=== PATIENT | male | born 1990 | race Caucasian/White ===

== ENCOUNTER → 2016-08-31 | Outpatient (CLI) | payer MEDICAID, OTHER | LOC: M OUTALCOH 08:20 | PROVIDERS: ATTEND Psychiatry & Neurology Psychiatry | DX: Z03.89 Encounter for observation for other suspected diseases and conditions ruled out (principal) ==

== ENCOUNTER 2018-09-17 08:45 | Outpatient (RCR) | payer OTHER | END 2018-10-06 | LOC: M OUTALCOH 08:45 | PROVIDERS: ATTEND Psychiatry & Neurology Psychiatry | DX: F11.20 Opioid dependence, uncomplicated (principal); F10.10 Alcohol abuse, uncomplicated; F12.20 Cannabis dependence, uncomplicated ==

== ENCOUNTER 2019-02-13 08:33 | Emergency (ER) | payer OTHER ==
[~2019-02-13] VITALS: Ht 170.2 cm; Wt 67.0 kg
[2019-02-13] MEDS ORDERED: NALOXONE INJ 2 MG/2 ML SYRINGE (J2310) IV STA (08:36)
[2019-02-13] MEDS ORDERED: ONDANSETRON 4MG/2ML VIAL (J2405) As Ordered ONE (09:05)
[2019-02-13 09:06] LABS: BASO % 0.5 % (0.0-1.0); EOS % 4.2 % (0.0-3.0); HEMATOCRIT 40.4 % (42.0-52.0); HEMOGLOBIN 13.7 g/dl (13.5-17.5); LYMPH % 23.2 % (24.0-44.0); MEAN CORPUSCULAR HEMOGLOBIN 29.6 pg (27.0-33.0); MEAN CORPUSCULAR HGB CONC 33.9 g/dl (32.0-36.5); MEAN CORPUSCULAR VOLUME 87.3 fl (80.0-96.0); MONO % 7.4 % (0.0-5.0); NEUTROPHILS # 3.8 10^3/uL (1.5-8.5); NEUTROPHILS % 64.5 % (36.0-66.0); PLATELET COUNT, AUTOMATED 238 10^3/uL (150-450); RED BLOOD COUNT 4.63 10^6/uL (4.30-6.10); WHITE BLOOD COUNT 5.9 10^3/uL (4.0-10.0)
[2019-02-13 09:07] LABS: EOS # 0.3 10^3/uL (0.0-0.5); LYMPH # 1.4 10^3/uL (1.5-5.0); MONO # 0.4 10^3/uL (0.0-0.8)
[2019-02-13] MEDS ORDERED: ONDANSETRON 4MG/2ML VIAL (J2405) IV ONE (09:15)
[2019-02-13] MEDS ORDERED: NS 1,000 ML IV ONE (09:15)
[2019-02-13 09:28] LABS: ACETAMINOPHEN LEVEL < 2.0 UG/ML (10.0-30.0); ALT/SGPT 16 U/L (12-78); BILIRUBIN,DIRECT 0.1 MG/DL (0.0-0.2); BILIRUBIN,TOTAL 0.5 MG/DL (0.2-1.0); BLOOD UREA NITROGEN 15 MG/DL (7-18); CALCIUM LEVEL 8.6 MG/DL (8.5-10.1); CARBON DIOXIDE LEVEL 28 MEQ/L (21-32); CHLORIDE LEVEL 106 MEQ/L (98-107); CPK CREATINE PHOSPHOKINASE 98 U/L (39-308); CREATININE FOR GFR 1.02 MG/DL (0.70-1.30); ETHYL ALCOHOL (ETHANOL) < 0.003 % (0.000-0.010); GLOMERULAR FILTRATION RATE > 60.0 (>60); GLUCOSE, FASTING 89 MG/DL (70-100); POTASSIUM SERUM 3.9 MEQ/L (3.5-5.1); SALICYLATE LEVEL < 1.7 MG/DL (5.0-30.0); SODIUM LEVEL 143 MEQ/L (136-145); TOTAL PROTEIN 6.6 GM/DL (6.4-8.2)
[2019-02-13] MEDS ORDERED: LIDOCAINE 2% 5ML JELLY UROJET TOP ONE (09:45)
[2019-02-13 10:28] LABS: AMPHETAMINES LEVEL URINE NEGATIVE (NEGATIVE); BARBITURATES URINE NEGATIVE (NEGATIVE); BENZODIAZEPINES URINE POSITIVE (NEGATIVE); CANNABINOIDS URINE POSITIVE (NEGATIVE); COCAINE METABOLITE URINE NEGATIVE (NEGATIVE); METHADONE URINE NEGATIVE (NEGATIVE); OPIATES URINE POSITIVE (NEGATIVE); PHENCYCLIDINE URINE NEGATIVE (NEGATIVE)
[2019-02-13 12:15] VITALS: BP 107/57
--- NOTE | 2019-02-13 18:13 | ECGEPIP ---
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
== END 2019-02-13 14:50 | disposition home or self-care (01) ==
LOC: M ED 08:33
DX: F11.10 Opioid abuse, uncomplicated (principal); F13.10 Sedative, hypnotic or anxiolytic abuse, uncomplicated; I45.19 Other right bundle-branch block; F17.210 Nicotine dependence, cigarettes, uncomplicated
CPT/HCPCS: 36415; 51701; 80048; 80076; 80307; 82550; 84443; 85025; 93005; 93041; 94760; 96361; 96374; 96375; 99291; G0480; J2310; J2405

== ENCOUNTER 2019-10-18 10:00 | Emergency (ER) | payer OTHER ==
[2019-10-18 11:03] LABS: HEMATOCRIT 44.4 % (42.0-52.0); HEMOGLOBIN 14.9 g/dl (13.5-17.5); MEAN CORPUSCULAR HEMOGLOBIN 28.9 pg (27.0-33.0); MEAN CORPUSCULAR HGB CONC 33.6 g/dl (32.0-36.5); PLATELET COUNT, AUTOMATED 266 10^3/uL (150-450); RED BLOOD COUNT 5.16 10^6/uL (4.30-6.10); WHITE BLOOD COUNT 4.6 10^3/uL (4.0-10.0)
[2019-10-18 11:29] LABS: AMPHETAMINES LEVEL URINE NEGATIVE (NEGATIVE); BARBITURATES URINE NEGATIVE (NEGATIVE); BENZODIAZEPINES URINE POSITIVE (NEGATIVE); CANNABINOIDS URINE POSITIVE (NEGATIVE); COCAINE METABOLITE URINE NEGATIVE (NEGATIVE); METHADONE URINE NEGATIVE (NEGATIVE); OPIATES URINE POSITIVE (NEGATIVE); PHENCYCLIDINE URINE NEGATIVE (NEGATIVE)
[2019-10-18 11:51] LABS: ACETAMINOPHEN LEVEL < 2.0 UG/ML (10.0-30.0); ALBUMIN 4.4 GM/DL (3.2-5.2); ALT/SGPT 19 U/L (12-78); BILIRUBIN,DIRECT 0.3 MG/DL (0.0-0.2); BILIRUBIN,TOTAL 0.8 MG/DL (0.2-1.0); BLOOD UREA NITROGEN 14 MG/DL (7-18); CALCIUM LEVEL 9.8 MG/DL (8.5-10.1); CARBON DIOXIDE LEVEL 30 MEQ/L (21-32); CHLORIDE LEVEL 105 MEQ/L (98-107); CREATININE FOR GFR 0.95 MG/DL (0.70-1.30); ETHYL ALCOHOL (ETHANOL) < 0.003 % (0.000-0.010); GLOMERULAR FILTRATION RATE > 60.0 (>60); GLUCOSE, FASTING 77 MG/DL (70-100); POTASSIUM SERUM 4.9 MEQ/L (3.5-5.1); SALICYLATE LEVEL < 1.7 MG/DL (5.0-30.0); SODIUM LEVEL 140 MEQ/L (136-145); TOTAL PROTEIN 7.6 GM/DL (6.4-8.2)
[2019-10-18 14:31] VITALS: BP 123/74
== END 2019-10-18 14:43 | disposition home or self-care (01) ==
LOC: M ED 10:00
DX: F43.0 Acute stress reaction (principal)
CPT/HCPCS: 36415; 80048; 80076; 80307; 84443; 85027; 99284; G0480

== ENCOUNTER 2020-02-06 09:12 | Emergency (ER) | payer OTHER ==
[2020-02-06 09:15] VITALS: BP 161/96
== END 2020-02-06 10:16 | disposition home or self-care (01) ==
LOC: M ED 09:12
DX: F15.10 Other stimulant abuse, uncomplicated (principal)
CPT/HCPCS: 99284; U0003

== ENCOUNTER 2020-02-07 08:20 | Emergency (ER) | payer OTHER ==
[~2020-02-07] VITALS: Ht 172.7 cm; Wt 68.1 kg
[2020-02-07] MEDS ORDERED: hydrOXYzine 50 MG TAB PO STA (14:49)
[2020-02-07 15:02] VITALS: BP 121/69
== END 2020-02-07 15:18 | disposition home or self-care (01) ==
LOC: M ED 08:20
DX: F15.10 Other stimulant abuse, uncomplicated (principal)

== ENCOUNTER 2020-12-30 15:44 | Inpatient (IN) | payer OTHER ==
[~2020-12-30] VITALS: Ht 170.2 cm; Wt 71.1 kg
[2020-12-30] MEDS ORDERED: SUBO8MIS SL (15:53)
--- OUTSIDE RECORDS SUMMARY | 2020-12-30 15:53 | CCD ---
Author Author [facility] Organization [facility] Address Unknown Phone Unavailable Care Team Providers Care Direct Sales Professional Name Role Phone SYSTEM IN, NOT IN PROVIDER Unavailable Unavailable CANDE, N REBECCA MD Unavailable Unavailable CANDE, N REBECCA MD Unavailable Unavailable CANDE, N REBECCA MD Unavailable Unavailable CANDE, N REBECCA MD Unavailable Unavailable CANDE, N REBECCA MD Unavailable Unavailable CANDE, N REBECCA MD Unavailable Unavailable CANDE, N REBECCA MD Unavailable Unavailable CANDE, N REBECCA MD Unavailable Unavailable CANDE, N REBECCA MD Unavailable Unavailable ACNDE, N REBECCA MD Unavailable Unavailable CANDE, N REBECCA MD Unavailable Unavailable CANDE, N REBECCA MD Unavailable Unavailable CANDE, N REBECCA MD Unavailable Unavailable CANDE, N REBECCA MD Unavailable Unavailable CANDE, N REBECCA MD Unavailable Unavailable CANDE, N REBECCA MD Unavailable Unavailable CANDE, N REBECCA MD Unavailable Unavailable CANDE, N REBECCA MD Unavailable Unavailable CANDE, N REBECCA MD Unavailable Unavailable CANDE, N REBECCA MD Unavailable Unavailable CANDE, N REBECCA MD Unavailable Unavailable CANDE, N REBECCA MD Unavailable Unavailable CANDE, N REBECAC MD Unavailable Unavailable CANDE, N REBECCA MD Unavailable Unavailable CANDE, N REBECCA MD Unavailable [facility] Unavailable Adilene SHAH MD Unavailable Unavailable Adilene SHAH MD Unavailable Unavailable Adilene SHAH MD Unavailable Unavailable Adilene SHAH MD Unavailable Unavailable Adilene SHAH MD Unavailable Unavailable Adilene SHAH MD Unavailable Unavailable Adilene SHAH MD Unavailable Unavailable Adilene SHAH MD Unavailable Unavailable Rodolfo FAM MD Unavailable Unavailable Rodolfo FAM MD Unavailable Unavailable Rodolfo FAM MD Unavailable Unavailable Rodolfo FAM MD Unavailable Unavailable Rodolfo FAM MD Unavailable Unavailable Rodolfo FAM MD Unavailable Unavailable Rodolfo FAM MD Unavailable Unavailable Rodolfo FAM MD Unavailable Unavailable Rodolfo FAM MD Unavailable Unavailable Dom, D Brenda Unavailable Unavailable Dom, D Brenda Unavailable Unavailable Dom, D Brenda Unavailable Unavailable Dom, D Brenda Unavailable Unavailable Dom, D Brenda Unavailable Unavailable Dom, D Brenda Unavailable Unavailable Dom, D Brenda Unavailable Unavailable SYMENOW, G CHRISTOPHER PA Unavailable Unavailable SYMENOW, G CHRISTOPHER PA Unavailable Unavailable SYMENOW, G CHRISTOPHER PA Unavailable Unavailable SYMENOW, G CHRISTOPHER PA Unavailable Unavailable SYMENOW, G CHRISTOPHER PA Unavailable Unavailable SYMENOW, G CHRISTOPHER PA Unavailable Unavailable SYMENOW, G CHRISTOPHER PA Unavailable Unavailable SYMENOW, G CHRISTOPHER PA Unavailable Unavailable SYMENOW, G CHRISTOPHER PA Unavailable Unavailable SYMENOW, G CHRISTOPHER PA Unavailable Unavailable SYMENOW, G CHRISTOPHER PA Unavailable Unavailable SYMENOW, G CHRISTOPHER PA Unavailable Unavailable SYMENOW, G CHRISTOPHER PA Unavailable Unavailable SYMENOW, G CHRISTOPHER PA Unavailable Unavailable SYMENOW, G CHRISTOPHER PA Unavailable Unavailable SYMENOW, G CHRISTOPHER PA Unavailable Unavailable Michelle Palma MD Unavailable Unavailable Michelle Palma MD Unavailable Unavailable Michelle Palma MD Unavailable Unavailable Michelle Palma MD Unavailable Unavailable Michelle Palma MD Unavailable Unavailable Michelle Palma MD Unavailable Unavailable Michelle Palma MD Unavailable Unavailable Michelle Palma MD Unavailable Unavailable Michelle Palma MD Unavailable Unavailable Michelle Palma MD Unavailable Unavailable Michelle Palma MD Unavailable Unavailable Michelle Palma MD Unavailable Unavailable Michelle Palma MD Unavailable Unavailable Kim Sommer MD Unavailable Unavailable Kim Sommer MD Unavailable Unavailable Kim Sommer MD Unavailable Unavailable Kim Sommer MD Unavailable Unavailable Kim Sommer MD Unavailable Unavailable Kim Sommer MD Unavailable Unavailable Kim Sommer MD Unavailable Unavailable Kim Sommer MD Unavailable Unavailable Kim Sommer MD Unavailable Unavailable Wiener, V Nile RICH Unavailable Unavailable Wiener, V Nile RICH Unavailable Unavailable Wiener, V Nile RICH Unavailable Unavailable Wiener, V Nile RICH Unavailable Unavailable Wiener, V Nile RICH Unavailable Unavailable Wiener, V Nile RICH Unavailable Unavailable Wiener, V Nile RICH Unavailable Unavailable Wiener, V Nile RICH Unavailable Unavailable Wiener, V Nile RICH Unavailable Unavailable Wiener, V Nile RICH Unavailable Unavailable Wiener, V Nile RICH Unavailable Unavailable Wiener, V Nile RICH Unavailable Unavailable Wiener, V Nile RICH Unavailable Unavailable Wiener, V Nile RICH Unavailable Unavailable Wiener, V Nile RICH Unavailable Unavailable Wiener, V Nile RICH Unavailable Unavailable Wiener, V Nile RICH Unavailable Unavailable Wiener, V Nile RICH Unavailable Unavailable Wiener, V Nile RICH Unavailable Unavailable Wiener, V Nile RICH Unavailable Unavailable Wiener, V Nile RICH Unavailable Unavailable Wiener, V Nile RCIH Unavailable Unavailable Wiener, V Nile RICH Unavailable Unavailable Wiener, V Nile RICH Unavailable Unavailable Wiener, V Nile RICH Unavailable Unavailable Wiener, V Nile RICH Unavailable Unavailable Wiener, V Nile RICH Unavailable Unavailable Wiener, V Nile RICH Unavailable Unavailable Wiener, V Nile RICH Unavailable Unavailable Wiener, V Nile RICH Unavailable Unavailable Wiener, V Nile RICH Unavailable Unavailable Wiener, V Nile RICH Unavailable Unavailable Wiener, V Nile RICH Unavailable Unavailable Wiener, V Nile RICH Unavailable Unavailable Cheryl Kelley MD Unavailable Unavailable Cheryl Kelley MD Unavailable Unavailable Cheryl Kelley MD Unavailable Unavailable Cheryl Kelley MD Unavailable Unavailable Cheryl Kelley MD Unavailable Unavailable Cheryl Kelley MD Unavailable Unavailable Cheryl Kelley MD Unavailable Unavailable Cheryl Kelley MD Unavailable Unavailable Cheryl Kelley MD Unavailable Unavailable Cheryl Kelley MD Unavailable Unavailable Cheryl Kelley MD Unavailable Unavailable Cheryl Kelley MD Unavailable Unavailable Cheryl Kelley MD Unavailable Unavailable Cheryl Kelley MD Unavailable Unavailable Cheryl Kelley MD Unavailable Unavailable Cheryl Kelley MD Unavailable Unavailable Cheryl Kelley MD Unavailable Unavailable Cheryl Kelley MD Unavailable Unavailable Cheryl Kelley MD Unavailable Unavailable Cheryl Kelley MD Unavailable Unavailable Green, I Maria Esther Unavailable + Green, I Maria Esther Unavailable + Green, I Maria Esther Unavailable + Adlakha, Jasjit Unavailable Unavailable Adlakha, Jasjit Unavailable Unavailable Adlakha, Jasjit Unavailable Unavailable Adlakha, Jasjit Unavailable Unavailable Adlakha, Jasjit Unavailable Unavailable Adlakha, Jasjit Unavailable Unavailable STACK, M DAVIDA DO Unavailable Unavailable STACK, M DAVIDA DO Unavailable Unavailable STACK, M DAVIDA DO Unavailable Unavailable STACK, M DAVIDA DO Unavailable Unavailable STACK, M DAVIDA DO Unavailable Unavailable STACK, M DAVIDA DO Unavailable Unavailable STACK, M DAVIDA DO Unavailable Unavailable STACK, M DAVIDA DO Unavailable Unavailable STACK, M DAVIDA DO Unavailable Unavailable VALERIE, M YESY Unavailable Unavailable Shanell WAGONER MD Unavailable Unavailable Shanell WAGONER MD Unavailable Unavailable CIARAN, Shanell JURADO MD Unavailable Unavailable Shanell WAGONER MD Unavailable Unavailable CIARAN, Shanell JURADO MD Unavailable Unavailable Shanell WAGONER MD Unavailable Unavailable Tamar Coombs DO Unavailable [email or web address] Tamar Coombs DO Unavailable [email or web address] Re-disclosure Warning The records that you are about to access may contain information from federally-assisted alcohol or drug abuse programs. If such information is present, then the following federally mandated warning applies: This information has been disclosed to you from records protected by federal confidentiality rules (42 CFR part 2). The federal rules prohibit you from making any further disclosure of this information unless further disclosure is expressly permitted by the written consent of the person to whom it pertains or as otherwise permitted by 42 CFR part 2. A general authorization for the release of medical or other information is NOT sufficient for this purpose. The Federal rules restrict any use of the information to criminally investigate or prosecute any alcohol or drug abuse patient.The records that you are about to access may contain highly sensitive health information, the redisclosure of which is protected by Article 27-F of the [facility] Public Health law. If you continue you may have access to information: Regarding HIV / AIDS; Provided by facilities licensed or operated by the [facility] Office of Mental Health; or Provided by the [facility] Office for People With Developmental Disabilities. If such information is present, then the following [facility] mandated warning applies: This information has been disclosed to you from confidential records which are protected by state law. State law prohibits you from making any further disclosure of this information without the specific written consent of the person to whom it pertains, or as otherwise permitted by law. Any unauthorized further disclosure in violation of state law may result in a fine or assisted sentence or both. A general authorization for the release of medical or other information is NOT sufficient authorization for further disc losure. Allergies and Adverse Reactions Type Description Substance Reaction Status Data Source(s ) Propensity to adverse reactions NO KNOWN ALLERGIES NO KNOWN ALLERGIES [facility] Encounters Encounter Providers Location Date Indications Data Source(s ) Outpatient Attender: Nile Sommer MD 05/28/2020 12:00:00 A M [facility] Outpatient Attender: Nile Sommer MDReferrer: YESY PADILLA 05/25/2020 12:00:00 AM [facility] Outpatient Attender: Nile Sommer MD 04/30/2020 12:00:00 A M [facility] Outpatient Attender: Nile Sommer MDReferrer: YESY PADILLA 04/27/2020 12:00:00 AM [facility] Unlisted evaluation and management service 08/2020 07:06:00 PM [facility]) Outpatient Attender: REBECCA CASTELLON MD [id number] 02/13/2020 12:00:0 0 AM [facility] Unlisted evaluation and management service 02/2020 09:44:00 PM [facility]) Outpatient Attender: MICAH SAPP PAConsultant: [id number] 02/07/2020 02:11:00 AM [facility] Emergency Attender: Ranjit Matos nder: ADRIEN WAGONER MDReferrer: PROVIDER SYSTEM IN A-ERMADULT 02/07/2020 12:00:00 AM EST - 02/08/2020 09:26:00 AM EST Opioid dependence with withdrawal [facility] Opioid dependence with withdrawal Patient discharged. Emergency Attender: MICAH REESE EMERGENCY ROOM- ER 02/06/2020 11:51:00 PM EST - 02/07/2020 07:30:00 AM EST [facility] Patient discharged. Inpatient Attender: Maria Esther Gibson itter: Maria Esther Norriser: Cheryl Kelley MD 01/24/2020 12:00:00 AM EST Other ascites [facility] Other ascites Inpatient Attender: Maria Esther Tejeda holden: ADRIÁN SHAH MDAttender: DAVIDA MUELLER DOAdmitter: Maria Esther Devineerrer: Stephanie Jones [id number] 01/23/2020 12:00:00 AM EST - 01/25/2020 04:33:00 PM EST Other ascites [facility] Other ascites Patient discharged. Inpatient Attender: ELIA FAM MDA ttender: Brenda Meradmitter: Brenda Leongr: Tamar Coombs DO [id number] 01/04/2020 12:00:[address] - 01/10/2020 06:36:00 PM EST Illness, unspecified [facility] Illness, unspecified Patient discharged. Immunizations Vaccine Date Status Description Data Source(s) Tdap 01/04/2020 12:00:00 AM EST completed <td ID="[id number]">Tdap</td><td>01/04/2020</td><td></td> [facility] Medications Medication Brand Name Start Date Product Form Dose Route Admi nistrative Instructions Pharmacy Instructions Status Indications Reaction Description Data Source(s) Clonidine Hydrochloride 0.1 MG Oral Tablet cloNIDine ( CATAPRES) tablet 0.2 mg cloNIDine (CATAPRES) tablet 0.2 mg 02/08/2020 02:45:00 AM EST 0.2 mg Oral completed 0.2 mg, Oral, Once, 02/08/20 at 0245, For 1 dose
Check vital signs before administering
[facility] Medication administered onsite Buprenorphine 4 MG / Naloxone 1 MG Oral Strip buprenorphine-naloxone (SUBOXONE) 4-1 MG per sublingual film 1 Film buprenorphine-naloxone (SUBOXONE) 4-1 MG per sublingual film 1 Film 02/08/2020 01:45:00 AM EST Sublingual completed 1 Film (4 mg of buprenorphin e), Sublingual, Once, 02/08/20 at 0145, For 1 dose [facility] Medication administered onsite Buprenorphine 2 MG / Naloxone 0.5 MG Ora l Strip buprenorphine-naloxone (SUBOXONE) 2-0.5 MG per sublingual film 1 Film buprenorphine-naloxone (SUBOXONE) 2-0.5 MG per sublingual film 1 Film 02/08/2020 01:45:00 AM EST Sublingual completed 1 Film (2 mg of buprenorphine), Sublingual, Once, 02/08/20 at 0145, For 1 dose [facility] Medication administered onsite Buprenorphine 8 MG / Naloxone 2 MG Oral Strip Buprenorphine HCl-Naloxone HCl 8-2 MG Sublingual Film (SUBOXONE) Buprenorphine HCl-Naloxone HCl 8-2 MG Alvarez blingual Film (SUBOXONE) 02/08/2020 12:00:00 AM EST 1 {film} Sublingual active Opioid Dependence [facility] 1 Film under the tongu e daily for 3 days, Max Daily Dose: 1 Film Indications: Opioid Dependence [facility] Opioid Dependence Buprenorphine 2 MG / Naloxone 0.5 MG Ora l Strip buprenorphine-naloxone (SUBOXONE) 2-0.5 MG per sublingual film 1 Film buprenorphine-naloxone (SUBOXONE) 2-0.5 MG per sublingual film 1 Film 02/08/2020 12:00:00 AM EST Sublingual completed 1 Film (2 mg of buprenorphine), Sublingual, Once, 02/08/20 at 0000, For 1 dose [facility] Medication administered onsite Amoxicillin 875 MG / Clavulanate 125 MG Oral Tablet amoxicillin-clavulanate (AUGMENTIN) 875-125 MG per tablet 1 tablet amoxicillin-clavulanate (AUGMENTIN) 875-125 MG per tablet 1 tablet 01/25/2020 09:30:00 AM EST 1 {tbl} Or al active 1 tablet, Oral, Ever y 12 hours Standard (2 times per day), First dose on 01/25/20 at 0930, For 10 days [facility] Medication administered onsite Methadone Hydrochloride 10 MG Oral Tablet methadone (D OLOPHINE) tablet 30 mg methadone (DOLOPHINE) tablet 30 mg 01/25/2020 07:30:00 AM EST 30 mg Oral completed 30 mg, Oral, Before Breakfast, First dose (after last reorder) on 01/25/20 at 0730, For 1 dose [facility] Medication administered onsite Amoxicillin 875 MG / Clavulanate 125 MG Oral Tablet Amoxicillin-Pot Clavulanate 875-125 MG Oral Tablet (AUGMENTIN) Amoxicillin-Pot Clavulanate 875-125 MG O ral Tablet (AUGMENTIN) 01/25/2020 12:00:00 AM EST 1 {tbl} Oral active Take 1 tablet by mouth every 12 (twelve) hours for 10 days [facility] Acetaminophen 325 MG Oral Tablet Acetaminophen 325 MG Oral T ablet 01/25/2020 12:00:00 AM EST 650 mg Oral active Take 2 tablets by mouth every 6 (six) hours as needed for up to 10 days [facility] lidocaine (PF) (XYLOCAINE) 2 % injection [id number] 01/24/2020 05:06: 50 PM EST completed Code/Trauma Medicati on, Starting Mon01/24/20 at 1706 [facility] Medication administered onsite 2 ML Midazolam 1 MG/ML Injection midazolam (PF) (VERSE D) injection midazolam (PF) (VERSED) injection 01/24/2020 04:58:52 PM EST completed Code/Trauma Medication, Starting Mon01/24/[address] [place] [address] Medication administered onsite fentaNYL (SUBLIMAZE) (PF) injection [id number] 01/24/2020 04:58:44 PM EST completed Code/Trauma Medicati on, Starting Mon01/24/[address] [place] [address] Medication administered onsite Ketorolac Tromethamine 10 MG Oral Tablet ketorolac (TO RADOL) tablet 10 mg ketorolac (TORADOL) tablet 10 mg 01/24/2020 11:32:05 AM EST 10 mg Oral active 10 mg, Oral, Every 6 hours PRN, Pain, Moderate Pain (Pain Scale Score 4-6), Severe Pain (Pain Scale Score 7-10), Starting Mon01/24/20 at 1132, For 5 days
Limited to five days of therapy only.
[facility] Medication administered onsite Lidocaine 0.04 MG/MG Topical Gel Lidocaine (XYLOCAINE) 4 % gel Lidocaine (XYLOCAINE) 4 % gel 01/24/2020 09:30:00 AM EST Topical completed Topical, Once, Mon01/24/20 at 0930, For 1 dose
Apply to midline incision and call trauma after applying
[facility] Medication administered onsite Metoprolol Tartrate 25 MG Oral Tablet me toprolol tartrate (LOPRESSOR) tablet 25 mg metoprolol tartrate (LOPRESSOR) tablet 25 mg 01/24/2020 09:00:00 AM EST 25 mg Oral active 25 mg, Ora l, 2 Times Daily, First dose on Mon01/24/20 at 0900, For 30 days [facility] Medication administered onsite Methadone Hydrochloride 10 MG Oral Tablet methadone (D OLOPHINE) tablet 30 mg methadone (DOLOPHINE) tablet 30 mg 01/24/2020 07:30:00 AM EST 30 mg Oral active 30 mg, Oral, Before Breakfast, First dose on Mon01/24/20 at 0730, For 7 days [facility] Medication administered onsite Methadone Hydrochloride 10 MG Oral Tablet methadone (D OLOPHINE) tablet 30 mg methadone (DOLOPHINE) tablet 30 mg 01/24/2020 06:30:00 AM EST 30 mg Oral completed 30 mg, Oral, Once, Mon01/24/20 at 0630, For 1 dose [facility] Medication administered onsite NaCl infusion 0.9 % [id number] 01/24/2020 12:45:00 AM EST Intravenous aborted at 125 mL/hr, Intrav enous, Continuous, Starting Mon01/24/20 at 0045, For 30 days [facility] Medication administered onsite Piperacillin 3000 MG / tazobactam 375 MG Injection piperacillin-tazobactam (ZOSYN) IVPB 3.375 g (premix) piperacillin-tazobactam (ZOSYN) IVPB 3.3 75 g (premix) 01/24/2020 12:45:00 AM EST 3.375 g Intravenous abo rted 3.375 g, Intravenous, Administer over 4 Hours, Every 8 hours, First dose on Mon01/24/20 at 0045, For 5 days
This specific formulation of piperacillin- tazobactam is compatible with Lactated Ringers.
[facility] Medication administered onsite Acetaminophen 325 MG Oral Tablet acetaminophen (TYLENO L) tablet 650 mg acetaminophen (TYLENOL) tablet 650 mg 01/24/2020 12:42:35 AM EST 65 0 mg Oral active 650 mg, Oral, E very 6 hours PRN, Mild Pain (Pain Scale Score 1- 3), Starting Mon01/24/20 at 0042, For 30 days
Maximum daily dose of acetaminophen is 3,000 mg from all sources in 24 hours.
[facility] Medication administered onsite iohexol (OMNIPAQUE) 300 MG/ML contrast injection 100 mL [id number] 01/23/2020 09:15:00 PM EST 100 mL Given by IV completed 100 mL, Given by IV, 1 TIME IMAGING, Gayathri 01/23/20 at 2115, For 1 dose [facility] Medication administered onsite Acetaminophen 325 MG Oral Tablet acetaminophen (TYLENO L) tablet 975 mg acetaminophen (TYLENOL) tablet 975 mg 01/23/2020 08:30:00 PM EST 97 5 mg Oral completed 975 mg, Oral, O nce, Gayathri 01/23/20 at 2030, For 1 dose
Maximum daily dose of acetaminophen is 3,000 mg from all sources in 24 hours.
[facility] Medication administered onsite vancomycin (VANCOCIN) in D5W infusion 1,000 mg/200 mL (premi x) [id number] 01/23/2020 07:45:00 PM EST 1 g Intravenous completed 1 g, Intravenous, at 200 mL/hr, Once, Gayathri 01/23/20 at 1945, For 1 dose
Discouraged Uses: - Treatment of C. difficile infection -Routine treatment of neutropenic fever -Non-purulent cellulitis -Community-acquired intra-abdominal infection
[facility] Medication administered onsite Piperacillin 3000 MG / tazobactam 375 MG Injection piperacillin-tazobactam (ZOSYN) IVPB 3.375 g (premix) piperacillin-tazobactam (ZOSYN) IVPB 3.3 75 g (premix) 01/23/2020 07:45:00 PM EST 3.375 g Intravenous com pleted 3.375 g, Intravenous, Administer over 0.5 Hours, Once, Gayathri 01/23/20 at 1945, For 1 dose
This specific formulation of piperacillin-tazobactam is compatible with Lactated Ringers.
[facility] Medication administered onsite lactated ringers bolus 2,000 mL [id number] 01/23/2020 07:45:00 PM EST 2000 mL Intravenous completed 2,000 mL , Intravenous, Once, Gayathri 01/23/20 at 1945, For 1 dose [facility] Medication administered onsite POLYETHYLENE GLYCOL 3350 142 MG/ML Oral Solution Polyethylene Glycol 3350 17 GM Oral Packet (MIRALAX) Polyethylene Glycol 3350 17 GM Oral Packet (MIRALAX) 01/11/2020 12:00:00 AM EST 17 g Oral active Take 1 packet by mouth daily Please substitute bottle for packets, if packets are unavailable. [facility] Methadone Hydrochloride 10 MG Oral Tablet methadone (D OLOPHINE) tablet 10 mg methadone (DOLOPHINE) tablet 10 mg 01/10/2020 09:00:00 PM EST 10 mg Oral active 10 mg, Oral, 2 Times Daily, First dose on Mon01/10/20 at 2100, For 7 days [facility] Medication administered onsite Clonidine Hydrochloride 0.1 MG Oral Tablet cloNIDine ( CATAPRES) tablet 0.1 mg cloNIDine (CATAPRES) tablet 0.1 mg 01/10/2020 10:35:32 AM EST 0.1 mg Oral active 0.1 mg, Oral, Three Times Daily-PRN, anxiety, withdrawal symptoms, Starting Mon01/10/20 at 1035, For 7 days [facility] Medication administered onsite pantoprazole 40 MG Delayed Release Oral Tablet pantoprazole (PROTONIX) EC tablet 40 mg pantoprazole (PROTONIX) EC tablet 40 mg 01/10/2020 09:00:[address] 40 mg Oral active 40 mg, Ora l, Daily Standard, First dose on Mon01/10/20 at 0900, For 30 days
Do not crush or chew
[facility] Medication administered onsite Methadone Hydrochloride 10 MG Oral Table t Methadone HCl 10 MG Oral Tablet (Dolophine) Methadone HCl 10 MG Oral Tablet (Dolophine) 01/10/2020 12:00:00 AM EST 10 mg Oral active Take 1 t ablet by mouth Two Times Daily for 4 days, Max Daily Dose: 20 mg [facility] Docusate Sodium 100 MG Oral Capsule Docu sate Sodium 100 MG Oral Capsule (COLACE) Docusate Sodium 100 MG Oral Capsule (COLACE) 01/10/2020 12:00:00 AM EST 100 mg Oral active Take 1 capsule by mouth Two Times Daily for 10 days [facility] Clonidine Hydrochloride 0.1 MG Oral Tabl et cloNIDine HCl 0.1 MG Oral Tablet (CATAPRES) cloNIDine HCl 0.1 MG Oral Tablet (CATAPRES) 01/10/2020 12:00:00 AM EST 0.1 mg Oral active Take 1 t ablet by mouth Three times daily as needed (anxiety, withdrawal symptoms) for up to 10 days [facility] Acetaminophen 325 MG Oral Tablet Acetaminophen 325 MG Oral T ablet 01/10/2020 12:00:00 AM EST 975 mg Oral active Take 3 tablets by mouth every 8 (eight) hours for 10 days [facility] Metoprolol Tartrate 25 MG Oral Tablet Me toprolol Tartrate 25 MG Oral Tablet (LOPRESSOR) Metoprolol Tartrate 25 MG Oral Tablet (LOPRESSOR) 05/2019 12:00:00 AM EST 25 mg Oral active Take 1 tablet by mouth Two Times Daily [facility] Methadone Hydrochloride 1 MG/ML Oral Sil ution methadone (DOLOPHINE) 5 MG/5ML oral solution 10 mg methadone (DOLOPHINE) 5 MG/5ML oral solution 10 mg 01/09/2020 07:00:00 PM EST 10 mg Oral aborted 10 mg, Oral, Every 12 hours Standard (2 times per day), First dose (after last modification) on Gayathri 01/09/20 at 1900, For 7 days [facility] Medication administered onsite ondansetron (ZOFRAN) injection 4 mg [id number] 01/09/2020 12:11:3 8 PM EST 4 mg Intravenous active 4 mg, In travenous, Every 8 hours PRN, Nausea, Vomiting, Starting Gayathri 01/09/20 at 1211, For 5 days [facility] Medication administered onsite HYDROmorphone (DILAUDID) injection 0.5 mg [id number] 01/09/2020 10:26:59 AM EST 0.5 mg Intravenous active 0.5 mg, Intravenous, Every 6 hours PRN, For breakthrough pain when PO morphine does not work., Starting Gayathri 01/09/20 at 1026, For 3 days [facility] Medication administered onsite Morphine Sulfate 15 MG Oral Tablet morphine (MSIR) tab let 15 mg morphine (MSIR) tablet 15 mg 01/09/2020 10:26:04 AM EST 15 mg Oral activ e 15 mg, Oral, Every 4 hours PRN, Moderate Pain (Pain Scale Score 4-6), Starting Gayathri 01/09/20 at 1026, For 3 days [facility] Medication administered onsite Morphine Sulfate 15 MG Oral Tablet morphine (MSIR) tab let 30 mg morphine (MSIR) tablet 30 mg 01/09/2020 10:25:40 AM EST 30 mg Oral activ e 30 mg, Oral, Every 6 hours PRN, Severe Pain (Pain Scale Score 7-10), Starting Gayathri 01/09/20 at 1025, For 3 days [facility] Medication administered onsite furosemide (LASIX) injection 20 mg [id number] 01/09/2020 08:45:00 AM EST 20 mg Intravenous completed 20 mg, I ntravenous, Once, [facility] 01/09/20 at 0845, For 1 dose
Notify provider if systolic blood pressure less than: 100 [facility] Medication administered onsite potassium chloride (K-DUR) dissolvable tablet 40 mEq [id number] 01/09/2020 06:15:00 AM EST 40 meq Oral completed 40 mEq, Oral, Once, [facility] 01/09/20 at 0615, For 1 dose
May be dissolved in water for patients with a G-Tube or unable to swallow. If concern for clogging G-Tube, may contact Pharmacy to switch formulation to a powder packet.
[facility] Medication administered onsite potassium chloride (K-DUR) dissolvable tablet 20 mEq 28192-9 38-90 01/08/2020 04:00:00 PM EST 20 meq Oral aborted 20 mEq, Oral, 2 Times Daily, First dose (after last modification) on Mon01/08/20 at 1600, For 3 days
Take with food. May be dissolved in water for patients with a G-Tube or unable to swallow. If concern for clogging G-Tube, may contact Pharmacy to switch formulation to a powder packet.
[facility] Medication administered onsite Potassium Chloride 0.1 MEQ/ML Injectable Solution potassium chloride 10 mEq in 100 mL IVPB (premix) potassium chloride 10 mEq in 100 mL IVPB (premix) 01/08/2020 12:00:00 PM EST 10 meq Intravenous aborted 10 mEq, Intravenous, Administer over 60 Minutes, Every 1 hour, First dose on Mon01/08/20 at 1200, For 2 doses [facility] Medication administered onsite potassium phosphate 155 MG / Sodium Phos phate, Dibasic 852 MG / Sodium Phosphate, Monobasic 130 MG Oral Tablet phosphorus (K PHOS NEUTRAL) tablet 250 mg phosphorus (K PHOS NEUTRAL) tablet 250 mg 01/08/2020 09:00:00 AM EST 250 mg Oral active 250 mg, Or al, 2 Times Daily, First dose on Mon01/08/20 at 0900, For 3 days
Each 250 mg tablet contains: elemental phosphorous 250 mg (8 mmol), sodium 298 mg (12.9 mEq), and potassium 45 mg (1.1 mEq)
[facility] Medication administered onsite potassium chloride (K-DUR) dissolvable tablet 40 mEq [id number] 38-90 01/08/2020 09:00:00 AM EST 40 meq Oral aborted 40 mEq, Oral, 2 Times Daily, First dose on Mon01/08/20 at 0900, For 1 day
May be dissolved in water for patients with a G-Tube or unable to swallow. If concern for clogging G-Tube, may contact Pharmacy to switch formulation to a powder packet.
[facility] Medication administered onsite magnesium sulfate in dextrose 5 % infusion (premix) 1 g [id number] -[id number] 01/08/2020 08:00:00 AM EST 1 g Intravenous completed 1 g, Intravenous, Administer over 60 Minutes, Every 1 hour, First dose on Mon01/08/20 at 0800, For 2 doses [facility] Medication administered onsite sennosides, INTERMEDIATE 8.6 MG Oral Tablet senna tablet 2 tablet sen na tablet 2 tablet 01/07/2020 10:00:00 PM EST 2 {tbl} Oral active 2 tablet, Oral, Nightly, First dose on Mon01/07/20 at 2200, For 30 days [facility] Medication administered onsite Melatonin 3 MG Oral Tablet melatonin tablet 3 mg melatonin t ablet 3 mg 01/07/2020 10:00:00 PM EST 3 mg Oral active 3 mg, Oral, Nightly, First dose on Mon01/07/20 at 2200, For 30 days [facility] Medication administered onsite Docusate Sodium 100 MG Oral Capsule docusate sodium (C OLACE) capsule 100 mg docusate sodium (COLACE) capsule 100 mg 01/07/2020 09:00:00 PM EST 100 mg Oral active 100 mg, Oral, 2 Times Daily, First dose on Mon01/07/20 at 2100, For 30 days [facility] Medication administered onsite Metoprolol Tartrate 25 MG Oral Tablet me toprolol tartrate (LOPRESSOR) tablet 25 mg metoprolol tartrate (LOPRESSOR) tablet 25 mg 01/07/2020 09:00:00 PM EST 25 mg Oral active 25 mg, Ora l, 2 Times Daily, First dose on Mon01/07/20 at 2100, For 30 days [facility] Medication administered onsite Acetaminophen 325 MG Oral Tablet acetaminophen (TYLENO L) tablet 975 mg acetaminophen (TYLENOL) tablet 975 mg 01/07/2020 05:00:00 PM EST 97 5 mg Oral active 975 mg, Oral, E very 8 hours, First dose on Mon01/07/20 at 1700, For 30 days
Maximum daily dose of acetaminophen is 3,000 mg from all sources in 24 hours.
[facility] Medication administered onsite gabapentin 300 MG Oral Capsule gabapentin (NEURONTIN) capsule 300 mg gabapentin (NEURONTIN) capsule 300 mg 01/07/2020 05:00:00 PM EST 300 mg Oral active 300 mg, Oral, Three Times D aily Standard, First dose on Mon01/07/20 at 1700, For 14 days [facility] Medication administered onsite Calcium Chloride 0.0014 MEQ/ML / Potassi um Chloride 0.004 MEQ/ML / Sodium Chloride 0.103 MEQ/ML / Sodium Lactate 0.028 MEQ/ML Injectable Solution lactated ringers infusion lactated ringers infusion 01/07/2020 03:30:00 PM EST 75 mL/h Intravenous aborted at 75 mL/hr, Intravenous, Continuous, Starting Mon01/07/20 at 1530, For 643 hours [facility] Medication administered onsite POLYETHYLENE GLYCOL 3350 142 MG/ML Oral Solution polyethylene glycol (MIRALAX) packet 17 g polyethylene glycol (MIRALAX) packet 17 g 01/07/2020 0 3:30:00 PM EST 17 g Oral active 17 g, Or al, Daily Standard, First dose on Mon01/07/20 at 1530, For 30 days
Mix in 8 ounces of water, juice or milk. Avoid use in patients who require thickened liquids due to potential increased risk for aspiration.
[facility] Medication administered onsite HYDROmorphone bolus from bag 0.8 mg 01/07/2020 12:34:41 PM EST 0.8 mg Intravenous aborted 0.8 mg, Intra venous, Every 2 hours PRN, breakthrough, Starting Mon01/07/20 at 1234, For 1 day [facility] Medication administered onsite potassium chloride (K-DUR) dissolvable tablet 40 mEq [id number] 38-90 01/07/2020 11:30:00 AM EST 40 meq Oral completed 40 mEq, Oral, Once, Mon01/07/20 at 1130, For 1 dose
May be dissolved in water for patients with a G-Tube or unable to swallow. If concern for clogging G-Tube, may contact Pharmacy to switch formulation to a powder packet.
[facility] Medication administered onsite Acetaminophen 10 MG/ML Injectable Soluti on acetaminophen (OFIRMEV) infusion 1,000 mg acetaminophen (OFIRMEV) infusion 1,000 mg 01/07/2020 10:00:00 AM EST 1000 mg Intravenous aborted 1,000 mg , Intravenous, Administer over 15 Minutes, Every 8 hours, First dose on Mon01/07/20 at 1000, For 3 doses
Maximum daily dose of acetaminophen from all sources 3,000 mg daily.
[facility] Medication administered onsite Metoprolol Tartrate 1 MG/ML Injectable S olution metoprolol (LOPRESSOR) injection 5 mg metoprolol (LOPRESSOR) injection 5 mg 01/06/2020 09:00:00 PM EST 5 mg Intravenous aborted 5 mg, Intrave nous, Every 6 hours, First dose on Mon01/06/20 at 2100, For 30 days
Dilute in 25 or 50 mL NS and administer over 30 minutes. If giving IVP, must be administered under the direct supervision of a medical provider and patient on a personnel monitor.
[facility] Medication administered onsite Melatonin 5 MG Oral Tablet melatonin tablet 5 mg melatonin t ablet 5 mg 01/06/2020 12:15:46 AM EST 5 mg Oral active 5 mg, Oral, Nightly PRN, Sleep, Starting Mon01/06/20 at 0015, For 30 days [facility] Medication administered onsite 0.3 ML Enoxaparin sodium 100 MG/ML Prefi lled Syringe enoxaparin sodium (LOVENOX) injection 30 mg enoxaparin sodium (LOVENOX) injection 30 mg 01/05/2020 09:00:00 PM EST 30 mg Subcutaneous active 30 mg, Subcutaneous, Every 12 hours Standard (2 times per day), First dose on 01/05/20 at 2100, For 30 days [facility] Medication administered onsite 2 ML Adenosine 3 MG/ML Injection adenosine (ADENOCARD) injection 6 mg adenosine (ADENOCARD) injection 6 mg 01/05/2020 07:30:00 PM EST 6 mg Intrav enous completed 6 mg, Intravenous, Once, Sun at 1930, For 1 dose [facility] Medication administered onsite HYDROmorphone (DILAUDID) injection 1 mg [id number] 01/05/20 05:00:00 PM EST 1 mg Intravenous completed 1 mg, Intr avenous, Once, 01/05/20 at 1700, For 1 dose [facility] Medication administered onsite 30 ML Adenosine 3 MG/ML Injection adenosine (ADENOSCAN ) injection 6 mg adenosine (ADENOSCAN) injection 6 mg 01/05/2020 12:30:00 PM EST 6 mg Intrav enous completed 6 mg, Intravenous, Once, Sun at 1230, For 1 dose [facility] Medication administered onsite 2 ML Adenosine 3 MG/ML Injection adenosine (ADENOCARD) 6 MG/2ML injection adenosine (ADENOCARD) 6 MG/2ML injection 01/05/2020 12:25:16 PM EST completed Starting Sun 0 at 1225, For 1 dose
Jasmyne Cook: cabinet override
[facility] Medication administered onsite Acetaminophen 10 MG/ML Injectable Soluti on acetaminophen (OFIRMEV) infusion 1,000 mg acetaminophen (OFIRMEV) infusion 1,000 mg 01/04/2020 05:00:00 PM EST 1000 mg Intravenous completed 1,000 mg , Intravenous, Administer over 15 Minutes, Every 8 hours Standard (3 times per day), First dose on 01/04/20 at 1700, For 8 doses
Maximum daily dose of acetaminophen from all sources 3,000 mg daily.
[facility] Medication administered onsite 0.5 ML Bordetella pertussis filamentous hemagglutinin vaccine, inactivated 0.016 MG/ML / Bordetella pertussis pertactin vaccine, inactivated 0.005 UNT/ML / Bordetella pertussis toxoid vaccine, inactivated 0.016 MG/ML / diphtheria toxoid vaccine, inactivat Tdap (BOOSTRIX) injection 0.5 mL Tdap (BOOSTRIX) injection 0.5 mL 01/04/2020 03:45:00 PM EST 0.5 mL Intramuscular comp leted 0.5 mL, Intramuscular, Once, 01/04/20 at 1545, For 1 dose [facility] Medication administered onsite 50 ML Magnesium Sulfate 40 MG/ML Injecti on magnesium sulfate infusion 2 g/50 mL (premix) magnesium sulfate infusion 2 g/50 mL (premix) 01/04/20 02:47:30 PM EST 16 meq Intravenous aborted 16 m Eq, Intravenous, Every 1 hour PRN, for serum magnesium < 2 mEq/L, Starting 01/04/20 at 1447, For 7 days
Serum Magnesium 1.6 - 1.9: give 16 mEq (2 g) q1h x 2 Serum Magnesium 1.5 and less: give 16 mEq (2 g) q1h x 3 *For ICU Stay only, discontinue on transfer*
[facility] Medication administered onsite Piperacillin 3000 MG / tazobactam 375 MG Injection piperacillin-tazobactam (ZOSYN) IVPB 3.375 g (premix) piperacillin-tazobactam (ZOSYN) IVPB 3.3 75 g (premix) 01/04/2020 11:15:00 AM EST 3.375 g Intravenous com pleted 3.375 g, Intravenous, Administer over 4 Hours, Every 8 hours, First dose on 01/04/20 at 1115, For 3 days
This specific formulation of piperacillin- tazobactam is compatible with Lactated Ringers.
[facility] Medication administered onsite Calcium Chloride 0.0014 MEQ/ML / Potassi um Chloride 0.004 MEQ/ML / Sodium Chloride 0.103 MEQ/ML / Sodium Lactate 0.028 MEQ/ML Injectable Solution lactated ringers infusion lactated ringers infusion 01/04/2020 11:15:00 AM EST Intravenous aborted at 125 mL/hr, Intravenous, Continuous, Starting 01/04/20 at 1115, For 30 days [facility] Medication administered onsite fluconazole (DIFLUCAN) 400 mg in sodium chloride 0.9 % 200 mL (2 mg/mL) infusion (premix) [id number] 01/04/2020 11:15:00 AM EST 400 mg Intravenous completed 400 mg, Intravenous, at 100 mL/hr, Once, 01/04/20 at 1115, For 1 dose
Discouraged Uses: Treatment of Sravani growth from the urine
[facility] Medication administered onsite ondansetron (ZOFRAN) injection 4 mg [id number] 01/04/2020 11:01:3 6 AM EST 4 mg Intravenous completed 4 mg, In travenous, Every 8 hours PRN, Nausea, Vomiting, Starting 01/04/20 at 1101, For 5 days [facility] Medication administered onsite fentaNYL (SUBLIMAZE) (PF) injection 25 mcg [id number] 01/04/2020 09:32:13 AM EST 25 ug Intravenous aborted 25 m cg, Intravenous, Every 5 min PRN, Severe Pain (Pain Scale Score 7-10), Starting 01/04/20 at 0932, For 10 doses, [facility] Medication administered onsite morphine sulfate (PF) injection 2 mg [id number] 01/04/2020 09:32: 12 AM EST 2 mg Intravenous aborted 2 mg, In travenous, Every 5 min PRN, Severe Pain (Pain Scale Score 7-10), Starting 01/04/20 at 0932, For 5 doses, [facility] Medication administered onsite ondansetron (ZOFRAN) injection [id number] 01/04/2020 05:30:05 AM EST completed Code/Trauma Medication, Star ting 01/04/20 at 0530 [facility] Medication administered onsite Insurance Providers Payer name Policy type / Coverage type Policy ID Covered libertarian ID Covered libertarian's relationship to odom Policy Odom Plan Information [facility] I [id number] Self [id number] [facility] [id number] S [id number] SELF PAY UNAVAILABLE S UNA[place]ILA BLE SELF PAY UNAVAILABLE UNAVAILA BLE FORMERLY [facility] [id number] YUE [id number] MEDICAID [id number] SP [id number] SELF PAY ONLY [id number] [facility] [id number] SP [id number] FORMERLY [facility] [id number] [facility] [id number] FA2 [id number] Problems, Conditions, and Diagnoses Code Display Name Description Problem Type Effective Dates Data Source(s) F11.23 Opioid dependence with withdrawal Opioid depende nce with withdrawal Diagnosis 02/07/2020 07:20:00 PM [facility] Heroin use, needs detox, has other medic al issues, needs eval Heroin use, needs detox, has other medical issues, needs eval Diagnosis 02/2020 07:20:00 PM [facility] 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 Diagnosis 02/06/2020 11:51:00 PM [facility] l Z20.828 Contact with and (suspected) exposure to other viral communicable diseases CONTACT W AND EXPOSURE TO OTH VIRAL COMMUNICABLE D Diagnosis 02/06/2020 11:51:00 PM [facility] N39.0 Urinary tract infection, site not specif ied URINARY TRACT INFECTION, SITE NOT SPECIFIED Diagnosis 02/06/2020 11:51:00 PM [facility] F11.10 Opioid abuse, uncomplicated OPIOID ABUSE, UNCOMPLICATE D Diagnosis 02/06/2020 11:51:00 PM [facility] F12.10 Cannabis abuse, uncomplicated CANNABIS ABUSE, UNCOMPLI CATED Diagnosis 02/06/2020 11:51:00 PM [facility] R45.851 Suicidal ideations SUICIDAL IDEATIONS Diagnosis 11:51:00 PM [facility] R18.8 Other ascites Other ascites Diagnosis 01/24/2020 12:44:00 AM [facility] Post Op concerns with otf Post Op concerns with st aples Diagnosis 01/23/2020 07:09:00 PM [facility] R69 Illness, unspecified Illness, unspecified Diagnosis 01/04/2020 05:17:00 AM [facility] Surgeries/Procedures Procedure Description Date Indications Data Source(s) BUPRENORPHINE URINE <td>BUPRENORPHINE URINE</td> <td>Routine</td><td>02/08/2020 2:50 AM EST</td><td></td><td> </td> 02/08/2020 02:50:00 AM [facility] DRUGS OF ABUSE, URINE <td>DRUGS OF ABUSE, URINE</t d><td>STAT</td><td>02/08/2020 2:50 AM EST</td><td></td><td> </td> 02/08/2020 02:50:00 AM [facility] URNLS DIP STICK/TABLET REAGENT AUTO MICROSCOPY <td>URI NALYSIS WITH MICROSCOPIC</td><td>STAT</td><td>02/08/2020 2:50 AM EST</td><td></td><td> </td> 02/08/2020 02:50:00 AM [facility] BLOOD COUNT COMPLETE AUTO&AUTO DIFRNTL WBC COUNT <td>C BC AND DIFFERENTIAL</td><td>Routine</td><td>01/25/2020 4:14 AM EST</td><td></td><td> </td> 01/25/2020 04:14:00 AM [facility] BASIC METABOLIC PANEL CALCIUM TOTAL <td>BASIC METABOLI C PANEL</td><td>Routine</td><td>01/25/2020 4:14 AM EST</td><td></td><td> </td> 01/25/2020 04:14:00 AM [facility] CUL BACT XCPT URINE BLOOD/STOOL AEROBIC ISOL <td>WOUND CULTURE</td><td>Routine</td><td>01/24/2020 6:40 PM EST</td><td></td><td></td> 01/24/2020 06:40:00 PM [facility] IAAD EIA HIV-1 AG W/HIV-1&HIV-2 ANTBDY SINGLE <td>HIV AG AB COMBO SCREEN</td><td>Routine</td><td>01/24/2020 4:18 AM EST</td><td></td><td> </td> 01/24/2020 04:18:00 AM [facility] BLOOD COUNT COMPLETE AUTO&AUTO DIFRNTL WBC COUNT <td>C BC AND DIFFERENTIAL</td><td>Routine</td><td>01/24/2020 4:18 AM EST</td><td></td><td> </td> 01/24/2020 04:18:00 AM [facility] PHOSPHORUS INORGANIC <td>PHOSPHORUS LEVEL</td><td >Routine</td><td>01/24/2020 4:18 AM EST</td><td></td><td> </td> 01/24/2020 04:18:00 AM [facility] MAGNESIUM <td>MAGNESIUM LEVEL</td><td> Routine</td><td>01/24/2020 4:18 AM EST</td><td></td><td> </td> 01/24/2020 04:18:00 AM [facility] BASIC METABOLIC PANEL CALCIUM TOTAL <td>BASIC METABOLI C PANEL</td><td>Routine</td><td>01/24/2020 4:18 AM EST</td><td></td><td> </td> 01/24/2020 04:18:[address] [facility] [address] ABDOEN & PELVIS W/CONTRAST MATERIAL <td>CT ABDOMEN PELVIS WITH CONTRAST 62509</td><td>STAT</td><td>01/23/2020 9:23 PM EST</td><td></td><td> </td> 01/23/2020 09:23:09 PM [facility] EKG 12-LEAD - CMAXX REPORT <td>EKG 12-LEAD - CMAXX REPORT</td><td></td><td>01/23/2020 8:48 PM EST</td><td></td><td></td> 01/23/2020 08:48:15 PM [facility] EKG 12-LEAD - CMAXX REPORT <td>EKG 12-LEAD - CMAXX REPORT</td><td></td><td>01/23/2020 8:48 PM EST</td><td></td><td></td> 01/23/2020 08:48:15 PM [facility] EKG 12-LEAD <td>EKG 12-LEAD</td><td>STAT </td><td>01/23/2020 8:48 PM EST</td><td></td><td> </td> 01/23/2020 08:48:15 PM [facility] EKG 12-LEAD - CMAXX REPORT <td>EKG 12-LEAD - CMAXX REPORT</td><td></td><td>01/23/2020 8:48 PM EST</td><td></td><td></td> 01/23/2020 08:48:00 PM [facility] BLOOD GASES ANY COMBINATION PH PCO2 PO2 CO2 HCO3 <td>P OCT ISTAT VBG/LAC</td><td>Routine</td><td>01/23/2020 8:44 PM EST</td><td></td><td> </td> 01/23/2020 08:44:00 PM [facility] RESPIRATORY PATHOGEN PANEL <td>RESPIRATORY PATHOGEN PANEL</td><td>Routine</td><td>01/23/2020 8:28 PM EST</td><td></td><td> </td> 01/23/2020 08:28:00 PM [facility] COVID-19 PCR <td>COVID-19 PCR</td><td>Rou sridevi</td><td>01/23/2020 8:28 PM EST</td><td></td><td> </td> 01/23/2020 08:28:00 PM [facility] CULTURE BACTERIAL BLOOD AEROBIC W/ID ISOLATES <td>BLOO D CULTURE</td><td>Routine</td><td>01/23/2020 8:28 PM EST</td><td></td><td></td> 01/23/2020 08:28:00 PM [facility] CULTURE BACTERIAL BLOOD AEROBIC W/ID ISOLATES <td>BLOO D CULTURE</td><td>Routine</td><td>01/23/2020 8:28 PM EST</td><td></td><td></td> 01/23/2020 08:28:00 PM [facility] URNLS DIP STICK/TABLET REAGENT AUTO MICROSCOPY <td>URI NALYSIS WITH MICROSCOPIC</td><td>STAT</td><td>01/23/2020 8:28 PM EST</td><td></td><td> </td> 01/23/2020 08:28:00 PM [facility] PROTHROMBIN TIME <td>PROTIME INR</td><td>STAT </td><td>01/23/2020 8:28 PM EST</td><td></td><td> </td> 01/23/2020 08:28:00 PM [facility] BLOOD COUNT COMPLETE AUTO&AUTO DIFRNTL WBC COUNT <td>C BC AND DIFFERENTIAL</td><td>Routine</td><td>01/23/2020 8:28 PM EST</td><td></td><td> </td> 01/23/2020 08:28:00 PM [facility] TROPONIN QUANTITATIVE <td>TROPONIN T</td><td>STAT< /td><td>01/23/2020 8:28 PM EST</td><td></td><td> </td> 01/23/2020 08:28:00 PM [facility] THYROID STIMULATING HORMONE TSH <td>TSH</td><td>Routin e</td><td>01/23/2020 8:28 PM EST</td><td></td><td> </td> 01/23/2020 08:28:00 PM [facility] LIPASE <td>LIPASE LEVEL</td><td>STA T</td><td>01/23/2020 8:28 PM EST</td><td></td><td> </td> 01/23/2020 08:28:00 PM [facility] HEPATIC FUNCTION PANEL <td>HEPATIC FUNCTION PANEL A</td><td>STAT</td><td>01/23/2020 8:28 PM EST</td><td></td><td> </td> 01/23/2020 08:28:00 PM [facility] BASIC METABOLIC PANEL CALCIUM TOTAL <td>BASIC METABOLI C PANEL</td><td>STAT</td><td>01/23/2020 8:28 PM EST</td><td></td><td> </td> 01/23/2020 08:28:00 PM [facility] XR CHEST FRONTAL ONLY [id number] <td>XR CHEST FRONTAL ONLY [id number]</td><td>STAT</td><td>01/23/2020 7:48 PM EST</td><td></td><td> </td> 01/23/2020 07:48:00 PM [facility] BLOOD COUNT COMPLETE AUTO&AUTO DIFRNTL WBC COUNT <td>C BC AND DIFFERENTIAL</td><td>Routine</td><td>01/10/2020 1:29 AM EST</td><td></td><td> </td> 01/10/2020 01:29:00 AM [facility] PHOSPHORUS INORGANIC <td>PHOSPHORUS LEVEL</td><td >Routine</td><td>01/10/2020 1:29 AM EST</td><td></td><td> </td> 01/10/2020 01:29:00 AM [facility] MAGNESIUM <td>MAGNESIUM LEVEL</td><td> Routine</td><td>01/10/2020 1:29 AM EST</td><td></td><td> </td> 01/10/2020 01:29:00 AM [facility] CREATININE BLOOD <td>CREATININE, BODY FLUID</ td><td>Routine</td><td>01/10/2020 1:29 AM EST</td><td></td><td> </td> 01/10/2020 01:29:00 AM [facility] BASIC METABOLIC PANEL CALCIUM TOTAL <td>BASIC METABOLI C PANEL</td><td>Routine</td><td>01/10/2020 1:29 AM EST</td><td></td><td> </td> 01/10/2020 01:29:00 AM [facility] BLOOD COUNT COMPLETE AUTO&AUTO DIFRNTL WBC COUNT <td>C BC AND DIFFERENTIAL</td><td>Routine</td><td>01/09/2020 1:05 AM EST</td><td></td><td> </td> 01/09/2020 01:05:00 AM [facility] PHOSPHORUS INORGANIC <td>PHOSPHORUS LEVEL</td><td >Routine</td><td>01/09/2020 1:05 AM EST</td><td></td><td> </td> 01/09/2020 01:05:00 AM [facility] MAGNESIUM <td>MAGNESIUM LEVEL</td><td> Routine</td><td>01/09/2020 1:05 AM EST</td><td></td><td> </td> 01/09/2020 01:05:00 AM [facility] BASIC METABOLIC PANEL CALCIUM TOTAL <td>BASIC METABOLI C PANEL</td><td>Routine</td><td>01/09/2020 1:05 AM EST</td><td></td><td> </td> 01/09/2020 01:05:00 AM [facility] HEPARIN ASSAY <td>ANTI-XA LOW MOLECULAR WE IGHT HEPARIN LEVEL(ENOXAPARIN)</td><td>Routine</td><td>01/08/2020 8:41 PM EST</td><td></td><td> </td> 01/08/2020 08:41:00 PM [facility] XR ABDOMEN AP ABD SUPINE ONLY [id number] <td>XR ABDOMEN AP ABD SUPINE ONLY 70039</td><td>Routine</td><td>01/08/2020 8:06 AM EST</td><td></td><td> </td> 01/08/2020 08:06:00 AM [facility] BLOOD COUNT COMPLETE AUTO&AUTO DIFRNTL WBC COUNT <td>C BC AND DIFFERENTIAL</td><td>Routine</td><td>01/08/2020 3:23 AM EST</td><td></td><td> </td> 01/08/2020 03:23:00 AM [facility] PHOSPHORUS INORGANIC <td>PHOSPHORUS LEVEL</td><td >Routine</td><td>01/08/2020 3:23 AM EST</td><td></td><td> </td> 01/08/2020 03:23:00 AM [facility] MAGNESIUM <td>MAGNESIUM LEVEL</td><td> Routine</td><td>01/08/2020 3:23 AM EST</td><td></td><td> </td> 01/08/2020 03:23:00 AM [facility] BASIC METABOLIC PANEL CALCIUM TOTAL <td>BASIC METABOLI C PANEL</td><td>Routine</td><td>01/08/2020 3:23 AM EST</td><td></td><td> </td> 01/08/2020 03:23:00 AM [facility] XR ABDOMEN AP ABD SUPINE ONLY [id number] <td>XR ABDOMEN AP ABD SUPINE ONLY [id number]</td><td>Routine</td><td>01/07/2020 9:30 AM EST</td><td></td><td> </td> 01/07/2020 09:30:00 AM [facility] BLOOD COUNT COMPLETE AUTO&AUTO DIFRNTL WBC COUNT <td>C BC AND DIFFERENTIAL</td><td>Routine</td><td>01/07/2020 1:59 AM EST</td><td></td><td> </td> 01/07/2020 01:59:00 AM [facility] THYROID STIMULATING HORMONE TSH <td>TSH</td><td>Routin e</td><td>01/07/2020 1:59 AM EST</td><td></td><td> </td> 01/07/2020 01:59:00 AM [facility] THYROXINE FREE <td>T4, FREE</td><td>Routine </td><td>01/07/2020 1:59 AM EST</td><td></td><td> </td> 01/07/2020 01:59:00 AM [facility] PHOSPHORUS INORGANIC <td>PHOSPHORUS LEVEL</td><td >Routine</td><td>01/07/2020 1:59 AM EST</td><td></td><td> </td> 01/07/2020 01:59:00 AM [facility] MAGNESIUM <td>MAGNESIUM LEVEL</td><td> Routine</td><td>01/07/2020 1:59 AM EST</td><td></td><td> </td> 01/07/2020 01:59:00 AM [facility] BASIC METABOLIC PANEL CALCIUM TOTAL <td>BASIC METABOLI C PANEL</td><td>Routine</td><td>01/07/2020 1:59 AM EST</td><td></td><td> </td> 01/07/2020 01:59:00 AM [facility] CREATININE OTHER SOURCE <td>CREATININE, BODY FLUID</td><td>Routine</td><td>01/06/2020 4:34 PM EST</td><td></td><td> </td> 01/06/2020 04:34:00 PM [facility] EKG 12-LEAD - CMAXX REPORT <td>EKG 12-LEAD - CMAXX REPORT</td><td></td><td>01/06/2020 12:59 PM EST</td><td></td><td></td> 01/06/2020 12:59:24 PM [facility] EKG 12-LEAD - CMAXX REPORT <td>EKG 12-LEAD - CMAXX REPORT</td><td></td><td>01/06/2020 12:59 PM EST</td><td></td><td></td> 01/06/2020 12:59:24 PM [facility] EKG 12-LEAD <td>EKG 12-LEAD</td><td>STAT </td><td>01/06/2020 12:59 PM EST</td><td></td><td> </td> 01/06/2020 12:59:24 PM [facility] ECHO TRANSTHORC R-T 2D W/WO M-MODE REC F-UP/LMTD <td>E CHOCARDIOGRAM 2D LIMITED</td><td>Routine</td><td>01/06/2020 11:40 AM EST</td><td></td><td> </td> 01/06/2020 11:40:58 AM [facility] BLOOD COUNT COMPLETE AUTO&AUTO DIFRNTL WBC COUNT <td>C BC AND DIFFERENTIAL</td><td>Timed</td><td>01/06/2020 8:59 AM EST</td><td></td><td> </td> 01/06/2020 08:59:00 AM [facility] BLOOD COUNT COMPLETE AUTO&AUTO DIFRNTL WBC COUNT <td>C BC AND DIFFERENTIAL</td><td>Timed</td><td>01/06/2020 3:49 AM EST</td><td></td><td> </td> 01/06/2020 03:49:00 AM [facility] PHOSPHORUS INORGANIC <td>PHOSPHORUS LEVEL</td><td >Routine</td><td>01/06/2020 3:49 AM EST</td><td></td><td> </td> 01/06/2020 03:49:00 AM [facility] MAGNESIUM <td>MAGNESIUM LEVEL</td><td> Routine</td><td>01/06/2020 3:49 AM EST</td><td></td><td> </td> 01/06/2020 03:49:00 AM [facility] BASIC METABOLIC PANEL CALCIUM TOTAL <td>BASIC METABOLI C PANEL</td><td>Timed</td><td>01/06/2020 3:49 AM EST</td><td></td><td> </td> 01/06/2020 03:49:00 AM [facility] BLOOD COUNT COMPLETE AUTO&AUTO DIFRNTL WBC COUNT <td>C BC AND DIFFERENTIAL</td><td>Timed</td><td>01/05/2020 8:07 PM EST</td><td></td><td> </td> 01/05/2020 08:07:00 PM [facility] BASIC METABOLIC PANEL CALCIUM TOTAL <td>BASIC METABOLI C PANEL</td><td>Timed</td><td>01/05/2020 8:07 PM EST</td><td></td><td> </td> 01/05/2020 08:07:00 PM [facility] EKG 12-LEAD - CMAXX REPORT <td>EKG 12-LEAD - CMAXX REPORT</td><td></td><td>01/05/2020 7:24 PM EST</td><td></td><td></td> 01/05/2020 07:24:12 PM [facility] EKG 12-LEAD - CMAXX REPORT <td>EKG 12-LEAD - CMAXX REPORT</td><td></td><td>01/05/2020 7:24 PM EST</td><td></td><td></td> 01/05/2020 07:24:12 PM [facility] EKG 12-LEAD <td>EKG 12-LEAD</td><td>Rout ine</td><td>01/05/2020 7:24 PM EST</td><td></td><td> </td> 01/05/2020 07:24:12 PM [facility] BLOOD COUNT COMPLETE AUTOMATED <td>CBC</td><td>STAT</t d><td>01/05/2020 12:51 PM EST</td><td></td><td> </td> 01/05/2020 12:51:00 PM [facility] BASIC METABOLIC PANEL CALCIUM TOTAL <td>BASIC METABOLI C PANEL</td><td>STAT</td><td>01/05/2020 12:51 PM EST</td><td></td><td> </td> 01/05/2020 12:51:00 PM [facility] EKG 12-LEAD - CMAXX REPORT <td>EKG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 mv29e//VmNC9/6at3p7rGL8/j28OVjvD9Bt6sI1Ox/OF07R0zSg4kjjvF7Oif/WMdbdl/5QN+ke1oxxI l42nowl26ASiiL/8yPl0h2tv+ADzp5dqhr9J/Mt1QatMXv/5uCu6N2mko3Viz4+v+kUg52GjKq4+nqjJ O20etDepYBZfs1jDSQ7sQAh0+/T3LdL7+6r1Vn0g2I Xbgq+X+tE8KYdWX7f91guj2rKkwcv2aKo0yJxlsAEPzvt9fJ0Uk7Fz5Uo3jW25Z+4M6da3hGbALzbU/i pLf7+ydn43zwejO/QDhSGm22d5Hcp6vrI9AkzB3/p6mrISGTnE636871Ct0lwD+lz+vqfcnzrf/r76Ft vfV+Wp8i83ENq/7/lod1KY8I/435Ph5mZf4B1M5ivM zra3gpJb7BsM5TmHnE46Zz/YM/vLXtmPtrdnzV/l94S24o3PmeDOViIUp/4CKOegZyKA20hRwl5sdwYZ i0Z21Wn1ChpC/YB+Qj+oX0Sm4Ce3gL+1a59h1GqkgFPQA1z2Ecyk44gIX8WeooUakM2l4gYWyo/3rE+3 e87c1OL0Gx6LuxP/od/3rTlhrng3vI/D+xre1/C+Vq Jw4HU1Fbnll7v+RDv0yJ+qMCTs1N/oJ/QL+vW6cn9tdms3HxA1xvkPk/tE3/Juan Jose+hfHuwT/f6jtqVzzw eFjUCh5LQ74u2tLIp4szgPYj/zqYeyrj/icUh1yGabcl+iPKGf+N2GwAgfdx+MC796Sgdj5vrqBd/Kaila /w4zB5Lokbdyyrob23B9stzbmbMQo6nQkJO4J6ghs/ uSa3xAjOZg6Tn198pvr9tJKU7xNu2252ezg4eJkXM2RwUH7nj085vwZb2RaozO5pvj+o8FKo3VeiP/QD +qLOy7sZGtYMR4V04L463lSr08vHe749Z9B+cR1l3Uas+yqWB92+VmW0qk6cpmEKy5BV+D4erxN+iofr qDxEatYe9bwU3gZX6NjpwHC0RTI86nwUmGb0942qfL 764bc5T9kA1/ZT1Adv+2ycTmszP8dGoPwwsc32qt/sPP/iM7VO9pe+uuESwx6jp/Tm486o0Y+97SuLSH bZV/G/peBp88sswbAB/hOT2en3xKloUnW4dUAsq52+ngAItj6JpiW3j9sOzz7+irSpbl+da7p/pD7i9t Z1282p1oKY8RBmS5ID5SSRMWux4x39KB38ID5KB41S [file] 77r3/xzBj8ls4880u2u601uA2Ys7+/+fzjLz/86sO3 n/6Dea1wlk166lxx/ewoM55M+vj1L7/32IrD38m49jpPu/j4+tzxzLZ1g6++++K/v/3680+hCgi63zvH 4Eer70U+3f0UXx11/OZ+6w9f/PK/+OFtGtw//TnmSvf2at/n480vbgo1327/fXX/w9t3//gaLH/27Xe/ 5dzq8qcgg/1gTRJjFZemmv0d8vavm/nt1//4+gjffn y1WOcyw/nh7Z8///4jH275fiAN/9PzzN7/+cWf//Tvv//LH3/8t7f/8b/ffvv7P/zhh7/85ccf/vD3b1 /+8Kff//iHt3/927L+9e/e/suy54F0qDqj+/Osz3r/0UWlqb1i//RsLjBakkz1U/7x53/lffcqCZfrBf /ve9XhnP4zfii80a4P9B3sJ2v/tF2OJQxiLYog+/4b 3cffF3NdgaX4MfuvXT6OS8+i1ud4tRaxCvz+wccf//3AKbUodvCH95p/+/z7//b1q4V9+c3n//2rdy3S njOxl9Rn/+L+f1ydmY6+q0e+Z8P/in1IyH0JD3RNPIqgyc+6zG9//NN//RWaP707gd/fXf41+74pF8/9 oz/+3eiGR1qm5zvQE+MeZ889/k//8eNf/t//9PS6/K nQ95e/Rj2Ydv013rc3e6/fv/3b/3w9++///ZgrFi2a9s5z1hmXa/3Tp5//93jw1HCgo4O/akTow9wbYs 6q8WLUqxWxB8k9S1d3T6+CcxsvF94bo/36Zx9/9unth//141//n2v6wha44/l+LP9f//Z11//9l3/9u5 /8+nyHX/0us4qef98Sz/jhf/7uh7/+/oc//eT/T02P 8klpiD6ifnezw//4Wfv4E/y8zTd//k9pZAC3Up2pWT6/04+/+7//0Ojgmx2/5xfnAjm7N91apEM49J// 49Wk/v8n3x396fDzm1Cdj8/ou1/dY/q2w1C4fyeL//PDualW8xyDh2/+4f/68a28/fnf39h/bvqvkYPB 96cK44MP8icGLj+1JbX06Fg3wy3VTrg/7zvuVN4PJG f5F1+8RtvXb+0UkiAuROrw6O1IuwX0vXddinUhlJOwYO0TMW1yk8WoUpT9KRUzk8RsHOneWNg4dKDxPI vcyhWpa4VqidsrC1Vhk5RsLmZyAYAkNiWlGbg1UPNyVzD3hSUpJwSbUCCjG1LxVOVeCxQ6SkLtUCMLBP 9QYXJlbnQgMiAwIFI+VoCiAM7qshaqJXVpu1QrKMaw TQgnJCPzV2H3uNjpWIUlH1WziX75LMXsU9KaidJ0IQW2FSAoUlLhHKFvbDEbGNGnCHM+KoXhLM3utcus CNLxr4ZzAHczOSG5wV8uHDqTWYERQNaDHYroQqV4u52tqrJJIFPwAQVpJQ7YchLhsIovhaPrrJXrRDR6 OyAnSTGjTBxgWOQ7RNWBKZZpCUNlOMPbXGKeY9LwkL txIUfAVLFYQHcDJSrsLqHop9T3BKHvktBAZQoJQMCGNMZNSOLTZIOACXD1TLV0WSVnBA1VmCZoPDL3QG sSRFZKYWqUDSmkEiKdu0V6SMSdK9XmONMlzuNzMXMTGFniNaguOM0deGqfkwroX8EyiPXuHDVUIZZkKT HoBJWdBNZsI3Cxa3V5U3SaZDzBIMNBFDqBVMwpXpN1 e10qwvETVPZfPCMrMC0+YK4lk3KeTm3FWCLbGK9nmit1OH5PpHIoXI0MQOtkzjAzD5mmpsWgWjTsMUFC YT5wM3BsvQ78MAL+AmXjLW2glql7ckUsEiOpFPEsJHXwQQInOZlvZHVdOOSoVUKdXEH9OLL5NABhDyDf IKKfXsP4GzQaFQTlXAGpgdCDADXcSKC0VHK5BoZtPS BrCKRcFCjgZNGbYJaxEeJ3JKEySDWfDX9zQfIjCBFrWVUhWWNxEzR0FfImUuXKIMKyRRTaGHXdMgCtRE HwMMIgPYdqLNBeQWTlWZf0CCBjBQWaWS0yAyDkPOAiDGYfZPVqOVSbPMKcweTJKOSzUYDaQJZ5YNNiCQ XpYEMfQEkbGBTbRFAcNGC2QZLmFCMuCC5oFtAkOCCt PXS0XtXhDLZqYBLzadQZMATgMBKbKHF4YZOtHLVlEZDvLPjjXIYcMWFjDtE1UYUdDMQkDI3mAyHoOJHp WBP8WTYoGBSxKIRrqnIQYCPvSOLpKWw2AjQdGEBjOFFwXVoeHJKaGLPjTTkhRIUnOWHzJF0iQyNkDPGu YKIjDUBnVYBvBFCozfMLOFTwRCGeGAK8RsGaEDZrRS TvWMecPMPuAADhMPB4ZNGvSNZaLN4gHlTkSWBtLfYeBZGrOAYwZDAmoxUZWYNsXFQeTRWrHODpCPFqXZ DuUTcgRHEhPFHiLzM5LTNcUNXkXV6dRpTaRPLpQHE0FLAlWLTpPWYlhaDACNFeLOUgVUReQYH3WQBhBC YgQYn2nbZjyVLaDgy2Up7CcFfzQAD8Qg3HliTyHDGi LMHRYs3Dd772HQYiAEMKFyh+TbvckATpcAvgXHFNXxG4BfoXFBQEL0M= ID Date Data Source [id number] 01/24/2020 05:33:46 AM [facility] Name Value Range Interpretation Code Description Data Sumaya rce(s) Supporting Document(s) HIV 1+2 Ab+HIV1 p24 Ag [Presence] in Serum or Plasma by Immu noassay Non Reactive [facility] Negative for HIV-1 p24 antigenand HIV-1/ HIV-2 antibodies. Nolaboratory evidence of HIVinfection. ID Date Data Source [id number] 01/24/2020 05:14:55 AM [facility] Name Value Range Interpretation Code Description Data Sumaya rce(s) Supporting Document(s) Leukocytes [#/volume] in Blood by Automated count 8.8 10*3/uL 4-10 [facility] Erythrocytes [#/volume] in Blood by Automated count 3.08 10*6/uL 4.6- 6.1 L [facility] Hemoglobin [Mass/volume] in Blood 8.6 g/dL 13.5-18 L [facility] Hematocrit [Volume Fraction] of Blood by Automated count 25.3 % 4 1-53 L [facility] Erythrocyte mean corpuscular volume [Entitic volume] by Auto mated count 82.0 fL 80-96 [facility] Erythrocyte mean corpuscular hemoglobin [Entitic mass] by Automated count 27.9 pg 27-33 [facility] Erythrocyte mean corpuscular hemoglobin concentration [Mass/volume] by Automated count 34.1 g/dL 32.0-[facility].0 [facility] width [Ratio] by Automated count 15.4 % 11.5-14.5 H [facility] Platelets [#/volume] in Blood by Automated count 320 10*3/uL 150-400 [facility] Differential cell count method - Blood [facility] Neutrophils/100 leukocytes in Blood by Automated count 77 % [facility] Lymphocytes/100 leukocytes in Blood by Automated count 12 % [facility] Monocytes/100 leukocytes in Blood by Automated count 9 % [facility] Eosinophils/100 leukocytes in Blood by Automated count 2 % [facility] Basophils/100 leukocytes in Blood by Automated count 0 % [facility] Neutrophils [#/volume] in Blood by Automated count 6.77 10*3/uL 1.8-7 .0 [facility] Lymphocytes [#/volume] in Blood by Automated count 1.04 10*3/uL 1.2-4 .0 L [facility] Monocytes [#/volume] in Blood by Automated count 0.80 10*3/uL 0-0.8 [facility] Eosinophils [#/volume] in Blood by Automated count 0.17 10*3/uL 0-0.5 [facility] Basophils [#/volume] in Blood by Automated count 0.03 10*3/uL 0-0.2 [facility] Nucleated erythrocytes/100 leukocytes [Ratio] in Blood by Automated count 0 /100{WBCs} 0-0 [facility] ID Date Data Source [id number] 01/24/2020 05:21:18 AM [facility] Name Value Range Interpretation Code Description Data Sumaya e(s) Supporting Document(s) Bicarbonate [Moles/volume] in Serum 28 mmol/L 22-29 [facility] Chloride [Moles/volume] in Serum or Plasma 99 mmol/L 98-107 [facility] Creatinine [Mass/volume] in Serum or Plasma 0.69 mg/dL 0.70-1.20 L [facility] Glucose [Mass/volume] in Serum or Plasma 93 mg/dL 70-140 [facility] Potassium [Moles/volume] in Serum or Plasma 3.8 mmol/L 3.4-5.1 [facility] Sodium [Moles/volume] in Serum or Plasma 137 mmol/L 136-145 [facility] Urea nitrogen [Mass/volume] in Serum or Plasma 4 mg/dL 6-20 L [facility] Anion gap 3 in Serum or Plasma 10 mmol/L 8-15 [facility] Osmolality of Serum or Plasma by calculation 280 mosm/kg 275-300 [facility] Creatinine/Urea nitrogen [Mass Ratio] in Serum or Plasma 5 [facility] Calcium [Mass/volume] in Serum or Plasma 8.4 mg/dL 8.6-10.0 L [facility] Glomerular filtration rate/1.73 sq M pre dicted among non-blacks [Volume Rate/Area] in Serum or Plasma by Creatinine-based formula (MDRD) >6 0 [facility] Glomerular filtration rate/1.73 sq M pre dicted among blacks [Volume Rate/Area] in Serum or Plasma by Creatinine-based formula (MDRD) >60 [facility] ID Date Data Source [id number] 01/24/2020 05:21:18 AM [facility] Name Value Range Interpretation Code Description Data Sumaya rce(s) Supporting Document(s) Magnesium [Mass/volume] in Serum or Plasma 2.0 mg/dL 1.6-2.6 [facility] ID Date Data Source [id number] 01/24/2020 05:21:18 AM [facility] Name Value Range Interpretation Code Description Data Sumaya rce(s) Supporting Document(s) Phosphate [Mass/volume] in Serum or Plasma 3.7 mg/dL 2.5-4.5 [facility] ID Date Data Source [id number] 01/23/2020 11:10:32 PM [facility] XR CHEST FRONTAL ONLY [id number] RESULTI nterpreted by:Silvia Ramirez, MDPROCEDURE INFORMATION: Exam: XR Chest, 1 View Exam date and time: 01/23/2020 7:40 PM Age: 29 years old Clinical indication: Other: Sepsis TECHNIQUE: Imaging protocol: XR of the chest Views: 1 view. COMPARISON: CR XR CHEST FRONTAL ONLY [id number] PORTABLE 01/04/2020 4:58 AM FINDINGS: Lungs: Unremarkable. No consolidation. Pleural space: Unremarkable. No pleural effusion. No pneumothorax. Heart/Mediastinum: Unremarkable. No cardiomegaly. Diaphragm: There is mild nonspecific elevation of the right hemidiaphragm. Bones/joints: Unremar kable. IMPRESSION: 1. There is no focal air space disease. 2. No acute cardiopulmonary disease. THIS DOCUMENT HAS BEEN ELECTRONICALLY SIGNED BY SILVIA RAMIREZ MDThis document has been electronically signed by Silvia Ramirez MD on 01/23/2020 11:10 PM Name Value Range Interpretation Code Description Data Sumaya rce(s) Supporting Document(s) ID Date Data Source [id number] 01/23/2020 09:55:08 PM EST [facility] CT ABDOMEN PELVIS WITH CONTRAST [id number] KIMBERLY RESULT - FINALInterpreted by:Antonio Olivo BeginsSigned on MonJan 23, 2020 9:55 PM by Silvia Ramirez [facility]ritical Result: This report contains findings that may be critical to patient care. The findings were verbally communicated via telephone conference with Dr. Lin at 9:54 PM EST on 01/23/2020. The findings were acknowledged and understood.THIS DOCUMENT HAS BEEN ELECTRONICALLY SIGNED BY SILVIA Alvarez EndsPROCEDURE INFORMATION: Exam: CT Abdomen And Pelvis With Contrast Exam date and time: 01/23/2020 9:14 PM Age: 29 years old Clinical indication: Abdominal tenderness; Additional info: Sepsis, history of recent intra-abdominal surgeries, evaluate for intra-abdominal infection TECHNIQUE: Imaging protocol: Computed tomography of the abdomen and pelvis with intravenous contrast. Radiation optimization: All CT scans at this facility use at least one of these dose optimization techniques: automated exposure control; mA and/or kV adjustment per patient size (includes targeted exams where dose is matched to clinical indication); or iterative reconstruction. Contrast material: OMNI 300; Contrast volume: 100 ml; Contrast route: INTRAVENOUS (IV); COMPARISON: DX XR ABDOMEN AP ABD SUPINE ONLY [id number] PORTABLE 01/08/2020 8:06 AM FINDINGS: Lungs: There is on 1st image partially imaged 4 mm right lower lobe nodule, no follow- up advised given the young age of this patient or if there is history of malignancy recommend chest CT correlation if not already obtained. Pleural space: There is right pleural effusion.There is minimal bibasilar atelectasis. Liver: Normal. No mass. Gallbladder and bile ducts: There is nonspecific gallbladder wall thickening. Pancreas: Normal. No ductal dilation. Spleen: Normal. No splenomegaly. Adrenal glands: Normal. No mass. Kidneys and ureters: There is loculated collection fluid and gas within right upper quadrant arising from contact the anterior portion of the right kidney and measures approximately 5.9 x 5 by 4.4 cm. Stomach and bowel: There is evidence of a right hemicolectomy.No dilation.There is no evidence of intestinal obstruction. Appendix: There has been an appendectomy. Intraperitoneal space: This is probably connected with smaller loculated fluid collections extending towards the right lateral aspect of the abdomen towards the right pericolic gutter measuring approximately 4.1 x 2.3 cm. Vasculature: Unremarkable. No abdominal aortic aneurysm. Lymph nodes: Numerous enlarged lymph nodes are noted within central mesentery largest measures 16 mm. Urinary bladder: Unremarkable as visualized. Reproductive: Unremarkable as visualized. Bones/joints: Unremarkable. No acute fracture. Soft tissues: There are midline skin otf from recent laparotomy. IMPRESSION: 1. Loculated collection of fluid and gas arising from the anterior portion of the right kidney with some fluid also extending towards the right pericolic gutter, likely interconnected with the larger perinephric collection. This may represent infected collection, old hematoma or other postoperative fluid. Question recent partial right kidney resection. 2. Very small right pleural effusion. 3. Mesenteric adenopathy. 4. Right lower lobe lung nodule, no follow-up advised given the young age of this patient however if there is a history of malignancy recommend follow-up chest CT.THIS DOCUMENT HAS BEEN ELECTRONICALLY SIGNED BY SILVIA RAMIREZ MDThis document has been electronically signed by Silvia Ramirez MD on 01/23/2020 9:45 PM Name Value Range Interpretation Code Description Data Sumaya rce(s) Supporting Document(s) ID Date Data Source [id number] 01/23/2020 08:51:54 PM [facility] Name Value Range Interpretation Code Description Data Sumaya rce(s) Supporting Document(s) pH of Venous blood 7.42 7.36-7.41 [facility] Carbon dioxide [Partial pressure] in Venous blood 44 mmHg 40-45 [facility] Oxygen [Partial pressure] in Venous blood 21 mmHg [facility] Base excess standard in Venous blood by calculation 3 mmol/L [facility] Oxygen saturation Calculated from oxygen partial pressure in Venous blood 34 % 60-85 L [facility] Lactate [Moles/volume] in Venous blood 0.6 mmol/L 0.5-2.2 [facility] Bicarbonate [Moles/volume] in Venous blood 30 mmol/L [facility] ID Date Data Source [id number] 01/28/2020 09:53:18 AM [facility] Service Cmnt XXX-Imp : Specimen source n ot given.Microorganism XXX Cult : No growth 5 days Name Value Range Interpretation Code Description Data Sumaya rce(s) Supporting Document(s) ID Date Data Source [id number] 01/28/2020 09:53:18 AM [facility] Service Cmnt XXX-Imp : Specimen source n ot given.Microorganism XXX Cult : No growth 5 days Name Value Range Interpretation Code Description Data Sumaya rce(s) Supporting Document(s) ID Date Data Source [id number] 01/23/2020 08:28:00 PM EST [facility] Name Value Range Interpretation Code Description Data Sumaya rce(s) Supporting Document(s) SARS-CoV-2 RNA [facility] This lab was ordered by [facility] and reported by [facility]. ID Date Data Source [id number] 01/23/2020 09:04:54 PM [facility] Name Value Range Interpretation Code Description Data Sumaya rce(s) Supporting Document(s) Leukocytes [#/volume] in Blood by Automated count 10.7 10*3/uL 4-10 H [facility] Erythrocytes [#/volume] in Blood by Automated count 3.22 10*6/uL 4.6- 6.1 [facility] Hemoglobin [Mass/volume] in Blood 9.0 g/dL 13.5-18 L [facility] Hematocrit [Volume Fraction] of Blood by Automated count 26.8 % 4 1-53 [facility] Erythrocyte mean corpuscular volume [Entitic volume] by Auto mated count 83.0 fL 80-96 [facility] Erythrocyte mean corpuscular hemoglobin [Entitic mass] by Automated count 27.8 pg 27-33 [facility] Erythrocyte mean corpuscular hemoglobin concentration [Mass/volume] by Automated count 33.5 g/dL 32.0-[facility].0 [facility] width [Ratio] by Automated count 15.4 % 11.5-14.5 [facility] Platelets [#/volume] in Blood by Automated count 391 10*3/uL 150-400 [facility] Differential cell count method - Blood [facility] Neutrophils/100 leukocytes in Blood by Automated count 73 % [facility] Lymphocytes/100 leukocytes in Blood by Automated count 14 % [facility] Monocytes/100 leukocytes in Blood by Automated count 11 % [facility] Eosinophils/100 leukocytes in Blood by Automated count 1 % [facility] Basophils/100 leukocytes in Blood by Automated count 1 % [facility] Neutrophils [#/volume] in Blood by Automated count 7.92 10*3/uL 1.8-7 .0 H [facility] Lymphocytes [#/volume] in Blood by Automated count 1.47 10*3/uL 1.2-4 .0 [facility] Monocytes [#/volume] in Blood by Automated count 1.17 10*3/uL 0-0.8 H [facility] Eosinophils [#/volume] in Blood by Automated count 0.12 10*3/uL 0-0.5 [facility] Basophils [#/volume] in Blood by Automated count 0.07 10*3/uL 0-0.2 [facility] Nucleated erythrocytes/100 leukocytes [Ratio] in Blood by Automated count 0 /100{WBCs} 0-0 [facility] ID Date Data Source [id number] 01/23/2020 09:18:21 PM [facility] Name Value Range Interpretation Code Description Data Sumaya rce(s) Supporting Document(s) Prothrombin time (PT) 17.7 s 12.5-14.9 H [facility] INR in Platelet poor plasma by Coagulation assay 1.43 [facility] Routine intensity oral anticoagulation I NR is typically 2.0-3.0. Target INR must be clinically individualized. ID Date Data Source [id number] 01/23/2020 09:34:36 PM [facility] Value Range Interpretation Code Description Data Sumaya rce(s) Supporting Document(s) Lipase [Enzymatic activity/volume] in Serum or Plasma 45 U/L 13-6 0 [facility] ID Date Data Source [id number] 01/23/2020 09:34:36 PM [facility] [facility] Interpretation Code Description Data Sumaya rce(s) Supporting Document(s) Bicarbonate [Moles/volume] in Serum 27 mmol/L 22-29 [facility] Chloride [Moles/volume] in Serum or Plasma 95 mmol/L 98-107 L [facility] Creatinine [Mass/volume] in Serum or Plasma 0.83 mg/dL 0.70-1.20 [facility] Glucose [Mass/volume] in Serum or Plasma 83 mg/dL 70-140 [facility] Potassium [Moles/volume] in Serum or Plasma 3.7 mmol/L 3.4-5.1 [facility] Sodium [Moles/volume] in Serum or Plasma 134 mmol/L 136-145 L [facility] Urea nitrogen [Mass/volume] in Serum or Plasma 5 mg/dL 6-20 L [facility] Anion gap 3 in Serum or Plasma 12 mmol/L 8-15 [facility] Osmolality of Serum or Plasma by calculation 274 mosm/kg 275-300 L [facility] Creatinine/Urea nitrogen [Mass Ratio] in Serum or Plasma 6 [facility] Calcium [Mass/volume] in Serum or Plasma 8.3 mg/dL 8.6-10.0 L [facility] Glomerular filtration rate/1.73 sq M pre dicted among non-blacks [Volume Rate/Area] in Serum or Plasma by Creatinine-based formula (MDRD) >6 0 [facility] Glomerular filtration rate/1.73 sq M pre dicted among blacks [Volume Rate/Area] in Serum or Plasma by Creatinine-based formula (MDRD) >60 [facility] ID Date Data Source [id number] 01/23/2020 09:34:36 PM [facility] Name Value Range Interpretation Code Description Data Sumaya rce(s) Supporting Document(s) Troponin T.cardiac [Mass/volume] in Serum or Plasma <0.01 [facility] ID Date Data Source [id number] 01/23/2020 09:34:36 PM [facility] Name Value Range Interpretation Code Description Data Sumaya rce(s) Supporting Document(s) Thyrotropin [Units/volume] in Serum or Plasma 1.300 u[IU]/mL 0.270-4. 200 [facility] ID Date Data Source [id number] 01/23/2020 11:24:16 PM [facility] Value Range Interpretation Code Description Data Sumaya rce(s) Supporting Document(s) Albumin [Mass/volume] in Serum or Plasma by Bromocresol green (BCG) dye binding method 3.6 g/dL 3.5-5.2 [facility] Bilirubin.total [Mass/volume] in Serum or Plasma 0.3 mg/dL <1.2 [facility] Bilirubin.direct [Mass/volume] in Serum or Plasma <0.3 [facility] Alkaline phosphatase [Enzymatic activity/volume] in Serum or Plasma 104 U/L 40-129 [facility] Aspartate aminotransferase [Enzymatic activity/volume] in Serum or Plasma 17 U/L <40 [facility] Alanine aminotransferase [Enzymatic activity/volume] in Seru m or Plasma 19 U/L <41 [facility] Protein [Mass/volume] in Serum or Plasma 7.5 g/dL 6.4-8.3 [facility] ID Date Data Source [id number] 01/23/2020 10:28:24 PM [facility] Service Cmnt XXX-Imp : NoneRespiratory P CR Panel : PCR ResultsMicroorganism XXX Cult : See Labs Tab for 2019 nCoV RT-PCR resultsHAdV DNA QI GOLDY+non-probe : Not DetectedHCoV 229ERNA Nph QI GOLDY+non-probe : Not DetectedHCoV [id number] Nph QI GOLDY+non-probe : Not HpoffleaEGnNIN17 RNA Nph QI GOLDY+non-probe : Not UkrmundaTVzNJV80 RNA Upper resp QI GOLDY+probe : Not DetectedhMPV RNA Nph QINAA+non-probe : Not DetectedRV+EV RNA Nph QI GOLDY+non-probe : Not DetectedFLUAV RNA Nph QI GOLDY+ non-probe : Not DetectedFLUBV RNA Nph QI GOLDY+non-probe : Not DetectedHPIV1 RNA NphQINAA+non-probe : Not DetectedHPIV2 RNA Nph QINAA+non-probe : Not DetectedHPVI3 RNA Nph GOLDY+non-probe : Not DetectedHPIV4 RNA Nph Q GOLDY+non-probe : Not DetectedRSV RNA Nph Q GOLDY+non-probe : Not DetectedB pert.PT PrmtNph Q GOLDY+non-probe : Not DetectedC pneum DNA Nph Q GOLDY+non-probe : Not DetectedM pneum DNA Nph Q GOLDY+non-probe : Not DetectedB [id number] DNA Nph GOLDY+non-probe : Not Detected Name Value Range Interpretation Code Description Data Sumaya rce(s) Supporting Document(s) ID Date Data Source [id number] 01/23/2020 10:26:10 PM [facility] Name Value Range Interpretation Code Description Data Sumaya rce(s) Supporting Document(s) Specimen source [Identifier] of Unspecified specimen [facility] SARS-CoV-2 RNA 2019 nCoV Real-Time RT-PCR: NOT DETECTED [facility] Assay Performed [facility] Patients first test for condition [facility] Patient employed in healthcare setting [facility] Patient has symptoms related to condition [facility] When did you start to experience these symptoms [Date and time] [PhenX] [id number] [facility] Patient was hospitalized because of this condition [facility] patient was admitted to ICU for condition [facility] Patient resides in a congregate care setting [facility] status [facility] ID Date Data Source [id number] 01/23/2020 09:32:06 PM EST [facility] Name Value Range Interpretation Code Description Data Sumaya rce(s) Supporting Document(s) Color of Urine [facility] Clarity of Urine [facility] Specific gravity of Urine by Refractometry automated 1.024 1.003 -1.030 [facility] pH of Urine by Automated test strip 5.0 5.0-8.0 [facility] Protein [Mass/volume] in Urine by Automated test strip 30 mg/dL Neg [facility] Glucose [Mass/volume] in Urine by Automated test strip Neg [facility] Ketones [Mass/volume] in Urine by Automated test strip 5 mg/dL Neg [facility] Bilirubin.total [Presence] in Urine by Automated test strip Negative [facility] Hemoglobin [Presence] in Urine by Automated test strip Neg [facility] Leukocyte esterase [Presence] in Urine by Automated test strip Negative [facility] Nitrite [Presence] in Urine by Automated test strip [facility] Leukocytes [#/area] in Urine sediment by Automated count 2 /HPF 0 -5 [facility] Erythrocytes [#/area] in Urine sediment by Automated count 0-3 [facility] Epithelial cells.squamous [#/area] in Urine sediment by Auto mated count 1 /HPF None [facility] Mucus [#/area] in Urine sediment by Microscopy low power field None [facility] ID Date Data Source [id number] 01/19/2020 01:44:21 AM EST [facility] Name Value Range Interpretation Code Description Data Sumaya rce(s) Supporting Document(s) ED Provider Note [facility] PYYIFd5wFcOBIeQz81/NWJhbZZKbx4BzRAfeRFy1IIgxKLWiS0KsCNB2fP0oWVX9PZyCQfEkZnMaAiZf lbm [file] 6VFoX7DIU8aHVjSl7SDHB9VXOLYxRlKH1IGHr= ID Date Data Source [id number] 01/11/2020 11:52:22 AM EST [facility] Name Value Range Interpretation Code Description Data Sumaya rce(s) Supporting Document(s) Discharge Summary [facility] VJHLKd3gNpHCCiHs41/ZFQohRQHon7JsHTnoTAb3GMyqWCUeL7RgYGT2bT3fLZO5CMvQEvYqWvWfYuC2 lbm [file] AgICAgICAgICAgICAgICAgICAgICAgICAgICAgICAgICAgICAgICAgICAgICAgICAgICAgICAgICAgIC ANCiAgICAgICAgICAgICAgICAgICAgICAgICAgICAg ICAgICAgICAgICAgICAgICAgICAgICAgICAgICAgICAgICAgICAgICAgICAgICAgICAgICAgICAgICAg ICAgICAgICAgICANCiAgICAgICAgICAgICAgICAgICAgICAgICAgICAgICAgICAgICAgICAgICAgICAg ICAgICAgICAgICAgICAgICAgICAgICAgICAgICAgIC AgICAgICAgICAgICAgICAgICAgICANCiAgICAgICAgICAgICAgICAgICAgICAgICAgICAgICAgICAgIC AgICAgICAgICAgICAgICAgICAgICAgICAgICAgICAgICAgICAgICAgICAgICAgICAgICAgICAgICAgIC AgICANCiAgICAgICAgICAgICAgICAgICAgICAgICAg ICAgICAgICAgICAgICAgICAgICAgICAgICAgICAgICAgICAgICAgICAgICAgICAgICAgICAgICAgICAg ICAgICAgICAgICAgICANCiAgICAgICAgICAgICAgICAgICAgICAgICAgICAgICAgICAgICAgICAgICAg ICAgICAgICAgICAgICAgICAgICAgICAgICAgICAgIC AgICAgICAgICAgICAgICAgICAgICAgICANCiAgICAgICAgICAgICAgICAgICAgICAgICAgICAgICAgIC AgICAgICAgICAgICAgICAgICAgICAgICAgICAgICAgICAgICAgICAgICAgICAgICAgICAgICAgICAgIC AgICAgICANCiAgICAgICAgICAgICAgICAgICAgICAg ICAgICAgICAgICAgICAgICAgICAgICAgICAgICAgICAgICAgICAgICAgICAgICAgICAgICAgICAgICAg ICAgICAgICAgICAgICAgICANCiAgICAgICAgICAgICAgICAgICAgICAgICAgICAgICAgICAgICAgICAg ICAgICAgICAgICAgICAgICAgICAgICAgICAgICAgIC AgICAgICAgICAgICAgICAgICAgICAgICAgICANCiAgICAgICAgICAgICAgICAgICAgICAgICAgICAgIC AgICAgICAgICAgICAgICAgICAgICAgICAgICAgICAgICAgICAgICAgICAgICAgICAgICAgICAgICAgIC AgICAgICAgICANCjw/eLDiG2eumSRqsmX1F7yqEm2B Wl0JKV3vi5YnYTGuSTcqzfWxYojVHrRqOIIfNruETxp3LPpsIX8YnNQdI0NeZ2XfNXlsZW1TAYVjVTAp bIPuTRKlUQFsBlR1YKCjJGvwPX4SmQWuCXtmAGZpKEHuVuSuUERvNNRqLXJzTCHwJDBLTMHzWHFfLoVr OJMwSGSkGE7QAPMdE684jjEbXx3ZQc8QQnVgSG2ery 1YZjZsFKMiKhfHQye0WYwoXP2SiBXciVNoRjPdXIMGIvGqD1gwg1QaBvYpEFLYCQbgVP3In8LphWFkBW o+Hg5ZJF8hc7IdHHauLuIwUW9jxq5VYCnGXgAvD5AsdAypJZUls5OlGRIuJMMLmP1pHAN4NUZ7EDVijL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 AM [facility] Name Value Range Interpretation Code Description Data Sumaya rce(s) Supporting Document(s) Thyrotropin [Units/volume] in Serum or Plasma 0.954 u[IU]/mL 0.270-4. 200 [facility] ID Date Data Source [id number] 01/06/2020 04:52:01 PM [facility] Name Value Range Interpretation Code Description Data Sumaya rce(s) Supporting Document(s) [facility] OZODTt6nZoYQVuJj88/LTHanRXMpb9TxDGkjAVl8VAecBJRxD1AuBCO6qN1sQDV5ELsNWtVeTuWfDYAx lbm MeTluNAfQsHVWbEttMRiJkXModYwcmiEXoQO9XqKN0ISBnL48zMVJaCAMyB6XrDYH9IjE+Ai5VFRGenE UlYI8RYiyJ4O4sn6lPWk5+lF3SQK91V3UZ0bLzOxWKGOAu8edVSui1w4UiYUyv7hcNe8uDfy/+SC4pcs jGs0taB704hcXmw+IkaU02Lpx2RqUS//mI0HFL1ogx +Ga9UGcdGgvGv/7TtD9w8UNrnFe6LRrhTsLGyU53U1/s1xAvFVu85Br7UTQ9rLmAWQs61wCylGC02ARb h+A0ZlA5I9/AyUMZCqgoSvA662ExSYYLtMasHU8vfejiWU4dmJYBzSDLwdwJN3jQGgnFJ8uiAHzwTyTC Ka1RbRpmdpwCpTTs13rXQxPjDXijYOcR+LBPSZeSHx 6W9OGp+KJd1SEY0Hx9TYn9Ho+UolFsRQ873VYblU2ICIojwEcOMlyllj6+A+0bKrGS0D4Cl8Lo4PeQh8 nHg4dZZuC6W61+cafyfDDsR7rBJEO2iF4kMSPW/hk8JL8j1j2iyx1M4lY6IS8v46mG7nJaiCvwQWfzCf ZcvlcYLmB/qwOejANajVsfuTWQ25wY2NBchrlnFjh3 uw4Xo5pzqNs7QGyiCtYwuGvdxl03OJf/ZiyVDBNf6LJ6etqsl6BojvdrZAo2+4zzHcRNaOtBAhN6IcoP tCpmH0cyx6xvn9avyKnl+heMKIPbU1qFxllBQOUmA/PjdMeFO5kjXMjY+DJKYn8q/Hx68XZ2/reQXhgl fk6R0PcEQlzB4dYxHjZEIhb7PYW5qguU/pjz8lEs2O O9bL5kZu5h7Q3LtW+xkBLv0fqyob3xv8PSjfQCJKM8A6zWyEGlqzRPLZQdc5FE2DaUnGuX6TtDIO+Benedict [file] [id number]= ID Date Data Source [id number] 01/06/2020 05:55:30 PM [facility] Name Value Range Interpretation Code Description Data Sumaya rce(s) Supporting Document(s) Creatinine [Mass/volume] in Body fluid 0.7 mg/dl [facility] (NOTE)The performance characteristics of this test for this specimen type were determined by the Department of Pathology at [facility] and approved by the [facility] Department of Health. It has not been cleared by the FDA. ID Date Data Source [id number] 01/06/2020 01:09:56 PM [facility] Value Range Interpretation Code Description Data Sumaya rce(s) Supporting Document(s) EKG [facility] VIYNYw2mZpKAHqDmj0SpEnJrIPHtXO7vjyv6N2R1lMIeY5ThkLZyg0vuX4KkH4ViCIKaPNOXOM2GaYPl jb2 [file] F9az6bsfAp8jf9FeqA7vn0wyGIEnn+HbowdY4jt/RvuS2ouCpuOYq6IydMKpvpN+hzbbha93l2Jdt/COLON THERAPIST [file] 8+manager [employer] services/HzpfglxS/C71T1hc+nJ+x0MvI1EO7M57996o7H5859EIdamSdwYTSpx4BfspipqR5d0dZ9jy5F [file] 14e3v7+L9Zm6577tBwwd+bHl300gonfqxIaM0q4v6pk21spjaQ72Yk6SK2O6y/6rYW91168hn6n/7y0x ciaFi4HWMovelsF38+/PT23ce/bhw1psjv+Ob9t19/ 54ME2se//PK/oNHv0Tn/fPP5Vx/axeVy1Kgfz2x9kBcuao+vb9+9+/Tpw8dv/sZtJMv+zbfffP/dh/df /duy1097tqfog2/38JciO042+/Hrd1+7dn9HF2fqn/kF28hoL32/l7/mn6qsfW/2z198+ZejseV9Is74 HoV7/eHt2//3tky8giA+Qv/oK94jy1Y/wSuo7h8hJ9 v88kl4i2x+/3R6V86m/c3rq7z/6cb6N64+vXv/xe/ev/v4+OptwqhLc2kyrtK1x848+3h/9oc5g938// HDu+9f9/mA189Xub/95ruv/8a/b2vn/2/lv335/ds33/7z62t++C260D7p95dvkf/6/i9//rc//PVPP/ 3r2//1P99++4c//vHHv/71px//+A9vn//45z/89Me3 f/jUxx0q52/+8ufXP3/lem0N2K867k0yceLp87y1RIs4PghRc17460otCnIuWJ/9U05N5b3q1UX93oN/ Auirxgfc/8w95oJgcKC5u/3+K/k6wTdCj6G6++JhcM6fJm/1/nGK314yUzlY/9w/+PjTv/08skV4yh91 9c/XZ//w1dt//fDu41c/K2v72Z+qjn9z/ytrtiqbf/ WT+9M6n17pTDaEsfJRF/2dtu87L/35P/7x7a8//faDZ2z4n6l8n1NT38/+xC/w0oUeA1fz856M7p9+/e HP//CHANELL//7//HycftTm3/r9tUC/sbtD/hPH79/+9f/9nr5P/zlz7+8v2fi+1H97kUD8q+elt9Bp91SK0 0vBd7m+oULp49gkoU31kBJT/xFzRfWiHnrLOyXX+XB jqzGy920fnfuy/z07/9nx3k+nHYfovxYwb+8ppW3//nXf/n7X/x6bFwqt/zjzz7w/hn6/sf/9vsf//0P P/75F/8/CZ6OQ66YTuS67G5/+fGj16eg/gmwmTT32WgoyfHYo6HZTHVrnk6SUv/9/v/58x9+/3qHz96+ +cuCe4LMy/jdv//Jo54404lmsugdcB/3s5HUH+oWkx fr26+/fo1q33/LZwh8SR9/f3Kv+/Ys8nlt7O//956o9xsRv2nGl61P4pJmlK41yN3DS0zej+bvVeqV1l j55luRz/zz3x6sT9KmsFmdK3j2d/f+/bc/cCY52S99ko878rMj/a5CeULdzNnylgRdeKZgHJ5URA5ui6 OlExZ0LFZpg4ZkNWoiQJi3zVZmMWzqjhLlz9Pwgiqr G5Sxr2WgGlDhWJSuYeQoKhb6AJIbNaA1nSEjPkBrBNNfU3IaEUUdHjK0PvSmYUFNAA4AXHCpkhBqGoTw IFI+SfTjBW6spbkvRXAbz7VzDVhwPUlrABLrF7O6lOjnYLNvA6HuvD46MZHiF8DricS0WTC4MVLnYoXd TGFzdCAxOSAwIFI+LjImYQ4ternvKZEfi3ZuTMwlNX A0rB0aXMvWVKCROBzFTEwbFuE9u80smmLFMYKtFABsWL5HizUtiCugmeZoiURuREL6WuDzFRDrAiSgZc SeSBMYMSUdKFOpRKWtESEeD5KbiMamTJfOBKOXIKxHCHrvCwSur0A6IGStppHKXSdTVMTORHRBLFTKIV PWYOZ4BZH5URNfCL0RiPTeBUD7INyWKAKHIBbSKDnn AsNgv2O8VGDeS3HlRIRajfLoMGBLFZcqObvqBL1ixFfausmyW7WcrIZqCJIIXJTwFAXhJCJyMMXhQ2Ks i5O1X0UnQHkIMKDSWNwSNGftSvH0s14tamUZJQSjJXSvPE5+AL9gv8NbCu3BADRcJB5vlmt8XM0EdYFd XG8EZHmwfvKsC9zdsqQhKuZqSHBLTU8iD3NxtC29AY E+ZvTpGR9lyjg8sbItYiXpDAIqYRJjPOWkUZpcRWSqFGVkMUPcNLF8GDD6WFRsDcYtAIEnBzW8MJLnSU AhYKWuxmVDNMWuOFC0SJWrObMoWSEuUGOaJQzqXGQiILI3Owo0WSYkUDOnXD8uHhCdKISwFVYiANCpRh W9VmEwXjBRSGHlLXRwOAUfFfRkDBDrJFMfSRvyEKCp FAYfXBr4JVGpQIFzLN4nClNkVAHwGULsNADfXTZdDKYkecNHPCIcBEOzYZL3UYAqDLBvIPYbEEerHNEk CXQdAKU5SUVlCBMsBO6zViRnLADdRUL3RnIvSAGcFBZwheGPXZGsYUTkLHU8BCCuMNDsFWJpYMxaWTHk YZPfRbH0KGDyVWYuDC8dGnIoANKyNGE7VVTyCAKgVI NqilBCDXLhDVHuAJh9JfOpQDUeCJFuFAjoIDMmTPHfBUqqSGOeABLuAL4jEzIyHFGzUCOrEBRzMMFdRA UfynVVTEYrMYGhNYN7BtOtUNTwBNMdRAyhXYCcSODbLAV7JGAkVADqAS5rEmDvHJLjWpIuBXHxBVHfSJ AgbiAKMDAwMDAwMTYwOSAwMDAwMCBuIAowMDAwMDAx WuC8QYUdZXBdBF3tTkMySFSjGDV7ZRQmJJNoOTBzfvHVFAWlWBAaDIXrRBT2XMYtVFUwDAk0rnPuaVUt Ccb1Fp4OlPwkXOK4Ar9ArrTqGAWxBLKQDp0Rp950BENaKLCYUtq+AbeyqVIlhZheMKLQYsU7OQuIIZMQ T0Y= ID Date Data Source [id number] 01/06/2020 10:13:32 AM EST [facility] Name Value Range Interpretation Code Description Data Sumaya rce(s) Supporting Document(s) Operative Note [facility] CFTUKt2qPnEZRjWx69/SSWabPDGya2QfXGokKWf2UCoxEFQtW4KkIVJ1eE8qDCQ7HSzHLbPzBhBxYTCw lbm [file] AgICAgICAgICAgICAgICAgICAgICAgICAgICAgICAgICAgICAgICAgICAgICAgICAgICAgICAgICAgIC AgICAgICAgICAgICAgICAgICAgICAgICAgICAgDQog ICAgICAgICAgICAgICAgICAgICAgICAgICAgICAgICAgICAgICAgICAgICAgICAgICAgICAgICAgICAg ICAgICAgICAgICAgICAgICAgICAgICAgICAgICAgICAgICAgICAgDQogICAgICAgICAgICAgICAgICAg ICAgICAgICAgICAgICAgICAgICAgICAgICAgICAgIC AgICAgICAgICAgICAgICAgICAgICAgICAgICAgICAgICAgICAgICAgICAgICAgICAgDQogICAgICAgIC AgICAgICAgICAgICAgICAgICAgICAgICAgICAgICAgICAgICAgICAgICAgICAgICAgICAgICAgICAgIC AgICAgICAgICAgICAgICAgICAgICAgICAgICAgICAg DQogICAgICAgICAgICAgICAgICAgICAgICAgICAgICAgICAgICAgICAgICAgICAgICAgICAgICAgICAg ICAgICAgICAgICAgICAgICAgICAgICAgICAgICAgICAgICAgICAgICAgDQogICAgICAgICAgICAgICAg ICAgICAgICAgICAgICAgICAgICAgICAgICAgICAgIC AgICAgICAgICAgICAgICAgICAgICAgICAgICAgICAgICAgICAgICAgICAgICAgICAgICAgDQogICAgIC AgICAgICAgICAgICAgICAgICAgICAgICAgICAgICAgICAgICAgICAgICAgICAgICAgICAgICAgICAgIC AgICAgICAgICAgICAgICAgICAgICAgICAgICAgICAg ICAgDQogICAgICAgICAgICAgICAgICAgICAgICAgICAgICAgICAgICAgICAgICAgICAgICAgICAgICAg ICAgICAgICAgICAgICAgICAgICAgICAgICAgICAgICAgICAgICAgICAgICAgDQogICAgICAgICAgICAg ICAgICAgICAgICAgICAgICAgICAgICAgICAgICAgIC AgICAgICAgICAgICAgICAgICAgICAgICAgICAgICAgICAgICAgICAgICAgICAgICAgICAgICAgDQogIC AgICAgICAgICAgICAgICAgICAgICAgICAgICAgICAgICAgICAgICAgICAgICAgICAgICAgICAgICAgIC AgICAgICAgICAgICAgICAgICAgICAgICAgICAgICAg FXKmUQLuBLi3G2zgXSErONSvHO8gYLt3Ds0+FXzVEpZjWCD6crHnbQ5RHO0gi8ZhTRuyPYBer6AbPMm2 EK0VHIItPTvrMX0WNNqpda6WATNaTIAzgTRNm7iwXzLyNDP6LOKuQlmwIV3KRAEpU9dompJrHACvAXFX LQueETWFXJioAMNGTG8WKmOoN9KnzV49OXEHHz1+DQ ankoQyKhhCVcThSLOeg0WxKAd3SS6IFLRdDribq6KgMvQsLNCLMUtzER4GQDW5IBXqLIXaBs9OSHXgO8 50syDbAL6JFz6QIiReFM1bym2GReVeSVGuLvtVNyf9BHplSI8YxNJbDTfOvRSvOYKgklMtBz88ROAbwU YFcMFbdMPeDPlrYOXSBHCwqFTrZR5iVD3rMWEySAM8 LaYiTUOGFL7QWWVmSNMbzXQcQXTtUBQGAD0XREdzGEU2GEIswiGujXTzUFwuQT6SLAJmjmEgUiZqSOAD DQo+Lb1UUF6ec6PuKCinUiGtWA7gdk9VESlOPkGgF6D6uSDcR8F0MVkoZt2NUSIyBFAbPPhgBHLSFEuw RR8TGP0tdsF0NN6CnCJoZAOcLUQhcDUcFKm9A81ltR RqGDfrDN4RXZI+Ernie+Bk6WWYWaQBUeNZVzFgGwUXATFwPjP7YkN1JCj0MjK9NePL40cHjjbrJfTMxbGN 0ENE4hXQSrMDBWTI4OfCZdyN9tmrTdTAVuCAXSWxRoM32wbUYgXMJzJFOqKRXmVk4RVIDyG0VyyyDonP oksrVbMZJoEYEKDB1KFMvhecLwjGOyaQepMY29sDio UO2YSm1XVtGaMG3ylu4PrYMkJd2BFASaMS3CXVPkKOHeQUKjAWS4MQEvJvGoAWugEQZgJMDvAAT7JYOl OFWsNS6TGiKtVGTqADW2DZSdXHJvJKIwhe6DWTCqEWRyIrZ7HFUrAKGdATKzYPggGBUpMZCgXIT0EYXp UBQlAM0AFrGnYXTeKOOoYKYjUWCmWMSqco8HVVBeTK WrLsI1HYKjIJMoFABeEFhbOKFiDDM5PGU3FHPrXGFgWC0OYzEuOYWaTVQlVnSvOQFoMJRihx5XFJVaHQ AuCnX4RFXaFCCdFBOrFXezLJErRYR5EEmuRTUwCQUsKI8RQfHwXESyRUj8MZJpMYJkOQQabp5PPUYoUO HeGBB0TFOdJWJoPTXtYRarYJRtTAJ3OrSsXVKxJQZo KE6LUcOgBAXkMPVaBNCrFIQaXPOfax8HHGKlGEDpVHA0CDNrFRLkVTZaRXccMNVdEIScFPwkTECtTASi RF7VUvZiSBPrROS1CLLvZSNwUULhru0KKPEyWUUcNYapCNRyJUXqMSCiDSmhDFKlSKSaLPUhSGBrFMAv EW6IPrOmFYZwDWGvOITkHFNrYSAvea9IRGQtOJMfWh s3FJTxVLQkRTCfCMcoRXAaWUDgVLX1OSBwEGTqQC2YDzDdJLNwMUOwNYHfQJFzDRHfkp3RtMSahIjazz 7GZRdMQs9FvLojBYD9KPvnNn4vuGFsXiAmTTLIUu8ZdtIhNCKbYLOSQFheNKAdVBJ9JKB3SFSaZnKzTJ Y6NuV7GvDuMqF6WRE1EQIpHDG1KoN5LRkkNBp1CKRx ABB9OOA5DRptIRAgIHPkKmF3FKC6AwD+GL3nPQh+Iv7Yp2PmoyB9izMjLVhnXYO3Lp7QMCZSH1IVUr== ID Date Data Source [id number] 01/06/2020 10:10:01 [facility] Name Value Range Interpretation Code Description Data [employer] rce(s) Supporting Document(s) Consultation [facility] XCTZGq3cEsCQGtXu58/TQSroJSJfl2SkNDzrKSg8TVxxTLYnV9NeOZM8uC4hMTA6VGfVWaFsHdClEFJa lbm [file] AgICAgICAgICAgICAgICAgICAgICAgICAgICAgICAg ICAgICAgICAgICAgICAgICAgICAgICAgICAgICAgICAgICAgICAgICAgICAgICAgICAgICAgICAgICAg ICAgICAgDQogICAgICAgICAgICAgICAgICAgICAgICAgICAgICAgICAgICAgICAgICAgICAgICAgICAg ICAgICAgICAgICAgICAgICAgICAgICAgICAgICAgIC AgICAgICAgICAgICAgICAgDQogICAgICAgICAgICAgICAgICAgICAgICAgICAgICAgICAgICAgICAgIC AgICAgICAgICAgICAgICAgICAgICAgICAgICAgICAgICAgICAgICAgICAgICAgICAgICAgICAgICAgDQ ogICAgICAgICAgICAgICAgICAgICAgICAgICAgICAg ICAgICAgICAgICAgICAgICAgICAgICAgICAgICAgICAgICAgICAgICAgICAgICAgICAgICAgICAgICAg ICAgICAgICAgDQogICAgICAgICAgICAgICAgICAgICAgICAgICAgICAgICAgICAgICAgICAgICAgICAg ICAgICAgICAgICAgICAgICAgICAgICAgICAgICAgIC AgICAgICAgICAgICAgICAgICAgDQogICAgICAgICAgICAgICAgICAgICAgICAgICAgICAgICAgICAgIC AgICAgICAgICAgICAgICAgICAgICAgICAgICAgICAgICAgICAgICAgICAgICAgICAgICAgICAgICAgIC AgDQogICAgICAgICAgICAgICAgICAgICAgICAgICAg ICAgICAgICAgICAgICAgICAgICAgICAgICAgICAgICAgICAgICAgICAgICAgICAgICAgICAgICAgICAg ICAgICAgICAgICAgDQogICAgICAgICAgICAgICAgICAgICAgICAgICAgICAgICAgICAgICAgICAgICAg ICAgICAgICAgICAgICAgICAgICAgICAgICAgICAgIC AgICAgICAgICAgICAgICAgICAgICAgDQogICAgICAgICAgICAgICAgICAgICAgICAgICAgICAgICAgIC AgICAgICAgICAgICAgICAgICAgICAgICAgICAgICAgICAgICAgICAgICAgICAgICAgICAgICAgICAgIC AgICAgDQogICAgICAgICAgICAgICAgICAgICAgICAg ICAgICAgICAgICAgICAgICAgICAgICAgICAgICAgICAgICAgICAgICAgICAgICAgICAgICAgICAgICAg BOQmEQFqRUFjODViDYEaERr3G0rtYYKhCLYbXW0dLIn6Zv3+VOiMZsMnYEH3odMxbG7ZMJ9tw6LwARda FAOih6YkHYh6YK3MDMArAUteNQ0UUWqwgq6XWOEnMJ RvcZWDk3zgRaFmTFO4QZBpOjtnQS1GGBCyT0zxbaElAAJeEBFRWVfzCZIGEYsaMWYNNJ8ZZoSwH0HyiC 64AZJNDc8+GDqnpnKyJuaOZbV6WWSjd8DlJGj2TJ4UEVXiSgeue5OeSdjsLXCRRDknIV8YWAW2GGM9NA BhWa7RDHMyK693hsTrZF5YEh9OIfOfJB8aor7ZPqya WJStDsfBDbe8FKhvJH6MqBMzEDgZy27bcUw2neMeoGGBtHZunGRxJEjgVWCKCECakFMjCX1oUG6vVEHl UFDdLvFsRXHPTF3KCCWrTENwnOPaCBWhBDLGDT1FOFjcBXS5LMLqkqMwjUWkJRonYC2MWVQaabPrYbPt MCBSDQo+Ee3OMW0be5RhJJvnNIQyBR5ywq9JSZfMEc WsD8N3fVKyY9Q6DNtxIu3ILOIgJQCpYbKkPLNWPMxvFF6POC5resC5TF2XvAKlWYHwCTLwxDHsQRw5X9 3rdSUvNJnyJE0BHWJ+Ernie+Ma5SLQZdEFFsQDOiWqVmZRRKSpXiO3RtN9GQw7NjZ3IfCD16bOifwbTwEY wiJK6VDH3cDBJaUOUMHF4TjJUnxE7ploXiQjKcYZWM GqJyV57ovXOtEPDxORR9RSTyBr6SRLFuY1MmdcOdqUdayyLxPRFfYISJRC8ZJMrfmlHobMNcjAnlPV53 lFddWY0UUr4CBbOhXX4wxj5OaINiUo1EJBSqWI6BVKZiAHOgPYVqYXG1SIAkObLyEVlhWPLcCTIoWDP1 XKFePTPfMA0BYdKaFJScLySlPBsoINCdIABljj2TQG XuKPQvWbr9AnYnYLBbOLPbDLtrSOUlABHjDDP9HIKtEMXtPO3DDbAcXPRyXIUyEBIqLTGlTSGayz2NFJ JqTENmOgW5WSCgNWGuGPGlWOzqAKGuCBI1CGK5XKHdOINdYU8WXeJnTJOaXFZnUbizGOEvXQMsyi3UEP GaCMVeGIS2ZzZgFABzGBQyMZtwFJMuGHB3RwTiHDRc QNNdMJ8LPiEvJFAzUGn5AmIvTTThBAPngw6SBPHaJCFxVRs6PsZbXOTlJWUuTEjtBQBwUTFjYCKgWCWr PRByLP6JYmLzBTMbEYX6IDadVGHtAZSxyy6LMRWpSVYaHUOkQLLoBQGnKZNmUKsiRURhLEUaUjr9KOQa HLAnZB6QTiPxZXYySQQfUOsxWIDkPJYadm0CXSYtBW CdDtG5BaSkOWIvIBYiIKhcOUFqPZEiYeI9TDKvOGScXM0RKnVnNFMqEdLhFLZgRGNoJMZdes6OVVNbCG AmEEPrAaAtSBQqIHAxABrhXMEfVRA8EqUjZBQuTPGmJX5IOxDdJZQsPbA4NXOpRLGeZTNlnv1DUKYxJR TlBWXeKcBzOWSaAOLaJBmrNDRsUPZ3NVEoBOBzYBGe VO1XZySwYXUpXnC8YRYvBPJdOMNakw3CCZOcRGEwMww3NBDwXJHySMOdPHkuPAVmQTR9HVE8NHPgRNKc BA3IVaQnZSfiQSNICoo1HWtwO3e1SZEmAP6XR9Wzn5OqXqkmBGVLZMysLB2uulEtREDmDu2BT1lKBnzu SLK7DHSzHJPgZbVwDHK5DJP9BkiiRtfxYGOpSPP3PU 7mUHUsGBb9XJIdVOWqXII2UEB2JJUkEANgQINzGiY3HhzwNePtOU2OYl4AZgM1AZI5pNCrZt2NQrdjIX vROhFqGM4NBPf= ID Date Data Source [id number] 01/06/2020 09:29:04 AM EST [facility] Name Value Range Interpretation Code Description Data [employer] rce(s) Supporting Document(s) Leukocytes [#/volume] in Blood by Automated count 15.6 10*3/uL 4-10 [facility] Erythrocytes [#/volume] in Blood by Automated count 3.36 10*6/uL 4.6- 6.1 L [facility] Hemoglobin [Mass/volume] in Blood 9.7 g/dL 13.5-18 L [facility] Hematocrit [Volume Fraction] of Blood by Automated count 27.9 % 4 1-53 L [facility] Erythrocyte mean corpuscular volume [Entitic volume] by Auto mated count 83.2 fL 80-96 [facility] Erythrocyte mean corpuscular hemoglobin [Entitic mass] by Automated count 28.9 pg 27-33 [facility] Erythrocyte mean corpuscular hemoglobin concentration [Mass/volume] by Automated count 34.8 g/dL [facility]0-[facility] distribution width [Ratio] by Automated count 14.1 % 11.5-14.5 [facility] Platelets [#/volume] in Blood by Automated count 196 10*3/uL 150-400 [facility] Differential cell count method - Blood [facility] Neutrophils/100 leukocytes in Blood by Automated count 93 % [facility] Lymphocytes/100 leukocytes in Blood by Automated count 4 % [facility] Monocytes/100 leukocytes in Blood by Automated count 3 % [facility] Eosinophils/100 leukocytes in Blood by Automated count 0 % [facility] Basophils/100 leukocytes in Blood by Automated count 0 % [facility] Neutrophils [#/volume] in Blood by Automated count 14.53 10*3/uL 1.8- 7.0 H [facility] Lymphocytes [#/volume] in Blood by Automated count 0.60 10*3/uL 1.2-4 .0 L [facility] Monocytes [#/volume] in Blood by Automated count 0.50 10*3/uL 0-0.8 [facility] Eosinophils [#/volume] in Blood by Automated count 0.00 10*3/uL 0-0.5 [facility] Basophils [#/volume] in Blood by Automated count 0.00 10*3/uL 0-0.2 [facility] Nucleated erythrocytes/100 leukocytes [Ratio] in Blood by Automated count 0 /100{WBCs} 0-0 [facility] ID Date Data Source [id number] 01/06/2020 08:55:40 AM EST [facility] Hospital Name Value Range Interpretation Code Description Data Sumaya rce(s) Supporting Document(s) [facility] TIQLFd7sCuUSNpQiw2ZpKsVwWFKnXN6otnc0Z7K2lLVoY7BtyBJxt9ahY7VoM0DjKSOtUMDCLY0EuNTw jb2 [file] N2o1A3Gm6pK7h/fEjKU8vyZ0dz05MI2ZhjmaL1iBSw+yYVeU0aeE2kJ9eNYbMD+oOt+traffic survey technician+traffic survey technician+traffic survey technician+c St+traffic survey technician+LNOE3nbjDQAAIkB8Uth8VH4w7PT7XLEBtLj [file] CESWINNf2N/sMBJp+Mtf0cxUYUH/qPAIRDaRDcTjxBKICBEhokSUSCPSiHQinYgRMSKDyCAyidAGHiem K4js/Dkci/K3ETTcBWFWYnTFfOaZc3VtrIwGRNGoPNuvGLzDNHBTTEBTkIKfaCjh3WuOM8YAMSFXBKJi Vok2oVjHRxOa12fta5xf/J7BdpoUSDdw0qwYO0z+fs pD2BWllpqoHlhpvTZawTKE8d4Q/+qUsQnbZ5vOGEIVSQYFTPRDmmdc0iShYbgsv/ersTQofZmZjM4Eur cTz+d/fLDGgnF+5E0yvLMwE+l/HLLn9M+cueJJ/ERXEaPkn02H81NaouG4lpl8IWpiBmAgAz0UDonEap 8csURy/vtvWNS9dRG0jET+/3TIyjgxMvyfTnXWFgGJ HP+sn3goLnrKIlNZNrz//Kw3yXhotmfQqMqdZIHZHKAIfXVI+pGZxTBOwXGbhUrUN4cVMSRDWHMGYrEf efjspaemrIgvIdhXLz2L7C6KKF8/WPLnmLJYBxtOL6HP4DHDiLNcFLBZhyZb/TQ605CK+GAzPtiMDzbj o85NlFKTrBxXWkBT9XVXUnsZrGMrLp6FFwN001fZbH R/E4SgzlUMyQCkQiJu07vLP+yV9D0WRZA7/9w6kLWEEZEsoAZIXKDUIVNTQROCyUcwbKvhGKXLQOAAdV mRhDAhuN1rEqPgfVJHOjIfS1BtlwYFUDDrfkaRrO3G/lG8VJskIFrAJBLqRXLX08C7Ln2LN3IZZ4TDLQ 7JBH8icVHzQCLGWN1z7dCuBrCV9bNGY3Qu/ahEAi4F sGdQHLQCfR/DOcblmKI3VissLff0mBQRorvuAn03CF0XdHQ3PssTzkIPvj6oAp8qhz9fJyC4pH7Ps8LH nAWnkcaad3mzdFQdhMK0ubsLRiJrcmLmqLmncOkBZRxlKsK4kYLH4pe7xfxrvDrmCkL9VWt4IEpT3p9T 10N46cL3jrHpZTmodT2qS7BEBUgJGE4TfUK2Lrh0Ud xzNd0LuXMeU+LbELwfTQHjxtYxbgzygRIqCmgG+ttm2H/QOJ/CQE1CLEDcOJuFYupHgXeAkBdXjNCZSi MVZLMaQYsXxywlNiKTm00V+u7yPGyQAWWAwKcOAEJRQNUTdOKgFfKQZQFEFQySpMipTBDCIEfMSZhA5e XYCzYIAug3KiHQMRAGPkrLO1qJzKmpvkFuH9fMQ475 gmywE/FBEhYkaW/AN4PeiYgblFAFxzXNcBGCyznkhOH8gEAfDCMjtJT4aSBYMOcI4HuAQr+Q2B24FqtQ iRj6+IgTj0C/oVbNXv2Bqd5Xw9kkcdoyUk7wh9gwsxfcL1mqeGV1DluCItWAmDPjKABcrJtELyA8NkYv u0XT6KkvRpoIZdI0SDtWTgBhy9T6wGYnYaBOWPSJ37 NR0VYoKaEyKX26QN2dlx3dm8ZETYoZf9aQmtKhRz72ripfW5mpnSeH5bVNEbzuqX70Th08ywj3pKazMk MekRPZ5tIk0IggYUFoZVsb+HZqPls4dZKw2x3ulmZuG2al21mDnpn04l+h0DYGno2iZH2sunQJc+tBgX JaW6j2cdYoBGdEX2JfLBSmAV6pwWUcuzWEd7YMPK/c EPKd3YYQvcwwAMmVdten5HIoyo2+sXoA2zRJB8fUyLrLMfAJDYjQtBHPzs/RQs1mhAyLDoNELYZR8XG8 qLH2pB8mk6Ao6fL8WfYEKPl3Hm5WX4XQWAJlXeuRLqEGSMKAUOLgPPWMK+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+cTgzXh [file] S06Nq/SglYRG31DRZvSmpOv5mxhyi+Wptla+NA0+luis antonio [file] wN66OK3thzbuXdzva0KDeAK0iPDsUechuDzI5gqixd 5x3jn/J5sRGcH+izP89oZ9i5qd9QteXGLFm/BPqpxTe4xAwLUVBi9aDTccWr+hgccGX4nAk1ESdPUBlo HrNcAPVnwwix9o/Q0uxHl0Gxj+hkChZ8ZmrquVReRB9+PuSZ1eFj4S9rzTvSnQ2n8M8KvQ/rFiP7f2E3 t+BdYpfX4AjUr2jcVM64l7+W65t29KB/idtYPfWfum TvAqyL2QQOHmBZXBN6IDhSXXI8HaG8zNc8W27YenJ2+zJh/YShJYVKlACNYkQJkUQpDSFZVfOxW8BoU0 FXUeuuqeyW0W59MCk5WXecgVn/UDBEXG69QbJ6lSKK+jJh/LETaRXb4++VgeoUYsxnMsycdyBCWC+CD5 LR6ZBFdNwCzAKpRBQM3TmD+xCo9tYgK6p/KxnAtsXm 6CNB3rFbSJJrYVapMKBbqV08oF/W8y6DfR3JB9FCWCxJArlHzzz2vyxuwmYF11SHTcE6hoKbLnWbogdy UJxHvP8fSV7RhxIHcoqWiswMiEGXLWQha4XadZipiCh2+n15hsjRP/I8ECq0A78qQF1II1qvcCrJ/BDj WXBh/DhZVTohh2giiFWva0qjuHhmO+J/oTev3KTfym QS6J7asj06Mpk+r6NNyQ5GoBizA2xPtc9ioU/aUOc9lhi7D7uUXrgfoYwkRZz5U+5wFngohj4WAVuElP g0Oq86SBsuMb0SJ1mJv1fBaQTA7Gty5vPL8AYhqBGvIHBxlggdNwiD8Za22wxBEflgWN6ceAjoOe8TB8 l968D+YTjfOJwcfyCEKkOGk0+VigxqK2MV2BhNWknS hlToOHfNDkdPhwc1eftcepPxxGkIm+NhRsBzKnb2qbBMou1wpCQpf4zkWYOg4kzC4rqreBPtBA3HXtCI NN8oJPbpziCUVtUoWuZpzIckCQCc7xQnK6v4BeTE67ykoOBu88ioa3OFmmtCkzE07Kn3GpK9A+Mb/GRd +51WkU8dBDZ5bOn1GGDAlBvduRJzS9XRNrrHI3NLPI VENQmUNyLZhKVpFSOBJFDCZDMIzAUVBJ5TO8PdBTmdTa3AE6VZFhCHDQHqrYEhQWoIMnVdEaNYmGWtNg N373V3///YefZfFtQd//+8df/1Y+/ubj+//749P3N+ESwE1p3zelJ7257Xrjzu0im219+cUvP//0FX7o KU7rl1/+2kVDz25udkD72kvE96n7v/b1N7/9me/f/J M7razV6U35010LPi//7jdf/6fRm8163rvkx//x43hnqmXsH30/9fGbr7/87advv/vy+3/53lw85rMi6Z e/+b0Zmf63lVei+2+//PTbz7/0KF5hIPj+1DwF8A2y5w0FzN292lq//sS61rCs/Oarz7/9+T8gD831Z1 98/e9ahvv9Q/sk8FYcc/v6m6+/+/JbH027qa+/+Pju +4/Pv/7Fx/cf//z12Bdxu//1N9/+6vOvXo/5F/5fsoLnVx+fvvjHn/2Ng0QuY/kbG152+rVYn28767+/ /fSLj3/+8vtf3v/w8c0/sVHhtc8q01//exGePUBm0sY7X//x6/tpP//6+4/XG/36Hz+5Mcx9r1/45jdf /+Iv/Oft1+///OJPf/yP3/35Dz/++8f/+F8fv/3d73 //w5///OMPv//bj1/88Mff/fj7j3/9a1n/+jcff/rj6z9/3q6f+/Osz8w+e3XUn//fq27IE8Cf8vG+8I ef/ooor1aSRFgD/xXzobu3p+qD9+uX/h0GXjR42M782+3vTGjWqScin4+f0B74S27qd8nldV1coF8eWk 394/aqcOb30k3Cjk/+z40mX80X+uzj4+svv/jmq08f 333+1a8+nd3H4qx4O0Nmd9//BD9y0jd/+tn1ar5//4in2YUxEAt340x3npI/9sc//synwzu5p//68e3y L//2Sih91a/9ge/I/7Ww/+Vc7s1Xh7/9+N0f/+vHP/8//+3Z4+YWri3CijUxfpo+9OoH+6dvv/v49//5 evLf/bfIC169E0O4ewDyYf/2T9///J++/ze+530pcN X+056T02ma/5c1ngqqqcdtK2//gJ3/5PeeGxri4P0i2f/79mfff/zw//74n//7l3klkvf/7H1b/b/+9e um/+odd job laborer//o3P/n1eQ+/+oZ4h298c5Kl/PA//+2H//zdD3/1ng6wX6/xu5+Aj42+/dOf/vDZfeq3/+Qnp0 Jf/vfwTnB4V/oemmAbuH/w/Y//9n/98Xf/9ymAj62q Ul99/+U7vdvPl/3P/3o1q3//7C/09S2rOys7ke/86vXNff/aT2Stimz62//rIcoek4zp05q//J8/fsjH n/2fU9202VK9XA0rl251fegr6uuO2179u9zcr40zedR+8xlhhEj20UT/f59/6xKz50291r142Asx8oa9 +k1O8RP6tEjahuSdbVItEN4FEO5dd8GtLbG8TPSqn4 UrOBstMQu8nDKgKXqnejHtt5JuyvilW6Tsz7ElNfBzLWChZtUrPls1VLZkCoZ1bUFlIwKfCZQtF9EzFP SgMbU3HtExXKSUJP4AHXKyebHiQrXpBYK+SuVvYW7yfmypJEEkl6YgQShrOUooZORcA5S1cKwxNVYhN7 BmtQ79CGDcX4JlfwJ2JHQ8SIXcRoLlPDXpbDJhLOGl IFI+ViNvKA3lufyvFGMbu6LpHFqiKCE8kW0oAYbJIFDWWYxEYUvuAeA6e06xcdJOZECdOTUqRA1XtyIo xYtbgdBwvJFvZYS8TtFmMQEpEbFpJZP5OQFEXGQuTKRtTAFqTKNqD9OwbTwvLXwNYIFIJTpAQDxeFrGx j0Y6VWWundCFBAdIGQLFYHNCMMDIFUPHYBE3IPR0OQ XaNM5GmWVaMTM3RJeFTZHRCJpYTGltHiAsi8S2PEXyE6YdQSVtctMtXNJXYOazKetrTX1jpPlrepqkP8 FzhBVrHOAUAKClKOXsEXJcSTFwM3Fgx4U3V8VsANwJIIUUFScWVGhiCcJ4k49tdnKRGWNyIWEuIN7+ZW 6fu0UuOx7MZPJjAA0yrxf5BR6SzWDdAQ3BPIjjehZi N4zitmUhWaWwRSHAZB0mE9XuaR02KMC+HpWqJB1sudj5ixZeTiEiMXRnGRFpGPRkABioCQTqBDQnOSCg CKH7ROO0UWNzWpPqTDXcZyZsZTJbKMKeYIOhxhNFGMOrMWX1XeN4TqOgGDLeCTEaTSviRXLdBSjpZWB7 SYZzRRJkEA7eWoEdMOJgFGJkCJObXjU9ZbKiGdEBVO UeCZMjYKXwEzOdUSBfNHPpISeeISIoBJXzSDy1PDLbOOWzQQ9lWlBuRGPvIRWwNOOoCGVrDEQizhDBSE YqNGJrIIG8DXGfKPJrSAHyRMrkYGEuGXXnYZB9XNRlCMWiAC9iFtXnGLAxSMW2FhVjQRIkOYMbyuOMDR ErEWTtBPG2HSTxFTZoQRFtJMabJSLuNYSrWzZ1FMVs HGBcRI2kUhBtHBPaUJU9OBCbANHsOQRonkWKYJHkAREzKMt2TwLpFFJrETSsHJfpBEOvHMMqDRoeUSSt NPHfXI5rGePfMWMgFWDpVRVzSBNgDOEyccSGJSTcKUSrCBQ3KmLbWODkLVAwQFeaWQGuLNLvXOO9YPUv PJYaZV6uZlAdUKExDuP9ROFvPKDjWGXdbdNZDECeIP JtHLNzBDJdMBIeVOHmOBozNFHuMJHwKlT3NWUhABYdIP4zQmApPMTfENF9CEXjSFQuCWTllsKCOGTcLW SwHHFiTXZ2VCWjOTDjEQy0veRbsBKjQyp1Cg8FuTmhRNG3Du8XuiMsGEBtNADYDo6Ru340JSGeLRRDCc o+AtzxtGIllUghOGGHIdG3SUlKGKHIG0A= ID Date Data Source [id number] 01/06/2020 08:55:26 AM [facility] Hospital Name Value Range Interpretation Code Description Data Sumaya rce(s) Supporting Document(s) [facility] HHJEWj9fQsKNYqAoq2UnDyTaLXZeGG1svvk0A3S7fVOmQ9AniHDea6qpJ2UdC6OlXQWmPWIZMM5RvDKc jb2 [file] G2VQXmlfl9Px/Luis Antonio/+HTqZ2ga9/[id number]/7Dtx//r2/f//lw2eGrTTlY+8vvf/6bX3z/w3/69lc/ /+kuskm7B/BDUZzeX/78Zz/7Lndd0o/8Jvm8+flRXn/2y1/49f31yhCpdd531s/y4O/753nn82/z17/8 r9/++te/+fG7H7//9lff/+znP/3uF9/++pc//+33P/ zm5z/+1z+b33/79u2HX/31jz//5ffffvj+xx9+/v1vv/lRi3sC79z+l/l6wdgvrb/ghf7jf/uW8818R1 /4lz/87e/+/tuPv//nf/n2w+//+X/+/b/85Ntf/uG//49vf/nDv/Kot8T1N/76h+9++/0vv27/07/+xX c/fPvxu5/+5X/96Xc//Ozn3/9qq5bcpm/81S9/8+vv f/rz/+3nP/32mx+/cofXr9843fq/8XWhb9/9xS9/6aOfthkBx1o89/+LsOv9//7Vt+9/+r//Gn11NVLc 5tuvf/j+tz//1V//0w1yl27790ximl7L9/7iF9//Z174XpH0Gp/9xz/+tz/80z/8/u++/Z//69tv//D3 f/+7f/qn3//u7//Tt5/97o9/+P3ff/ubf5/m3/yHb/ /4x69//nl5/phckT0wzA46UHRb/dW/+mDXXwE9f//wD3/+z4ibfzaZ2eiG/+F1jChsQONm+vzl/wtQ06 QDrv/8/Nx8JYOUxKpDs/wZa6ldh+G7rtd3zb5GYFRj44ikicjd66xYzZm54f1++P1/+/3RPy144EHz01 7585/+6hfff/vNd7/4q+9/+yHd9wAud4C/2b4iLQ1d ya2Gida5ec5Hx1lYZb940QkQAF0Ja7m+29//8V/+87d/+t2//P7j8l/g2Gbz52o/+gd+I/31Yv/xT6+9 oV//8O0Pf/yX3//T//5tnw9B46O6hcZDHuwUtT363bh1Jc/85tvf/c+vJ//DP/2tKd6k8gb/ubwvcbD/ 8uOf/5cf/7ashP0FsJ60m0zrn9nA9Td1Rb4j/FmZf/ L7Y6iB6TjBeEauLbfRfe0oC/zZj99+9//8/p//db+0e3XVwWrK/d/8+6+b/q9/+pv/8Ce/3t/cq5590h 1mo70jC/3d//zb3/2bA478xt/5/67p3v/wJ+Cpox/+8R//4SdvlG/9k5/sF/rFP/7hK3DUkynrF62w8D 7gx9//7f/44x/+9usZfvLVl+qs609+q0we/m8TQn4L H//uJz/+A9OJW5yRzIg51H98kvzsk/TVypZg9Gh//5N3rpO/jbCrv/7df//9t/TtH//bt/QxNKUCi/Ht 2/dfRuHLO/z+Zz9+2QnB5B36hRd2+9UPP/v+h6+Mi3z1DrT84jg//dVf//Lrt+/54a+nHrXvq/9/dFo/ gzuhavKnvWNdMF2KXT7ct5SbKeW3HHAmh6ViWTqrBG f4yGTwQBogaxEwi0VubaovZ1Rxu5LdYzKwZXKjMvCgSre3YLHxKeZ9sHMaVfPrXLYsU7GjSOTiJlX0Wn FoUGGEAL4LJARlhfTbUnDwVTO+CrOyLR1ljtorBKZzw8PpBPsnEUycIFKbB2B2uMqzLKGoO7XdaY22XK TtB3IuqrV2YHM1FKDwBbAmXZKhqWUxGUUpLNS+PmVu XH1yoorgXFMwz6NfZWshCSO6pT0rYMiOXUXNIMcSIEyuAxY2v29zpaCZZENiUMAcZZ6RxaPumSwsfdVs bTCeSRP0TsDzBEJxCdKzBMI4JOGXMYOhKZDePQKjDAWcA5BgyKfrZTfLOGQMPQvBVUynJeZyg4P0DBLt wyZVDMgJCGSGMQXAZUFLDVZSDMV4WGO2AAWcUT0ZrJ UjORE0UJxUVQRJDFrGARaoVlVvv0S8RXQyJ4TkLNTypiAjNILNEYdgTyozUQ2woWisixahL0FmzEKeWV WHALIzSTUhJPOmLBLqZ1Jpw2W0X4DyZXeYZPPMCMhBPVonEmR3i19vlhWKENQtMUBoOF7+EM9qw4WkMm 7XDBAgVM7zxao4KF5VaNQbNF2OCZcajbBrH9rrbxDr OsLqZCVIBM6cR3XtvH09LVH+PnHyKA7xdjr1teOqWqOjHKHfYZFnZPTyQYqzQQHwCCIbETKuIVW0ZDV0 MVUoWuCkCAExHpRyKXIkQIZbDXUfksMZRZJdPMF5TFq0AvDaMVDrSFOnRXgkIZBvCSi0XNJ4ZYXuRSVa BA8nThIpIFZuDLJqPDXnHuM5InIpUxNFSHDzAHTsTY CrGcCaPIJeWVZvAZfhVHOcMDGuMGq1YLShOCPcHO1xZiGbSJVpBCMdRCYfQBTfRDMkncLSRWWvNMZiZP P6EUGcDDYlMCAeVOnrCDZsBKEpPVS7ECEaNPSnCE0zFoPbAXKyLJY2SvRdTUQaIYAdztLYYIPnOCTlKQ D9VMRjPKFgBEDoMOevKYQwAGOiHvI3CQEvCLKkGD5u JlCqMOPaRLB6LYBtXMDtQYXlnyNNCHDdLGZsTBj0HgVkAIQsUNSjBMutGMEoIFMwEOlnHIFwTAJeOA8f BlUvFHKhXLKsLRGlZWXpLIKrbnCOUPYjGDGfHAM5KmDtKMLnJEInFBunKIGaSVQtBMK5BZJhMKGlIG6s LiAdWEQmJtD9WzawWPGoQRXbmqWVNAQrTQBxQKSaMI VfGBAfOTSePKydRSDqEUSrWwR5UMFiLMOxJW8nGrXyQXFdIAO1DZFbEHQbLFZrkmAMKAVuEYJoUDIsNC B9WBCcQICnHAx4hxTisKDyArg0Fo2CsOodRUN9Lw5RklJwVLHtSRJPXk0Vd017MBQmTGMMEgo+PgpzdG LqvWypIWZTBnZjLmHXGFITA2K= ID Date Data Source [id number] 01/06/2020 04:14:01 AM [facility] Name Value Range Interpretation Code Description Data Sumaya rce(s) Supporting Document(s) Leukocytes [#/volume] in Blood by Automated count 17.2 10*3/uL 4-10 H [facility] Erythrocytes [#/volume] in Blood by Automated count 3.60 10*6/uL 4.6- 6.1 L [facility] Hemoglobin [Mass/volume] in Blood 10.3 g/dL 13.5-18 L [facility] Hematocrit [Volume Fraction] of Blood by Automated count 30.1 % 4 1-53 L [facility] Erythrocyte mean corpuscular volume [Entitic volume] by Auto mated count 83.5 fL 80-96 [facility] Erythrocyte mean corpuscular hemoglobin [Entitic mass] by Automated count 28.6 pg 27-33 [facility] Erythrocyte mean corpuscular hemoglobin concentration [Mass/volume] by Autom[facility] count 34.2 g/dL 32.0-[facility] width [Ratio] by Automated count 14.1 % 11.5-14.5 [facility] Platelets [#/volume] in Blood by Automated count 215 10*3/uL 150-400 [facility] Differential cell count method - Blood [facility] Neutrophils/100 leukocytes in Blood by Automated count 93 % [facility] Lymphocytes/100 leukocytes in Blood by Automated count 4 % [facility] Monocytes/100 leukocytes in Blood by Automated count 3 % [facility] Eosinophils/100 leukocytes in Blood by Automated count 0 % [facility] Basophils/100 leukocytes in Blood by Automated count 0 % [facility] Neutrophils [#/volume] in Blood by Automated count 16.00 10*3/uL 1.8- 7.0 H [facility] Lymphocytes [#/volume] in Blood by Automated count 0.74 10*3/uL 1.2-4 .0 L [facility] Monocytes [#/volume] in Blood by Automated count 0.50 10*3/uL 0-0.8 [facility] Eosinophils [#/volume] in Blood by Automated count 0.00 10*3/uL 0-0.5 [facility] Basophils [#/volume] in Blood by Automated count 0.01 10*3/uL 0-0.2 [facility] Nucleated erythrocytes/100 leukocytes [Ratio] in Blood by Automated count 0 /100{WBCs} 0-0 [facility] ID Date Data Source [id number] 01/06/2020 04:30:22 AM [facility] Name Value Range Interpretation Code Description Data Sumaya rce(s) Supporting Document(s) Phosphate [Mass/volume] in Serum or Plasma 2.1 mg/dL 2.5-4.5 [facility] ID Date Data Source [id number] 01/06/2020 04:30:22 AM [facility] Name Value Range Interpretation Code Description Data Sumaya rce(s) Supporting Document(s) Magnesium [Mass/volume] in Serum or Plasma 1.8 mg/dL 1.6-2.6 [facility] ID Date Data Source [id number] 01/06/2020 04:30:22 AM [facility] Name Value Range Interpretation Code Description Data [facility]aya rce(s) Supporting Document(s) Bicarbonate [Moles/volume] in Serum 25 mmol/L 22-29 [facility] Chloride [Moles/volume] in Serum or Plasma 101 mmol/L 98-107 [facility] Creatinine [Mass/volume] in Serum or Plasma 0.72 mg/dL 0.70-1.20 [facility] Glucose [Mass/volume] in Serum or Plasma 102 mg/dL 70-140 [facility] Potassium [Moles/volume] in Serum or Plasma 3.7 mmol/L 3.4-5.1 [facility] Sodium [Moles/volume] in Serum or Plasma 135 mmol/L 136-145 L [facility] Urea nitrogen [Mass/volume] in Serum or Plasma 11 mg/dL 6-20 [facility] Anion gap 3 in Serum or Plasma 9 mmol/L 8-15 [facility] Osmolality of Serum or Plasma by calculation 280 mosm/kg 275-300 [facility] Creatinine/Urea nitrogen [Mass Ratio] in Serum or Plasma 15 [facility] Calcium [Mass/volume] in Serum or Plasma 8.1 mg/dL 8.6-10.0 L [facility] Glomerular filtration rate/1.73 sq M pre dicted among non-blacks [Volume Rate/Area] in Serum or Plasma by Creatinine-based formula (MDRD) >6 0 [facility] Glomerular filtration rate/1.73 sq M pre dicted among blacks [Volume Rate/Area] in Serum or Plasma by Creatinine-based formula (MDRD) >60 [facility] ID Date Data Source [id number] 01/05/2020 08:25:16 PM [facility] Name Value Range Interpretation Code Description Data Sumaya rce(s) Supporting Document(s) Leukocytes [#/volume] in Blood by Automated count 17.5 10*3/uL 4-10 H [facility] Erythrocytes [#/volume] in Blood by Automated count 3.85 10*6/uL 4.6- 6.1 L [facility] Hemoglobin [Mass/volume] in Blood 10.9 g/dL 13.5-18 L [facility] Hematocrit [Volume Fraction] of Blood by Automated count 32.5 % 4 1-53 L [facility] Erythrocyte mean corpuscular volume [Entitic volume] by Auto mated count 84.6 fL 80-96 [facility] Erythrocyte mean corpuscular hemoglobin [Entitic mass] by Automated count 28.5 pg 27-33 [facility] Erythrocyte mean corpuscular hemoglobin concentration [Mass/volume] by Autom[facility] count 33.6 g/dL [facility].0-[facility] width [Ratio] by Automated count 14.4 % 11.5-14.5 [facility] Platelets [#/volume] in Blood by Automated count 209 10*3/uL 150-400 [facility] Differential cell count method - Blood [facility] Neutrophils/100 leukocytes in Blood by Automated count 93 % [facility] Lymphocytes/100 leukocytes in Blood by Automated count 3 % [facility] Monocytes/100 leukocytes in Blood by Automated count 4 % [facility] Eosinophils/100 leukocytes in Blood by Automated count 0 % [facility] Basophils/100 leukocytes in Blood by Automated count 0 % [facility] Neutrophils [#/volume] in Blood by Automated count 16.26 10*3/uL 1.8- 7.0 H [facility] Lymphocytes [#/volume] in Blood by Automated count 0.60 10*3/uL 1.2-4 .0 L [facility] Monocytes [#/volume] in Blood by Automated count 0.64 10*3/uL 0-0.8 [facility] Eosinophils [#/volume] in Blood by Automated count 0.00 10*3/uL 0-0.5 [facility] Basophils [#/volume] in Blood by Automated count 0.04 10*3/uL 0-0.2 [facility] Nucleated erythrocytes/100 leukocytes [Ratio] in Blood by Automated count 0 /100{WBCs} 0-0 [facility] ID Date Data Source [id number] 01/05/2020 08:43:21 PM [facility] Name Value Range Interpretation Code Description Data Sumaya rce(s) Supporting Document(s) Bicarbonate [Moles/volume] in Serum 23 mmol/L [facility] Chloride [Moles/volume] in Serum or Plasma 101 mmol/L 98-107 [facility] Creatinine [Mass/volume] in Serum or Plasma 0.75 mg/dL 0.70-1.20 [facility] Glucose [Mass/volume] in Serum or Plasma 116 mg/dL 70-140 [facility] Potassium [Moles/volume] in Serum or Plasma 4.0 mmol/L 3.4-5.1 [facility] Sodium [Moles/volume] in Serum or Plasma 132 mmol/L 136-145 L [facility] Urea nitrogen [Mass/volume] in Serum or Plasma 11 mg/dL 6-20 [facility] Anion gap 3 in Serum or Plasma 8 mmol/L 8-15 [facility] Osmolality of Serum or Plasma by calculation 275 mosm/kg 275-300 [facility] Creatinine/Urea nitrogen [Mass Ratio] in Serum or Plasma 15 [facility] Calcium [Mass/volume] in Serum or Plasma 8.3 mg/dL 8.6-10.0 L [facility] Glomerular filtration rate/1.73 sq M pre dicted among non-blacks [Volume Rate/Area] in Serum or Plasma by Creatinine-based formula (MDRD) >6 0 [facility] Glomerular filtration rate/1.73 sq M pre dicted among blacks [Volume Rate/Area] in Serum or Plasma by Creatinine-based formula (MDRD) >60 [facility] ID Date Data Source [id number] 01/05/2020 01:22:19 PM [facility] Name Value Range Interpretation Code Description Data Sumaya rce(s) Supporting Document(s) Leukocytes [#/volume] in Blood by Automated count 17.1 10*3/uL 4-10 H [facility] Erythrocytes [#/volume] in Blood by Automated count 4.12 10*6/uL 4.6- 6.1 L [facility] Hemoglobin [Mass/volume] in Blood 12.0 g/dL 13.5-18 [facility] Hematocrit [Volume Fraction] of Blood by Automated count 35.1 % 4 1-53 [facility] Erythrocyte mean corpuscular volume [Entitic volume] by Auto mated count 85.1 fL 80-96 [facility] Erythrocyte mean corpuscular hemoglobin [Entitic mass] by Automated count 29.0 pg 27-33 [facility] Erythrocyte mean corpuscular hemoglobin concentration [Mass/volume] by Automated count 34.1 g/dL 32.0-36.0 [facility] width [Ratio] by Automated count 14.1 % 11.5-14.5 [facility] Platelets [#/volume] in Blood by Automated count 211 10*3/uL 150-400 [facility] ID Date Data Source [id number] 01/05/2020 01:39:09 PM [facility] Name Value Range Interpretation Code Description Data Sumaya rce(s) Supporting Document(s) Bicarbonate [Moles/volume] in Serum 25 mmol/L 29 [facility] Chloride [Moles/volume] in Serum or Plasma 100 mmol/L 98-107 [facility] Creatinine [Mass/volume] in Serum or Plasma 1.08 mg/dL 0.70-1.20 [facility] Glucose [Mass/volume] in Serum or Plasma 129 mg/dL 70-140 [facility] Potassium [Moles/volume] in Serum or Plasma 4.3 mmol/L 3.4-5.1 [facility] Sodium [Moles/volume] in Serum or Plasma 133 mmol/L 136-145 L [facility] Urea nitrogen [Mass/volume] in Serum or Plasma 15 mg/dL 6-20 [facility] Anion gap 3 in Serum or Plasma 8 mmol/L 8-15 [facility] Osmolality of Serum or Plasma by calculation 278 mosm/kg 275-300 [facility] Creatinine/Urea nitrogen [Mass Ratio] in Serum or Plasma 14 [facility] Calcium [Mass/volume] in Serum or Plasma 8.3 mg/dL 8.6-10.0 L [facility] Glomerular filtration rate/1.73 sq M pre dicted among non-blacks [Volume Rate/Area] in Serum or Plasma by Creatinine-based formula (MDRD) >6 0 [facility] Glomerular filtration rate/1.73 sq M pre dicted among blacks [Volume Rate/Area] in Serum or Plasma by Creatinine-based formula (MDRD) >60 [facility] ID Date Data Source [id number] 01/05/2020 08:53:36 AM [facility] Name Value Range Interpretation Code Description Data Sumaya rce(s) Supporting Document(s) Magnesium [Mass/volume] in Serum or Plasma 2.2 mg/dL 1.6-2.6 [facility] ID Date Data Source [id number] 01/05/2020 08:53:36 AM [facility] Name Value Range Interpretation Code Description Data Sumaya rce(s) Supporting Document(s) Bicarbonate [Moles/volume] in Serum 26 mmol/L 22-29 [facility] Chloride [Moles/volume] in Serum or Plasma 102 mmol/L 98-107 [facility] Creatinine [Mass/volume] in Serum or Plasma 1.34 mg/dL 0.70-1.20 H [facility] Glucose [Mass/volume] in Serum or Plasma 132 mg/dL 70-140 [facility] Potassium [Moles/volume] in Serum or Plasma 4.5 mmol/L 3.4-5.1 [facility] Sodium [Moles/volume] in Serum or Plasma 134 mmol/L 136-145 L [facility] Urea nitrogen [Mass/volume] in Serum or Plasma 16 mg/dL 6-20 [facility] Anion gap 3 in Serum or Plasma 6 mmol/L 8-15 L [facility] Osmolality of Serum or Plasma by calculation 281 mosm/kg 275-300 [facility] Creatinine/Urea nitrogen [Mass Ratio] in Serum or Plasma 12 [facility] Calcium [Mass/volume] in Serum or Plasma 7.8 mg/dL 8.6-10.0 L [facility] Glomerular filtration rate/1.73 sq M pre dicted among non-blacks [Volume Rate/Area] in Serum or Plasma by Creatinine-based formula (MDRD) 70 mL/min/1.73m2 >60 [facility] Glomerular filtration rate/1.73 sq M pre dicted among blacks [Volume Rate/Area] in Serum or Plasma by Creatinine-based formula (MDRD) 81 mL/min/1.73m2 >60 [facility] ID Date Data Source [id number] 01/05/2020 08:53:36 AM [facility] Name Value Range Interpretation Code Description Data Sumaya rce(s) Supporting Document(s) Phosphate [Mass/volume] in Serum or Plasma 2.7 mg/dL 2.5-4.5 [facility] ID Date Data Source [id number] 01/05/2020 09:20:48 AM [facility] Name Value Range Interpretation Code Description Data Sumaya rce(s) Supporting Document(s) Leukocytes [#/volume] in Blood by Automated count 18.4 10*3/uL 4-10 H [facility] Erythrocytes [#/volume] in Blood by Automated count 3.86 10*6/uL 4.6- 6.1 L [facility] Hemoglobin [Mass/volume] in Blood 11.5 g/dL 13.5-18 L [facility] Hematocrit [Volume Fraction] of Blood by Automated count 32.6 % 4 1-53 L [facility] Erythrocyte mean corpuscular volume [Entitic volume] by Auto mated count 84.5 fL 80-96 [facility] Erythrocyte mean corpuscular hemoglobin [Entitic mass] by Automated count 29.7 pg 27-33 [facility] Erythrocyte mean corpuscular hemoglobin concentration [Mass/volume] by Automated count 35.1 g/dL 32.0-36.0 [facility] width [Ratio] by Automated count 14.0 % 11.5-14.5 [facility] Platelets [#/volume] in Blood by Automated count 228 10*3/uL 150-400 [facility] [facility] Differential cell count method - Blood [facility] Neutrophils/100 leukocytes in Blood by Automated count 91 % [facility] Lymphocytes/100 leukocytes in Blood by Automated count 4 % [facility] Monocytes/100 leukocytes in Blood by Automated count 5 % [facility] Eosinophils/100 leukocytes in Blood by Automated count 0 % [facility] Basophils/100 leukocytes in Blood by Automated count 0 % [facility] Neutrophils [#/volume] in Blood by Automated count 16.73 10*3/uL 1.8- 7.0 H [facility] Lymphocytes [#/volume] in Blood by Automated count 0.69 10*3/uL 1.2-4 .0 L [facility] Monocytes [#/volume] in Blood by Automated count 0.97 10*3/uL 0-0.8 H [facility] Eosinophils [#/volume] in Blood by Automated count 0.00 10*3/uL 0-0.5 [facility] Basophils [#/volume] in Blood by Automated count 0.00 10*3/uL 0-0.2 [facility] Nucleated erythrocytes/100 leukocytes [Ratio] in Blood by Automated count 0 /100{WBCs} 0-0 [facility] ID Date Data Source [id number] 01/05/2020 08:03:04 AM [facility] Name Value Range Interpretation Code Description Data Sumaya rce(s) Supporting Document(s) [facility] UFBFPu7pHsAQXfBb74/XTYgrAXFhb5ZkBVhtMNj1ICydJPTmB7YrYKU6sA3dGLY5XCyOTzKqGeSgQZB4 [facility] [file] ICAgICAgICAgICAgICAgICAgICAgICAgICAgICAgIC AgICAgICAgICAgICAgICAgICAgICAgICAgICAgICAgICAgICAgICAgICAgICAgICAgICAgICANCiAgIC AgICAgICAgICAgICAgICAgICAgICAgICAgICAgICAgICAgICAgICAgICAgICAgICAgICAgICAgICAgIC AgICAgICAgICAgICAgICAgICAgICAgICAgICAgICAg ICAgICANCiAgICAgICAgICAgICAgICAgICAgICAgICAgICAgICAgICAgICAgICAgICAgICAgICAgICAg ICAgICAgICAgICAgICAgICAgICAgICAgICAgICAgICAgICAgICAgICAgICAgICANCiAgICAgICAgICAg ICAgICAgICAgICAgICAgICAgICAgICAgICAgICAgIC AgICAgICAgICAgICAgICAgICAgICAgICAgICAgICAgICAgICAgICAgICAgICAgICAgICAgICAgICANCi AgICAgICAgICAgICAgICAgICAgICAgICAgICAgICAgICAgICAgICAgICAgICAgICAgICAgICAgICAgIC AgICAgICAgICAgICAgICAgICAgICAgICAgICAgICAg ICAgICAgICANCiAgICAgICAgICAgICAgICAgICAgICAgICAgICAgICAgICAgICAgICAgICAgICAgICAg ICAgICAgICAgICAgICAgICAgICAgICAgICAgICAgICAgICAgICAgICAgICAgICAgICANCiAgICAgICAg ICAgICAgICAgICAgICAgICAgICAgICAgICAgICAgIC AgICAgICAgICAgICAgICAgICAgICAgICAgICAgICAgICAgICAgICAgICAgICAgICAgICAgICAgICAgIC ANCiAgICAgICAgICAgICAgICAgICAgICAgICAgICAgICAgICAgICAgICAgICAgICAgICAgICAgICAgIC AgICAgICAgICAgICAgICAgICAgICAgICAgICAgICAg ICAgICAgICAgICANCiAgICAgICAgICAgICAgICAgICAgICAgICAgICAgICAgICAgICAgICAgICAgICAg ICAgICAgICAgICAgICAgICAgICAgICAgICAgICAgICAgICAgICAgICAgICAgICAgICAgICANCiAgICAg ICAgICAgICAgICAgICAgICAgICAgICAgICAgICAgIC AgICAgICAgICAgICAgICAgICAgICAgICAgICAgICAgICAgICAgICAgICAgICAgICAgICAgICAgICAgIC AgICANCjw/yJAfZ9sxhOSuqeS0X1hzSj9HAv0FWU5zb0OkOCPsAZafudWfObaTKdFcKGKxFcrTScv7PT gvRU9IpNSoJ7SoA8DhQNzhEU6ZELAtCDZplJKwFCQl IWIuFoJ5ITNaSFocTK8KjPGoKFbwBMYbJFEhMjXyQHNqCKCbTBTpDRJlTPIFURHuVVFdLcAjTHkeZA1Q q2CzlWG5EBg+Cn1BPB1bh1AwUMvvYTVbKQ2qen7TGOlNOuZoT4YyseE1LZFpMNRpQx8PQTHgFNPjxUWn TFCmDEFBHoWzC5XxpW94LZRRBp0+DQplbmRvYmoNCj LyZIBrl9AoCFo2JL5PFYPgVFl9lLKxO01ka6OazCRzHwdoSBQltYMnBUMxQ0vltHJrTQOKDpQjxBYxXW 8kHL7wVVVvBGDnYxA5BRBOVI4JVBVnNMVgbTBiTNAkFGTQKE7QADnjOOK7EDXpwyEfiLUgQJfpGO2NVH JlbnQgMzAgMCBSDQo+Je8NFH1kz6AiACuaViCgDE5e ht8OGWuIKcRnQ6W3pCXiS3N1CIznRq8OWKPqPNEfUuyuPJOFAPdzFS6XZI3pvpA2HM3XnDNpINStTEGt oMXkPBd3V06qnMGkRDjcVX7PEGX+Erine+Hi6KJZHwMNCzQVWiLeUhJRKXHeDeD5BmP4ZLp1AlA3RdRE81 wKquovMlNLwxUN7STC3oREEvRUHEVT9SmOWfvF8myo SrZTAzNYVOQsShV83gyAYlFUScYVF3QFKmIa0CVHNkV0FdwqEvdOhoesPhLNXsXZRBDL7IWPdegnFieX FwwHpoWE47vStjML4RLp8RZgGrUW6bta8CoQPrLr2JNNZnQq8GUAJhXYXdDCQnNFO0TMQaYxEoCRkkWO NsBYNiIBC5TZGhPBNtTI8LUvLsLFIzWkUuLslyGHDu CQJhze8BJOJrNXKrIfU1MWZtSGLlRJUqVCnbEKUlBJPkZZM5MWJyMSTmNE3RRaGhSITdYHA0HLWoREJw XOEocf0UDZSzSGSlUmlpHTLcECFgJDWhGTdvJQLnRWN2Pec8PVMlCBKyYH8XDlPsCRMrAGp5QRYoENJw OBLqoy3BTFZpETTqLCa2HJRjAWAiCDCcOIqnCGUdLS D7MQPrEOHdPZIrRZ7BEfRpMOOaJOSmAOLeJFWxNNBkoc5ZFDEwCFFoLzCyRpRsYSXxGPGhXYyyGRCiDS KdFwk3NUKvZKUjHK5PSbWcNETxMAY5NAEfDMMjBLBnym2FSHXdUQBuIYu9GUJxMSMeJCKbUZrjILZpQQ O8JCU6VYIeFDQlUH5CSdZyDENaQXTcXwFtGYPtBMQn er2PLWHsFLZoKvZ1EQIyFDLjVDMaAEwkSDEhIMU7GFcbIRQrCEOsUN8JZkYyWBJiXKX0NHMgNABqBFRl jd3FEIMjRIJpPdR4UTTaPDBxJXDeXCeiXCVeDIM8HPA4XCJjLIRtJZ2CYmGpGQDvUTxgXlKjJKBsXBUf se0FYJOuRUAoIMNpUFGeHJWyGJGhPUxqJBLyWTV5Vd JeEOYjHEDxBN9AOqZbDTYbUbi3SoOmITGiGOGnzx3RIWYuRYEkUCP6SSDvTADqHUJiVCggUATxRZXmJs T4OJIrDREmQI4GJeVuBYPrRdZ1NjVkQQDdHGJykx1BJQUjHLInGmK1CUHsAUXdOIUpBFzlZDYwQALcYh R5MYSpYLQrHN8NYuYhYUOqRvA2PUZsVNIaZHNpyl9Z sPZgjGgngl4KVLgMAu1GlLioPHMfTGgmAj7okMBaPpBsDZTHGg4RorDbOYSvKWPXTZmkWATrOYHoSMXb WiQpNVGeOGS6LTegXXU0QLS8ReI0MXG0ZZXmFiP9RYKqBALmUSI5KzMmXuzjOLZ6QsujJPoqPedwWQd9 ZWU+TH6zJDj+Ox3Mv0NrwdC9ybOnZQysVoE6RF5XILCCL3BTLr== ID Date Data Source [id number] 01/05/2020 02:36:25 AM [facility] Name Value Range Interpretation Code Description Data Sumaya e(s) Supporting Document(s) Leukocytes [#/volume] in Blood by Automated count 19.5 10*3/uL 4-10 H [facility] Erythrocytes [#/volume] in Blood by Automated count 4.18 10*6/uL 4.6- 6.1 L [facility] Hemoglobin [Mass/volume] in Blood 12.2 g/dL 13.5-18 L [facility] Hematocrit [Volume Fraction] of Blood by Automated count 35.2 % 4 1-53 L [facility] Erythrocyte mean corpuscular volume [Entitic volume] by Auto mated count 84.3 fL 80-96 [facility] Erythrocyte mean corpuscular hemoglobin [Entitic mass] by Automated count 29.3 pg 27-33 [facility] Erythrocyte mean corpuscular hemoglobin concentration [Mass/volume] by Automated count 34.8 g/dL 32.0-36.0 [facility] width [Ratio] by Automated count 14.0 % 11.5-14.5 [facility] Platelets [#/volume] in Blood by Automated count 246 10*3/uL 150-400 [facility] Differential cell count method - Blood [facility] Neutrophils/100 leukocytes in Blood by Automated count 91 % [facility] Lymphocytes/100 leukocytes in Blood by Automated count 3 % [facility] Monocytes/100 leukocytes in Blood by Automated count 6 % [facility] Eosinophils/100 leukocytes in Blood by Automated count 0 % [facility] Basophils/100 leukocytes in Blood by Automated count 0 % [facility] Neutrophils [#/volume] in Blood by Automated count 17.68 10*3/uL 1.8- 7.0 H [facility] Lymphocytes [#/volume] in Blood by Automated count 0.66 10*3/uL 1.2-4 .0 L [facility] Monocytes [#/volume] in Blood by Automated count 1.21 10*3/uL 0-0.8 H [facility] Eosinophils [#/volume] in Blood by Automated count 0.00 10*3/uL 0-0.5 [facility] Basophils [#/volume] in Blood by Automated count 0.00 10*3/uL 0-0.2 [facility] Nucleated erythrocytes/100 leukocytes [Ratio] in Blood by Automated count 0 /100{WBCs} 0-0 [facility] ID Date Data Source [id number] 01/05/2020 06:39:47 AM [facility] Name Value Range Interpretation Code Description Data Sumaya rce(s) Supporting Document(s) Bicarbonate [Moles/volume] in Serum 22-29 [facility] SEE [id number] FOR RESULTS Chloride [Moles/volume] in Serum or Plasma 98-107 [facility] Creatinine [Mass/volume] in Serum or Plasma 0.70-1.20 [facility] Glucose [Mass/volume] in Serum or Plasma 70-140 [facility] Potassium [Moles/volume] in Serum or Plasma 3.3-5.1 [facility] Hospital Sodium [Moles/volume] in Serum or Plasma 133-145 [facility] Hospital Urea nitrogen [Mass/volume] in Serum or Plasma 6-20 [facility] Anion gap 3 in Serum or Plasma 8-15 [facility] Hospital Osmolality of Serum or Plasma by calculation 275-300 [facility] Creatinine/Urea nitrogen [Mass Ratio] in Serum or Plasma [facility] Calcium [Mass/volume] in Serum or Plasma 8.6-10.0 [facility] Glomerular filtration rate/1.73 sq M pre dicted among non-blacks [Volume Rate/Area] in Serum or Plasma by Creatinine-based formula (MDRD) >6 0 [facility] Glomerular filtration rate/1.73 sq M pre dicted among blacks [Volume Rate/Area] in Serum or Plasma by Creatinine-based formula (MDRD) >60 [facility] ID Date Data Source [id number] 01/05/2020 02:59:56 AM [facility] Name Value Range Interpretation Code Description Data Sumaya rce(s) Supporting Document(s) Bicarbonate [Moles/volume] in Serum 27 mmol/L 22-29 [facility] Chloride [Moles/volume] in Serum or Plasma 101 mmol/L 98-107 [facility] Creatinine [Mass/volume] in Serum or Plasma 1.23 mg/dL 0.70-1.20 H [facility] Glucose [Mass/volume] in Serum or Plasma 154 mg/dL 70-140 H [facility] Potassium [Moles/volume] in Serum or Plasma 4.9 mmol/L 3.4-5.1 [facility] Sodium [Moles/volume] in Serum or Plasma 133 mmol/L 136-145 L [facility] Urea nitrogen [Mass/volume] in Serum or Plasma 16 mg/dL 6-20 [facility] Anion gap 3 in Serum or Plasma 5 mmol/L 8-15 L [facility] Osmolality of Serum or Plasma by calculation 280 mosm/kg 275-300 [facility] Creatinine/Urea nitrogen [Mass Ratio] in Serum or Plasma 13 [facility] Calcium [Mass/volume] in Serum or Plasma 7.6 mg/dL 8.6-10.0 L [facility] Glomerular filtration rate/1.73 sq M pre dicted among non-blacks [Volume Rate/Area] in Serum or Plasma by Creatinine-based formula (MDRD) 78 mL/min/1.73m2 >60 [facility] Glomerular filtration rate/1.73 sq M pre dicted among blacks [Volume Rate/Area] in Serum or Plasma by Creatinine-based formula (MDRD) 90 mL/min/1.73m2 >60 [facility] ID Date Data Source [id number] 01/04/2020 08:43:31 PM [facility] Hospital Name Value Range Interpretation Code Description Data Sumaya rce(s) Supporting Document(s) Leukocytes [#/volume] in Blood by Automated count 19.1 10*3/uL 4-10 H [facility] Erythrocytes [#/volume] in Blood by Automated count 4.32 10*6/uL 4.6- 6.1 L [facility] Hemoglobin [Mass/volume] in Blood 12.9 g/dL 13.5-18 L [facility] Hematocrit [Volume Fraction] of Blood by Automated count 37.3 % 4 1-53 L [facility] Erythrocyte mean corpuscular volume [Entitic volume] by Auto mated count 86.2 fL 80-96 [facility] Erythrocyte mean corpuscular hemoglobin [Entitic mass] by Automated count 29.9 pg 27-33 [facility] Erythrocyte mean corpuscular hemoglobin concentration [Mass/volume] by Automated count 34.6 g/dL 32.0-36.0 [facility]th[facility] distribution width [Ratio] by Automated count 14.2 % 11.5-14.5 [facility] Platelets [#/volume] in Blood by Automated count 249 10*3/uL 150-400 [facility] Differential cell count method - Blood [facility] Neutrophils/100 leukocytes in Blood by Automated count 91 % [facility] Lymphocytes/100 leukocytes in Blood by Automated count 4 % [facility] Monocytes/100 leukocytes in Blood by Automated count 5 % [facility] Eosinophils/100 leukocytes in Blood by Automated count 0 % [facility] Basophils/100 leukocytes in Blood by Automated count 0 % [facility] Neutrophils [#/volume] in Blood by Automated count 17.38 10*3/uL 1.8- 7.0 H [facility] Lymphocytes [#/volume] in Blood by Automated count 0.67 10*3/uL 1.2-4 .0 L [facility] Monocytes [#/volume] in Blood by Automated count 1.04 10*3/uL 0-0.8 H [facility] Eosinophils [#/volume] in Blood by Automated count 0.00 10*3/uL 0-0.5 [facility] Basophils [#/volume] in Blood by Automated count 0.01 10*3/uL 0-0.2 [facility] Nucleated erythrocytes/100 leukocytes [Ratio] in Blood by Automated count 0 /100{WBCs} 0-0 [facility] ID Date Data Source [id number] 01/04/2020 09:00:43 PM [facility] Name Value Range Interpretation Code Description Data Sumaya rce(s) Supporting Document(s) Bicarbonate [Moles/volume] in Serum 23 mmol/L 22-29 [facility] Chloride [Moles/volume] in Serum or Plasma 102 mmol/L 98-107 [facility] Creatinine [Mass/volume] in Serum or Plasma 1.31 mg/dL 0.70-1.20 H [facility] Glucose [Mass/volume] in Serum or Plasma 181 mg/dL 70-140 [facility] Potassium [Moles/volume] in Serum or Plasma 4.8 mmol/L 3.4-5.1 [facility] Sodium [Moles/volume] in Serum or Plasma 135 mmol/L 136-145 [facility] Urea nitrogen [Mass/volume] in Serum or Plasma 16 mg/dL 6-20 [facility] Anion gap 3 in Serum or Plasma 10 mmol/L 8-15 [facility] Osmolality of Serum or Plasma by calculation 286 mosm/kg 275-300 [facility] Creatinine/Urea nitrogen [Mass Ratio] in Serum or Plasma 12 [facility] Calcium [Mass/volume] in Serum or Plasma 7.7 mg/dL 8.6-10.0 L [facility] Glomerular filtration rate/1.73 sq M pre dicted among non-blacks [Volume Rate/Area] in Serum or Plasma by Creatinine-based formula (MDRD) 72 mL/min/1.73m2 >60 [facility] Glomerular filtration rate/1.73 sq M pre dicted among blacks [Volume Rate/Area] in Serum or Plasma by Creatinine-based formula (MDRD) 83 mL/min/1.73m2 >60 [facility] ID Date Data Source [id number] 01/04/2020 02:35:12 PM [facility] Value Range Interpretation Code Description Data Sumaya rce(s) Supporting Document(s) Magnesium [Mass/volume] in Serum or Plasma 1.4 mg/dL 1.6-2.6 [facility] QA FLAGS AND/OR RANGES MODIFIED BY [employer]ique[employer]It UPDATE ON 01/03 ID Date Data Source [id number] 01/04/2020 03:04:23 PM [facility] Value Range Interpretation Code Description Data Sumaya rce(s) Supporting Document(s) Bicarbonate [Moles/volume] in Serum 21 mmol/L 22-29 L [facility] Chloride [Moles/volume] in Serum or Plasma 103 mmol/L 98-107 [facility] Creatinine [Mass/volume] in Serum or Plasma 1.19 mg/dL 0.70-1.20 [facility] Glucose [Mass/volume] in Serum or Plasma 206 mg/dL 70-140 H [facility] Potassium [Moles/volume] in Serum or Plasma 4.4 mmol/L 3.4-5.1 [facility] Sodium [Moles/volume] in Serum or Plasma 135 mmol/L 136-145 L [facility] Urea nitrogen [Mass/volume] in Serum or Plasma 14 mg/dL 6-20 [facility] QA FLAGS AND/OR RANGES MODIFIED BY [employer]It UPDATE ON 01/03 Anion gap 3 in Serum or Plasma 11 mmol/L 8-15 [facility] Osmolality of Serum or Plasma by calculation 286 mosm/kg 275-300 [facility] Creatinine/Urea nitrogen [Mass Ratio] in Serum or Plasma 12 [facility] Calcium [Mass/volume] in Serum or Plasma 7.6 mg/dL 8.6-10.0 L [facility] QA FLAGS AND/OR RANGES MODIFIED BY [employer] UPDATE ON 01/03 Glomerular filtration rate/1.73 sq M pre dicted among non-blacks [Volume Rate/Area]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
[2020-12-30] MEDS ORDERED: NS 1,000 ML IV ONE ×2 (16:10→18:00)
[2020-12-30 16:46] LABS: BASO % 0.1 % (0.0-1.0); HEMATOCRIT 41.7 % (42.0-52.0); HEMOGLOBIN 14.6 g/dl (13.5-17.5); LYMPH # 0.6 10^3/uL (1.5-5.0); LYMPH % 4.1 % (24.0-44.0); MEAN CORPUSCULAR HEMOGLOBIN 29.7 pg (27.0-33.0); MEAN CORPUSCULAR VOLUME 84.8 fl (80.0-96.0); MONO # 0.5 10^3/uL (0.0-0.8); MONO % 3.8 % (2.0-8.0); NEUTROPHILS # 12.2 10^3/uL (1.5-8.5); NEUTROPHILS % 91.8 % (36.0-66.0); PLATELET COUNT, AUTOMATED 237 10^3/uL (150-450); RED BLOOD COUNT 4.92 10^6/uL (4.30-6.10); WHITE BLOOD COUNT 13.3 10^3/uL (4.0-10.0)
--- NOTE | 2020-12-30 17:10 | ECGEPIP ---
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
[2020-12-30 17:20] LABS: OSMOLALITY SERUM 291 MOSM/KG (275-295)
[2020-12-30 17:42] LABS: ACETAMINOPHEN LEVEL < 2.0 UG/ML (10.0-30.0); ALBUMIN 4.1 GM/DL (3.2-5.2); ALT/SGPT 46 U/L (12-78); BILIRUBIN,DIRECT 0.2 MG/DL (0.0-0.2); BILIRUBIN,TOTAL 0.6 MG/DL (0.2-1.0); BLOOD UREA NITROGEN 15 MG/DL (7-18); CALCIUM LEVEL 8.6 MG/DL (8.5-10.1); CARBON DIOXIDE LEVEL 27 MEQ/L (21-32); CHLORIDE LEVEL 106 MEQ/L (98-107); ETHYL ALCOHOL (ETHANOL) < 0.003 % (0.000-0.010); GLOMERULAR FILTRATION RATE > 60.0 (>60); GLUCOSE, FASTING 103 MG/DL (70-100); POTASSIUM SERUM 3.9 MEQ/L (3.5-5.1); SALICYLATE LEVEL < 1.7 MG/DL (5.0-30.0); SODIUM LEVEL 141 MEQ/L (136-145); THYROID STIMULATING HORMONE 0.182 uIU/ML (0.358-3.740); TOTAL PROTEIN 7.4 GM/DL (6.4-8.2)
[2020-12-30 19:16] LABS: RSV AMPLIFICATION NEGATIVE (NEGATIVE)
[2020-12-30] MEDS ORDERED: HOME MED LIST COMPLETE! XX SCH (19:25)
--- OUTSIDE RECORDS SUMMARY | 2020-12-30 20:01 | CCD ---
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 Tamar Coombs DO Unavailable [email or web address] Re-disclosure Warning The records that you are [...] is protected by Article 27-F of the [facility] Public Health law. If you continue you may have access to information: Regarding HIV / AIDS; Provided by facilities licensed or operated by the [facility] Office of Mental Health; or Provided by the [facility] Office for People With Developmental Disabilities. If such information is present, then the following [facility] mandated warning applies: This information has [...] law may result in a fine or correction sentence or both. A general authorization for the release of medical or other information is NOT sufficient authorization for further disc losure. Allergies and Adverse Reactions Type Description Substance Reaction Status Data Source(s ) Propensity to adverse reactions NO KNOWN ALLERGIES NO KNOWN ALLERGIES [facility] Encounters Encounter Providers Location Date Indications Data Source(s ) Outpatient Attender: Nile Sommer MD 05/28/2020 12:00:00 A M [facility] Outpatient Attender: Nile Sommer MDReferrer: YESY PADILLA 05/25/2020 12:00:00 AM [facility] Outpatient Attender: Nile Sommer MD 04/30/2020 12:00:00 A M [facility] Outpatient Attender: Nile Sommer MDReferrer: YESY PADILLA 04/27/2020 12:00:00 AM [facility] Unlisted evaluation and management service 08/2020 07:06:00 PM [facility]) Outpatient Attender: REBECCA CASTELLON MD [id number] 02/13/2020 12:00:0 0 AM [facility] Unlisted evaluation and management service 02/2020 09:44:00 PM [facility]) Outpatient Attender: MICAH SAPP PAConsultant: [facility] [id number] 02/07/2020 02:11:00 AM [facility] Emergency Attender: Ranjit Matos nder: ADRIEN WAGONER MDReferrer: PROVIDER SYSTEM IN A-ERMADULT 02/07/2020 12:00:00 AM EST - 02/08/2020 09:26:00 AM EST Opioid dependence with withdrawal [facility] Opioid dependence with withdrawal Patient discharged. Emergency Attender: MICAH REESE EMERGENCY ROOM- ER 02/06/2020 11:51:00 PM EST - 02/07/2020 07:30:00 AM EST [facility] Patient discharged. Inpatient Attender: Maria Esther Gibson itter: Maria Esther Norriser: Cheryl Kelley MD 01/24/2020 12:00:00 AM EST Other ascites [facility] Other ascites Inpatient Attender: Maria Esther Tejeda holden: ADRIÁN SHAH MDAttender: DAVIDA MUELLER DOAdmitter: Maria Esther Devineerrer: Stephanie Jones [id number] 01/23/2020 12:00:00 AM EST - 01/25/2020 04:33:00 PM EST Other ascites [facility] Other ascites Patient discharged. Inpatient Attender: ELIA FAM MDA ttender: Brenda Meradmitter: Brenda Leongr: Tamar Coombs DO [id number] 01/04/2020 12:00:[address] - 01/10/2020 06:36:00 PM EST Illness, unspecified [facility] Illness, unspecified Patient discharged. Immunizations Vaccine Date Status Description Data Source(s) Tdap 01/04/2020 12:00:00 AM EST completed <td ID="[id number]">Tdap</td><td>01/04/2020</td><td></td> [facility] Medications Medication Brand Name Start Date Product Form Dose Route Admi nistrative Instructions Pharmacy Instructions Status Indications Reaction Description Data Source(s) Clonidine Hydrochloride 0.1 MG Oral Tablet cloNIDine ( CATAPRES) tablet 0.2 mg cloNIDine (CATAPRES) tablet 0.2 mg 02/08/2020 02:45:00 AM EST 0.2 mg Oral completed 0.2 mg, Oral, Once, 02/08/20 at 0245, For 1 dose
Check vital signs before administering
[facility] Medication administered onsite Buprenorphine 4 MG / Naloxone 1 MG Oral Strip buprenorphine-naloxone (SUBOXONE) 4-1 MG per sublingual film 1 Film buprenorphine-naloxone (SUBOXONE) 4-1 MG per sublingual film 1 Film 02/08/2020 01:45:00 AM EST Sublingual completed 1 Film (4 mg of buprenorphin e), Sublingual, Once, 02/08/20 at 0145, For 1 dose [facility] Medication administered onsite Buprenorphine 2 MG / Naloxone 0.5 MG Ora l Strip buprenorphine-naloxone (SUBOXONE) 2-0.5 MG per sublingual film 1 Film buprenorphine-naloxone (SUBOXONE) 2-0.5 MG per sublingual film 1 Film 02/08/2020 01:45:00 AM EST Sublingual completed 1 Film (2 mg of buprenorphine), Sublingual, Once, 02/08/20 at 0145, For 1 dose [facility] Medication administered onsite Buprenorphine 8 MG / Naloxone 2 MG Oral Strip Buprenorphine HCl-Naloxone HCl 8-2 MG Sublingual Film (SUBOXONE) Buprenorphine HCl-Naloxone HCl 8-2 MG Alvarez blingual Film (SUBOXONE) 02/08/2020 12:00:00 AM EST 1 {film} Sublingual active Opioid Dependence Place 1 Film under the tongu e daily for 3 days, Max Daily Dose: 1 Film Indications: Opioid Dependence [facility] Opioid Dependence Buprenorphine 2 MG / Naloxone 0.5 MG Ora l Strip buprenorphine-naloxone (SUBOXONE) 2-0.5 MG per sublingual film 1 Film buprenorphine-naloxone (SUBOXONE) 2-0.5 MG per sublingual film 1 Film 02/08/2020 12:00:00 AM EST Sublingual completed 1 Film (2 mg of buprenorphine), Sublingual, Once, 02/08/20 at 0000, For 1 dose [facility] Medication administered onsite Amoxicillin 875 MG / Clavulanate 125 MG Oral Tablet amoxicillin-clavulanate (AUGMENTIN) 875-125 MG per tablet 1 tablet amoxicillin-clavulanate (AUGMENTIN) 875-125 MG per tablet 1 tablet 01/25/2020 09:30:00 AM EST 1 {tbl} Or al active 1 tablet, Oral, Ever y 12 hours Standard (2 times per day), First dose on 01/25/20 at 0930, For 10 days [facility] Medication administered onsite Methadone Hydrochloride 10 MG Oral Tablet methadone (D OLOPHINE) tablet 30 mg methadone (DOLOPHINE) tablet 30 mg 01/25/2020 07:30:00 AM EST 30 mg Oral completed 30 mg, Oral, Before Breakfast, First dose (after last reorder) on 01/25/20 at 0730, For 1 dose [facility] Medication administered onsite Amoxicillin 875 MG / Clavulanate 125 MG Oral Tablet Amoxicillin-Pot Clavulanate 875-125 MG Oral Tablet (AUGMENTIN) Amoxicillin-Pot Clavulanate 875-125 MG O ral Tablet (AUGMENTIN) 01/25/2020 12:00:00 AM EST 1 {tbl} Oral active Take 1 tablet by mouth every 12 (twelve) hours for 10 days [facility] Acetaminophen 325 MG Oral Tablet Acetaminophen 325 MG Oral T ablet 01/25/2020 12:00:00 AM EST 650 mg Oral active Take 2 tablets by mouth every 6 (six) hours as needed for up to 10 days [facility] lidocaine (PF) (XYLOCAINE) 2 % injection [id number] 01/24/2020 05:06: 50 PM EST completed Code/Trauma Medicati on, Starting Mon01/24/20 at 1706 [facility] Medication administered onsite 2 ML Midazolam 1 MG/ML Injection midazolam (PF) (VERSE D) injection midazolam (PF) (VERSED) injection 01/24/2020 04:58:52 PM EST completed Code/Trauma Medication, Starting Mon01/24/[address] [place] [address] Medication administered onsite fentaNYL (SUBLIMAZE) (PF) injection [id number] 01/24/2020 04:58:44 PM EST completed Code/Trauma Medicati on, Starting Mon01/24/[address] [place] [address] Medication administered onsite Ketorolac Tromethamine 10 MG Oral Tablet ketorolac (TO RADOL) tablet 10 mg ketorolac (TORADOL) tablet 10 mg 01/24/2020 11:32:05 AM EST 10 mg Oral active 10 mg, Oral, Every 6 hours PRN, Pain, Moderate Pain (Pain Scale Score 4-6), Severe Pain (Pain Scale Score 7-10), Starting Mon01/24/20 at 1132, For 5 days
Limited to five days of therapy only.
[facility] Medication administered onsite Lidocaine 0.04 MG/MG Topical Gel Lidocaine (XYLOCAINE) 4 % gel Lidocaine (XYLOCAINE) 4 % gel 01/24/2020 09:30:00 AM EST Topical completed Topical, Once, Mon01/24/20 at 0930, For 1 dose
Apply to midline incision and call trauma after applying
[facility] Medication administered onsite Metoprolol Tartrate 25 MG Oral Tablet me toprolol tartrate (LOPRESSOR) tablet 25 mg metoprolol tartrate (LOPRESSOR) tablet 25 mg 01/24/2020 09:00:00 AM EST 25 mg Oral active 25 mg, Ora l, 2 Times Daily, First dose on Mon01/24/20 at 0900, For 30 days [facility] Medication administered onsite Methadone Hydrochloride 10 MG Oral Tablet methadone (D OLOPHINE) tablet 30 mg methadone (DOLOPHINE) tablet 30 mg 01/24/2020 07:30:00 AM EST 30 mg Oral active 30 mg, Oral, Before Breakfast, First dose on Mon01/24/20 at 0730, For 7 days [facility] Medication administered onsite Methadone Hydrochloride 10 MG Oral Tablet methadone (D OLOPHINE) tablet 30 mg methadone (DOLOPHINE) tablet 30 mg 01/24/2020 06:30:00 AM EST 30 mg Oral completed 30 mg, Oral, Once, Mon01/24/20 at 0630, For 1 dose [facility] Medication administered onsite NaCl infusion 0.9 % [id number] 01/24/2020 12:45:00 AM EST Intravenous aborted at 125 mL/hr, Intrav enous, Continuous, Starting Mon01/24/20 at 0045, For 30 days [facility] Medication administered onsite Piperacillin 3000 MG / tazobactam 375 MG Injection piperacillin-tazobactam (ZOSYN) IVPB 3.375 g (premix) piperacillin-tazobactam (ZOSYN) IVPB 3.3 75 g (premix) 01/24/2020 12:45:00 AM EST 3.375 g Intravenous abo rted 3.375 g, Intravenous, Administer over 4 Hours, Every 8 hours, First dose on Mon01/24/20 at 0045, For 5 days
This specific formulation of piperacillin- tazobactam is compatible with Lactated Ringers.
[facility] Medication administered onsite Acetaminophen 325 MG Oral [...] mg from all sources in 24 hours.
[facility] Medication administered onsite iohexol (OMNIPAQUE) 300 MG/ML contrast injection 100 mL [id number] 01/23/2020 09:15:00 PM EST 100 mL Given by IV completed 100 mL, Given by IV, 1 TIME IMAGING, Gayathri 01/23/20 at 2115, For 1 dose [facility] Medication administered onsite Acetaminophen 325 MG Oral Tablet acetaminophen (TYLENO L) tablet 975 mg acetaminophen (TYLENOL) tablet 975 mg 01/23/2020 08:30:00 PM EST 97 5 mg Oral completed 975 mg, Oral, O nce, Gayathri 01/23/20 at 2030, For 1 dose
Maximum daily dose of acetaminophen is 3,000 mg from all sources in 24 hours.
[facility] Medication administered onsite vancomycin (VANCOCIN) in D5W infusion 1,000 mg/200 mL (premi x) [id number] 01/23/2020 07:45:00 PM EST 1 g Intravenous completed 1 g, Intravenous, at 200 mL/hr, Once, Gayathri 01/23/20 at 1945, For 1 dose
Discouraged Uses: - Treatment of C. difficile infection -Routine treatment of neutropenic fever -Non-purulent cellulitis -Community-acquired intra-abdominal infection
[facility] Medication administered onsite Piperacillin 3000 MG / tazobactam 375 MG Injection piperacillin-tazobactam (ZOSYN) IVPB 3.375 g (premix) piperacillin-tazobactam (ZOSYN) IVPB 3.3 75 g (premix) 01/23/2020 07:45:00 PM EST 3.375 g Intravenous com pleted 3.375 g, Intravenous, Administer over 0.5 Hours, Once, Gayathri 01/23/20 at 1945, For 1 dose
This specific formulation of piperacillin-tazobactam is compatible with Lactated Ringers.
[facility] Medication administered onsite lactated ringers bolus 2,000 mL [id number] 01/23/2020 07:45:00 PM EST 2000 mL Intravenous completed 2,000 mL , Intravenous, Once, Gayathri 01/23/20 at 1945, For 1 dose [facility] Medication administered onsite POLYETHYLENE GLYCOL 3350 142 MG/ML Oral Solution Polyethylene Glycol 3350 17 GM Oral Packet (MIRALAX) Polyethylene Glycol 3350 17 GM Oral Packet (MIRALAX) 01/11/2020 12:00:00 AM EST 17 g Oral active Take 1 packet by mouth daily Please substitute bottle for packets, if packets are unavailable. [facility] Methadone Hydrochloride 10 MG Oral Tablet methadone (D OLOPHINE) tablet 10 mg methadone (DOLOPHINE) tablet 10 mg 01/10/2020 09:00:00 PM EST 10 mg Oral active 10 mg, Oral, 2 Times Daily, First dose on Mon01/10/20 at 2100, For 7 days [facility] Medication administered onsite Clonidine Hydrochloride 0.1 MG Oral Tablet cloNIDine ( CATAPRES) tablet 0.1 mg cloNIDine (CATAPRES) tablet 0.1 mg 01/10/2020 10:35:32 AM EST 0.1 mg Oral active 0.1 mg, Oral, Three Times Daily-PRN, anxiety, withdrawal symptoms, Starting Mon01/10/20 at 1035, For 7 days [facility] Medication administered onsite pantoprazole 40 MG Delayed Release Oral Tablet pantoprazole (PROTONIX) EC tablet 40 mg pantoprazole (PROTONIX) EC tablet 40 mg 01/10/2020 09:00:[address] 40 mg Oral active 40 mg, Ora l, Daily Standard, First dose on Mon01/10/20 at 0900, For 30 days
Do not crush or chew
[facility] Medication administered onsite Methadone Hydrochloride 10 MG Oral Table t Methadone HCl 10 MG Oral Tablet (Dolophine) Methadone HCl 10 MG Oral Tablet (Dolophine) 01/10/2020 12:00:00 AM EST 10 mg Oral active Take 1 t ablet by mouth Two Times Daily for 4 days, Max Daily Dose: 20 mg [facility] Docusate Sodium 100 MG Oral Capsule Docu sate Sodium 100 MG Oral Capsule (COLACE) Docusate Sodium 100 MG Oral Capsule (COLACE) 01/10/2020 12:00:00 AM EST 100 mg Oral active Take 1 capsule by mouth Two Times Daily for 10 days [facility] Clonidine Hydrochloride 0.1 MG Oral Tabl et cloNIDine HCl 0.1 MG Oral Tablet (CATAPRES) cloNIDine HCl 0.1 MG Oral Tablet (CATAPRES) 01/10/2020 12:00:00 AM EST 0.1 mg Oral active Take 1 t ablet by mouth Three times daily as needed (anxiety, withdrawal symptoms) for up to 10 days [facility] Acetaminophen 325 MG Oral Tablet Acetaminophen 325 MG Oral T ablet 01/10/2020 12:00:00 AM EST 975 mg Oral active Take 3 tablets by mouth every 8 (eight) hours for 10 days [facility] Metoprolol Tartrate 25 MG Oral Tablet Me toprolol Tartrate 25 MG Oral Tablet (LOPRESSOR) Metoprolol Tartrate 25 MG Oral Tablet (LOPRESSOR) 05/2019 12:00:00 AM EST 25 mg Oral active Take 1 tablet by mouth Two Times Daily [facility] Methadone Hydrochloride 1 MG/ML Oral Sil ution methadone (DOLOPHINE) 5 MG/5ML oral solution 10 mg methadone (DOLOPHINE) 5 MG/5ML oral solution 10 mg 01/09/2020 07:00:00 PM EST 10 mg Oral aborted 10 mg, Oral, Every 12 hours Standard (2 times per day), First dose (after last modification) on Gayathri 01/09/20 at 1900, For 7 days [facility] Medication administered onsite ondansetron (ZOFRAN) injection 4 mg [id number] 01/09/2020 12:11:3 8 PM EST 4 mg Intravenous active 4 mg, In travenous, Every 8 hours PRN, Nausea, Vomiting, Starting Gayathri 01/09/20 at 1211, For 5 days [facility] Medication administered onsite HYDROmorphone (DILAUDID) injection 0.5 mg [id number] 01/09/2020 10:26:59 AM EST 0.5 mg Intravenous active 0.5 mg, Intravenous, Every 6 hours PRN, For breakthrough pain when PO morphine does not work., Starting Gayathri 01/09/20 at 1026, For 3 days [facility] Medication administered onsite Morphine Sulfate 15 MG Oral Tablet morphine (MSIR) tab let 15 mg morphine (MSIR) tablet 15 mg 01/09/2020 10:26:04 AM EST 15 mg Oral activ e 15 mg, Oral, Every 4 hours PRN, Moderate Pain (Pain Scale Score 4-6), Starting Gayathri 01/09/20 at 1026, For 3 days [facility] Medication administered onsite Morphine Sulfate 15 MG Oral Tablet morphine (MSIR) tab let 30 mg morphine (MSIR) tablet 30 mg 01/09/2020 10:25:40 AM EST 30 mg Oral activ e 30 mg, Oral, Every 6 hours PRN, Severe Pain (Pain Scale Score 7-10), Starting Gayathri 01/09/20 at 1025, For 3 days [facility] Medication administered onsite furosemide (LASIX) injection 20 mg [id number] 01/09/2020 08:45:00 AM EST 20 mg Intravenous completed 20 mg, I ntravenous, Once, [facility] 01/09/20 at 0845, For 1 dose
Notify provider if systolic blood pressure less than: 100 [facility] Medication administered onsite potassium chloride (K-DUR) dissolvable tablet 40 mEq 35558-5 38-90 01/09/2020 06:15:00 AM EST 40 meq Oral completed 40 mEq, Oral, Once, [facility] 01/09/20 at 0615, For 1 dose
May be dissolved in water for patients with a G-Tube or unable to swallow. If concern for clogging G-Tube, may contact Pharmacy to switch formulation to a powder packet.
[facility] Medication administered onsite potassium chloride (K-DUR) dissolvable tablet 20 mEq [id number] 38-90 01/08/2020 04:00:00 PM EST 20 meq Oral aborted 20 mEq, Oral, 2 Times Daily, First dose (after last modification) on Mon01/08/20 at 1600, For 3 days
Take with food. May be dissolved in water for patients with a G-Tube or unable to swallow. If concern for clogging G-Tube, may contact Pharmacy to switch formulation to a powder packet.
[facility] Medication administered onsite Potassium Chloride 0.1 MEQ/ML Injectable Solution potassium chloride 10 mEq in 100 mL IVPB (premix) potassium chloride 10 mEq in 100 mL IVPB (premix) 01/08/2020 12:00:00 PM EST 10 meq Intravenous aborted 10 mEq, Intravenous, Administer over 60 Minutes, Every 1 hour, First dose on Mon01/08/20 at 1200, For 2 doses [facility] Medication administered onsite potassium phosphate 155 MG [...] mEq), and potassium 45 mg (1.1 mEq)
[facility] Medication administered onsite potassium chloride (K-DUR) dissolvable tablet 40 mEq [id number] 38-90 01/08/2020 09:00:00 AM EST 40 meq Oral aborted 40 mEq, Oral, 2 Times Daily, First dose on Mon01/08/20 at 0900, For 1 day
May be dissolved in water for patients with a G-Tube or unable to swallow. If concern for clogging G-Tube, may contact Pharmacy to switch formulation to a powder packet.
[facility] Medication administered onsite magnesium sulfate in dextrose 5 % infusion (premix) 1 g 0409 -[id number] 01/08/2020 08:00:00 AM EST 1 g Intravenous completed 1 g, Intravenous, Administer over 60 Minutes, Every 1 hour, First dose on Mon01/08/20 at 0800, For 2 doses [facility] Medication administered onsite sennosides, GROUP HOME 8.6 MG Oral Tablet senna tablet 2 tablet sen na tablet 2 tablet 01/07/2020 10:00:00 PM EST 2 {tbl} Oral active 2 tablet, Oral, Nightly, First dose on Mon01/07/20 at 2200, For 30 days [facility] Medication administered onsite Melatonin 3 MG Oral Tablet melatonin tablet 3 mg melatonin t ablet 3 mg 01/07/2020 10:00:00 PM EST 3 mg Oral active 3 mg, Oral, Nightly, First dose on Mon01/07/20 at 2200, For 30 days [facility] Medication administered onsite Docusate Sodium 100 MG Oral Capsule docusate sodium (C OLACE) capsule 100 mg docusate sodium (COLACE) capsule 100 mg 01/07/2020 09:00:00 PM EST 100 mg Oral active 100 mg, Oral, 2 Times Daily, First dose on Mon01/07/20 at 2100, For 30 days [facility] Medication administered onsite Metoprolol Tartrate 25 MG Oral Tablet me toprolol tartrate (LOPRESSOR) tablet 25 mg metoprolol tartrate (LOPRESSOR) tablet 25 mg 01/07/2020 09:00:00 PM EST 25 mg Oral active 25 mg, Ora l, 2 Times Daily, First dose on Mon01/07/20 at 2100, For 30 days [facility] Medication administered onsite Acetaminophen 325 MG Oral Tablet acetaminophen (TYLENO L) tablet 975 mg acetaminophen (TYLENOL) tablet 975 mg 01/07/2020 05:00:00 PM EST 97 5 mg Oral active 975 mg, Oral, E very 8 hours, First dose on Mon01/07/20 at 1700, For 30 days
Maximum daily dose of acetaminophen is 3,000 mg from all sources in 24 hours.
[facility] Medication administered onsite gabapentin 300 MG Oral Capsule gabapentin (NEURONTIN) capsule 300 mg gabapentin (NEURONTIN) capsule 300 mg 01/07/2020 05:00:00 PM EST 300 mg Oral active 300 mg, Oral, Three Times D aily Standard, First dose on Mon01/07/20 at 1700, For 14 days [facility] Medication administered onsite Calcium Chloride 0.0014 MEQ/ML / Potassi um Chloride 0.004 MEQ/ML / Sodium Chloride 0.103 MEQ/ML / Sodium Lactate 0.028 MEQ/ML Injectable Solution lactated ringers infusion lactated ringers infusion 01/07/2020 03:30:00 PM EST 75 mL/h Intravenous aborted at 75 mL/hr, Intravenous, Continuous, Starting Mon01/07/20 at 1530, For 643 hours [facility] Medication administered onsite POLYETHYLENE GLYCOL 3350 142 [...] due to potential increased risk for aspiration.
[facility] Medication administered onsite HYDROmorphone bolus from bag 0.8 mg 01/07/2020 12:34:41 PM EST 0.8 mg Intravenous aborted 0.8 mg, Intra venous, Every 2 hours PRN, breakthrough, Starting Mon01/07/20 at 1234, For 1 day [facility] Medication administered onsite potassium chloride (K-DUR) dissolvable tablet 40 mEq [id number] 38-90 01/07/2020 11:30:00 AM EST 40 meq Oral completed 40 mEq, Oral, Once, Mon01/07/20 at 1130, For 1 dose
May be dissolved in water for patients with a G-Tube or unable to swallow. If concern for clogging G-Tube, may contact Pharmacy to switch formulation to a powder packet.
[facility] Medication administered onsite Acetaminophen 10 MG/ML Injectable Soluti on acetaminophen (OFIRMEV) infusion 1,000 mg acetaminophen (OFIRMEV) infusion 1,000 mg 01/07/2020 10:00:00 AM EST 1000 mg Intravenous aborted 1,000 mg , Intravenous, Administer over 15 Minutes, Every 8 hours, First dose on Mon01/07/20 at 1000, For 3 doses
Maximum daily dose of acetaminophen from all sources 3,000 mg daily.
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
[facility] Medication administered onsite Melatonin 5 MG Oral Tablet melatonin tablet 5 mg melatonin t ablet 5 mg 01/06/2020 12:15:46 AM EST 5 mg Oral active 5 mg, Oral, Nightly PRN, Sleep, Starting Mon01/06/20 at 0015, For 30 days [facility] Medication administered onsite 0.3 ML Enoxaparin sodium 100 MG/ML Prefi lled Syringe enoxaparin sodium (LOVENOX) injection 30 mg enoxaparin sodium (LOVENOX) injection 30 mg 01/05/2020 09:00:00 PM EST 30 mg Subcutaneous active 30 mg, Subcutaneous, Every 12 hours Standard (2 times per day), First dose on 01/05/20 at 2100, For 30 days [facility] Medication administered onsite 2 ML Adenosine 3 MG/ML Injection adenosine (ADENOCARD) injection 6 mg adenosine (ADENOCARD) injection 6 mg 01/05/2020 07:30:00 PM EST 6 mg Intrav enous completed 6 mg, Intravenous, Once, Sun at 1930, For 1 dose [facility] Medication administered onsite HYDROmorphone (DILAUDID) injection 1 mg [id number] 01/05/20 05:00:00 PM EST 1 mg Intravenous completed 1 mg, Intr avenous, Once, 01/05/20 at 1700, For 1 dose [facility] Medication administered onsite 30 ML Adenosine 3 MG/ML Injection adenosine (ADENOSCAN ) injection 6 mg adenosine (ADENOSCAN) injection 6 mg 01/05/2020 12:30:00 PM EST 6 mg Intrav enous completed 6 mg, Intravenous, Once, Sun at 1230, For 1 dose [facility] Medication administered onsite 2 ML Adenosine 3 MG/ML Injection adenosine (ADENOCARD) 6 MG/2ML injection adenosine (ADENOCARD) 6 MG/2ML injection 01/05/2020 12:25:16 PM EST completed Starting Sun 0 at 1225, For 1 dose
Jasmyne Cook: cabinet override
[facility] Medication administered onsite Acetaminophen 10 MG/ML Injectable Soluti on acetaminophen (OFIRMEV) infusion 1,000 mg acetaminophen (OFIRMEV) infusion 1,000 mg 01/04/2020 05:00:00 PM EST 1000 mg Intravenous completed 1,000 mg , Intravenous, Administer over 15 Minutes, Every 8 hours Standard (3 times per day), First dose on 01/04/20 at 1700, For 8 doses
Maximum daily dose of acetaminophen from all sources 3,000 mg daily.
[facility] Medication administered onsite 0.5 ML Bordetella pertussis filamentous hemagglutinin vaccine, inactivated 0.016 MG/ML / Bordetella pertussis pertactin vaccine, inactivated 0.005 UNT/ML / Bordetella pertussis toxoid vaccine, inactivated 0.016 MG/ML / diphtheria toxoid vaccine, inactivat Tdap (BOOSTRIX) injection 0.5 mL Tdap (BOOSTRIX) injection 0.5 mL 01/04/2020 03:45:00 PM EST 0.5 mL Intramuscular comp leted 0.5 mL, Intramuscular, Once, 01/04/20 at 1545, For 1 dose [facility] Medication administered onsite 50 ML Magnesium Sulfate [...] *For ICU Stay only, discontinue on transfer*
[facility] Medication administered onsite Piperacillin 3000 MG / tazobactam 375 MG Injection piperacillin-tazobactam (ZOSYN) IVPB 3.375 g (premix) piperacillin-tazobactam (ZOSYN) IVPB 3.3 75 g (premix) 01/04/2020 11:15:00 AM EST 3.375 g Intravenous com pleted 3.375 g, Intravenous, Administer over 4 Hours, Every 8 hours, First dose on 01/04/20 at 1115, For 3 days
This specific formulation of piperacillin- tazobactam is compatible with Lactated Ringers.
[facility] Medication administered onsite Calcium Chloride 0.0014 MEQ/ML / Potassi um Chloride 0.004 MEQ/ML / Sodium Chloride 0.103 MEQ/ML / Sodium Lactate 0.028 MEQ/ML Injectable Solution lactated ringers infusion lactated ringers infusion 01/04/2020 11:15:00 AM EST Intravenous aborted at 125 mL/hr, Intravenous, Continuous, Starting 01/04/20 at 1115, For 30 days [facility] Medication administered onsite fluconazole (DIFLUCAN) 400 mg in sodium chloride 0.9 % 200 mL (2 mg/mL) infusion (premix) [id number] 01/04/2020 11:15:00 AM EST 400 mg Intravenous completed 400 mg, Intravenous, at 100 mL/hr, Once, 01/04/20 at 1115, For 1 dose
Discouraged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 68.7 % 50-80.0 [facility] IG% 0.1 % 0.0-0.2 [facility] LYMPH % 19.9 % 25.0-50.0 L [facility] MONO % 6.7 % 2.0-10.0 [facility] EOS % 4.2 % 0-5.0 [facility] BASO % 0.4 % 0.0-2.0 [facility] GRAN # 5.0 K/mm3 2.0-8.00 [facility] IG# 0.0 K/mm3 0.0-0.2 [facility] LYMPH # 1.5 K/mm3 1.0-5.0 [facility] MONO # 0.5 K/mm3 0.10-1.20 [facility] EOS # 0.3 K/mm3 0.0-0.5 [facility] BASO # 0.0 K/mm3 0.0-0.2 [facility] ID Date Data Source [id number] 01/27/2020 09:52:13 AM [facility] IR IMAGE GUIDED NEEDLE DRAIN PROCEDUREFI NAL [...] the sheath was exchanged for a 14 Colombian resolve pigtail drainage catheter. The Benavides loop was formed within the collection. The wire was removed. The drain was attached to a external Alexis suction bag. It was secured in place with suture and adhesive skin anchoring device. A dressing was applied. A final set of axial CT images was made through the abdomen demonstrating the drain appropriately positioned within the right intra-abdominal abscess.IMPRESSION: CT-guided right intra-abdominal abscess 14 Colombian drain placement as described above. This document has been electronically signed by Adrián Hernandez MD on 01/27/2020 9:50 AM Name Value Range Interpretation Code Description Data [facility] trujillo(s) Supporting Document(s) ID Date Data Source [id number] 01/27/2020 04:36:20 AM [facility] Name Value Range Interpretation Code Description Data [facility] rce(s) Supporting Document(s) ED Provider Note [facility] [id number]/IVRgwMGBan8YhVNtqNHy0KTdmKKFnQ0IdEHX7wM2cOCV2CKcORaUrOeStXwFt lbm [file] UlVCFqBUhkXLDbFLPuLWU3ZsShKHY8QV3fVUFVEz6+TWukaHWimPqxONGYUnA9MUr5SWqyTTXHCd1C ID Date Data Source [id number] 01/26/2020 12:07:48 PM EST [facility] Name Value Range Interpretation Code Description Data [facility] rce(s) Supporting Document(s) ED Provider Note [facility] [id number]/LSImmHRGyk2NfFWbvBBd7LGvpETPaY4PfXAA4lQ9eNYW1JZcXTlPqXwHdRiPp lbm [file] ID Date Data Source [id number] 01/25/2020 07:10:14 AM [facility] Name Value Range Interpretation Code Description Data [facility] rce(s) Supporting Document(s) Leukocytes [#/volume] in Blood by Automated count 7.6 10*3/uL 4-10 [facility] Erythrocytes [#/volume] in Blood by Automated count 3.23 10*6/uL 4.6- 6.1 L [facility] Hemoglobin [Mass/volume] in Blood 8.9 g/dL 13.5-18 L [facility] Hematocrit [Volume Fraction] of Blood by Automated count 26.7 % 4 1-53 L [facility] Erythrocyte mean corpuscular volume [Entitic volume] by Auto mated count 82.6 fL 80-96 [facility] Erythrocyte mean corpuscular hemoglobin [Entitic mass] by Automated count 27.7 pg 27-33 [facility] Erythrocyte mean corpuscular hemoglobin concentration [Mass/volume] by Automated count 33.5 g/dL 32.0-36.0 [facility] distribution width [Ratio] by Automated count 15.6 % 11.5-14.5 H [facility] Platelets [#/volume] in Blood by Automated count 397 10*3/uL 150-400 [facility] Differential cell count method - Blood [facility] Neutrophils/100 leukocytes in Blood by Automated count 74 % [facility] Lymphocytes/100 leukocytes in Blood by Automated count 15 % [facility] Monocytes/100 leukocytes in Blood by Automated count 8 % [facility] Eosinophils/100 leukocytes in Blood by Automated count 3 % [facility] Basophils/100 leukocytes in Blood by Automated count 0 % [facility] Neutrophils [#/volume] in Blood by Automated count 5.59 10*3/uL 1.8-7 .0 [facility] Lymphocytes [#/volume] in Blood by Automated count 1.15 10*3/uL 1.2-4 .0 L [facility] Monocytes [#/volume] in Blood by Automated count 0.63 10*3/uL 0-0.8 [facility] Eosinophils [#/volume] in Blood by Automated count 0.21 10*3/uL 0-0.5 [facility] Basophils [#/volume] in Blood by Automated count 0.02 10*3/uL 0-0.2 [facility] Nucleated erythrocytes/100 leukocytes [Ratio] in Blood by Automated count 0 /100{WBCs} 0-0 [facility] ID Date Data Source [id number] 01/25/2020 08:10:48 AM [facility] Name Value Range Interpretation Code Description Data [facility] rce(s) Supporting Document(s) Bicarbonate [Moles/volume] in Serum 26 mmol/L 22-29 [facility] Chloride [Moles/volume] in Serum or Plasma 99 mmol/L 98-107 [facility] Creatinine [Mass/volume] in Serum or Plasma 0.73 mg/dL 0.70-1.20 [facility] Glucose [Mass/volume] in Serum or Plasma 83 mg/dL 70-140 [facility] Potassium [Moles/volume] in Serum or Plasma 4.5 mmol/L 3.4-5.1 [facility] Sodium [Moles/volume] in Serum or Plasma 135 mmol/L 136-145 L [facility] Urea nitrogen [Mass/volume] in Serum or Plasma 3 mg/dL 6-20 L [facility] Anion gap 3 in Serum or Plasma 11 mmol/L 8-15 [facility] Osmolality of Serum or Plasma by calculation 277 mosm/kg 275-300 [facility] Creatinine/Urea nitrogen [Mass Ratio] in Serum or Plasma 4 [facility] Calcium [Mass/volume] in Serum or Plasma 8.4 mg/dL 8.6-10.0 L [facility] Glomerular filtration rate/1.73 sq M pre dicted among non-blacks [Volume Rate/Area] in Serum or Plasma by Creatinine-based formula (MDRD) >6 0 [facility] Glomerular filtration rate/1.73 sq M pre dicted among blacks [Volume Rate/Area] in Serum or Plasma by Creatinine-based formula (MDRD) >60 [facility] ID Date Data Source [id number] 01/25/2020 12:52:13 PM [facility] Service Cmnt XXX-Imp : DRAINGram Stn XXX : 2+WBC'S Seen.2+Gram positive cocciin pairsin chainsMicroorganism XXX Cult : 4+Streptococcus anginosus Name Value Range Interpretation Code Description Data [facility] rce(s) Supporting Document(s) ID Date Data Source [id number] 01/24/2020 01:19:22 PM [facility] Name Value Range Interpretation Code Description Data [facility] rce(s) Supporting Document(s) [facility] EGTWVr6vFqKSOoXg50/OCXscPALia3PnVJuoHVp0FVshKDLaG8LxRVT7fB4gVVQ9YLhOWnZbHkBgQuJ5 lbm [file] DQo+Fn6Hj0DlcwM4ydRvSHn2WCX2Pb4SAPWCH0JVYp== ID Date Data Source [id number] 01/24/2020 09:42:34 AM [facility] Name Value Range Interpretation Code Description Data [facility] rce(s) Supporting Document(s) Consultation [facility] GWECJc7hDgNNKfXa88/PNKyoZHAuy2EuCUgqENd6WWixRTWtK0KxWCE4dP6gRMB7LZiQXyYzDwDvChK7 lbm [file] UQNkPHA0BLAuHIJhKzVlME4GCh5RMaK2CQG0hAShSq0LVzP3GHZYOfHxEK9QWIh= ID Date Data Source [id number] 01/24/2020 08:55:54 AM [facility] Name Value Range Interpretation Code Description Data [facility] rce(s) Supporting Document(s) [facility] LXCJMy8cYoVSFyTcx9ZaSlBaCUThIE8nynb3O6M0aKJtF5VdqODwz3zhA5EaT7CbSYZnRUWPYN3IdAPa jb2 [file] transportation [file] [id number]poycyK vOu+[id number]+[id number]/9zP3Fy79kvE//EU7dw2gF9wKtzVP xHXG2DN1qoSfYXXLlBa0fJl+ImKMAUTMs24QiuD6E6LV3aOSUXe8GpbjIruLEHH94OR+q26T4GUBlR+P 3030s/v4VJ1Eo7gqdPn4biSxc8oO3CvobwHAt6Ki3P 9o87GKoAN4SI8KZJAn/sHTnkqWLiwGQZ8xSkjN4hcXls9EQDvBSmCJWbjvbEERxajb4+gLy7xbmzXgBK 8qonbjO0Ffx96oi4+1cCOJ8jlafjV+7aygy3uMKEhM2gI5JKHW3gKeMp19tvY/bjW1wcsE75nNMJhcjU GxbWJ0f90tv73r0I5Sl6IklL+hzZuG521z++VCaSTg 5Q1oIIXh94/+VpUTxUqSrUwiOVqoX+ja5krNV7fvwLcH8xOSA0fjGTbpOyvRDRnTz1lgyNVlhCOPUqMc GljC6KSx46RpAsUqf4E6Yia2QNtpJpzVLZB8W0y/59q67Z+kQIkS6soM82TtK/2Etu2x4q1s55eio79b b2v5feS9xjuo7KTh8/IpKuU1WL8T/pko116P9vv7/3 mv29e//VmNC9/7ug2b0pYL5/a39YZndV1Jt1nQ2Yu/PG43F6rRi6glgtF9Nsj/WMdbdl/5QN+rs9rppD f79niue72UQkdQ/9sZy3s4br+UWry1gifi3W/Be9ZsaSYf/5wLg9H1vvc1Gca4+v+zPk85JiHw6+nqjJ P41cyThxNEBoy4kQMX8pTHd3+/T3LdL7+7t3Lk7z4U Xbgq+X+sO6DWmZO7m95rlw5gCpxhf0iTv6lNnzoWQCupi9pI0Ok6Ly9Tf6vG71I+4W2eg0kKtQWeaI/i pLf7+bgv16bciiD/EVvODi58s2Kik0nqI2McrT1/q7ocLVQUxH082944Rq4klE+lz+vqfcnzrf/r76Ft vfV+Ao9e36XAl/7/rhq3GY5B/225Oo7cDs7V1E4zzY jxx0zpZy2XnA0QvPhN26Uv/YM/vLXtmPtrdnzV/f21Q13n9AywOBMyNQs/8DMZcyNcUV42wWmj2uteFM e9S28Vd9JcuM/YB+Qj+xA7Iq8Kc7hU+4p30x2MzgePQII6h5Epug19gYE7MjchOdzU9r6jBEut/3rE+3 k66o0VE5Wi5FphM/od/6lBzcffn9qY/D+xre1/C+Vq Rs6KN1Ohvyu4a+RDv0yJ+eMZLt4M/oJ/QL+iI3hz1ppxl4OdE8pgdFr/tE3/Juan Jose+hfHuwT/d9vkpCfly aHjPOz7OQ78x9zARg4ferMUs/zqYeyrj/irIc1tNbgst+iPKGf+X6DhZmqnf+DB155Gwgs4piiLt/Kaila /k1cN1Dgmwwzbusi89E1xlfjlrPCk5kZpZF5P5dnw/ zXn7yNsMKt0Fx531ueh7rONT8iPq5920dhe2bBkPJ8UlGR3sb122gdJd9BuxxU8usg+f8HDd7YffS/QD +xMHt3yHNqTZP6E53D872yYz32uBs375V9L+xW3u5Oef+yqWB92+YhU3ts3jfxVTk3LS+D4erxN+iofr yFpUfpWs5xmT0sHD5ViiuWZ8SCH22fcBqWm9308brQ 057rd9Q1wG0/ZT1Adv+6ezHhqgK1fIqCxoil36lv/sPP/wG9EH5of+ibVFgp2rz/Ly694d2U+97SuLSH bZV/G/gbQg85acfgYL/jHF1sq4gAtiAdE5aZLxo70+zgVOum2LnfM3j6hGmm8+irSpbl+da7p/pD7i9t L9062r2qSQ5FFxG3KA2YRLIWsg3v38GJ75EF0QB45F [file] 5NQq79C+zj1Bg0At2NFc8OQ+qIvuMxHU+6WT8iI7vt45Q+zwR42M5+pX/Ur1x/7lq/care home+juEa8bqhux [file] 77r3/hsDh5ib1817n3k270rX5Jz4+/+fzjLz/86sO3 n/8Ocf9wyf874xru/vszE33I+vj1L7/19MfL00d68hwTo/j4+cfomCS1c1++++K/v/3680+pIrz33bwA 4Jwj16J+7w1SLb21/OZ+6w9f/PK/+OFtGtw//UatGrv5dd/q314ncvp1138/fXX/w9t3//gaLH/27Xe/ 4wjf6adak/2uMBLqQUaymg5z4dsnb/nt1//4+gjffn a3BPslj/nh7Z8///9gW724shAI/9PzzN7/+cWf//Tvv//LH3/8t7f/8b/ffvv7P/zhh7/85ccf/vD3b1 /+8Kff//iHt3/927L+9e/e/jlb31A2mDid+/Osz3r/4OVwmz0b//CzEsYilvf2J/7x53/lffcqCZfrBf /pd4CubJ8hgkj86i1S3Q2iA5e/tD7KOHvxVYix+/4b 4imjB7VnxcB1AvlwDB1RC3+b4th9wZbzExi+wccf//6QQqNivcOB90n/+/z7//b1q4V9+c3n//2rdy3S uyDlb8Vi/+L+f9cpvE6+q0e+Z8P/pf0PcL1ZS6REIJywnz+6zG9//NN//ORbE692oy/fXf41+74pF8/9 oz/+8ryAK4gy7xtWK+EaV355/k//8eNf/t//9PS6/K nQ95e/Ts9Nko416hd5o3/fv/3b/3w9++///QhfIs2u1n5p5caWf/3Tp5//10nz7FCno7Y/xfVif9cgUh 3b9PQIvtWaH6j7X4n7O0+EgjugZ59cq/36Zx9/9unth//141//g7m2puk77/l+LP9f//Z11//9l3/9u5 /8+nyHX/1rj7mzc33Up/jhf/7uh7/+/oc//eT/T02P 1wbbdJ2ztgomm//4Wfv4E/y8zTd//t3xEDZ1Ey8bYS1/04+/+7//2Qktzd0/1ztoTal9Z65drDC73T// 49Wk/v8e0z220rItg3Dxo1/ou1/dY/y6c9E9ftdE//CLrglR7mhJu7/+4f/68a28/fnf39h/bvqvkYPB 80tK99CG5fdMQd+2DhK60Ca0oz1XJoz/0mqyGP5PSV f5F1+8RtvXb+8LmtTfIMmi9H0UqkQ8uAiwjmGpzKPaZT4VGG9ga6FoIhA4YWTan6JnDEuhZUq2gSLjXO rtcmNvt7RbigqgN8Yur2QeClJeNWCaQtYySky4EFIyCcE2iCShIiOsRIJlK7CpLXHnYyK1VeGvPFLRJK 9QYXJlbnQgMiAwIFI+KkTlVS9nhvolXNKti3HwROrz OLxzLDIpZ5B4tAbmZZIxL3HsoO23FWGiJ9CdxjH2ZXL1XKErEePaVSOxuYZyYPRrICQ+NxAkIV6vkfxt MLXtw2HeGFtfXRC6mX3kENtAJDWNUJeNPOzaTnY6o98xdzSRCKDoBAXoND7SgkVouWeutmRxzLSgGQX7 MuTpUIJzVWtjEGE5FKIEPYHyKWTvZLZfQDZoB0JrfJ xnHKmOOQBVBDlROUadXdGot6O4YMDpemVBCTjDCKTRPZZEOSYUIAZCPMV3YLQ9EFAgZQ8MjFOtVOZ0WT rEZDPBALmVWLtyGnVgy3T1RHEaO7FtORNcrhMgWJXAHSvdAfsuSM6ijBansbtaN0NtfPXvTPUJROBpNB RmGOIyOHHqP6Jqs6E5T3McLTkLXEMXSFoAAQofOlK1 x25dqwGUMOYwWJSvLK6+YH2ex3LzWv1LDALvNL4qroj4GQ1WfRLwUG0TMWablvQwZ3gydfYrVaSuNAHN QJ3eE6QtaA07PVH+IiYsTY3ezct7czYzZyZkTSLtFNDkLRWeVLqmORUcJXQrEYUyHXJ8REJ5HJQrMqQh KQCrBzR9YmPrYBKkMUXpvrOOYNBpIUP1XUD9NsYyLU XmZHYiDJnbRCXuXIfiMhV7WROiHKTzND6oCxUeAVCfJVIeMLXwHgS6DuMiNwTXOEOoWRSrLXLyCrKtKU MdDEIoAQbsJUXpGUPaDEf2ZOYpDBKiSY8wTaSxHEKiDIFmVGBcOFJuNJRylpLCYEXaBWTkVKD1EJJuZP OlFVCrRCrcCFAjXIFuLNM2XQQiWWStYP0wGaDwSUVg SFR0ToPhVNGdWCXwswEAMMSdTOXbZFF9JJLpGEFyGRKxBNcvMTZpMPIrMaT7QXPuEFCtML1hJjQeULBk HUO3AXNpSCDuOVFjffKQTOZdEJRcMGn6XmCiCIXhIMRrDAvmMJUqJKLkDMriESDaCYHsJS9sQeNyXVEn FXDkZDXeMSAwWEDuraOIMTZyVGPaQYW3IyJyGJMrJH KyQBopOOCyBZGzNVF1IHCcCAUhFO9pXkSjDMQlUmWbQXIfYHZlXVIzzvRTUPPtQCUvTKQfXFAwOPGqDR QoPWnhIDOzESEnZdY3VWQyJETtIK1hYuTpSZXsBAG4FAXhGYAaFYBxgvHBPFCzWVRvRFAsEUI6ZUWjLW KsPLb9lrOuwFZpVuu2Mv6TtZxbHON9Cg6QawGnFIJu XAHWAf1Ls534JRRvYIPPGoa+DtbueYUwpTrkYFKLJuN3BewIEAOQV5N= ID Date Data Source [id number] 01/24/2020 05:33:46 AM [facility] Name Value Range Interpretation Code Description Data Sumaya rce(s) Supporting Document(s) HIV 1+2 Ab+HIV1 p24 Ag [Presence] in Serum or Plasma by Immu noassay Non Reactive [facility] Negative for HIV-1 p24 antigenand HIV-1/ HIV-2 antibodies. Nolaboratory evidence of HIVinfection. ID Date Data Source [id number] 01/24/2020 05:14:55 AM [facility] Name Value Range Interpretation Code Description Data Sumaya rce(s) Supporting Document(s) Leukocytes [#/volume] in Blood by Automated count 8.8 10*3/uL 4-10 [facility] Erythrocytes [#/volume] in Blood by Automated count 3.08 10*6/uL 4.6- 6.1 L [facility] Hemoglobin [Mass/volume] in Blood 8.6 g/dL 13.5-18 L [facility] Hematocrit [Volume Fraction] of Blood by Automated count 25.3 % 4 1-53 L [facility] Erythrocyte mean corpuscular volume [Entitic volume] by Auto mated count 82.0 fL 80-96 [facility] Erythrocyte mean corpuscular hemoglobin [Entitic mass] by Automated count 27.9 pg 27-33 [facility] Erythrocyte mean corpuscular hemoglobin concentration [Mass/volume] by Automated count 34.1 g/dL [facility].0[facility] width [Ratio] by Automated count 15.4 % 11.5-14.5 H [facility] Platelets [#/volume] in Blood by Automated count 320 10*3/uL 150-400 [facility] Differential cell count method - Blood [facility] Neutrophils/100 leukocytes in Blood by Automated count 77 % [facility] Lymphocytes/100 leukocytes in Blood by Automated count 12 % [facility] Monocytes/100 leukocytes in Blood by Automated count 9 % [facility] Eosinophils/100 leukocytes in Blood by Automated count 2 % [facility] Basophils/100 leukocytes in Blood by Automated count 0 % [facility] Neutrophils [#/volume] in Blood by Automated count 6.77 10*3/uL 1.8-7 .0 [facility] Lymphocytes [#/volume] in Blood by Automated count 1.04 10*3/uL 1.2-4 .0 L [facility] Monocytes [#/volume] in Blood by Automated count 0.80 10*3/uL 0-0.8 [facility] Eosinophils [#/volume] in Blood by Automated count 0.17 10*3/uL 0-0.5 [facility] Basophils [#/volume] in Blood by Automated count 0.03 10*3/uL 0-0.2 [facility] Nucleated erythrocytes/100 leukocytes [Ratio] in Blood by Automated count 0 /100{WBCs} 0-0 [facility] ID Date Data Source [id number] 01/24/2020 05:21:18 AM [facility] Name Value Range Interpretation Code Description Data Sumaya e(s) Supporting Document(s) Bicarbonate [Moles/volume] in Serum 28 mmol/L 22-29 [facility] Chloride [Moles/volume] in Serum or Plasma 99 mmol/L 98-107 [facility] Creatinine [Mass/volume] in Serum or Plasma 0.69 mg/dL 0.70-1.20 L [facility] Glucose [Mass/volume] in Serum or Plasma 93 mg/dL 70-140 [facility] Potassium [Moles/volume] in Serum or Plasma 3.8 mmol/L 3.4-5.1 [facility] Sodium [Moles/volume] in Serum or Plasma 137 mmol/L 136-145 [facility] Urea nitrogen [Mass/volume] in Serum or Plasma 4 mg/dL 6-20 L [facility] Anion gap 3 in Serum or Plasma 10 mmol/L 8-15 [facility] Osmolality of Serum or Plasma by calculation 280 mosm/kg 275-300 [facility] Creatinine/Urea nitrogen [Mass Ratio] in Serum or Plasma 5 [facility] Calcium [Mass/volume] in Serum or Plasma 8.4 mg/dL 8.6-10.0 L [facility] Glomerular filtration rate/1.73 sq M pre dicted among non-blacks [Volume Rate/Area] in Serum or Plasma by Creatinine-based formula (MDRD) >6 0 [facility] Glomerular filtration rate/1.73 sq M pre dicted among blacks [Volume Rate/Area] in Serum or Plasma by Creatinine-based formula (MDRD) >60 [facility] ID Date Data Source [id number] 01/24/2020 05:21:18 AM [facility] Name Value Range Interpretation Code Description Data Sumaya rce(s) Supporting Document(s) Magnesium [Mass/volume] in Serum or Plasma 2.0 mg/dL 1.6-2.6 [facility] ID Date Data Source [id number] 01/24/2020 05:21:18 AM [facility] Name Value Range Interpretation Code Description Data Sumaya rce(s) Supporting Document(s) Phosphate [Mass/volume] in Serum or Plasma 3.7 mg/dL 2.5-4.5 [facility] ID Date Data Source [id number] 01/23/2020 11:10:32 PM [facility] XR CHEST FRONTAL ONLY [id number] RESULTI nterpreted by:Silvia Ramirez, MDPROCEDURE INFORMATION: Exam: XR Chest, 1 View Exam date and time: 01/23/2020 7:40 PM Age: 29 years old Clinical indication: Other: Sepsis TECHNIQUE: Imaging protocol: XR of the chest Views: 1 view. COMPARISON: CR XR CHEST FRONTAL ONLY [id number] PORTABLE 01/04/2020 4:58 AM FINDINGS: Lungs: Unremarkable. [...] rce(s) Supporting Document(s) ID Date Data Source [id number] 01/23/2020 09:55:08 PM EST [facility] CT ABDOMEN PELVIS WITH CONTRAST [id number] KIMBERLY RESULT - FINALInterpreted by:Antonio Olivo BeginsSigned on MonJan 23, 2020 9:55 PM by Silvia Ramirez [facility] EDMONDritical Result: This report contains findings that may [...] DX XR ABDOMEN AP ABD SUPINE ONLY [id number] PORTABLE 01/08/2020 8:06 AM FINDINGS: Lungs: There [...] Date Data Source [id number] 01/23/2020 08:51:54 PM [facility] Name Value Range Interpretation Code Description Data Sumaya rce(s) Supporting Document(s) pH of Venous blood 7.42 7.36-7.41 H [facility] Carbon dioxide [Partial pressure] in Venous blood 44 mmHg 40-45 [facility] Oxygen [Partial pressure] in Venous blood 21 mmHg [facility] Base excess standard in Venous blood by calculation 3 mmol/L [facility] Oxygen saturation Calculated from oxygen partial pressure in Venous blood 34 % 60-85 L [facility] Lactate [Moles/volume] in Venous blood 0.6 mmol/L 0.5-2.2 [facility] Bicarbonate [Moles/volume] in Venous blood 30 mmol/L [facility] ID Date Data Source [id number] 01/28/2020 09:53:18 AM [facility] Service Cmnt XXX-Imp : Specimen source n ot given.Microorganism XXX Cult : No growth 5 days Name Value Range Interpretation Code Description Data Sumaya rce(s) Supporting Document(s) ID Date Data Source [id number] 01/28/2020 09:53:18 AM [facility] Service Cmnt XXX-Imp : Specimen source n ot given.Microorganism XXX Cult : No growth 5 days Name Value Range Interpretation Code Description Data Sumaya rce(s) Supporting Document(s) ID Date Data Source [id number] 01/23/2020 08:28:00 PM EST [facility] Name Value Range Interpretation Code Description Data Sumaya rce(s) Supporting Document(s) SARS-CoV-2 RNA [facility] This lab was ordered by [facility] and reported by [facility]. ID Date Data Source [id number] 01/23/2020 09:04:54 PM [facility] Name Value Range Interpretation Code Description Data Sumaya rce(s) Supporting Document(s) Leukocytes [#/volume] in Blood by Automated count 10.7 10*3/uL 4-10 H [facility] Erythrocytes [#/volume] in Blood by Automated count 3.22 10*6/uL 4.6- 6.1 [facility] Hemoglobin [Mass/volume] in Blood 9.0 g/dL 13.5-18 L [facility] Hematocrit [Volume Fraction] of Blood by Automated count 26.8 % 4 1-53 [facility] Erythrocyte mean corpuscular volume [Entitic volume] by Auto mated count 83.0 fL 80-96 [facility] Erythrocyte mean corpuscular hemoglobin [Entitic mass] by Automated count 27.8 pg 27-33 [facility] Erythrocyte mean corpuscular hemoglobin concentration [Mass/volume] by Automated count 33.5 g/dL 32.0-36.0 [facility] distribution width [Ratio] by Automated count 15.4 % 11.5-14.5 [facility] Platelets [#/volume] in Blood by Automated count 391 10*3/uL 150-400 [facility] Differential cell count method - Blood [facility] Neutrophils/100 leukocytes in Blood by Automated count 73 % [facility] Lymphocytes/100 leukocytes in Blood by Automated count 14 % [facility] Monocytes/100 leukocytes in Blood by Automated count 11 % [facility] Eosinophils/100 leukocytes in Blood by Automated count 1 % [facility] Basophils/100 leukocytes in Blood by Automated count 1 % [facility] Neutrophils [#/volume] in Blood by Automated count 7.92 10*3/uL 1.8-7 .0 H [facility] Lymphocytes [#/volume] in Blood by Automated count 1.47 10*3/uL 1.2-4 .0 [facility] Monocytes [#/volume] in Blood by Automated count 1.17 10*3/uL 0-0.8 H [facility] Eosinophils [#/volume] in Blood by Automated count 0.12 10*3/uL 0-0.5 [facility] Basophils [#/volume] in Blood by Automated count 0.07 10*3/uL 0-0.2 [facility] Nucleated erythrocytes/100 leukocytes [Ratio] in Blood by Automated count 0 /100{WBCs} 0-0 [facility] ID Date Data Source [id number] 01/23/2020 09:18:21 PM [facility] Name Value Range Interpretation Code Description Data Sumaya rce(s) Supporting Document(s) Prothrombin time (PT) 17.7 s 12.5-14.9 H [facility] INR in Platelet poor plasma by Coagulation assay 1.43 [facility] Routine intensity oral anticoagulation I NR is typically 2.0-3.0. Target INR must be clinically individualized. ID Date Data Source [id number] 01/23/2020 09:34:36 PM [facility] Value Range Interpretation Code Description Data Sumaya rce(s) Supporting Document(s) Lipase [Enzymatic activity/volume] in Serum or Plasma 45 U/L 13-6 0 [facility] ID Date Data Source [id number] 01/23/2020 09:34:36 PM [facility] Value Range Interpretation Code Description Data Sumaya rce(s) Supporting Document(s) Bicarbonate [Moles/volume] in Serum 27 mmol/L 22-29 [facility] Chloride [Moles/volume] in Serum or Plasma 95 mmol/L 98-107 L [facility] Creatinine [Mass/volume] in Serum or Plasma 0.83 mg/dL 0.70-1.20 [facility] Glucose [Mass/volume] in Serum or Plasma 83 mg/dL 70-140 [facility] Potassium [Moles/volume] in Serum or Plasma 3.7 mmol/L 3.4-5.1 [facility] Sodium [Moles/volume] in Serum or Plasma 134 mmol/L 136-145 L [facility] Urea nitrogen [Mass/volume] in Serum or Plasma 5 mg/dL 6-20 L [facility] Anion gap 3 in Serum or Plasma 12 mmol/L 8-15 [facility] Osmolality of Serum or Plasma by calculation 274 mosm/kg 275-300 L [facility] Creatinine/Urea nitrogen [Mass Ratio] in Serum or Plasma 6 [facility] Calcium [Mass/volume] in Serum or Plasma 8.3 mg/dL 8.6-10.0 L [facility] Glomerular filtration rate/1.73 sq M pre dicted among non-blacks [Volume Rate/Area] in Serum or Plasma by Creatinine-based formula (MDRD) >6 0 [facility] Glomerular filtration rate/1.73 sq M pre dicted among blacks [Volume Rate/Area] in Serum or Plasma by Creatinine-based formula (MDRD) >60 [facility] ID Date Data Source [id number] 01/23/2020 09:34:36 PM [facility] Name Value Range Interpretation Code Description Data Sumaya rce(s) Supporting Document(s) Troponin T.cardiac [Mass/volume] in Serum or Plasma <0.01 [facility] ID Date Data Source [id number] 01/23/2020 09:34:36 PM [facility] Name Value Range Interpretation Code Description Data Sumaya rce(s) Supporting Document(s) Thyrotropin [Units/volume] in Serum or Plasma 1.300 u[IU]/mL 0.270-4. 200 [facility] ID Date Data Source [id number] 01/23/2020 11:24:16 PM [facility] Value Range Interpretation Code Description Data Sumaya rce(s) Supporting Document(s) Albumin [Mass/volume] in Serum or Plasma by Bromocresol green (BCG) dye binding method 3.6 g/dL 3.5-5.2 [facility] Bilirubin.total [Mass/volume] in Serum or Plasma 0.3 mg/dL <1.2 [facility] Bilirubin.direct [Mass/volume] in Serum or Plasma <0.3 [facility] Alkaline phosphatase [Enzymatic activity/volume] in Serum or Plasma 104 U/L 40-129 [facility] Aspartate aminotransferase [Enzymatic activity/volume] in Serum or Plasma 17 U/L <40 [facility] Alanine aminotransferase [Enzymatic activity/volume] in Seru m or Plasma 19 U/L <41 [facility] Protein [Mass/volume] in Serum or Plasma 7.5 g/dL 6.4-8.3 [facility] ID Date Data Source [id number] 01/23/2020 10:28:24 PM [facility] Service Cmnt XXX-Imp : NoneRespiratory P CR Panel : PCR ResultsMicroorganism XXX Cult : See Labs Tab for 2019 nCoV RT-PCR resultsHAdV DNA QI GOLDY+non-probe : Not DetectedHCoV [id number] Nph QI GOLDY+non-probe : Not DetectedHCoV [id number] Nph QI GOLDY+non-probe : Not [id number] RNA Nph QI GOLDY+non-probe : Not [id number] RNA Upper resp QI GOLDY+probe : Not [...] DNA Nph Q GOLDY+non-probe : Not DetectedB [id number] DNA Nph GOLDY+non-probe : Not Detected Name Value Range Interpretation Code Description Data Sumaya rce(s) Supporting Document(s) ID Date Data Source [id number] 01/23/2020 10:26:10 PM [facility] Name Value Range Interpretation Code Description Data Sumaya rce(s) Supporting Document(s) Specimen source [Identifier] of Unspecified specimen [facility] SARS-CoV-2 RNA 2019 nCoV Real-Time RT-PCR: NOT DETECTED [facility] Assay Performed [facility] Patients first test for condition [facility] Patient employed in healthcare setting [facility] Patient has symptoms related to condition [facility] When did you start to experience these symptoms [Date and time] [PhenX] [id number] [facility] Patient was hospitalized because of this condition [facility] patient was admitted to ICU for condition [facility] Patient resides in a congregate care setting [facility] status [facility] ID Date Data Source [id number] 01/23/2020 09:32:06 PM EST [facility] Name Value Range Interpretation Code Description Data Sumaya rce(s) Supporting Document(s) Color of Urine [facility] Clarity of Urine [facility] Specific gravity of Urine by Refractometry automated 1.024 1.003 -1.030 [facility] pH of Urine by Automated test strip 5.0 5.0-8.0 [facility] Protein [Mass/volume] in Urine by Automated test strip 30 mg/dL Neg [facility] Glucose [Mass/volume] in Urine by Automated test strip Neg [facility] Ketones [Mass/volume] in Urine by Automated test strip 5 mg/dL Neg [facility] Bilirubin.total [Presence] in Urine by Automated test strip Negative [facility] Hemoglobin [Presence] in Urine by Automated test strip Neg [facility] Leukocyte esterase [Presence] in Urine by Automated test strip Negative [facility] Nitrite [Presence] in Urine by Automated test strip Negati [facility] Leukocytes [#/area] in Urine sediment by Automated count 2 /HPF 0 -5 [facility] Erythrocytes [#/area] in Urine sediment by Automated count 0-3 [facility] Epithelial cells.squamous [#/area] in Urine sediment by Auto mated count 1 /HPF None [facility] Mucus [#/area] in Urine sediment by Microscopy low power field None [facility] ID Date Data Source [id number] 01/19/2020 01:44:21 AM EST [facility] Name Value Range Interpretation Code Description Data Sumaya rce(s) Supporting Document(s) ED Provider Note [facility] [id number]6xLFW4SGnKPkOaNeXgYfIl lbm [file] [id number]= ID Date Data Source [id number] 01/11/2020 11:52:22 AM EST [facility] Name Value Range Interpretation Code Description Data Sumaya rce(s) Supporting Document(s) Discharge Summary [facility] [id number]ZMrRbNiAqGbK8 lbm [file] AgICAgICAgICAgICAgICAgICAgICAgICAgICAgICAgICAgICAgICAgICAgICAgICAgICAgICAgICAgIC ANCiAgICAgICAgICAgICAgICAgICAgICAgICAgICAg ICAgICAgICAgICAgICAgICAgICAgICAgICAgICAgICAgICAgICAgICAgICAgICAgICAgICAgICAgICAg ICAgICAgICAgICANCiAgICAgICAgICAgICAgICAgICAgICAgICAgICAgICAgICAgICAgICAgICAgICAg ICAgICAgICAgICAgICAgICAgICAgICAgICAgICAgIC AgICAgICAgICAgICAgICAgICAgICANCiAgICAgICAgICAgICAgICAgICAgICAgICAgICAgICAgICAgIC AgICAgICAgICAgICAgICAgICAgICAgICAgICAgICAgICAgICAgICAgICAgICAgICAgICAgICAgICAgIC AgICANCiAgICAgICAgICAgICAgICAgICAgICAgICAg ICAgICAgICAgICAgICAgICAgICAgICAgICAgICAgICAgICAgICAgICAgICAgICAgICAgICAgICAgICAg ICAgICAgICAgICAgICANCiAgICAgICAgICAgICAgICAgICAgICAgICAgICAgICAgICAgICAgICAgICAg ICAgICAgICAgICAgICAgICAgICAgICAgICAgICAgIC AgICAgICAgICAgICAgICAgICAgICAgICANCiAgICAgICAgICAgICAgICAgICAgICAgICAgICAgICAgIC AgICAgICAgICAgICAgICAgICAgICAgICAgICAgICAgICAgICAgICAgICAgICAgICAgICAgICAgICAgIC AgICAgICANCiAgICAgICAgICAgICAgICAgICAgICAg ICAgICAgICAgICAgICAgICAgICAgICAgICAgICAgICAgICAgICAgICAgICAgICAgICAgICAgICAgICAg ICAgICAgICAgICAgICAgICANCiAgICAgICAgICAgICAgICAgICAgICAgICAgICAgICAgICAgICAgICAg ICAgICAgICAgICAgICAgICAgICAgICAgICAgICAgIC AgICAgICAgICAgICAgICAgICAgICAgICAgICANCiAgICAgICAgICAgICAgICAgICAgICAgICAgICAgIC AgICAgICAgICAgICAgICAgICAgICAgICAgICAgICAgICAgICAgICAgICAgICAgICAgICAgICAgICAgIC AgICAgICAgICANCjw/nNJaE0lecJGhqhX2D0tdGf2N Jo7HOM7io3DmNCBjBPsviwQxZvpBCkOkTTVuVmcPLre8ARbtBC3LxDFhV2YaR0RhBZlyEG2SXDSjAERx zIVfEEEeRVQxNcU2NYOvOFipIA4SoHTiWQvzDFNaBDFiUaEkDYWfBILkXCRkNNGcHMTDOYPkAPIsTnHf NSFdGFAlQN0YORGtO529wcNfBy8THp9IVjQgAS7xzl 4AItIlQYGeEtzNAjd1NHhuWN6LdWSoxSRqDtEbGYMMOoRrY1yan3EsVtNxAGVVJFqxJR3Dy0TeeQMpOD o+Fc4EXP6kk9AoKImyQqJcHK7ldc3TZLmDCwQfR1WkuOwrLGVdk3SzDSOpNJICwD3cHEM3JPJ2KDDmbC ARUE1dL3DvSEwaBOKzLMWfGQElYW0wALIaVTD8SfA4 LSHJYG4UXKPhXOFedDYpHADzBDDNRA8QYQylSGV5LUOcvlYigBJwEYenDO5WNKDihmTsWyFtZBAHKUz+ Na7MAR0ex5RoSNznAJVrRD2wrb5JGWnTGmLhX9Y3tUMeC7J2QFdtSz7UKJFhHMGkKaYdIQOHUEsqBW3O MU0bzfW0KH3HhWJhEJOxIUXifLVaXRw5U43wdFPbLO meQC7KVHY+Ernie+Xt5GTWNqOUHeBJEcZnAbHSQTQwIvA8NkL7VDy2OzU2CeOQ51kZbcblFnIVriIW2KAE 4lPWIlSXHDGF7UfKRalV2wtiWsQvBzAAPDXzQyP34phGTeLYTvIKBbQSNfYm7VDQMdY1KswlZoaGcgto PdMHAfRGXZRM8OFGtbvnGhlCJrhMhoIC00zVbkAQ5Q To9STqSfZG1fvo1CfUDsCx3UXNMvGH3QQWHxZRDwNLAlZFP8NXTsYgFxZPxhUWYyOEYcFNR2EPCxRWYd OA2VTlGsKNLaBai6XUOfCKVwNAFncz5BHYQpQRVrPFUiYXGeFIWgCRCdKByyXRQxFRFsAJK8PXIgFXGu CC0KAeBgBMMdRQZnCwEuUBAlDBUbvd6TVYXgDUYxJo R2VKIzLKWjRMXaLYlqMLZsKPE5CnD9NTZfFCIsIO6AWdYkJLGeSDk5XycjHVVhWOZwsj7STLUkYOGfVJ IoLLRiDKMeZCVmDQjmJIQbELLqXvL4AZJsVKGkXB4KUlLpWIFmJLG9PyNsDZPgZSIepx5JPJQyCRNfUV fjYiCjREUaUUKsGSteVONmAWE9OFN3KDMoDLWgYI0L IgTjZDXeOIw8TyErGDJlBSHdof6WDOKnMSEcOYN6ZrUaQTTtKZUmRDfxSJObXPC2LuhqWQLtYCGzWW9F NqXrOTFyPfP0AmVdMHWrUQVrjx8SMCTcNRUrEKymHCZyRYFoGDKvXTgdFUUoKJBwDDGeJEFmHTKnNM5I BxHeHRAzIxC3EfIzUZJxEYYqdz5TAFAjKKPyJrG4VD WbJEJjAJGdGPblRHHhUUAaWcKsNTNvZQYbED9XDjBbUTXlSeGiGzMfZMApSYWgms8AZGWjQPDlXiVxEW CePRVkRHWtWTryKNLqZLPgAnZyPGHuFMEmPO1XDfTyDHFdYco6RQzvQVKcNFSwfc2JWUTjCTCwRBd5SX CfLOEaGBOgDOqkKYYaSCR4EOm7IFJrDALhYN5BJfZt VNUeAorbKapuVZMrTXMxie0SQZWuXFObJAH4IWKmPUQeWARhPGxpHBKkYBU6DOtyDGSvJIEaPS5QNgDl XYGeVcTvNnDsIGGrFRVvbq9JSZTaKQVtJQOfPqAjKCFsPERkOOetJWVjVBUgRXehREBwHEAmXJ0NDvXi XAmcCAIMPau6CSbhT4g8CNXfQH2XQ9Nsy9XnOvOmYT XOQCdsTI0teiWjALEtCd4EC8gAJuxlHmXmUTBhJrz8CARaApCzKeKoQFZuXUGkGmFtYJE2TX7vADPfQ6 JzJHJdGaDuSrAoF6SgNCSlRpLfSYYoOfZ7FyicJiCmPC9ZOh3LZgE2BBP7fGHtCb9KLvL0NheQUfOvXW 9GDQo= ID Date Data Source [id number] 01/10/2020 05:03:06 AM [facility] Name Value Range Interpretation Code Description Data Sumaya rce(s) Supporting Document(s) Creatinine [Mass/volume] in Body fluid 0.7 mg/dl [facility] (NOTE)The performance characteristics of this test for this specimen type were determined by the Department of Pathology at [facility] and approved by the [facility] Department of Health. It has not been cleared by the FDA. ID Date Data Source [id number] 01/10/2020 04:53:20 AM EST [facility] Name Value Range Interpretation Code Description Data Sumaya rce(s) Supporting Document(s) Leukocytes [#/volume] in Blood by Automated count 10.3 10*3/uL 4-10 H [facility] Erythrocytes [#/volume] in Blood by Automated count 4.60 10*6/uL 4.6- 6.1 [facility] Hemoglobin [Mass/volume] in Blood 13.4 g/dL 13.5-18 L [facility] Hematocrit [Volume Fraction] of Blood by Automated count 38.5 % 4 1-53 L [facility] Erythrocyte mean corpuscular volume [Entitic volume] by Auto mated count 83.7 fL 80-96 [facility] Erythrocyte mean corpuscular hemoglobin [Entitic mass] by Automated count 29.1 pg 27-33 [facility] Erythrocyte mean corpuscular hemoglobin concentration [Mass/volume] by Automated count 34.7 g/dL 32.0-36.0 [facility] E[facility] distribution width [Ratio] by Automated count 13.9 % 11.5-14.5 [facility] Platelets [#/volume] in Blood by Automated count 379 10*3/uL 150-400 [facility] Differential cell count method - Blood [facility] Neutrophils/100 leukocytes in Blood by Automated count 79 % [facility] Lymphocytes/100 leukocytes in Blood by Automated count 12 % [facility] Monocytes/100 leukocytes in Blood by Automated count 8 % [facility] Eosinophils/100 leukocytes in Blood by Automated count 1 % [facility] Basophils/100 leukocytes in Blood by Automated count 0 % [facility] Neutrophils [#/volume] in Blood by Automated count 8.13 10*3/uL 1.8-7 .0 H [facility] Lymphocytes [#/volume] in Blood by Automated count 1.22 10*3/uL 1.2-4 .0 [facility] Monocytes [#/volume] in Blood by Automated count 0.85 10*3/uL 0-0.8 H [facility] Eosinophils [#/volume] in Blood by Automated count 0.08 10*3/uL 0-0.5 [facility] Basophils [#/volume] in Blood by Automated count 0.03 10*3/uL 0-0.2 [facility] Nucleated erythrocytes/100 leukocytes [Ratio] in Blood by Automated count 0 /100{WBCs} 0-0 [facility] ID Date Data Source [id number] 01/10/2020 05:06:47 AM [facility] Name Value Range Interpretation Code Description Data Sumaya rce(s) Supporting Document(s) Bicarbonate [Moles/volume] in Serum 26 mmol/L 22-29 [facility] Chloride [Moles/volume] in Serum or Plasma 98 mmol/L 98-107 [facility] Creatinine [Mass/volume] in Serum or Plasma 0.74 mg/dL 0.70-1.20 [facility] Glucose [Mass/volume] in Serum or Plasma 79 mg/dL 70-140 [facility] Potassium [Moles/volume] in Serum or Plasma 3.5 mmol/L 3.4-5.1 [facility] Sodium [Moles/volume] in Serum or Plasma 139 mmol/L 136-145 [facility] Urea nitrogen [Mass/volume] in Serum or Plasma 6 mg/dL 6-20 [facility] Anion gap 3 in Serum or Plasma 16 mmol/L 8-15 H [facility] Osmolality of Serum or Plasma by calculation 285 mosm/kg 275-300 [facility] Creatinine/Urea nitrogen [Mass Ratio] in Serum or Plasma 9 [facility] Calcium [Mass/volume] in Serum or Plasma 8.9 mg/dL 8.6-10.0 [facility] Glomerular filtration rate/1.73 sq M pre dicted among non-blacks [Volume Rate/Area] in Serum or Plasma by Creatinine-based formula (MDRD) >6 0 [facility] Glomerular filtration rate/1.73 sq M pre dicted among blacks [Volume Rate/Area] in Serum or Plasma by Creatinine-based formula (MDRD) >60 [facility] ID Date Data Source [id number] 01/10/2020 05:06:47 AM [facility] Name Value Range Interpretation Code Description Data Sumaya rce(s) Supporting Document(s) Magnesium [Mass/volume] in Serum or Plasma 2.3 mg/dL 1.6-2.6 [facility] ID Date Data Source [id number] 01/10/2020 05:06:47 AM [facility] Name Value Range Interpretation Code Description Data Sumaya rce(s) Supporting Document(s) Phosphate [Mass/volume] in Serum or Plasma 3.2 mg/dL 2.5-4.5 [facility] ID Date Data Source [id number] 01/09/2020 08:57:11 AM [facility] Name Value Range Interpretation Code Description Data Sumaya rce(s) Supporting Document(s) [facility] [id number] [facility] [file] LUIS ANTONIO+[id number] [file] [id number]= ID Date Data Source [id number] 01/09/2020 01:45:25 AM EST [facility] Name Value Range Interpretation Code Description Data Sumaya rce(s) Supporting Document(s) Leukocytes [#/volume] in Blood by Automated count 9.8 10*3/uL 4-10 [facility] Erythrocytes [#/volume] in Blood by Automated count 3.69 10*6/uL 4.6- 6.1 L [facility] Hemoglobin [Mass/volume] in Blood 10.9 g/dL 13.5-18 L [facility] Hematocrit [Volume Fraction] of Blood by Automated count 30.7 % 4 1-53 L [facility] Erythrocyte mean corpuscular volume [Entitic volume] by Auto mated count 83.3 fL 80-96 [facility] Erythrocyte mean corpuscular hemoglobin [Entitic mass] by Automated count 29.4 pg 27-33 [facility] Erythrocyte mean corpuscular hemoglobin concentration [Mass/volume] by Automated count 35.3 g/dL 32.0-36.0 [facility] width [Ratio] by Automated count 13.8 % 11.5-14.5 [facility] Platelets [#/volume] in Blood by Automated count 340 10*3/uL 150-400 [facility] Differential cell count method - Blood [facility] Neutrophils/100 leukocytes in Blood by Automated count 78 % [facility] Lymphocytes/100 leukocytes in Blood by Automated count 11 % [facility] Monocytes/100 leukocytes in Blood by Automated count 10 % [facility] Eosinophils/100 leukocytes in Blood by Automated count 1 % [facility] Basophils/100 leukocytes in Blood by Automated count 0 % [facility] Neutrophils [#/volume] in Blood by Automated count 7.69 10*3/uL 1.8-7 .0 H [facility] Lymphocytes [#/volume] in Blood by Automated count 1.11 10*3/uL 1.2-4 .0 L [facility] Monocytes [#/volume] in Blood by Automated count 0.93 10*3/uL 0-0.8 H [facility] Eosinophils [#/volume] in Blood by Automated count 0.08 10*3/uL 0-0.5 [facility] Basophils [#/volume] in Blood by Automated count 0.01 10*3/uL 0-0.2 [facility] Nucleated erythrocytes/100 leukocytes [Ratio] in Blood by Automated count 0 /100{WBCs} 0-0 [facility] ID Date Data Source [id number] 01/09/2020 02:00:55 AM [facility] Name Value Range Interpretation Code Description Data Sumaya rce(s) Supporting Document(s) Bicarbonate [Moles/volume] in Serum 26 mmol/L 22-29 [facility] Chloride [Moles/volume] in Serum or Plasma 95 mmol/L 98-107 L [facility] Creatinine [Mass/volume] in Serum or Plasma 0.55 mg/dL 0.70-1.20 L [facility] Glucose [Mass/volume] in Serum or Plasma 102 mg/dL 70-140 [facility] Potassium [Moles/volume] in Serum or Plasma 3.7 mmol/L 3.4-5.1 [facility] Sodium [Moles/volume] in Serum or Plasma 131 mmol/L 136-145 L [facility] Urea nitrogen [Mass/volume] in Serum or Plasma 7 mg/dL 6-20 [facility] Anion gap 3 in Serum or Plasma 10 mmol/L 8-15 [facility] Osmolality of Serum or Plasma by calculation 270 mosm/kg 275-300 L [facility] Creatinine/Urea nitrogen [Mass Ratio] in Serum or Plasma 13 [facility] Calcium [Mass/volume] in Serum or Plasma 7.6 mg/dL 8.6-10.0 L [facility] Glomerular filtration rate/1.73 sq M pre dicted among non-blacks [Volume Rate/Area] in Serum or Plasma by Creatinine-based formula (MDRD) >6 0 [facility] Glomerular filtration rate/1.73 sq M pre dicted among blacks [Volume Rate/Area] in Serum or Plasma by Creatinine-based formula (MDRD) >60 [facility] ID Date Data Source [id number] 01/09/2020 02:00:55 AM [facility] Value Range Interpretation Code Description Data Sumaya rce(s) Supporting Document(s) Magnesium [Mass/volume] in Serum or Plasma 2.1 mg/dL 1.6-2.6 [facility] ID Date Data Source [id number] 01/09/2020 02:00:55 AM [facility] Value Range Interpretation Code Description Data Sumaya rce(s) Supporting Document(s) Phosphate [Mass/volume] in Serum or Plasma 2.6 mg/dL 2.5-4.5 [facility] ID Date Data Source [id number] 01/08/2020 09:28:18 PM [facility] Name Value Range Interpretation Code Description Data Sumaya rce(s) Supporting Document(s) LMW Heparin [Mass/time] in 24 hour Urine 0.14 IU/ml [facility] ID Date Data Source [id number] 01/08/2020 09:59:04 AM [facility] XR ABDOMEN AP ABD SUPINE ONLY [id number] RESULTInterpreted by:Alessia Harvey MDINDICATION: Evaluate ileus.TECHNIQUE: 2 [...] rce(s) Supporting Document(s) ID Date Data Source [id number] 01/08/2020 05:03:00 AM [facility] Name Value Range Interpretation Code Description Data Sumaya rce(s) Supporting Document(s) Leukocytes [#/volume] in Blood by Automated count 11.1 10*3/uL 4-10 H [facility] Erythrocytes [#/volume] in Blood by Automated count 3.57 10*6/uL 4.6- 6.1 L [facility] Hemoglobin [Mass/volume] in Blood 10.2 g/dL 13.5-18 L [facility] Hematocrit [Volume Fraction] of Blood by Automated count 30.1 % 4 1-53 L [facility] Erythrocyte mean corpuscular volume [Entitic volume] by Auto mated count 84.2 fL 80-96 [facility] Erythrocyte mean corpuscular hemoglobin [Entitic mass] by Automated count 28.7 pg 27-33 [facility] Erythrocyte mean corpuscular hemoglobin concentration [Mass/volume] by Automated count 34.0 g/dL [facility].0-[facility] width [Ratio] by Automated count 13.9 % 11.5-14.5 [facility] Platelets [#/volume] in Blood by Automated count 323 10*3/uL 150-400 [facility] Differential cell count method - Blood [facility] Neutrophils/100 leukocytes in Blood by Automated count 82 % [facility] Lymphocytes/100 leukocytes in Blood by Automated count 11 % [facility] Monocytes/100 leukocytes in Blood by Automated count 7 % [facility] Eosinophils/100 leukocytes in Blood by Automated count 0 % [facility] Basophils/100 leukocytes in Blood by Automated count 0 % [facility] Neutrophils [#/volume] in Blood by Automated count 9.03 10*3/uL 1.8-7 .0 H [facility] Lymphocytes [#/volume] in Blood by Automated count 1.25 10*3/uL 1.2-4 .0 [facility] Monocytes [#/volume] in Blood by Automated count 0.73 10*3/uL 0-0.8 [facility] Eosinophils [#/volume] in Blood by Automated count 0.02 10*3/uL 0-0.5 [facility] Basophils [#/volume] in Blood by Automated count 0.02 10*3/uL 0-0.2 [facility] Nucleated erythrocytes/100 leukocytes [Ratio] in Blood by Automated count 0 /100{WBCs} 0-0 [facility] ID Date Data Source [id number] 01/08/2020 05:12:19 AM [facility] Name Value Range Interpretation Code Description Data Sumaya rce(s) Supporting Document(s) Bicarbonate [Moles/volume] in Serum 23 mmol/L 22-29 [facility] Chloride [Moles/volume] in Serum or Plasma 97 mmol/L 98-107 L [facility] Creatinine [Mass/volume] in Serum or Plasma 0.51 mg/dL 0.70-1.20 L [facility] Glucose [Mass/volume] in Serum or Plasma 83 mg/dL 70-140 [facility] Potassium [Moles/volume] in Serum or Plasma 3.4 mmol/L 3.4-5.1 [facility] Sodium [Moles/volume] in Serum or Plasma 132 mmol/L 136-145 L [facility] Urea nitrogen [Mass/volume] in Serum or Plasma 11 mg/dL 6-20 [facility] Anion gap 3 in Serum or Plasma 12 mmol/L 8-15 [facility] Osmolality of Serum or Plasma by calculation 273 mosm/kg 275-300 L [facility] Creatinine/Urea nitrogen [Mass Ratio] in Serum or Plasma 22 [facility] Calcium [Mass/volume] in Serum or Plasma 7.7 mg/dL 8.6-10.0 L [facility] Glomerular filtration rate/1.73 sq M pre dicted among non-blacks [Volume Rate/Area] in Serum or Plasma by Creatinine-based formula (MDRD) >6 0 [facility] Glomerular filtration rate/1.73 sq M pre dicted among blacks [Volume Rate/Area] in Serum or Plasma by Creatinine-based formula (MDRD) >60 [facility] ID Date Data Source [id number] 01/08/2020 05:12:19 AM [facility] Name Value Range Interpretation Code Description Data Sumaya rce(s) Supporting Document(s) Magnesium [Mass/volume] in Serum or Plasma 1.9 mg/dL 1.6-2.6 [facility] ID Date Data Source [id number] 01/08/2020 05:12:19 AM [facility] Name Value Range Interpretation Code Description Data Sumaya rce(s) Supporting Document(s) Phosphate [Mass/volume] in Serum or Plasma 2.6 mg/dL 2.5-4.5 [facility] ID Date Data Source [id number] 01/07/2020 04:26:42 PM [facility] Name Value Range Interpretation Code Description Data Sumaya rce(s) Supporting Document(s) [facility] VNKYRb2wCcJIYdEu96/UDPhoVOFtf3GpYPbvWTt1AWttZFYqT1KvNPI1dI8wAAF6ZAcMDpHhLfYyGvXl [facility] [file] pin attacher+arc0Tpekluhz6xE0wmscA0DyzAaLnTyqtpfGyhx [file] [id number]PeCQ6bFIMXEk3+ZWpkdGPctBbiQXUEBnC9ZODeGTvaYPPWZt1O ID Date Data Source [id number] 01/07/2020 11:00:40 AM [facility] XR ABDOMEN AP ABD SUPINE ONLY [id number] RESULTInterpreted by:ANNABEL WalkerLINICAL HISTORY:29-year-old male with a [...] rce(s) Supporting Document(s) ID Date Data Source [id number] 01/07/2020 02:19:05 AM [facility] Name Value Range Interpretation Code Description Data Sumaya rce(s) Supporting Document(s) Leukocytes [#/volume] in Blood by Automated count 14.4 10*3/uL 4-10 H [facility] Erythrocytes [#/volume] in Blood by Automated count 3.46 10*6/uL 4.6- 6.1 L [facility] Hemoglobin [Mass/volume] in Blood 10.1 g/dL 13.5-18 L [facility] Hematocrit [Volume Fraction] of Blood by Automated count 29.4 % 4 1-53 L [facility] Erythrocyte mean corpuscular volume [Entitic volume] by Auto mated count 84.9 fL 80-96 [facility] Erythrocyte mean corpuscular hemoglobin [Entitic mass] by Automated count 29.3 pg 27-33 [facility] Erythrocyte mean corpuscular hemoglobin concentration [Mass/volume] by Automated count 34.5 g/dL 32.0-36.0 [facility] width [Ratio] by Automated count 14.0 % 11.5-14.5 [facility] Platelets [#/volume] in Blood by Automated count 213 10*3/uL 150-400 [facility] Differential cell count method - Blood [facility] Neutrophils/100 leukocytes in Blood by Automated count 91 % [facility] Lymphocytes/100 leukocytes in Blood by Automated count 6 % [facility] Monocytes/100 leukocytes in Blood by Automated count 3 % [facility] Eosinophils/100 leukocytes in Blood by Automated count 0 % [facility] Basophils/100 leukocytes in Blood by Automated count 0 % [facility] Neutrophils [#/volume] in Blood by Automated count 13.11 10*3/uL 1.8- 7.0 H [facility] Lymphocytes [#/volume] in Blood by Automated count 0.83 10*3/uL 1.2-4 .0 L [facility] Monocytes [#/volume] in Blood by Automated count 0.45 10*3/uL 0-0.8 [facility] Eosinophils [#/volume] in Blood by Automated count 0.01 10*3/uL 0-0.5 [facility] Basophils [#/volume] in Blood by Automated count 0.02 10*3/uL 0-0.2 [facility] Nucleated erythrocytes/100 leukocytes [Ratio] in Blood by Automated count 0 /100{WBCs} 0-0 [facility] ID Date Data Source [id number] 01/07/2020 02:46:38 AM EST [facility] Name Value Range Interpretation Code Description Data Sumaya rce(s) Supporting Document(s) Thyroxine (T4) free [Mass/volume] in Serum or Plasma 0.79 ng/dL 0.93- 1.70 L [facility] ID Date Data Source [id number] 01/07/2020 02:46:38 AM [facility] Value Range Interpretation Code Description Data Sumaya rce(s) Supporting Document(s) Bicarbonate [Moles/volume] in Serum 23 mmol/L 22-29 [facility] Chloride [Moles/volume] in Serum or Plasma 99 mmol/L 98-107 [facility] Creatinine [Mass/volume] in Serum or Plasma 0.61 mg/dL 0.70-1.20 L [facility] Glucose [Mass/volume] in Serum or Plasma 87 mg/dL 70-140 [facility] Potassium [Moles/volume] in Serum or Plasma 3.5 mmol/L 3.4-5.1 [facility] Sodium [Moles/volume] in Serum or Plasma 130 mmol/L 136-145 L [facility] Urea nitrogen [Mass/volume] in Serum or Plasma 12 mg/dL 6-20 [facility] Anion gap 3 in Serum or Plasma 8 mmol/L 8-15 [facility] Osmolality of Serum or Plasma by calculation 269 mosm/kg 275-300 [facility] Creatinine/Urea nitrogen [Mass Ratio] in Serum or Plasma 20 [facility] Calcium [Mass/volume] in Serum or Plasma 7.7 mg/dL 8.6-10.0 [facility] Glomerular filtration rate/1.73 sq M pre dicted among non-blacks [Volume Rate/Area] in Serum or Plasma by Creatinine-based formula (MDRD) >6 0 [facility] Glomerular filtration rate/1.73 sq M pre dicted among blacks [Volume Rate/Area] in Serum or Plasma by Creatinine-based formula (MDRD) >60 [facility] ID Date Data Source [id number] 01/07/2020 02:46:38 AM [facility] Value Range Interpretation Code Description Data Sumaya rce(s) Supporting Document(s) Magnesium [Mass/volume] in Serum or Plasma 2.0 mg/dL 1.6-2.6 [facility] ID Date Data Source [id number] 01/07/2020 02:46:38 AM [facility] Value Range Interpretation Code Description Data Sumaya rce(s) Supporting Document(s) Phosphate [Mass/volume] in Serum or Plasma 2.2 mg/dL 2.5-4.5 L [facility] ID Date Data Source [id number] 01/07/2020 02:46:38 AM [facility] Name Value Range Interpretation Code Description Data Sumaya rce(s) Supporting Document(s) Thyrotropin [Units/volume] in Serum or Plasma 0.954 u[IU]/mL 0.270-4. 200 [facility] ID Date Data Source [id number] 01/06/2020 04:52:01 PM [facility] Name Value Range Interpretation Code Description Data Sumaya rce(s) Supporting Document(s) [facility] OYRLNs4sOyOPLnGh83/CXCqqCIYpy6KdPSrfKLc9AUncRRAcM1BcSJV6jA5xCIF1OBqAPxXhNcTfGWDo lbm HdKdgECtVrBLAqXmaMAaQfNJflJmtnzHBoSG6AuYJ2TGTjP48dSJNzWWInW3UzMNV7TtC+Ok8VUSNhgP TsUG0YPitE8G7js6gQOn6+vO1SUN56C5JP8nJbCjAZBPLy7dtZHvb3j6SaPCjk3ptTr6dSty/+SC4pcs oBb3hsE375owPxk+YnpY36Nwz7XrWD//yD7WGT3gfb +Cl1FDobEopYs/2UdR1z2VFabSo7GZnwJhLMsP85Z5/r6cSsDKr58Mo1IEM2fVrSPPv27lVsgOY37GXz h+P5QjN9M4/XhODXUamfFbI097CyQSPAmJzqXK1jdzepPD3vzXOCpTMTytiBV0hKEkgBB9gtHXkjVxFJ Zq9ZyWalzziGgOYx20xDNfZfXQqeUTeZ+LBPSZeSHx 6W9OGp+VKo8QKT2Qn8UBd4Jv+JprTeQB585HCahS8ZSVyxlKxSGigrju9+A+7vYxYI7R5Ke1Jf8GzAy0 aZs2yHVaX0B97+zcvhqLRfC8vVLJL7sI7bCBMS/ap3DG3u9k7oov6S5gE0QW3v83qU8uGqxAyuYIlxZo ZcvlcYLmB/jbFafCXlhYpqqXYR28kL7ABugrotYke5 fa7Yi3kmoWj5OWkyXzDwiZxzfb60ITk/CrbKNWNa0CC3zrxcs5UdrrucTZh5+5wmGlEDqEmIHnC4TqsU iWtuH3gba3rgp1pkxCuw+zfDSSLmO0fYwxjMSIKcU/BjgGfYQ3cjCNfU+VMOYh8f/Hx85JU5/reQXhgl cm8D2PuABsaY4xJjYuKMGts6DFA5kwcW/suv7fWy0F B9eT6xFc1a3L3YbW+zvTHc7izfiv7ev0PZxoRYNVX8V3zXfKGomhPSQAGyi8LN2HqRgYsI4KrBGZ+Benedict [file] H0hUPaBe2GQFTeLAgPWhNnSP3HFMn= ID Date Data Source [id number] 01/06/2020 05:55:30 PM [facility] Name Value Range Interpretation Code Description Data Sumaya rce(s) Supporting Document(s) Creatinine [Mass/volume] in Body fluid 0.7 mg/dl [facility] (NOTE)The performance characteristics of this test for this specimen type were determined by the Department of Pathology at [facility] and approved by the [facility] Department of Health. It has not been cleared by the FDA. ID Date Data Source [id number] 01/06/2020 01:09:56 PM [facility] Value Range Interpretation Code Description Data Sumaya rce(s) Supporting Document(s) EKG [facility] HVTZPl5uNhTBNlSlg2CcJtJeVHTgPE0ijan1O6H7nUThF1TfvJMsc8ckF5ReX0MlCOJjYMTXGD3GkVZe jb2 [file] K4pb5srcRj2op6ZviA6ho6fgPUZki+XewylP9co/AlqC4kdFopDHw2VphAFgpfW+fjmvxb22j1Hjj/BOX ANNEALER [file] 8+lobster man/HzpfglxS/E80Z2rn+nJ+s1MzM6BD2F80809z8M1078KBcvoGlxDTZzq9XkcdxjkS6z9wK2bh5T [file] 14e3v7+N2Eq7272tIvip+mZo475eowurjFcX7f6f2tb99trbfW12Pt8JZ2C9d/6hRW18449gk6m/7y0x osxEi7MENrxghyM35+/PT23ce/iwm5zkty+Ob9t19/ 53AW6ai//PK/cQGv7Al/fPP5Vx/fuiCa1Xveg5x1uEglpa+vb9+9+/Tpw8dv/sZtJMv+zbfffP/dh/df /hwu6236ruqqf8/31XgdB947+/Hrd1+3mv9LB4jsr/jS73daX68/l7/wx7mirR/2z198+MqxceI6Qx25 HoV7/eHt2//0spu6qzH+Qv/gO60do3V/xIcf2x6eB6 x89wi6c9i+/9M1Y15x/c3rq7z/7bc7I96+vXv/xe/ev/v4+QkvsbtBs8ingeL2c357+3h/0pp8g028// HDu+9f9/eH421Rne/95ruv/8a/b2vn/2/lv335/ds33/7z62t++N497N1m39qxao/6/i9//rc//PVPP/ 3r2//1P99++4c//vHHv/71px//+A9vn//45z/89Me3 f/mMmq6h28/+8ufXP3/jjt5Z9V516s6ztuDt46t7TCz3TiaNh34097syQjZiIP/4Z25N7v5d9RD70uE/ Auirxgfc/7s99cCgpPV4i/3+K/c3oLjPw1L6++CygT1mZb/1/fLA089aUyrQ/9w/+PjTv/08hnR7sn53 9c/XZ//w1dt//fDu41c/K2v72Z+qjn9z/ytrtiqbf/ WT+1S2q70mBFkYwwBAN/7bhl51R/35P/7x7a8//isGX8u2g1d4x6UI36/+xC/n0aHoW6zn784O3b5+/e HP//CHANELL//7//HycftTm3/r9tUC/sbtD/hPH79/+9f/9nr5P/zlz7+8v2fi+8G70yFB6k+ryg5Hs78WC0 0vBd7m+uFIs90svvM80nOKO/xFzRfWiHnrLOyXX+XB zlsLs795ybtyl/z07/9nx3k+nHYfovxYwb+8ppW3//nXf/n7X/f8dOflp/zjzz7w/hn6/sf/9vsf//0P P/75F/8/BW2UR65RCfD34S9/+xBh81su/ingyMH04LahgjQMp3EEXPAqed2XDo/9/v/58x9+/3qHz96+ +piWj3UZg/jdv//Uc67820bfztuyzU/3s5HUH+oWkx fr26+/fo1q33/YAzn0HZ3/f3Kv+/Xt1pwz4X//022e6vcTr1bKy53H4yPpdY98rR3TJ1nyg+zkGuqZ7q v61uoIh/gr1q9mO4VdmXagH3g4n/f+/bc/sTV91C93eh322uTj/v1KxSDwgCuzisJoaYJhDZ0GFH6xy2 BcVgR7DEFlz6SlLSehEIm3kAZeVZrombXfo9Hvsufr E7Ypn7OtKpRuOESgEtKoFyf3HYGkKmJ4qLKzBnAkUIUsU8QpCHYuTnX3TlHhYQOOAC1WSKUfbmFqHnQv IFI+OhQtUT6pddlmMMMvh7YsHGbcGEfeHZOuG7A8bMynRSDzP3UvkP10MGQoF3IiwpT8VXC0HNTcNyRi TGFzdCAxOSAwIFI+CwYtCR8cuhkyIMYmr0GjOAywJU S8cS8oJRjHFQNGSDlSKRsrWpI6r00xobPEIILjCJRfRN0FvaPidMmluySydRSlXYK8BqNsNFFmLjOrIi IcHQNSAPSpWKSrSKVjQOMoD9KthPweZDsXLLNLQYqSJWweHnVqm7U6MRBvwtBHNSuSVNBYQPRMJSWNWG VPQNF5FAB5YEPbUX4DrUAiMIW3YHgSKMVEPYyBCGig NgBmv1V1TVRiW5YdRXSnnsWzCGIEUFcsHerwSR3qbUizijfoZ5LbfSFsBMFPZDUiFYOfBWIfKQScP0Pc w6U2Q2VvGDcUVFGAABzBAOlpByY0v20ifvWICRPgLVCtUE5+IZ9fl5FfGh1NKHEyHZ5ubxn7FP5KsYIr SG3FQHrqdrGxN4wqihNiZrNeQDNYAT7oZ5CmbC75HP E+HjSmNR8ezhi4hhOqPwPmOVEpWVNcVZBxEKxsVRJiCANeYJCaWND4DNC9KUGyMtWeQIKtDdF9FRDyXR PcSUFxjoIWVEQjVGZ3YWTaErWwVXAoEBKmZNqjACTbLFY0Dli0DDZoHDBkHU7kAnTgWBDfCQBrJFNwZk U2PbRgChIRMGWmFGAbSHNdGaZaUYMfSYYkYIncHMBo BLOgBMw4SLGmWBEkJO5fNeRdFFLcKVVxTJDaJVIiJOKdlbRWAZXoXJXpSOV7JRKwRVOjTIToBYtmBPCf KDRyUYQ1PIJjALPzNZ1vTvPkJXNaSTR7BpHsTSLpMBOgbpVMHHMdUFQnKPJ3TAAfNOIrFROcHUmbPAGi NWCeUiR9ARAmGOUqED7bWnKjCAMwIXE2KNCiWNPfSJ YonrFUXBKnFDTqLWg0GoIzJWYqURBuTYizVJOkMPXyEBtaMJKgJKFpGA1cXbCqDACgIJEwMLKnBLWmIN KfeaBUKMXxZQJfRVH1YsFpUEEgECOwKYqtOPRkZUPiNAJ1FJQrQNPvBE9gQxVcGAPtPuLvYSBcJHMxRL AgbiAKMDAwMDAwMTYwOSAwMDAwMCBuIAowMDAwMDAx KsV8GCMoVMIcRP5vUxFgYVDsXXV3NKXmXQQaZVMdbtNMZTMeDKNwPOPwWIJ5MJJuGFVbTVz0vmAicLDx Cye0Lw1XtOvkECD8Es0OhxZeTUQrUZIBVu0Tj479UAIvDZXGDdq+RinfnDXxqFmgACDNMdH1NKlNPRQV T0Y= ID Date Data Source [id number] 01/06/2020 10:13:32 AM EST [facility] Name Value Range Interpretation Code Description Data Sumaya rce(s) Supporting Document(s) Operative Note [facility] JJWXOg6dGhVUSxNe72/IMRbxQIUgf1CcFHskBXb1GLcsCEFoA4MnZBD6eO6dYLJ8JGaGRqWwLxJwLNMe lbm [file] AgICAgICAgICAgICAgICAgICAgICAgICAgICAgICAgICAgICAgICAgICAgICAgICAgICAgICAgICAgIC AgICAgICAgICAgICAgICAgICAgICAgICAgICAgDQog ICAgICAgICAgICAgICAgICAgICAgICAgICAgICAgICAgICAgICAgICAgICAgICAgICAgICAgICAgICAg ICAgICAgICAgICAgICAgICAgICAgICAgICAgICAgICAgICAgICAgDQogICAgICAgICAgICAgICAgICAg ICAgICAgICAgICAgICAgICAgICAgICAgICAgICAgIC AgICAgICAgICAgICAgICAgICAgICAgICAgICAgICAgICAgICAgICAgICAgICAgICAgDQogICAgICAgIC AgICAgICAgICAgICAgICAgICAgICAgICAgICAgICAgICAgICAgICAgICAgICAgICAgICAgICAgICAgIC AgICAgICAgICAgICAgICAgICAgICAgICAgICAgICAg DQogICAgICAgICAgICAgICAgICAgICAgICAgICAgICAgICAgICAgICAgICAgICAgICAgICAgICAgICAg ICAgICAgICAgICAgICAgICAgICAgICAgICAgICAgICAgICAgICAgICAgDQogICAgICAgICAgICAgICAg ICAgICAgICAgICAgICAgICAgICAgICAgICAgICAgIC AgICAgICAgICAgICAgICAgICAgICAgICAgICAgICAgICAgICAgICAgICAgICAgICAgICAgDQogICAgIC AgICAgICAgICAgICAgICAgICAgICAgICAgICAgICAgICAgICAgICAgICAgICAgICAgICAgICAgICAgIC AgICAgICAgICAgICAgICAgICAgICAgICAgICAgICAg ICAgDQogICAgICAgICAgICAgICAgICAgICAgICAgICAgICAgICAgICAgICAgICAgICAgICAgICAgICAg ICAgICAgICAgICAgICAgICAgICAgICAgICAgICAgICAgICAgICAgICAgICAgDQogICAgICAgICAgICAg ICAgICAgICAgICAgICAgICAgICAgICAgICAgICAgIC AgICAgICAgICAgICAgICAgICAgICAgICAgICAgICAgICAgICAgICAgICAgICAgICAgICAgICAgDQogIC AgICAgICAgICAgICAgICAgICAgICAgICAgICAgICAgICAgICAgICAgICAgICAgICAgICAgICAgICAgIC AgICAgICAgICAgICAgICAgICAgICAgICAgICAgICAg TGXrDIStUQh9O0ziQYPpWIXkUG3lVQm7Wa7+TSqTLrTbFLA6zqAcmJ5TIN8en3YtGDuxTIJos1YoMEb3 ZG9AVXLyHOwhZH2WGRlokl3WUGOfNZWyeQMTl9zhSdNoOEQ1VVHdHswkOA0BKFTyL8mnwmGrDTKxMCDE CJcjZUQHJZbqGBPQPE9AUoHaA4AtqF52PONXUx3+DQ gczhMfLkhYWcLsRIZka9XzJLg2ET4JDYVkVjobl6TkGyUxONKLRAidAI3WIFN7IPGxZVPxNm5ZXGRhL3 35pnXbTL2XUy8ZGaYmLW7lvh5MMiSwMSNeLfmSZxm8MQmeMW8PsJVjDLuHuGMtDPAkoqAvTp94VIQpyT YJxIPrpHGkAGezJLOLNVBlvCUjIT5zSJ8zQRAqSUA7 GqOqOOGLCI2IEYGxWLPvaLIkEDYjOWXPSZ2TJBntWUQ2HGSgrmXokOFhQMjvOE3EKALhovDjRhFpRTQT DQo+Ue9HRP7vz6HhLDjfLgLkRK1cmq8VAWsEZhMdJ6W6wCLuP4Y6OSiaUy2OOPHsHNPpMVsuTQJGVTbd EB2XPB5ybcQ1HW7BoBPoMGAdMCSvuMOuZFo9S58rzW SfFXgfUO9RCOJ+Ernie+Rv9SGNFqLHGsKAJfOvEjUJVSLnEwH3TlE3WKb2FlQ5WjUQ36jYtnhwLoIHkkER 4JJW7aESUlWVTHDP7EcPWweF4zqtZxOBCuBLEKQdNlF12xaVEnLDTlWLOwRUBkVp7LAKSdK4OmicWkaU mrdlPlWNPwDVUXXQ0WSIelaeGzlFVrwWzaPF20eVvz PG9FMt3YDeQtPG9cik4BpYKtKt6TGISoIC0LHLQdTTJnMCHyJYV2HLXmUaYyNBbgQSLrPBFcLOJ8UPBb YROiQR1BLmPhOFJnSNZ8LTUkEKXqAYBawl0POVLsBAUsBwI6OZQzJPUiMKRbYRcnPFWjPIVeBMU1MTOa DAGrRW3CAzHcXNVoLXRpALQuWSZaGSTegs1FVBQyHS AgMqI5RFUjJSYsYVDtDOqwGQFoIBP3NPM8VVYjEDCaAL8YGlPtVKHiVJZfAlRfULGcNJMsqh3IDYJqMH UaOaM3ZVSaWRVgLJIyDTzpLQAzSQA7OFqhLELtCLDvEE5OLqTdDYHxEPq3LAHvCEVxOJJgmf2RTFEiAP YvLBY1GZJmPOGwALJqCJxfOIFkBET1NyHxQHGuIOJb FS1YJyNcAADsCNQsRVLlWKTqKRQjub6EBVRlTVJiKYU1SZYgVKSaUXOqAAppRMLjEQHoSKazSFEkGGPd KJ5MHeZjPQZuIVH2EKIiJDNgPSFpci4HMLFjZAEyMJseHIWtCUNeENGyFNrsPBQdCVPfBMQzJTAaYDUj VP3JWaUvLRXaKBGyTADdGNHjNWWamy1GTQYiKRYjVj o2BBRsQGZuPGQkSAzgNSEjLGCwTUV0AUAqYPCwKS5HRgKoFPGpYUQeRFXcURXvYGZiwv8QyKXlmQkubn 7EAGqRJi9UqIwcOLH4NSjqCx4xpYLgJrCeKUYBJn9VosRnSWZkQBOKGKqsCGZhGGZ0HAI5XOXyMtAwTX O7ShL1CqWhFgZ7FLD8PKFbUXF5DhU3ZCkuCYv8FYFt MID7AQB0OZhvZEWlSAPqCcE9IGL3SjQ+MI9fBSu+Ix4Gz2JnbgD4buJmYHfbFTJ0Ph2BYKXFV1CRRa== ID Date Data Source [id number] 01/06/2020 10:10:01 [facility] Name Value Range Interpretation Code Description Data [employer]aya rce(s) Supporting Document(s) Consultation [facility] MKFZBv5wDqRYYdDz55/CMPoeUTGwp8CmWOweZLf5BQnuCGViB6FzTQR2sC7jTBE0QPcHIrWeWbSiRVDq lbm [file] AgICAgICAgICAgICAgICAgICAgICAgICAgICAgICAg ICAgICAgICAgICAgICAgICAgICAgICAgICAgICAgICAgICAgICAgICAgICAgICAgICAgICAgICAgICAg ICAgICAgDQogICAgICAgICAgICAgICAgICAgICAgICAgICAgICAgICAgICAgICAgICAgICAgICAgICAg ICAgICAgICAgICAgICAgICAgICAgICAgICAgICAgIC AgICAgICAgICAgICAgICAgDQogICAgICAgICAgICAgICAgICAgICAgICAgICAgICAgICAgICAgICAgIC AgICAgICAgICAgICAgICAgICAgICAgICAgICAgICAgICAgICAgICAgICAgICAgICAgICAgICAgICAgDQ ogICAgICAgICAgICAgICAgICAgICAgICAgICAgICAg ICAgICAgICAgICAgICAgICAgICAgICAgICAgICAgICAgICAgICAgICAgICAgICAgICAgICAgICAgICAg ICAgICAgICAgDQogICAgICAgICAgICAgICAgICAgICAgICAgICAgICAgICAgICAgICAgICAgICAgICAg ICAgICAgICAgICAgICAgICAgICAgICAgICAgICAgIC AgICAgICAgICAgICAgICAgICAgDQogICAgICAgICAgICAgICAgICAgICAgICAgICAgICAgICAgICAgIC AgICAgICAgICAgICAgICAgICAgICAgICAgICAgICAgICAgICAgICAgICAgICAgICAgICAgICAgICAgIC AgDQogICAgICAgICAgICAgICAgICAgICAgICAgICAg ICAgICAgICAgICAgICAgICAgICAgICAgICAgICAgICAgICAgICAgICAgICAgICAgICAgICAgICAgICAg ICAgICAgICAgICAgDQogICAgICAgICAgICAgICAgICAgICAgICAgICAgICAgICAgICAgICAgICAgICAg ICAgICAgICAgICAgICAgICAgICAgICAgICAgICAgIC AgICAgICAgICAgICAgICAgICAgICAgDQogICAgICAgICAgICAgICAgICAgICAgICAgICAgICAgICAgIC AgICAgICAgICAgICAgICAgICAgICAgICAgICAgICAgICAgICAgICAgICAgICAgICAgICAgICAgICAgIC AgICAgDQogICAgICAgICAgICAgICAgICAgICAgICAg ICAgICAgICAgICAgICAgICAgICAgICAgICAgICAgICAgICAgICAgICAgICAgICAgICAgICAgICAgICAg DXHxIHPvSNKmEDNtGPTwKPg5E8mrTUKiDBGzRB4dFLk3Nz5+MIhOBhFeZSV6ghPxfS3PLV7wh9UkDZxz TIJpu7OuMId2TK6NEXDsEMhhHT9HYXmros5AKAVwEA XjsTIYr6waXrXrYQF7FMBnDwqtGS1DADRxJ3kfxlMeIJPwZERRQSiaJTZMARhmDWNDBF0LHoMnJ2TcnO 06DWOVSr8+JMqepnQuIxaNCiV1ELIru3QpVSi2YY7YVCOnRssof9CnAihdNNDEBCwxWS6CRNL3ITY2RS NvEz4EYWCzA501qrShHD0IOn8YXiPmBJ4uup2VIcgl RDGzGtfGCvl6HDyhOY0ZrHGmRUzWt98fwWn2cwRiaVXUtCTglCVxHTzkTTUFNFQdbCEeYF5iEB2aUSOb ZZAbZmVoLVVIXT3UTNUaBYTpcVYuHJXlZSOCHH0TNSfeLOZ6NSOosxHtsHMxDSwlWZ8AVWYpcvVbMhKq MCBSDQo+Fn8ZAT6uz2WjJKvwHZAxWN4rix6BQWyKPb YsL8W0jLEsC0B8KEemGw4OHLIzZJQoUtBvFVHEDDuvXB1VIK9dyaY5NA6DdYTqKRMsEQUcpIIeFSg0V8 3yoINqITluYG3QHKW+Ernie+To2ZCQPlXEGhONLmOgOlRGFDHwDdZ8ZeU8JEy5BiG8DeGT54wKgqphXuVR fqZP0QLX6pBJOoKEDMJM6TmFWqmK5funMxPzGzURNJ VdArM82ehYUxWGXbFOU7AHVhWe4QOMHrC7NnntIgdXbakeLxDORqWYQITQ3TYVzhubRjxAGaaVzkXJ31 jUkyCP0TPr1ZJbAqOQ3nvk9QlSZcMf0NYGNyFZ8BDNVaALLnDZVpDZE7YUUsSzUkGXnkQFDdLJTwITC2 AQMpFRIxRJ1LGfBwKPBpNzDrBWcyITZxCUQfgk5VVW LdCBUbXqp6JaJaYZScPVTzFCihDOVrJVOwLRW8GWWpZLZqQY0PYvDwYSOoRTKlVTViQZEpAZZkvu0RYI UoXUApIzW3SFRfXBTvFZFjPIzsBEWfDVR4HAI6DXRrIIBlQQ9EGvTkFXWjUEOpBdlfKYUsNBYctd7OYK HfUVCwZGN6LrMbUNTbFXJvEBpwJWDqMVP7GjAmKBUo PTVyDB7VTsFqWRAnJHk3NcUfXSNgQUWvnb3WLEVwDDAnACc3UeMzSSMxSGWaEMglIKUyYFCcCDYzBCOk HBRwTU5OFeZnDJVaMMS7EDaiXZWkBFSuyn3KOKVfYXXsBIYdUMOjGUPxZQDaJObeSCHiKPLzFam9CWJz IGUcUD4YClDbBDJhMIGnMHyvSBMqWNTpnt6MFECqLS HuPqQ9OsUqHESgAXHnHGibGJYzOBRjBbE3DUGzMYYlHF1PCiPlTAPuOgZpKMHrGXGfIWLwou6IPIFnQG BnZNTyXkAdZOAzKWAdOGdkEJJdWLF1VtIgPTSmTWKdYE6OOjLdDVDsNlK7CGMwGPUmVTZgob4UJARtPC RgPQEsDlFmHSCsLLIdUYkdBELwSCM5OMOpYDJqCEFr OI0YKkUaZMMoVjB4ARGoENXgFYDzir0ONWHmJLBxYva8VDLzRPQcARBtXVxbQCMbOEH0XFF4KIOvZZCs NM3FWnAuYFzrISSYZyl6XOeeP0e4UZNyLZ6ZE3Bti4RzGmzlCXRWFTigBE7zxxCoRUDwKg0MH7bZExof LPE6WXUwTDUxHrPwNHL0GCN6PluuQqyxGHHxBIX9TO 3hKIMwLTk7UFAwZWJgQDI0XHW0LHNbAGOwMZToMxS0LzvnAyQhGO9VAh1TTsW8QKQ3pVJdVr5NHphvHP tSUrJjLR2LNWw= ID Date Data Source [id number] 01/06/2020 09:29:04 AM EST [facility] Name Value Range Interpretation Code Description Data Sumaya rce(s) Supporting Document(s) Leukocytes [#/volume] in Blood by Automated count 15.6 10*3/uL 4-10 [facility] Erythrocytes [#/volume] in Blood by Automated count 3.36 10*6/uL 4.6- 6.1 L [facility] Hemoglobin [Mass/volume] in Blood 9.7 g/dL 13.5-18 L [facility] Hematocrit [Volume Fraction] of Blood by Automated count 27.9 % 4 1-53 L [facility] Erythrocyte mean corpuscular volume [Entitic volume] by Auto mated count 83.2 fL 80-96 [facility] Erythrocyte mean corpuscular hemoglobin [Entitic mass] by Automated count 28.9 pg 27-33 [facility] Erythrocyte mean corpuscular hemoglobin concentration [Mass/volume] by Autom[facility] 34.8 g[facility] width [Ratio] by Automated count 14.1 % 11.5-14.5 [facility] Platelets [#/volume] in Blood by Automated count 196 10*3/uL 150-400 [facility] Differential cell count method - Blood [facility] Neutrophils/100 leukocytes in Blood by Automated count 93 % [facility] Lymphocytes/100 leukocytes in Blood by Automated count 4 % [facility] Monocytes/100 leukocytes in Blood by Automated count 3 % [facility] Eosinophils/100 leukocytes in Blood by Automated count 0 % [facility] Basophils/100 leukocytes in Blood by Automated count 0 % [facility] Neutrophils [#/volume] in Blood by Automated count 14.53 10*3/uL 1.8- 7.0 [facility] Lymphocytes [#/volume] in Blood by Automated count 0.60 10*3/uL 1.2-4 .0 L [facility] Monocytes [#/volume] in Blood by Automated count 0.50 10*3/uL 0-0.8 [facility] Eosinophils [#/volume] in Blood by Automated count 0.00 10*3/uL 0-0.5 [facility] Basophils [#/volume] in Blood by Automated count 0.00 10*3/uL 0-0.2 [facility] Nucleated erythrocytes/100 leukocytes [Ratio] in Blood by Automated count 0 /100{WBCs} 0-0 [facility] ID Date Data Source [id number] 01/06/2020 08:55:40 AM EST [facility] Name Value Range Interpretation Code Description Data Sumaya rce(s) Supporting Document(s) [facility] HAFTNj5qFdDNUkGih2RtNfCvCNUeHJ2gojx6L9R7iJUmV5JaoABuo0orC5LyD6JrXCCgSZWYHX9LsUJv jb2 [file] [employer] [employer]+7TpwV6slnd8dZb+lGhJDkMz9OndcQCEyiJCtuW8fJ6UoP10dhQhzPJHx1kYg73QdQ4ea0iuAuNlt [file] Q9m1H2Dm2cO2z/tPoWZ1xyX9jl03HP8RrvewF5gXZs+mGDiR9pwQ9qJ8cAYyXV+oOt+cleaning staff supervisor+cleaning staff supervisor+cleaning staff supervisor+c St+cleaning staff supervisor+YKLA6pgnFFHJVjD0Wtc8WM7q8WJ3MRPQyIy [file] SPAVMUCh6F/sMBJp+Hob2vyUBTK/qPAIRDaRDcTjxBKICBEhokSUSCPSiHQinYgRMSKDyCAyidAGHiem K4js/Dkci/I6EVCqWSHTFjSBlAjFl5QweZpNYNUrPSdcMHmPLLILWFSUqLFcjHqi5JqVU5WAFWUUVHMm Era5mJzCNjBh43rse5oc/N3NfhlPKErp4jvYT7v+fs mY0NRketdtYxretDMxwVTX7y8K/+uCtTwgM1kASTZFQMJOOSRIaytz9gOuPezah/yccQNfrSzEnL7Lcm cTz+d/fLDGgnF+7G6niTRqX+l/HLLn9M+cueJJ/EJZBmOip96E77FrlkO3xhw8SXnjWaWvCr4WZzuPfo 8csURy/lbqKOQ6jYT1iEJ+/3TIyjgxMvyfTnXWFgGJ HP+gm5ekMhoIIfUJRfe//Mb0cJmthxmYxLaxAYEECFHZdPTQ+rKEyIJThHLcxFqPD4cFXNHMXXEWKoVq kfnpidfgkDrfPxpXLo8A5M5HXY5/LTVhmNBMLknLG5JL7PUXnONhPLVOqtRo/TW917NB+GAzPtiMDzbj x97CiIKNbFpGKjSS0FEAUfbSyPFoFo6WZgH988nBsN R/M3PviwJMfDBiFvRb22oNQ+lQ7I2BESU4/4p4oAZZUGPeuYKKIZIOOGQLMKMUnYcuvWjxWNBKYPFHxC tVoXUpeY7iLiTnuSYQWcEgK2EbmwQPSOYgevnRaV7K/iB4PCanXWrEBIQuCDDE96E1Sa2KJ7OVS8VYOT 8KUN4cuORdWPDEXX4u4dQkEbGW6oWUC1Lk/kuJLx5V sGdQHLQCfR/ITsecbSY5AgmoTuh6dPIZmndgDw84IY3YePT9SxcNfkOSuy1iMr0ahr2yAvM4dN0Nd3BD yJIhetxpi6xhzXLblZR4greIAoTyvrBkdQnmzNuDBGmcKiH9lIYR4iy2rlpndVqpOyG2INm3WEjW0l1H 88W08kE2weVxUVvrzS7pP7EMVVtOQP2JoND3Aut9Mc jkAj8GuJFpL+LbELwfTQHjxtYxbgzygRIqCmgG+ttm2H/QOJ/HAC8BZRWfGXrNNqiHzQiRiDoRdGIWGn YPPLXwSEvNbsgtWqYMf17V+b6xAHuTXVENoAvJGNHRFFITgOVgVbICISFKXZdCtJdsTYKLDIaOBIiW8r TOWrMRFuq0AdASDFWHAkaCL5yNoCiqzjCmI4mNG128 gmywE/FBEhYkaW/PZ6WudAmhiDPNwcEBdBQRkifaxDH1kGRhLSWeeHU3yGHBUWbQ9JxJZh+Q8E37HzyG iRj6+IgTj0C/kUkGMu6Lsx9Mo3xmbthyXp6ef0gmhwnsW1klrAT7WiuHAlEOmVCpNJUkhQpWBaS9QxWk l4WM5FieRqyQEnE9YDqMOhCgv9S2nXDsTcAYVCGS56 RR3QTvDjImDH06YK6pgs5iq3HAJLvYi5aPpyVqFn50bzpfK3dzjEfO4iEGCkgjaP63Qn99szo7yWbtUr SolTHB4cEi3DcwXRHaMSwa+PNcKjh2sWLn0k0vxpRcR5lf57sDean05g+b0EMYff7yBL5qpzNZg+tBgX BkH9a3flThAHdIS8IlVZKbPG3tkXPgwqKMv6AOAI/c NESc0LRZgqroJDcImgzo0QInsw7+lSoH3oDNJ3xXtWtOUaFTFJyPrDXKdt/JFq6dhBkEVsPSVGAM4AP4 wFS0aO4cl7Es5qO4DiXTGIh4Sm1ZM6UNZBFeSadPSyRTLQNAQNMbENPIC+electrical automation engineer+electrical automation engineer+electrical automation engineer+electrical automation engineer+cTgzXh [file] S06Nq/XreUVV63XPKxKopSv9lhnfc+Wptla+NA0+luis antonio [file] aC32JL9vwkgfIekvc0EEvMO5pETxDqnbnVzT3qwflo 5x3jn/N6fLVwV+mbI97vY6g4cl7OdjAALAd/PZkwoEh8iQqOETKu5qKLbzYr+thsjCX2aOn7CKyKKDxy NtIaOVItlzko3t/L0ahMd4Mjm+tvPtU2UudusLArTR6+InPS9uOs8U5ruWzGkG9j7D6NwC/sXjZ5r3Z9 t+RsYovQ5FoWw1xsIV23y5+J13z73WM/idtYPfWfum WoXmjJ2CGGXrSSCXF7GZrYWIX9SmD9gIs3Z77EifC8+zJh/ISwSQBPlATHRjKRmRQaYPHZSmZwH1IjU0 TCPchzzebV1G07TGs8ESrkfDp/NBTDHS86VpG2mTSQ+jJh/LETaRXb4++VgeoUYsxnMsycdyBCWC+CD5 HW2JOQlVcRwGZiJXHK4AyD+nXv8pItJ9c/KxnAtsXm 2ETY5mDeYKAtNUvyNHGdhD17qY/P2x0GaI2RU4AUKNwCCjvOxxq4qnnvwuOR24YENcR6dhOoAsYrcbjx ZWcZqT8uLY9KowWAbnrRureBwUYVUGFyf8HitDuyrZn4+t82tfiZV/G4WDl2I18fWC0OF1cvxWxJ/BDj WXBh/MeXPUocd7qtpQDkt0umhGfdH+J/tEgo0IYtzf MF7J9ixx99Nkx+r9ATgW5GqKhqM7gUho1pgH/dSNi5ryx6D1sJLyuxiXoiABf7M+7tIirmmb5CHJxHhD s5Ii73QHmbIi1ZP8qWa4wDcTQE6Xcm0jIA1VJjxFAzHNJtcrupDjhP9Sk56nvDLwrnSV3ehFaoPs0IF0 l968D+YTjfOJwcfyCEKkOGk0+PkjqlJ5FN6WgLXwrR ejMhJNvWRbfVuit2lhooowDcrJdYh+ItIaHfFbq6hyUAbt3xxVLdr8djUNBp5hlB7xfquOKzID5PTtDU TM1bSAuczrJSVjChYdNgqLgtARUu2iQnN2y6BiMO35xpuUGh91jui1SQzguVdrC45Yl5FaV3H+Mb/GRd +10RpV9oMKH3wSb6EYGHjRcitMZtH0HHItaMV0VGOZ AGRSlHKfUTyLFkKNZZIKKXDNZLzOWDPY9CC9HtEGlmCi3FB4HBRvWTGWLrxTGtKLrSKsTuIpFQuLOeQw N373V3///YefZfFtQd//+8df/1Y+/ubj+//749P3N+TNaB3f2myvC5203Yndwb7dd911+cUvP//0FX7o KU7rl1/+2kIWe91qxoZ24tgD15m2a/b1N7/9me/f/J I5awiY6B30077KOz//7jdf/3gGv8089iujq//f04uztxRuO55/9fGbr7/87advv/vy+3/17sb28sNp9N e/+v9Ann54lQrh+2+//PTbz7/6YS7rPIo+2GnY6V5o8r4NiY562dz//aH31gUe/Oarz7/9+H0aD519E8 98/g1cuvt5B/kn0ZHfq/v6m6+/+/LhG584ck+/+Pju +4/Pv/7Fx/cf//g46Uoxn//1N9/+6vOvXo/5F/5fsoLnVx+fvvjHn/8Wt3YdV/xsB360+cQQc15490+/ /fSLj3/+8vtf3v/w8c0/fTBbwm6w88//orGzDJWu6jX0N//x6/tpP//6+4/XG/36Hz+2Xsw5b5/45jdf /+Iv/Oft1+///OJPf/yP3/35Dz/++8f/+F8fv/3d73 //w5///OMPv//bj1/88Mff/fj7j3/9a1n/+jcff/rj6z9/3q6f+/Osz8w+e3XUn//dw74LS6Yp4xJ+8I ef/hbcq4hWISsD/iBwopm5k+qD9+uX/u5MOcN45O653+2cRFsWySddi5+t5F74E10bz4zunF2itC9nCj 394/nlpJz82n7Dlc/+i97wX54F+uzj4+svv/jmq08f 333+1a8+fj8B5hy4I4Xxd0//QW0f9hv/+tn1ar5//8jp9AGkNXm892e0ltV/9sc//powlnw2l//68e3y L//8Kom01j/9ge/I/7Ww/+Pg9r4Yf1/9+N0f/+vHP/8//+3Z4+QYnb8GgkPkcyp+9OoH+6dvv/v49//5 evLf/jwLQ151C7H5zaKmKp/2T9///J++/ze+530pcN X+982K86lr/5m5pwpwtrauW6//gJ3/8XooYpbb9G8h6l/79mfff/zw//74n//3w4yavdc/7H1b/b/+9e um/+pin attacher//o3P/n1eQ+/+xQ5r609e7So/PA//+2H//zdD3/1da7xT2/xu5+Aj42+/dOf/vDZfeq3/+Qnp0 Jf/egjXqK7M/oemmAbuH/w/Y//9n/98Xf/0hzRz44p Ul99/+Y3yfeJy/3P/3o1q3//7C/86A7gJai8au/86vXNff/zM6Sblvu41//kWwiqn0bs01l//J8/fsjH n/0gU4091HS5KL9hc926eiqr9jaT4796h6cup55yufO+9htifRg57IH/f59/0uPt06570r193Ksz7sp6 +m8W7DL3eTwbtdQdrZUrFC8ETM4yt0FkCsL9SGXpf2 KtYIbvRWp6oQGgOEzhxwLya7OoqmmtW3Oiv9XjIgKgQKOeHgQrOey3ITQvVzA2iHYdDtFdHCHqQ9VtDJ WxNbT1AmZlNJKOLH1VYTFfysLyJgImNWH+FdYiMO6ldmnjYJTeo8MbYFbcGDfsEJIiH1K3dOapYFBkP7 TtuN42AVOvM4RovdT6EMH5WYYqVgVpPNKqdDFqERXk IFI+QmDnOX4vmnzfZCUag6UxZJkpPJR7jP6eFRhTGVNLUZaKXAcyRkU0y11exlHVJUZhOJCcBR2ShfGj uAetwuOycDMhNSP8DpOqBNPzAmVpPVV7MIWCJKPaPLGwLJSsWNRdD8HqkXulWDyZQCPXANmHQVgyAuQu v1B5TDRpweNCTMyVTHJUQWRJSRNDNDZLHMX3WYA2PZ IsMT4MbXKdLKP7AIgBDAJGGVvLISxjSaIgq9Z0XEOjW7VvGLLeoiSlSVWLFOcmHowpEU6xrGdjktyiQ2 PntVNbZYZVPXRnUZVqTQWrLYRkO6Wny3Z3Y9UoQAoHHXKTEMkRRKuuSkE8j95fcbHSMJXeKHCyCZ5+ZW 7wm4DvCs3YGKGmWS0fbzw9CN0AjOIuUN6DITaifmXz X9bbgiHuNgEaXJMZGK9oH9ZuiU33OGE+JsSuAG8pbbq3uzAgRjQqOPViBTCcRPBmNPbuOASqCMTpMIUl GTU9DSV4SAXjYlClHXExChRfGOAyKVWpEGJwsbGOGFVkFSP9IqU0OuVoGGKyWNBaCZqiRKFqJBybQQO0 ENMiXVVyBQ9pFaAtXEXbJJGyFBYsJzZ3FbMoChGJPE YyQZAqGHFqKvMsRRBxICAfIRckHIEjVGZyDBr9HQLoBDWkCQ9aMpTtFGIcMNXdSLWfJMOzZRSwwpSRQT UzJNRxUSL2RLYkSLUdIXGgSOzoCZBdNIYsPCC4LCDrUPMaTN1tLhJeNFZnYUD9UcPbHMUpIANpkgPRKK SsCOQmSJJ6SSLdIPAeRUOdJXxsDBHcNFBwIhM8LLOs FKTeEQ2jLlMpRBGrUQA5XONbLPKdTKMrtjEVNLYhETLfJJn7AyPzMLLtIPMyNPxpALHvXRMtZBkzMVDs WNSoMY7cSdYmTVUuJSEpPPTxFLHySJOdefCNPODoBNVgCSN1SpHhIMJlICXsJTfnRSRnEITuJES8DSPm EKMqHF2tKqWpXQVqDbA0ZAXvTWOqFIXxgoOURHFiBA OwQSZlMHXaUHRwXBWrJBxwJQVfJOLiGzO4NSAlLLSdQY8cLnKzKRIjPXL8QUIoSYPqCASmasHLLFAyUC KvYRVxLIF4KFXsNMThMNb6ayGwuPFyCsb7Bx2QkYctOAL3Nv6PjoRzXALmVSZMYu5Ep020BRZsENWVCd o+AjaoiHHmyVdkLDAVMsS0DNoUHEFTX6V= ID Date Data Source [id number] 01/06/2020 08:55:26 AM [facility] Name Value Range Interpretation Code Description Data Sumaya rce(s) Supporting Document(s) [facility] ZWKOTj8mLfAKSjMdy2WaNuJkEZUoOP8beam7J0I3zYMbM6TknQXjc2hzK0NpF5UpIVCgBFGUPA4ZqLXg jb2 [file] F6HRCakfi1Bc/Luis Antonio/+YDgF1oc8/wt6718147N4/7Dtx//r2/f//fa2mOrUIqO+8vvf/6bX3z/w3/69lc/ /+doxue6R/BDUZzeX/78Zz/3Djpr2v/8Jvm8+flRXn/2y1/39e12fkWiei631j/y4O/564dr83/z17/8 r9/++te/+fG7H7//9lff/+znP/3uF9/++pc//+33P/ zm5z/+1z+b33/79u2HX/31jz//5ffffvj+xx9+/v1vv/tFk9dC21v+l/m2hseazv/ghf7jf/aZ6071I3 /4lz/87e/+/tuPv//nf/n2w+//+X/+/b/85Ntf/uG//49vf/nDv/Gmv8F3O/76h+9++/0vv27/07/+xX c/fPvxu5/+5X/96Xc//Ozn3/4of4fdnr/81S9/8+vv f/rz/+3nP/32mx+/rqhUv4069ww/8XWhb9/9xS9/1zVqkhaDu0s26/+LsOv9//7Vt+9/+r//Nk76BDYc 5tuvf/j+tz//1V//2x2ul19488gqpi7W5/7iF9//T956XbJ8Ba/9xz/+tz/80z/8/u++/Z//69tv//D3 f/+7f/qn3//u7//Tt5/97o9/+P3ff/ubf5/m3/yHb/ /4x69//nl5/ckiqW6uoV33MWUq/dW/+sHLTuJ7t//wD3/+j6kthoyM4khQ/+N1kWwfCONt+vzl/wtQ06 QDrv/8/Bi6KTMRvMwQm/jSl7rqa+U2brj9zn7VFTUt30tcaozn93uIoPe20f7++P1/+/7IJw286JBj58 7585/+6hfff/vNd7/4q+9/+yHt8qSuv9A/2g9qFV0p lb6Juet5ks5Ec3yAEa629JnPEL0Rn9a+29//8V/+87d/+t2//P7j8l/z6Okr79l/+gd+I/31Yv/xT6+9 oV//8O0Pf/yX3//T//0chq2Z73C0szDMXntBuO659vs7Jm/85tvf/c+vJ//DP/6tTr0i4su/ubwvcbD/ 8uOf/5cf/0bhdN6GwH48p1tln9bF9Lw0Jb7n/FmZf/ O8M6nP0UsLwSrnTbpWvo1zB/zZj99+9//8/p//db+8z2XNqLmO/d/8+6+b/q9/+pv/8Ce/3t/hs5379r 8mc54tC/3d//zb3/5tD799pr/5/67p3v/wJ+Cpox/+8R//4SdvlG/9k5/sF/rFP/9kR9HXwmhsH33v6C 7gx9//7f/44x/+9usZfvLVl+qs609+q0we/z1PLo8C H//uJz/+B7RZQ2pDyLy37M39fynff/HVpvSs2Ni//5N3rpO/jbCrv/7df//9t/TtH//bt/QxNKUCi/Ht 2/dfRuHLO/z+Zz9+9WoZ7J06tAf5+9UPP/v+h6+Bi3w8JgC95gj//dVf//Lrt+/54a+nHrXvq/9/dFo/ tkposdKovVNjXW3POZ5lj7XjHfB2EYAki4YwSRvgQP s0vUVjVWfsedXux7WdajqvV4Orc4MgKzKyCMKlQgXeSco8MZPnZkE8wFWcDiIlBAMyS1KlEDYxBiD2Ws UmUVGSMX4KDHOkhoOiTzRgJPH+ZrOyAT1fixmoKITpu2WtEQlzYInoCYNhJ9Q7gAeyEJEgG9BgnD19AL ZmK1JhmnB3JPT8GVXoDcDqZXYchCKqOWMuISC+PmVu AK9jucvdXSUhf0OqDCnxZXM3fF4fZRzGRJGLNHoPNFpkNyR6q58pdiGKUJKqOSXmTM1UidXovZyfxmDk nSOvKAS3PvTtQBBlJsDfOBQ0PNNYGGBaQREzLELwDOYuF8HugVdjKCeHGCGCCTaAWKvvSpPsg9O7AEQq bhVNFXsHOFMMONRTOTSFZYLMYCZ7VOJ1WVLuOD1ZgF UzDIJ5OKxVZVWJZLlSBKsrPzKqd8E9RCCqU6LcEFBhojUeMQWYJNabOmkuFZ2zuBnohybqI5MsiLUkBK OQTGFcSMFjHNPrXZTvR0Gzv1N1K9IhAXhSJGVCXWdIHFrnDuK0c61kygOSZZXwFKWiHU7+AH1hi0KbLf 6DTWCqHD6vybe2YI5QcZJkOD6WKXxoiqMmH5kjdwSx ZpKyFJQMXY5hE7DijE47TWK+YbRjMD6dgbd6szVwMbSzBYAuMRCmBTOmNXbuHFKsKUXdAJEvNJF0EUW4 LYWdKaYmAZPdAvTmBJQkADYcSGSeolNACMNaZNO8ZJm8RgCwRGWpOVRhSXsfNXVnBEv8LXE7DBFxXDIm PT8cUnYeMDSeVQGpGMUhRbZ8OvDnZqZAOPQrKHFeVO WzKnFqEERmGDDoPLkhWSRgQFSjYGv7GKHaPATrFS2qUwImDQLnSSZkRSOhVFZzMUVxufOFZVXzATLcPN C0GLJyKWItUXGyODjkNIGvPJTaTZW2KLDcRZTrXB9nUhDlETLkITF0RvLwGAMjZFUsevPVFIPnVVLyNC Z9XFDaYIQzAWObPNxdADImGBSyIvN5TFZaMIFcYR8o GcGpNLYfQHO0WRIfTQYhZZOwxvVJWJLhVJKeHCb2UqHhSIRpLNEtKAzcPMBdZKQcQGcrISRpUUQxBF4r XaJgQNSrSTDkSVIwLSXyGTIpdbAVKBFzQONgMHU3NjPuYFYoORQzBVqyELOdFIPgWIW7FGBjKPPjXY7r YpPeQYJwPmX2UakjGJDcIAGmytXFAVCnAFLpUPBwHD UkLAAdMXVyZOtfFFRdEADgSzU5WZDwTWCwST8yImXiDUMgUVR1SYVxGUErMJIycgFIXTFiGTZzLKLtHL S1RFByNASaDOw1pbSmkDKzDqx5At6KeJhhNNL6Rg9LnhDgMMKnIXWVOl8Og704GWRxZFKGBrq+PgpzdG MoeHcpGKZDTdSiLuDBUMJXM1M= ID Date Data Source [id number] 01/06/2020 04:14:01 AM [facility] Name Value Range Interpretation Code Description Data Sumaya rce(s) Supporting Document(s) Leukocytes [#/volume] in Blood by Automated count 17.2 10*3/uL 4-10 H [facility] Erythrocytes [#/volume] in Blood by Automated count 3.60 10*6/uL 4.6- 6.1 L [facility] Hemoglobin [Mass/volume] in Blood 10.3 g/dL 13.5-18 L [facility] Hematocrit [Volume Fraction] of Blood by Automated count 30.1 % 4 1-53 L [facility] Erythrocyte mean corpuscular volume [Entitic volume] by Auto mated count 83.5 fL 80-96 [facility] Erythrocyte mean corpuscular hemoglobin [Entitic mass] by Automated count 28.6 pg 27-33 [facility] Erythrocyte mean corpuscular hemoglobin concentration [Mass/volume] by Autom[facility] 34.2 g/[facility].0-[facility] width [Ratio] by Automated count 14.1 % 11.5-14.5 [facility] Platelets [#/volume] in Blood by Automated count 215 10*3/uL 150-400 [facility] Differential cell count method - Blood [facility] Neutrophils/100 leukocytes in Blood by Automated count 93 % [facility] Lymphocytes/100 leukocytes in Blood by Automated count 4 % [facility] Monocytes/100 leukocytes in Blood by Automated count 3 % [facility] Eosinophils/100 leukocytes in Blood by Automated count 0 % [facility] Basophils/100 leukocytes in Blood by Automated count 0 % [facility] Neutrophils [#/volume] in Blood by Automated count 16.00 10*3/uL 1.8- 7.0 H [facility] Lymphocytes [#/volume] in Blood by Automated count 0.74 10*3/uL 1.2-4 .0 L [facility] Monocytes [#/volume] in Blood by Automated count 0.50 10*3/uL 0-0.8 [facility] Eosinophils [#/volume] in Blood by Automated count 0.00 10*3/uL 0-0.5 [facility] Basophils [#/volume] in Blood by Automated count 0.01 10*3/uL 0-0.2 [facility] Nucleated erythrocytes/100 leukocytes [Ratio] in Blood by Automated count 0 /100{WBCs} 0-0 [facility] ID Date Data Source [id number] 01/06/2020 04:30:22 AM [facility] Name Value Range Interpretation Code Description Data Sumaya rce(s) Supporting Document(s) Phosphate [Mass/volume] in Serum or Plasma 2.1 mg/dL 2.5-4.5 [facility] ID Date Data Source [id number] 01/06/2020 04:30:22 AM [facility] Name Value Range Interpretation Code Description Data Sumaya rce(s) Supporting Document(s) Magnesium [Mass/volume] in Serum or Plasma 1.8 mg/dL 1.6-2.6 [facility] ID Date Data Source [id number] 01/06/2020 04:30:22 AM [facility] Name Value Range Interpretation Code Description Data Sumaya rce(s) Supporting Document(s) Bicarbonate [Moles/volume] in Serum 25 mmol/L 22-29 [facility] Chloride [Moles/volume] in Serum or Plasma 101 mmol/L 98-107 [facility] Creatinine [Mass/volume] in Serum or Plasma 0.72 mg/dL 0.70-1.20 [facility] Glucose [Mass/volume] in Serum or Plasma 102 mg/dL 70-140 [facility] Potassium [Moles/volume] in Serum or Plasma 3.7 mmol/L 3.4-5.1 [facility] Sodium [Moles/volume] in Serum or Plasma 135 mmol/L 136-145 L [facility] Urea nitrogen [Mass/volume] in Serum or Plasma 11 mg/dL 6-20 [facility] Anion gap 3 in Serum or Plasma 9 mmol/L 8-15 [facility] Osmolality of Serum or Plasma by calculation 280 mosm/kg 275-300 [facility] Creatinine/Urea nitrogen [Mass Ratio] in Serum or Plasma 15 [facility] Calcium [Mass/volume] in Serum or Plasma 8.1 mg/dL 8.6-10.0 L [facility] Glomerular filtration rate/1.73 sq M pre dicted among non-blacks [Volume Rate/Area] in Serum or Plasma by Creatinine-based formula (MDRD) >6 0 [facility] Glomerular filtration rate/1.73 sq M pre dicted among blacks [Volume Rate/Area] in Serum or Plasma by Creatinine-based formula (MDRD) >60 [facility] ID Date Data Source [id number] 01/05/2020 08:25:16 PM [facility] Name Value Range Interpretation Code Description Data Sumaya rce(s) Supporting Document(s) Leukocytes [#/volume] in Blood by Automated count 17.5 10*3/uL 4-10 H [facility] Erythrocytes [#/volume] in Blood by Automated count 3.85 10*6/uL 4.6- 6.1 L [facility] Hemoglobin [Mass/volume] in Blood 10.9 g/dL 13.5-18 L [facility] Hematocrit [Volume Fraction] of Blood by Automated count 32.5 % 4 1-53 L [facility] Erythrocyte mean corpuscular volume [Entitic volume] by Auto mated count 84.6 fL 80-96 [facility] Erythrocyte mean corpuscular hemoglobin [Entitic mass] by Automated count 28.5 pg 27-33 [facility] Erythrocyte mean corpuscular hemoglobin concentration [Mass/volume] by Automated count 33.6 g/dL 32.0-36.0 [facility] width [Ratio] by Automated count 14.4 % 11.5-14.5 [facility] Platelets [#/volume] in Blood by Automated count 209 10*3/uL 150-400 [facility] Differential cell count method - Blood [facility] Neutrophils/100 leukocytes in Blood by Automated count 93 % [facility] Lymphocytes/100 leukocytes in Blood by Automated count 3 % [facility] Monocytes/100 leukocytes in Blood by Automated count 4 % [facility] Eosinophils/100 leukocytes in Blood by Automated count 0 % [facility] Basophils/100 leukocytes in Blood by Automated count 0 % [facility] Neutrophils [#/volume] in Blood by Automated count 16.26 10*3/uL 1.8- 7.0 H [facility] Lymphocytes [#/volume] in Blood by Automated count 0.60 10*3/uL 1.2-4 .0 L [facility] Monocytes [#/volume] in Blood by Automated count 0.64 10*3/uL 0-0.8 [facility] Eosinophils [#/volume] in Blood by Automated count 0.00 10*3/uL 0-0.5 [facility] Basophils [#/volume] in Blood by Automated count 0.04 10*3/uL 0-0.2 [facility] Nucleated erythrocytes/100 leukocytes [Ratio] in Blood by Automated count 0 /100{WBCs} 0-0 [facility] ID Date Data Source [id number] 01/05/2020 08:43:21 PM [facility] Name Value Range Interpretation Code Description Data Sumaya rce(s) Supporting Document(s) Bicarbonate [Moles/volume] in Serum 23 mmol/L [facility] Chloride [Moles/volume] in Serum or Plasma 101 mmol/L 98-107 [facility] Creatinine [Mass/volume] in Serum or Plasma 0.75 mg/dL 0.70-1.20 [facility] Glucose [Mass/volume] in Serum or Plasma 116 mg/dL 70-140 [facility] Potassium [Moles/volume] in Serum or Plasma 4.0 mmol/L 3.4-5.1 [facility] Sodium [Moles/volume] in Serum or Plasma 132 mmol/L 136-145 L [facility] Urea nitrogen [Mass/volume] in Serum or Plasma 11 mg/dL 6-20 [facility] Anion gap 3 in Serum or Plasma 8 mmol/L 8-15 [facility] Osmolality of Serum or Plasma by calculation 275 mosm/kg 275-300 [facility] Creatinine/Urea nitrogen [Mass Ratio] in Serum or Plasma 15 [facility] Calcium [Mass/volume] in Serum or Plasma 8.3 mg/dL 8.6-10.0 L [facility] Glomerular filtration rate/1.73 sq M pre dicted among non-blacks [Volume Rate/Area] in Serum or Plasma by Creatinine-based formula (MDRD) >6 0 [facility] Glomerular filtration rate/1.73 sq M pre dicted among blacks [Volume Rate/Area] in Serum or Plasma by Creatinine-based formula (MDRD) >60 [facility] ID Date Data Source [id number] 01/05/2020 01:22:19 PM [facility] Name Value Range Interpretation Code Description Data Sumaya rce(s) Supporting Document(s) Leukocytes [#/volume] in Blood by Automated count 17.1 10*3/uL 4-10 H [facility] Erythrocytes [#/volume] in Blood by Automated count 4.12 10*6/uL 4.6- 6.1 L [facility] Hemoglobin [Mass/volume] in Blood 12.0 g/dL 13.5-18 [facility] Hematocrit [Volume Fraction] of Blood by Automated count 35.1 % 4 1-53 [facility] Erythrocyte mean corpuscular volume [Entitic volume] by Auto mated count 85.1 fL 80-96 [facility] Erythrocyte mean corpuscular hemoglobin [Entitic mass] by Automated count 29.0 pg 27-33 [facility] Erythrocyte mean corpuscular hemoglobin concentration [Mass/volume] by Automated count 34.1 g/dL 32.0-36.0 [facility] [facility] Erythrocyte distribution width [Ratio] by Automated count 14.1 % 11.5-14.5 [facility] Platelets [#/volume] in Blood by Automated count 211 10*3/uL 150-400 [facility] ID Date Data Source [id number] 01/05/2020 01:39:09 PM [facility] Name Value Range Interpretation Code Description Data Sumaya rce(s) Supporting Document(s) Bicarbonate [Moles/volume] in Serum 25 mmol/L 29 [facility] Chloride [Moles/volume] in Serum or Plasma 100 mmol/L 98-107 [facility] Creatinine [Mass/volume] in Serum or Plasma 1.08 mg/dL 0.70-1.20 [facility] Glucose [Mass/volume] in Serum or Plasma 129 mg/dL 70-140 [facility] Potassium [Moles/volume] in Serum or Plasma 4.3 mmol/L 3.4-5.1 [facility] Sodium [Moles/volume] in Serum or Plasma 133 mmol/L 136-145 L [facility] Urea nitrogen [Mass/volume] in Serum or Plasma 15 mg/dL 6-20 [facility] Anion gap 3 in Serum or Plasma 8 mmol/L 8-15 [facility] Osmolality of Serum or Plasma by calculation 278 mosm/kg 275-300 [facility] Creatinine/Urea nitrogen [Mass Ratio] in Serum or Plasma 14 [facility] Calcium [Mass/volume] in Serum or Plasma 8.3 mg/dL 8.6-10.0 L [facility] Glomerular filtration rate/1.73 sq M pre dicted among non-blacks [Volume Rate/Area] in Serum or Plasma by Creatinine-based formula (MDRD) >6 0 [facility] Glomerular filtration rate/1.73 sq M pre dicted among blacks [Volume Rate/Area] in Serum or Plasma by Creatinine-based formula (MDRD) >60 [facility] ID Date Data Source [id number] 01/05/2020 08:53:36 AM [facility] Name Value Range Interpretation Code Description Data Sumaya rce(s) Supporting Document(s) Magnesium [Mass/volume] in Serum or Plasma 2.2 mg/dL 1.6-2.6 [facility] ID Date Data Source [id number] 01/05/2020 08:53:36 AM [facility] Name Value Range Interpretation Code Description Data Sumaya rce(s) Supporting Document(s) Bicarbonate [Moles/volume] in Serum 26 mmol/L 22-29 [facility] Chloride [Moles/volume] in Serum or Plasma 102 mmol/L 98-107 [facility] Creatinine [Mass/volume] in Serum or Plasma 1.34 mg/dL 0.70-1.20 H [facility] Glucose [Mass/volume] in Serum or Plasma 132 mg/dL 70-140 [facility] Potassium [Moles/volume] in Serum or Plasma 4.5 mmol/L 3.4-5.1 [facility] Sodium [Moles/volume] in Serum or Plasma 134 mmol/L 136-145 L [facility] Urea nitrogen [Mass/volume] in Serum or Plasma 16 mg/dL 6-20 [facility] Anion gap 3 in Serum or Plasma 6 mmol/L 8-15 L [facility] Osmolality of Serum or Plasma by calculation 281 mosm/kg 275-300 [facility] Creatinine/Urea nitrogen [Mass Ratio] in Serum or Plasma 12 [facility] Calcium [Mass/volume] in Serum or Plasma 7.8 mg/dL 8.6-10.0 L [facility] Glomerular filtration rate/1.73 sq M pre dicted among non-blacks [Volume Rate/Area] in Serum or Plasma by Creatinine-based formula (MDRD) 70 mL/min/1.73m2 >60 [facility] Glomerular filtration rate/1.73 sq M pre dicted among blacks [Volume Rate/Area] in Serum or Plasma by Creatinine-based formula (MDRD) 81 mL/min/1.73m2 >60 [facility] ID Date Data Source [id number] 01/05/2020 08:53:36 AM [facility] Name Value Range Interpretation Code Description Data Sumaya rce(s) Supporting Document(s) Phosphate [Mass/volume] in Serum or Plasma 2.7 mg/dL 2.5-4.5 [facility] ID Date Data Source [id number] 01/05/2020 09:20:48 AM [facility] Name Value Range Interpretation Code Description Data Sumaya rce(s) Supporting Document(s) Leukocytes [#/volume] in Blood by Automated count 18.4 10*3/uL 4-10 H [facility] Erythrocytes [#/volume] in Blood by Automated count 3.86 10*6/uL 4.6- 6.1 L [facility] Hemoglobin [Mass/volume] in Blood 11.5 g/dL 13.5-18 L [facility] Hematocrit [Volume Fraction] of Blood by Automated count 32.6 % 4 1-53 L [facility] Erythrocyte mean corpuscular volume [Entitic volume] by Auto mated count 84.5 fL 80-96 [facility] Erythrocyte mean corpuscular hemoglobin [Entitic mass] by Automated count 29.7 pg 27-33 [facility] Erythrocyte mean corpuscular hemoglobin concentration [Mass/volume] by Automated count 35.1 g/dL 32.0-36.0 [facility] width [Ratio] by Automated count 14.0 % 11.5-14.5 [facility] Platelets [#/volume] in Blood by Automated count 228 10*3/uL 150-400 [facility] Differential cell count method - Blood [facility] Neutrophils/100 leukocytes in Blood by Automated count 91 % [facility] Lymphocytes/100 leukocytes in Blood by Automated count 4 % [facility] Monocytes/100 leukocytes in Blood by Automated count 5 % [facility] Eosinophils/100 leukocytes in Blood by Automated count 0 % [facility] Basophils/100 leukocytes in Blood by Automated count 0 % [facility] Neutrophils [#/volume] in Blood by Automated count 16.73 10*3/uL 1.8- 7.0 H [facility] Lymphocytes [#/volume] in Blood by Automated count 0.69 10*3/uL 1.2-4 .0 L [facility] Monocytes [#/volume] in Blood by Automated count 0.97 10*3/uL 0-0.8 H [facility] Eosinophils [#/volume] in Blood by Automated count 0.00 10*3/uL 0-0.5 [facility] Basophils [#/volume] in Blood by Automated count 0.00 10*3/uL 0-0.2 [facility] Nucleated erythrocytes/100 leukocytes [Ratio] in Blood by Automated count 0 /100{WBCs} 0-0 [facility] ID Date Data Source [id number] 01/05/2020 08:03:04 AM [facility] Name Value Range Interpretation Code Description Data Sumaya rce(s) Supporting Document(s) [facility] [id number] [facility] [file] ICAgICAgICAgICAgICAgICAgICAgICAgICAgICAgIC AgICAgICAgICAgICAgICAgICAgICAgICAgICAgICAgICAgICAgICAgICAgICAgICAgICAgICANCiAgIC AgICAgICAgICAgICAgICAgICAgICAgICAgICAgICAgICAgICAgICAgICAgICAgICAgICAgICAgICAgIC AgICAgICAgICAgICAgICAgICAgICAgICAgICAgICAg ICAgICANCiAgICAgICAgICAgICAgICAgICAgICAgICAgICAgICAgICAgICAgICAgICAgICAgICAgICAg ICAgICAgICAgICAgICAgICAgICAgICAgICAgICAgICAgICAgICAgICAgICAgICANCiAgICAgICAgICAg ICAgICAgICAgICAgICAgICAgICAgICAgICAgICAgIC AgICAgICAgICAgICAgICAgICAgICAgICAgICAgICAgICAgICAgICAgICAgICAgICAgICAgICAgICANCi AgICAgICAgICAgICAgICAgICAgICAgICAgICAgICAgICAgICAgICAgICAgICAgICAgICAgICAgICAgIC AgICAgICAgICAgICAgICAgICAgICAgICAgICAgICAg ICAgICAgICANCiAgICAgICAgICAgICAgICAgICAgICAgICAgICAgICAgICAgICAgICAgICAgICAgICAg ICAgICAgICAgICAgICAgICAgICAgICAgICAgICAgICAgICAgICAgICAgICAgICAgICANCiAgICAgICAg ICAgICAgICAgICAgICAgICAgICAgICAgICAgICAgIC AgICAgICAgICAgICAgICAgICAgICAgICAgICAgICAgICAgICAgICAgICAgICAgICAgICAgICAgICAgIC ANCiAgICAgICAgICAgICAgICAgICAgICAgICAgICAgICAgICAgICAgICAgICAgICAgICAgICAgICAgIC AgICAgICAgICAgICAgICAgICAgICAgICAgICAgICAg ICAgICAgICAgICANCiAgICAgICAgICAgICAgICAgICAgICAgICAgICAgICAgICAgICAgICAgICAgICAg ICAgICAgICAgICAgICAgICAgICAgICAgICAgICAgICAgICAgICAgICAgICAgICAgICAgICANCiAgICAg ICAgICAgICAgICAgICAgICAgICAgICAgICAgICAgIC AgICAgICAgICAgICAgICAgICAgICAgICAgICAgICAgICAgICAgICAgICAgICAgICAgICAgICAgICAgIC AgICANCjw/lZYfL6mtaLJedrS5R1klJd3XFe4IPL4uk5QiXRAvWBuhilVxPteVGzErPZTtMxyUCpo1UT eyRP6SdWWhO0GzH6UkLNnaIN5VRGFwMBRypKBlIPVr BMRgCdJ2LVLlBMsjQI0ZeFOpBRslQVYgWSJoHkIqCQDcVJAiGENrWRUiKWVGUQTnRXPxLiCfVJrwFD5X r9AhyHY5OTq+Vg6VUK6wa0JmCAcbTOZjEL5rej5TBYyZCqJdS8KsjgS5UOHhFYCuOk5GHKGcDJLbdGXy NJTfEZYGJeYiC7CmjM95JTBVKy9+DQplbmRvYmoNCj TbQBTlp4WpQDo9KN6LBWLpUKj6tZWyM65cj7NkbNXaPsuyLRUhqRIxWASrA8zmvPQjSGHHDhNjzBYbSS 9oBH4iOIFhVDKhDkI6GHARSA2REEPoTOSisAUxWSPrTWJNTG2KOZgkUBB1LNIsnhZdjNSjGUyxPM8ZSO JlbnQgMzAgMCBSDQo+Sf3OII5dz0VvPRvtLeXvQW4d wa5XEOeGXnXmL1R8jINwJ7C1HEslRa1JDBSgIYMvMggaTWUVOVatEV1TBE1cunL5KH1QyQOoGOHoSKRz bHIpCCd1T34tqUBxLGbhCD3RJXT+Ernie+Po0WGQQbPZTzJIIsJgZxPMCCHuPlZ1LeZ8ZWq3RbU2GrQD45 kXwdbxPnEGwrLA0CDD8iUUPkWACKUQ8OfXGfcA4pxe TmRSYzOPNXAaQiN33zoOAqPJMaYMB9DIDdVa6ALKWlB0MqjlOeqSrkyuUkTYLpGUJHKR2GGEkhsxTbkK MmfXguGL94uKarLO2EOs2LAxOvWL4cad3SuTWpCr0UJVAjYm0ALJVjQEIkKSRhOYX6XSSoZcTpSAvtMN QwYMHmBTO3UEQwFYQpYA8WWqCvQUFjHcGdNyfkAQIt ZXImul9VGGGkDPUgSuC1UCNhEOIpPIRyJVapFVMuIRDrVBS9DZSqGDUeCD0JZsXkPEUlQPW8UPFgTCIz SIJqoi7SFRYdSGSwStacHVIdTZNnLTNoJLlxNKGwMQI0Ilu7TALcRWIoOW1JGmHuDVWyHMo6KMTrMACi XZWieb8NCOCuSEQpMVz0LZDxVLNsSKXlIXsxISDaSI N2NFNpXGVpYHVkLX2DHrMkKHKeLLAzCRBkRIRnRZMsdl6UKSHlDGLsClByClFjBLBsKDPdLKblANUyVT VoTmn2CNSkJUVlGL9EUqFyDXBoRIB8OYUiEBPqGYEepj5TVHAuRNLbDDx8NEDvRLEtEHWmALriCCYrOL G8BVE4UQXbVEKxRT9RRvZwOLLmRLJrLeEoJZGzLCBk qf2GKMQnKXIoHaK5DNKiEXWtZCVfXYnlHEVvJBC6WBhzXIOxPPMxXW1BLtKaRXDsLTT9DQLtBVGuSGNx he9ENFAqMLHiVfS3JAAyOKKxFUZgMAdhZWZvYCB8YCC2GFOkVWUnPZ9LDpXtMHYhTAniMkRdRTFwZMSf tr4KTGSjYJQiJPTwBLNxYZEgHDBzTOazAAAnQTZ8Qy GqLLVuSEKcSI6ULqNmDFWxTft7NjWgEQSkMFYdiv6QTHXgQDNjIVL5ZEGfGJVkLKTnXPfdKOYmSZCsOa Y7BRZgWFRaAZ9JWmRrEFFeFhZ5PvVgTNZbBALmkh5UOAVyCQPcNpQ7PNXfGLWaYNZdVXyuMJDjXFAlBp V3FQYrCQJqKV3LHbUmQLClHbO6SCYpMBRuRQEnro6N xUIytFogmv9IQIrWMf3OlSmuLLJtQNzoVw8mvCZxBsDjSWHBYf3UazPwOCShTXDWMRdmVBZpAZXqZVIw YcOxLQUwHII3XZviMZY3NYX4GqL7RFB1UXRtCiM5CUXdSBVxCPU8MiNnGcdcDVT7GemtJRvbRsgoADy0 ZWU+IH5cWPq+Ek1Oz5QbthM1piZoVShqCzG9XO6MQCFRB4NMAy== ID Date Data Source [id number] 01/05/2020 02:36:25 AM [facility] Name Value Range Interpretation Code Description Data Sumaya e(s) Supporting Document(s) Leukocytes [#/volume] in Blood by Automated count 19.5 10*3/uL 4-10 H [facility] Erythrocytes [#/volume] in Blood by Automated count 4.18 10*6/uL 4.6- 6.1 L [facility] Hemoglobin [Mass/volume] in Blood 12.2 g/dL 13.5-18 L [facility] Hematocrit [Volume Fraction] of Blood by Automated count 35.2 % 4 1-53 L [facility] Erythrocyte mean corpuscular volume [Entitic volume] by Auto mated count 84.3 fL 80-96 [facility] Erythrocyte mean corpuscular hemoglobin [Entitic mass] by Automated count 29.3 pg 27-33 [facility] Erythrocyte mean corpuscular hemoglobin concentration [Mass/volume] by Automated count 34.8 g/dL 32.0-36.0 [facility] width [Ratio] by Automated count 14.0 % 11.5-14.5 [facility] Platelets [#/volume] in Blood by Automated count 246 10*3/uL 150-400 [facility] Differential cell count method - Blood [facility] Neutrophils/100 leukocytes in Blood by Automated count 91 % [facility] Lymphocytes/100 leukocytes in Blood by Automated count 3 % [facility] Monocytes/100 leukocytes in Blood by Automated count 6 % [facility] Eosinophils/100 leukocytes in Blood by Automated count 0 % [facility] Basophils/100 leukocytes in Blood by Automated count 0 % [facility] Neutrophils [#/volume] in Blood by Automated count 17.68 10*3/uL 1.8- 7.0 H [facility] Lymphocytes [#/volume] in Blood by Automated count 0.66 10*3/uL 1.2-4 .0 L [facility] Monocytes [#/volume] in Blood by Automated count 1.21 10*3/uL 0-0.8 H [facility] Eosinophils [#/volume] in Blood by Automated count 0.00 10*3/uL 0-0.5 [facility] Basophils [#/volume] in Blood by Automated count 0.00 10*3/uL 0-0.2 [facility] Nucleated erythrocytes/100 leukocytes [Ratio] in Blood by Automated count 0 /100{WBCs} 0-0 [facility] ID Date Data Source [id number] 01/05/2020 06:39:47 AM [facility] Name Value Range Interpretation Code Description Data Sumaya rce(s) Supporting Document(s) Bicarbonate [Moles/volume] in Serum 22-29 [facility] SEE [id number] FOR RESULTS Chloride [Moles/volume] in Serum or Plasma 98-107 [facility] Creatinine [Mass/volume] in Serum or Plasma 0.70-1.20 [facility] Glucose [Mass/volume] in Serum or Plasma 70-140 [facility] Potassium [Moles/volume] in Serum or Plasma 3.3-5.1 [facility] Sodium [Moles/volume] in Serum or Plasma 133-145 [facility] Urea nitrogen [Mass/volume] in Serum or Plasma 6-20 [facility] Anion gap 3 in Serum or Plasma 8-15 [facility] Osmolality of Serum or Plasma by calculation 275-300 [facility] Creatinine/Urea nitrogen [Mass Ratio] in Serum or Plasma [facility] Calcium [Mass/volume] in Serum or Plasma 8.6-10.0 [facility] Glomerular filtration rate/1.73 sq M pre dicted among non-blacks [Volume Rate/Area] in Serum or Plasma by Creatinine-based formula (MDRD) >6 0 [facility] Glomerular filtration rate/1.73 sq M pre dicted among blacks [Volume Rate/Area] in Serum or Plasma by Creatinine-based formula (MDRD) >60 [facility] ID Date Data Source [id number] 01/05/2020 02:59:56 AM [facility] Name Value Range Interpretation Code Description Data Sumaya rce(s) Supporting Document(s) Bicarbonate [Moles/volume] in Serum 27 mmol/L 22-29 [facility] Chloride [Moles/volume] in Serum or Plasma 101 mmol/L 98-107 [facility] Creatinine [Mass/volume] in Serum or Plasma 1.23 mg/dL 0.70-1.20 H [facility] Glucose [Mass/volume] in Serum or Plasma 154 mg/dL 70-140 H [facility] Potassium [Moles/volume] in Serum or Plasma 4.9 mmol/L 3.4-5.1 [facility] Sodium [Moles/volume] in Serum or Plasma 133 mmol/L 136-145 L [facility] Urea nitrogen [Mass/volume] in Serum or Plasma 16 mg/dL 6-20 [facility] Anion gap 3 in Serum or Plasma 5 mmol/L 8-15 L [facility] Osmolality of Serum or Plasma by calculation 280 mosm/kg 275-300 [facility] Creatinine/Urea nitrogen [Mass Ratio] in Serum or Plasma [address] [facility] Calcium [Mass/volume] in Serum or Plasma 7.6 mg/dL 8.6-10.0 L [facility] Glomerular filtration rate/1.73 sq M pre dicted among non-blacks [Volume Rate/Area] in Serum or Plasma by Creatinine-based formula (MDRD) 78 mL/min/1.73m2 >60 [facility] Glomerular filtration rate/1.73 sq M pre dicted among blacks [Volume Rate/Area] in Serum or Plasma by Creatinine-based formula (MDRD) 90 mL/min/1.73m2 >60 [facility] ID Date Data Source [id number] 01/04/2020 08:43:31 PM [facility] Name Value Range Interpretation Code Description Data Sumaya rce(s) Supporting Document(s) Leukocytes [#/volume] in Blood by Automated count 19.1 10*3/uL 4-10 H [facility] Erythrocytes [#/volume] in Blood by Automated count 4.32 10*6/uL 4.6- 6.1 L [facility] Hemoglobin [Mass/volume] in Blood 12.9 g/dL 13.5-18 L [facility] Hematocrit [Volume Fraction] of Blood by Automated count 37.3 % 4 1-53 L [facility] Erythrocyte mean corpuscular volume [Entitic volume] by Auto mated count 86.2 fL 80-96 [facility] Erythrocyte mean corpuscular hemoglobin [Entitic mass] by Automated count 29.9 pg 27-33 [facility] Erythrocyte mean corpuscular hemoglobin concentration [Mass/volume] by Automated count 34.6 g/dL 32.0-36.0 [facility] width [Ratio] by Automated count 14.2 % 11.5-14.5 [facility] Platelets [#/volume] in Blood by Automated count 249 10*3/uL 150-400 [facility] Differential cell count method - Blood [facility] Neutrophils/100 leukocytes in Blood by Automated count 91 % [facility] Lymphocytes/100 leukocytes in Blood by Automated count 4 % [facility] Monocytes/100 leukocytes in Blood by Automated count 5 % [facility] Eosinophils/100 leukocytes in Blood by Automated count 0 % [facility] Basophils/100 leukocytes in Blood by Automated count 0 % [facility] Neutrophils [#/volume] in Blood by Automated count 17.38 10*3/uL 1.8- 7.0 H [facility] Lymphocytes [#/volume] in Blood by Automated count 0.67 10*3/uL 1.2-4 .0 L [facility] Monocytes [#/volume] in Blood by Automated count 1.04 10*3/uL 0-0.8 H [facility] Eosinophils [#/volume] in Blood by Automated count 0.00 10*3/uL 0-0.5 [facility] Basophils [#/volume] in Blood by Automated count 0.01 10*3/uL 0-0.2 [facility] Nucleated erythrocytes/100 leukocytes [Ratio] in Blood by Automated count 0 /100{WBCs} 0-0 [facility] ID Date Data Source [id number] 01/04/2020 09:00:43 PM [facility] Name Value Range Interpretation Code Description Data Sumaya rce(s) Supporting Document(s) Bicarbonate [Moles/volume] in Serum 23 mmol/L 22-29 [facility] Chloride [Moles/volume] in Serum or Plasma 102 mmol/L 98-107 [facility] Creatinine [Mass/volume] in Serum or Plasma 1.31 mg/dL 0.70-1.20 H [facility] Glucose [Mass/volume] in Serum or Plasma 181 mg/dL 70-140 [facility] Potassium [Moles/volume] in Serum or Plasma 4.8 mmol/L 3.4-5.1 [facility] Sodium [Moles/volume] in Serum or Plasma 135 mmol/L 136-145 [facility] Urea nitrogen [Mass/volume] in Serum or Plasma 16 mg/dL 6-20 [facility] Anion gap 3 in Serum or Plasma 10 mmol/L 8-15 [facility] Osmolality of Serum or Plasma by calculation 286 mosm/kg 275-300 [facility] Creatinine/Urea nitrogen [Mass Ratio] in Serum or Plasma 12 [facility] Calcium [Mass/volume] in Serum or Plasma 7.7 mg/dL 8.6-10.0 L [facility] Glomerular filtration rate/1.73 sq M pre dicted among non-blacks [Volume Rate/Area] in Serum or Plasma by Creatinine-based formula (MDRD) 72 mL/min/1.73m2 >60 [facility] Glomerular filtration rate/1.73 sq M pre dicted among blacks [Volume Rate/Area] in Serum or Plasma by Creatinine-based formula (MDRD) 83 mL/min/1.73m2 >60 [facility] ID Date Data Source [id number] 01/04/2020 02:35:12 PM [facility] Value Range Interpretation Code Description Data Sumaya rce(s) Supporting Document(s) Magnesium [Mass/volume] in Serum or Plasma 1.4 mg/dL 1.6-2.6 [facility] QA FLAGS AND/OR RANGES MODIFIED BY [employer] UPDATE ON 01/03 ID Date Data Source [id number] 01/04/2020 03:04:23 PM [facility] Value Range Interpretation Code Description Data Sumaya rce(s) Supporting Document(s) Bicarbonate [Moles/volume] in Serum 21 mmol/L 22-29 L [facility] Chloride [Moles/volume] in Serum or Plasma 103 mmol/L 98-107 [facility] Creatinine [Mass/volume] in Serum or Plasma 1.19 mg/dL 0.70-1.20 [facility] Glucose [Mass/volume] in Serum or Plasma 206 mg/dL 70-140 H [facility] Potassium [Moles/volume] in Serum or Plasma 4.4 mmol/L 3.4-5.1 [facility] Sodium [Moles/volume] in Serum or Plasma 135 mmol/L 136-145 L [facility] Urea nitrogen [Mass/volume] in Serum or Plasma 14 mg/dL 6-20 [facility] QA FLAGS AND/OR RANGES MODIFIED BY [employer] UPDATE ON 01/03 Anion gap 3 in Serum or Plasma 11 mmol/L 8-15 [facility] Osmolality of Serum or Plasma by calculation 286 mosm/kg 275-300 [facility] Creatinine/Urea nitrogen [Mass Ratio] in Serum or Plasma 12 [facility] Calcium [Mass/volume] in Serum or Plasma 7.6 mg/dL 8.6-10.0 L [facility] QA FLAGS AND/OR RANGES MODIFIED BY [employer] UPDATE ON 01/03 Glomerular filtration rate/1.73 sq M pre dicted among non-blacks [Volume Rate/Area] in Serum or Plasma by Creatinine-based formula (MDRD) >6 0 [facility] Glomerular filtration rate/1.73 sq M pre dicted among blacks [Volume Rate/Area] in Serum or Plasma by Creatinine-based formula (MDRD) >60 [facility] ID Date Data Source [id number] 01/04/2020 06:26:37 AM [facility] Value Range Interpretation Code Description Data Sumaya rce(s) Supporting Document(s) ABO and Rh group [Type] in Blood [facility] Blood bank comment [facility] ID Date Data Source [id number] 01/06/2020 07:01:18 AM [facility] Name Value Range Interpretation Code Description Data Sumaya rce(s) Supporting Document(s) ABO and Rh group [Type] in Blood [facility] Blood group antibody screen [Presence] in Serum or Plasma [facility] Blood bank comment [facility] ID Date Data Source [id number] 01/04/2020 06:04:59 AM [facility] Name Value Range Interpretation Code Description Data Sumaya rce(s) Supporting Document(s) Albumin [Mass/volume] in Serum or Plasma by Bromocresol green (BCG) dye binding method 3.9 g/dL 3.5-5.2 [facility] Bil[facility] [Mass/volume] in Serum or Plasma <1.2 [facility] Calcium [Mass/volume] in Serum or Plasma 8.2 mg/dL 8.6-10.0 L [facility] QA FLAGS AND/OR RANGES MODIFIED BY [employer] UPDATE ON 01/03 Chloride [Moles/volume] in Serum or Plasma 103 mmol/L 98-107 [facility] Creatinine [Mass/volume] in Serum or Plasma 0.97 mg/dL 0.70-1.20 [facility] Glucose [Mass/volume] in Serum or Plasma 170 mg/dL 70-140 H [facility] Alkaline phosphatase [Enzymatic activity/volume] in Serum or Plasma 58 U/L 40-129 [facility] Potassium [Moles/volume] in Serum or Plasma 3.9 mmol/L 3.4-5.1 [facility] Hemolyzed Protein [Mass/volume] in Serum or Plasma 6.5 g/dL 6.4-8.3 [facility] Sodium [Moles/volume] in Serum or Plasma 139 mmol/L 136-145 [facility] Aspartate aminotransferase [Enzymatic activity/volume] in Serum or Plasma 73 U/L <40 H [facility] Hemolyzed Urea nitrogen [Mass/volume] in Serum or Plasma 17 mg/dL 6-20 [facility] QA FLAGS AND/OR RANGES MODIFIED BY [employer] RAPHIC UPDATE ON 01/03 Osmolality of Serum or Plasma by calculation 294 mosm/kg 275-300 [facility] Creatinine/Urea nitrogen [Mass Ratio] in Serum or Plasma 17 [facility] Bicarbonate [Moles/volume] in Serum 25 mmol/L 22-29 [facility] Alanine aminotransferase [Enzymatic activity/volume] in Seru m or Plasma 65 U/L <41 H [facility] Anion gap 3 in Serum or Plasma 11 mmol/L 8-15 [facility] Glomerular filtration rate/1.73 sq M pre dicted among non-blacks [Volume Rate/Area] in Serum or Plasma by Creatinine-based formula (MDRD) >6 0 [facility] Glomerular filtration rate/1.73 sq M pre dicted among blacks [Volume Rate/Area] in Serum or Plasma by Creatinine-based formula (MDRD) >60 [facility] ID Date Data Source [id number] 01/04/2020 05:30:09 AM [facility] Name Value Range Interpretation Code Description Data Sumaya rce(s) Supporting Document(s) Sodium [Moles/volume] in Blood 140 mmol/L 136-145 [facility] Potassium [Moles/volume] in Blood 3.6 mmol/L 3.4-5.1 [facility] Chloride [Moles/volume] in Blood 101 mmol/L 98-107 [facility] Carbon dioxide, total [Moles/volume] in Blood 29 mmol/L 22-29 [facility] Calcium.ionized [Moles/volume] in Blood 1.15 mmol/L 1.13-1.32 [facility] Glucose [Mass/volume] in Blood 172 mg/dL 70-140 H [facility] Urea nitrogen [Mass/volume] in Blood 18 mg/dL 6-20 [facility] QA FLAGS AND/OR RANGES MODIFIED BY DEMOG RAPHIC UPDATE ON 01/03 AT 2016 Creatinine [Mass/volume] in Blood 0.8 mg/dL 0.70-1.20 [facility] Hematocrit [Volume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
--- OUTSIDE RECORDS SUMMARY | 2020-12-30 20:09 | CCD ---
Author Author [facility] Organization [facility] Address Unknown Phone Unavailable Care Team Providers Care Hearing Aid Technician Name Role Phone SYSTEM IN, NOT IN [...] Nile RICH Unavailable Unavailable Wiener, V Nile IRCH Unavailable Unavailable Wiener, V Nile RICH Unavailable [...] MD Unavailable Unavailable Tamar Coombs DO Unavailable [email or web address] Tamar Coombs DO Unavailable [email or web address] Re-disclosure Warning The records that you are [...] is protected by Article 27-F of the [facility] Public Health law. If you continue you may have access to information: Regarding HIV / AIDS; Provided by facilities licensed or operated by the [facility] Office of Mental Health; or Provided by the [facility] Office for People With Developmental Disabilities. If such information is present, then the following [facility] mandated warning applies: This information has been [...] law may result in a fine or chcf sentence or both. A general authorization for the release of medical or other information is NOT sufficient authorization for further disc losure. Allergies and Adverse Reactions Type Description Substance Reaction Status Data Source(s ) Propensity to adverse reactions NO KNOWN ALLERGIES NO KNOWN ALLERGIES [facility] Encounters Encounter Providers Location Date Indications Data Source(s ) Outpatient Attender: Nile Sommer MD 05/28/2020 12:00:[address] [facility] Outpatient Attender: Nile Sommer MDReferrer: YESY PADILLA 05/25/2020 12:00:[address] [facility] Outpatient Attender: Nile Sommer MD 04/30/2020 12:00:[address] [facility] Outpatient Attender: Nile Sommer MDReferrer: YESY PADILLA 04/27/2020 12:00:[address] [facility] Unlisted evaluation and management service 08/2020 07:06:00 PM [facility]) Outpatient Attender: REBECCA CASTELLON MD [id number] 02/13/2020 12:00:0 0 AM [facility] Unlisted evaluation and management service 02/2020 09:44:00 PM [facility]) Outpatient Attender: MICAH SAPP PAConsultant: [facility] [id number] 02/07/2020 02:11:00 AM [facility] Emergency Attender: Ranjit Matos nder: ADRIEN WAGONER MDReferrer: PROVIDER SYSTEM IN A-ERMADULT 02/07/2020 12:00:00 AM EST - 02/08/2020 09:26:00 AM EST Opioid dependence with withdrawal [facility] Opioid dependence with withdrawal Patient discharged. Emergency Attender: MICAH REESE EMERGENCY ROOM- ER 02/06/2020 11:51:00 PM EST - 02/07/2020 07:30:00 AM EST [facility] Patient discharged. Inpatient Attender: Maria Esther Gibson itter: Maria Esther Norriser: Cheryl Kelley MD 01/24/2020 12:00:00 AM EST Other ascites [facility] Other ascites Inpatient Attender: Maria Esther Tejeda holden: ADRIÁN SHAH MDAttender: DAVIDA MUELLER DOAdmitter: Maria Esther Devineerrer: Stephanie Jones [id number] 01/23/2020 12:00:00 AM EST - 01/25/2020 04:33:00 PM EST Other ascites [facility] Other ascites Patient discharged. Inpatient Attender: ELIA FAM MDA ttender: Brenda Meradmitter: Brenda Leongr: Tamar Coombs DO [id number] 01/04/2020 12:00:[address] - 01/10/2020 06:36:00 PM EST Illness, unspecified [facility] Illness, unspecified Patient discharged. Immunizations Vaccine Date Status Description Data Source(s) Tdap 01/04/2020 12:00:00 AM EST completed <td ID="[id number]">Tdap</td><td>01/04/2020</td><td></td> [facility] Medications Medication Brand Name Start Date Product Form Dose Route Admi nistrative Instructions Pharmacy Instructions Status Indications Reaction Description Data Source(s) Clonidine Hydrochloride 0.1 MG Oral Tablet cloNIDine ( CATAPRES) tablet 0.2 mg cloNIDine (CATAPRES) tablet 0.2 mg 02/08/2020 02:45:00 AM EST 0.2 mg Oral completed 0.2 mg, Oral, Once, 02/08/20 at 0245, For 1 dose
Check vital signs before administering
[facility] Medication administered onsite Buprenorphine 4 MG / Naloxone 1 MG Oral Strip buprenorphine-naloxone (SUBOXONE) 4-1 MG per sublingual film 1 Film buprenorphine-naloxone (SUBOXONE) 4-1 MG per sublingual film 1 Film 02/08/2020 01:45:00 AM EST Sublingual completed 1 Film (4 mg of buprenorphin e), Sublingual, Once, 02/08/20 at 0145, For 1 dose [facility] Medication administered onsite Buprenorphine 2 MG / Naloxone 0.5 MG Ora l Strip buprenorphine-naloxone (SUBOXONE) 2-0.5 MG per sublingual film 1 Film buprenorphine-naloxone (SUBOXONE) 2-0.5 MG per sublingual film 1 Film 02/08/2020 01:45:00 AM EST Sublingual completed 1 Film (2 mg of buprenorphine), Sublingual, Once, 02/08/20 at 0145, For 1 dose [facility] Medication administered onsite Buprenorphine 8 MG / Naloxone 2 MG Oral Strip Buprenorphine HCl-Naloxone HCl 8-2 MG Sublingual Film (SUBOXONE) Buprenorphine HCl-Naloxone HCl 8-2 MG Alvarez blingual Film (SUBOXONE) 02/08/2020 12:00:00 AM EST 1 {film} Sublingual active Opioid Dependence Place 1 Film under the tongu e daily for 3 days, Max Daily Dose: 1 Film Indications: Opioid Dependence [facility] Opioid Dependence Buprenorphine 2 MG / Naloxone 0.5 MG Ora l Strip buprenorphine-naloxone (SUBOXONE) 2-0.5 MG per sublingual film 1 Film buprenorphine-naloxone (SUBOXONE) 2-0.5 MG per sublingual film 1 Film 02/08/2020 12:00:00 AM EST Sublingual completed 1 Film (2 mg of buprenorphine), Sublingual, Once, 02/08/20 at 0000, For 1 dose [facility] Medication administered onsite Amoxicillin 875 MG / Clavulanate 125 MG Oral Tablet amoxicillin-clavulanate (AUGMENTIN) 875-125 MG per tablet 1 tablet amoxicillin-clavulanate (AUGMENTIN) 875-125 MG per tablet 1 tablet 01/25/2020 09:30:00 AM EST 1 {tbl} Or al active 1 tablet, Oral, Ever y 12 hours Standard (2 times per day), First dose on 01/25/20 at 0930, For 10 days [facility] Medication administered onsite Methadone Hydrochloride 10 MG Oral Tablet methadone (D OLOPHINE) tablet 30 mg methadone (DOLOPHINE) tablet 30 mg 01/25/2020 07:30:00 AM EST 30 mg Oral completed 30 mg, Oral, Before Breakfast, First dose (after last reorder) on 01/25/20 at 0730, For 1 dose [facility] Medication administered onsite Amoxicillin 875 MG / Clavulanate 125 MG Oral Tablet Amoxicillin-Pot Clavulanate 875-125 MG Oral Tablet (AUGMENTIN) Amoxicillin-Pot Clavulanate 875-125 MG O ral Tablet (AUGMENTIN) 01/25/2020 12:00:00 AM EST 1 {tbl} Oral active Take 1 tablet by mouth every 12 (twelve) hours for 10 days [facility] Acetaminophen 325 MG Oral Tablet Acetaminophen 325 MG Oral T ablet 01/25/2020 12:00:00 AM EST 650 mg Oral active Take 2 tablets by mouth every 6 (six) hours as needed for up to 10 days [facility] lidocaine (PF) (XYLOCAINE) 2 % injection [id number] 01/24/2020 05:06: 50 PM EST completed Code/Trauma Medicati on, Starting Mon01/24/20 at 1706 [facility] Medication administered onsite 2 ML Midazolam 1 MG/ML Injection midazolam (PF) (VERSE D) injection midazolam (PF) (VERSED) injection 01/24/2020 04:58:52 PM EST completed Code/Trauma Medication, Starting Mon01/24/[address] [place] [address] Medication administered onsite fentaNYL (SUBLIMAZE) (PF) injection [id number] 01/24/2020 04:58:44 PM EST completed Code/Trauma Medicati on, Starting Mon01/24/[address] [place] [address] Medication administered onsite Ketorolac Tromethamine 10 MG Oral Tablet ketorolac (TO RADOL) tablet 10 mg ketorolac (TORADOL) tablet 10 mg 01/24/2020 11:32:05 AM EST 10 mg Oral active 10 mg, Oral, Every 6 hours PRN, Pain, Moderate Pain (Pain Scale Score 4-6), Severe Pain (Pain Scale Score 7-10), Starting Mon01/24/20 at 1132, For 5 days
Limited to five days of therapy only.
[facility] Medication administered onsite Lidocaine 0.04 MG/MG Topical Gel Lidocaine (XYLOCAINE) 4 % gel Lidocaine (XYLOCAINE) 4 % gel 01/24/2020 09:30:00 AM EST Topical completed Topical, Once, Mon01/24/20 at 0930, For 1 dose
Apply to midline incision and call trauma after applying
[facility] Medication administered onsite Metoprolol Tartrate 25 MG Oral Tablet me toprolol tartrate (LOPRESSOR) tablet 25 mg metoprolol tartrate (LOPRESSOR) tablet 25 mg 01/24/2020 09:00:00 AM EST 25 mg Oral active 25 mg, Ora l, 2 Times Daily, First dose on Mon01/24/20 at 0900, For 30 days [facility] Medication administered onsite Methadone Hydrochloride 10 MG Oral Tablet methadone (D OLOPHINE) tablet 30 mg methadone (DOLOPHINE) tablet 30 mg 01/24/2020 07:30:00 AM EST 30 mg Oral active 30 mg, Oral, Before Breakfast, First dose on Mon01/24/20 at 0730, For 7 days [facility] Medication administered onsite Methadone Hydrochloride 10 MG Oral Tablet methadone (D OLOPHINE) tablet 30 mg methadone (DOLOPHINE) tablet 30 mg 01/24/2020 06:30:00 AM EST 30 mg Oral completed 30 mg, Oral, Once, Mon01/24/20 at 0630, For 1 dose [facility] Medication administered onsite NaCl infusion 0.9 % [id number] 01/24/2020 12:45:00 AM EST Intravenous aborted at 125 mL/hr, Intrav enous, Continuous, Starting Mon01/24/20 at 0045, For 30 days [facility] Medication administered onsite Piperacillin 3000 MG [...] piperacillin- tazobactam is compatible with Lactated Ringers.
[facility] Medication administered onsite Acetaminophen 325 MG [...] mg from all sources in 24 hours.
[facility] Medication administered onsite iohexol (OMNIPAQUE) 300 MG/ML contrast injection 100 mL [id number] 01/23/2020 09:15:00 PM EST 100 mL Given by IV completed 100 mL, Given by IV, 1 TIME IMAGING, Gayathri 01/23/20 at 2115, For 1 dose [facility] Medication administered onsite Acetaminophen 325 MG Oral Tablet acetaminophen (TYLENO L) tablet 975 mg acetaminophen (TYLENOL) tablet 975 mg 01/23/2020 08:30:00 PM EST 97 5 mg Oral completed 975 mg, Oral, O nce, Gayathri 01/23/20 at 2030, For 1 dose
Maximum daily dose of acetaminophen is 3,000 mg from all sources in 24 hours.
[facility] Medication administered onsite vancomycin (VANCOCIN) in D5W infusion 1,000 mg/200 mL (premi x) [id number] 01/23/2020 07:45:00 PM EST 1 g Intravenous completed 1 g, Intravenous, at 200 mL/hr, Once, Gayathri 01/23/20 at 1945, For 1 dose
Discouraged Uses: - Treatment of C. difficile infection -Routine treatment of neutropenic fever -Non-purulent cellulitis -Community-acquired intra-abdominal infection
[facility] Medication administered onsite Piperacillin 3000 MG / tazobactam 375 MG Injection piperacillin-tazobactam (ZOSYN) IVPB 3.375 g (premix) piperacillin-tazobactam (ZOSYN) IVPB 3.3 75 g (premix) 01/23/2020 07:45:00 PM EST 3.375 g Intravenous com pleted 3.375 g, Intravenous, Administer over 0.5 Hours, Once, Gayathri 01/23/20 at 1945, For 1 dose
This specific formulation of piperacillin-tazobactam is compatible with Lactated Ringers.
[facility] Medication administered onsite lactated ringers bolus 2,000 mL [id number] 01/23/2020 07:45:00 PM EST 2000 mL Intravenous completed 2,000 mL , Intravenous, Once, Gayathri 01/23/20 at 1945, For 1 dose [facility] Medication administered onsite POLYETHYLENE GLYCOL 3350 142 MG/ML Oral Solution Polyethylene Glycol 3350 17 GM Oral Packet (MIRALAX) Polyethylene Glycol 3350 17 GM Oral Packet (MIRALAX) 01/11/2020 12:00:00 AM EST 17 g Oral active Take 1 packet by mouth daily Please substitute bottle for packets, if packets are unavailable. [facility] Methadone Hydrochloride 10 MG Oral Tablet methadone (D OLOPHINE) tablet 10 mg methadone (DOLOPHINE) tablet 10 mg 01/10/2020 09:00:00 PM EST 10 mg Oral active 10 mg, Oral, 2 Times Daily, First dose on Mon01/10/20 at 2100, For 7 days [facility] Medication administered onsite Clonidine Hydrochloride 0.1 MG Oral Tablet cloNIDine ( CATAPRES) tablet 0.1 mg cloNIDine (CATAPRES) tablet 0.1 mg 01/10/2020 10:35:32 AM EST 0.1 mg Oral active 0.1 mg, Oral, Three Times Daily-PRN, anxiety, withdrawal symptoms, Starting Mon01/10/20 at 1035, For 7 days [facility] Medication administered onsite pantoprazole 40 MG Delayed Release Oral Tablet pantoprazole (PROTONIX) EC tablet 40 mg pantoprazole (PROTONIX) EC tablet 40 mg 01/10/2020 09:00:[address] 40 mg Oral active 40 mg, Ora l, Daily Standard, First dose on Mon01/10/20 at 0900, For 30 days
Do not crush or chew
[facility] Medication administered onsite Methadone Hydrochloride 10 MG Oral Table t Methadone HCl 10 MG Oral Tablet (Dolophine) Methadone HCl 10 MG Oral Tablet (Dolophine) 01/10/2020 12:00:00 AM EST 10 mg Oral active Take 1 t ablet by mouth Two Times Daily for 4 days, Max Daily Dose: 20 mg [facility] Docusate Sodium 100 MG Oral Capsule Docu sate Sodium 100 MG Oral Capsule (COLACE) Docusate Sodium 100 MG Oral Capsule (COLACE) 01/10/2020 12:00:00 AM EST 100 mg Oral active Take 1 capsule by mouth Two Times Daily for 10 days [facility] Clonidine Hydrochloride 0.1 MG Oral Tabl et cloNIDine HCl 0.1 MG Oral Tablet (CATAPRES) cloNIDine HCl 0.1 MG Oral Tablet (CATAPRES) 01/10/2020 12:00:00 AM EST 0.1 mg Oral active Take 1 t ablet by mouth Three times daily as needed (anxiety, withdrawal symptoms) for up to 10 days [facility] Acetaminophen 325 MG Oral Tablet Acetaminophen 325 MG Oral T ablet 01/10/2020 12:00:00 AM EST 975 mg Oral active Take 3 tablets by mouth every 8 (eight) hours for 10 days [facility] Metoprolol Tartrate 25 MG Oral Tablet Me toprolol Tartrate 25 MG Oral Tablet (LOPRESSOR) Metoprolol Tartrate 25 MG Oral Tablet (LOPRESSOR) 05/2019 12:00:00 AM EST 25 mg Oral active Take 1 tablet by mouth Two Times Daily [facility] Methadone Hydrochloride 1 MG/ML Oral Sil ution methadone (DOLOPHINE) 5 MG/5ML oral solution 10 mg methadone (DOLOPHINE) 5 MG/5ML oral solution 10 mg 01/09/2020 07:00:00 PM EST 10 mg Oral aborted 10 mg, Oral, Every 12 hours Standard (2 times per day), First dose (after last modification) on Gayathri 01/09/20 at 1900, For 7 days [facility] Medication administered onsite ondansetron (ZOFRAN) injection 4 mg [id number] 01/09/2020 12:11:3 8 PM EST 4 mg Intravenous active 4 mg, In travenous, Every 8 hours PRN, Nausea, Vomiting, Starting Gayathri 01/09/20 at 1211, For 5 days [facility] Medication administered onsite HYDROmorphone (DILAUDID) injection 0.5 mg [id number] 01/09/2020 10:26:59 AM EST 0.5 mg Intravenous active 0.5 mg, Intravenous, Every 6 hours PRN, For breakthrough pain when PO morphine does not work., Starting Gayathri 01/09/20 at 1026, For 3 days [facility] Medication administered onsite Morphine Sulfate 15 MG Oral Tablet morphine (MSIR) tab let 15 mg morphine (MSIR) tablet 15 mg 01/09/2020 10:26:04 AM EST 15 mg Oral activ e 15 mg, Oral, Every 4 hours PRN, Moderate Pain (Pain Scale Score 4-6), Starting Gayathri 01/09/20 at 1026, For 3 days [facility] Medication administered onsite Morphine Sulfate 15 MG Oral Tablet morphine (MSIR) tab let 30 mg morphine (MSIR) tablet 30 mg 01/09/2020 10:25:40 AM EST 30 mg Oral activ e 30 mg, Oral, Every 6 hours PRN, Severe Pain (Pain Scale Score 7-10), Starting Gayathri 01/09/20 at 1025, For 3 days [facility] Medication administered onsite furosemide (LASIX) injection 20 mg [id number] 01/09/2020 08:45:00 AM EST 20 mg Intravenous completed 20 mg, I ntravenous, Once, [facility] 01/09/20 at 0845, For 1 dose
Notify provider if systolic blood pressure less than: 100 [facility] Medication administered onsite potassium chloride (K-DUR) dissolvable tablet 40 mEq [id number] 01/09/2020 06:15:00 AM EST 40 meq Oral completed 40 mEq, Oral, Once, [facility] 01/09/20 at 0615, For 1 dose
May be dissolved in water for patients with a G-Tube or unable to swallow. If concern for clogging G-Tube, may contact Pharmacy to switch formulation to a powder packet.
[facility] Medication administered onsite potassium chloride (K-DUR) dissolvable tablet 20 mEq 55931-5 38-90 01/08/2020 04:00:00 PM EST 20 meq Oral aborted 20 mEq, Oral, 2 Times Daily, First dose (after last modification) on Mon01/08/20 at 1600, For 3 days
Take with food. May be dissolved in water for patients with a G-Tube or unable to swallow. If concern for clogging G-Tube, may contact Pharmacy to switch formulation to a powder packet.
[facility] Medication administered onsite Potassium Chloride 0.1 MEQ/ML Injectable Solution potassium chloride 10 mEq in 100 mL IVPB (premix) potassium chloride 10 mEq in 100 mL IVPB (premix) 01/08/2020 12:00:00 PM EST 10 meq Intravenous aborted 10 mEq, Intravenous, Administer over 60 Minutes, Every 1 hour, First dose on Mon01/08/20 at 1200, For 2 doses [facility] Medication administered onsite potassium phosphate 155 [...] mEq), and potassium 45 mg (1.1 mEq)
[facility] Medication administered onsite potassium chloride (K-DUR) dissolvable tablet 40 mEq [id number] 38-90 01/08/2020 09:00:00 AM EST 40 meq Oral aborted 40 mEq, Oral, 2 Times Daily, First dose on Mon01/08/20 at 0900, For 1 day
May be dissolved in water for patients with a G-Tube or unable to swallow. If concern for clogging G-Tube, may contact Pharmacy to switch formulation to a powder packet.
[facility] Medication administered onsite magnesium sulfate in dextrose 5 % infusion (premix) 1 g [id number] -[id number] 01/08/2020 08:00:00 AM EST 1 g Intravenous completed 1 g, Intravenous, Administer over 60 Minutes, Every 1 hour, First dose on Mon01/08/20 at 0800, For 2 doses [facility] Medication administered onsite sennosides, JAIL 8.6 MG Oral Tablet senna tablet 2 tablet sen na tablet 2 tablet 01/07/2020 10:00:00 PM EST 2 {tbl} Oral active 2 tablet, Oral, Nightly, First dose on Mon01/07/20 at 2200, For 30 days [facility] Medication administered onsite Melatonin 3 MG Oral Tablet melatonin tablet 3 mg melatonin t ablet 3 mg 01/07/2020 10:00:00 PM EST 3 mg Oral active 3 mg, Oral, Nightly, First dose on Mon01/07/20 at 2200, For 30 days [facility] Medication administered onsite Docusate Sodium 100 MG Oral Capsule docusate sodium (C OLACE) capsule 100 mg docusate sodium (COLACE) capsule 100 mg 01/07/2020 09:00:00 PM EST 100 mg Oral active 100 mg, Oral, 2 Times Daily, First dose on Mon01/07/20 at 2100, For 30 days [facility] Medication administered onsite Metoprolol Tartrate 25 MG Oral Tablet me toprolol tartrate (LOPRESSOR) tablet 25 mg metoprolol tartrate (LOPRESSOR) tablet 25 mg 01/07/2020 09:00:00 PM EST 25 mg Oral active 25 mg, Ora l, 2 Times Daily, First dose on Mon01/07/20 at 2100, For 30 days [facility] Medication administered onsite Acetaminophen 325 MG Oral Tablet acetaminophen (TYLENO L) tablet 975 mg acetaminophen (TYLENOL) tablet 975 mg 01/07/2020 05:00:00 PM EST 97 5 mg Oral active 975 mg, Oral, E very 8 hours, First dose on Mon01/07/20 at 1700, For 30 days
Maximum daily dose of acetaminophen is 3,000 mg from all sources in 24 hours.
[facility] Medication administered onsite gabapentin 300 MG Oral Capsule gabapentin (NEURONTIN) capsule 300 mg gabapentin (NEURONTIN) capsule 300 mg 01/07/2020 05:00:00 PM EST 300 mg Oral active 300 mg, Oral, Three Times D aily Standard, First dose on Mon01/07/20 at 1700, For 14 days [facility] Medication administered onsite Calcium Chloride 0.0014 MEQ/ML / Potassi um Chloride 0.004 MEQ/ML / Sodium Chloride 0.103 MEQ/ML / Sodium Lactate 0.028 MEQ/ML Injectable Solution lactated ringers infusion lactated ringers infusion 01/07/2020 03:30:00 PM EST 75 mL/h Intravenous aborted at 75 mL/hr, Intravenous, Continuous, Starting Mon01/07/20 at 1530, For 643 hours [facility] Medication administered onsite POLYETHYLENE GLYCOL 3350 [...] due to potential increased risk for aspiration.
[facility] Medication administered onsite HYDROmorphone bolus from bag 0.8 mg 01/07/2020 12:34:41 PM EST 0.8 mg Intravenous aborted 0.8 mg, Intra venous, Every 2 hours PRN, breakthrough, Starting Mon01/07/20 at 1234, For 1 day [facility] Medication administered onsite potassium chloride (K-DUR) dissolvable tablet 40 mEq [id number] 01/07/2020 11:30:00 AM EST 40 meq Oral completed 40 mEq, Oral, Once, Mon01/07/20 at 1130, For 1 dose
May be dissolved in water for patients with a G-Tube or unable to swallow. If concern for clogging G-Tube, may contact Pharmacy to switch formulation to a powder packet.
[facility] Medication administered onsite Acetaminophen 10 MG/ML Injectable Soluti on acetaminophen (OFIRMEV) infusion 1,000 mg acetaminophen (OFIRMEV) infusion 1,000 mg 01/07/2020 10:00:00 AM EST 1000 mg Intravenous aborted 1,000 mg , Intravenous, Administer over 15 Minutes, Every 8 hours, First dose on Mon01/07/20 at 1000, For 3 doses
Maximum daily dose of acetaminophen from all sources 3,000 mg daily.
[facility] Medication administered onsite Metoprolol Tartrate 1 [...] a medical provider and patient on a pvc monitor.
[facility] Medication administered onsite Melatonin 5 MG Oral Tablet melatonin tablet 5 mg melatonin t ablet 5 mg 01/06/2020 12:15:46 AM EST 5 mg Oral active 5 mg, Oral, Nightly PRN, Sleep, Starting Mon01/06/20 at 0015, For 30 days [facility] Medication administered onsite 0.3 ML Enoxaparin sodium 100 MG/ML Prefi lled Syringe enoxaparin sodium (LOVENOX) injection 30 mg enoxaparin sodium (LOVENOX) injection 30 mg 01/05/2020 09:00:00 PM EST 30 mg Subcutaneous active 30 mg, Subcutaneous, Every 12 hours Standard (2 times per day), First dose on 01/05/20 at 2100, For 30 days [facility] Medication administered onsite 2 ML Adenosine 3 MG/ML Injection adenosine (ADENOCARD) injection 6 mg adenosine (ADENOCARD) injection 6 mg 01/05/2020 07:30:00 PM EST 6 mg Intrav enous completed 6 mg, Intravenous, Once, Sun at 1930, For 1 dose [facility] Medication administered onsite HYDROmorphone (DILAUDID) injection 1 mg [id number] 01/05/20 05:00:00 PM EST 1 mg Intravenous completed 1 mg, Intr avenous, Once, 01/05/20 at 1700, For 1 dose [facility] Medication administered onsite 30 ML Adenosine 3 MG/ML Injection adenosine (ADENOSCAN ) injection 6 mg adenosine (ADENOSCAN) injection 6 mg 01/05/2020 12:30:00 PM EST 6 mg Intrav enous completed 6 mg, Intravenous, Once, Sun at 1230, For 1 dose [facility] Medication administered onsite 2 ML Adenosine 3 MG/ML Injection adenosine (ADENOCARD) 6 MG/2ML injection adenosine (ADENOCARD) 6 MG/2ML injection 01/05/2020 12:25:16 PM EST completed Starting Sun 0 at 1225, For 1 dose
Jasmyne Cook: cabinet override
[facility] Medication administered onsite Acetaminophen 10 MG/ML [...] acetaminophen from all sources 3,000 mg daily.
[facility] Medication administered onsite 0.5 ML Bordetella [...] Once, 01/04/20 at 1545, For 1 dose [facility] Medication administered onsite 50 ML Magnesium [...] *For ICU Stay only, discontinue on transfer*
[facility] Medication administered onsite Piperacillin 3000 MG [...] piperacillin- tazobactam is compatible with Lactated Ringers.
[facility] Medication administered onsite Calcium Chloride 0.0014 MEQ/ML / Potassi um Chloride 0.004 MEQ/ML / Sodium Chloride 0.103 MEQ/ML / Sodium Lactate 0.028 MEQ/ML Injectable Solution lactated ringers infusion lactated ringers infusion 01/04/2020 11:15:00 AM EST Intravenous aborted at 125 mL/hr, Intravenous, Continuous, Starting 01/04/20 at 1115, For 30 days [facility] Medication administered onsite fluconazole (DIFLUCAN) 400 mg in sodium chloride 0.9 % 200 mL (2 mg/mL) infusion (premix) 6655-1045-56 01/04/2020 11:15:00 AM EST 400 mg Intravenous completed 400 mg, Intravenous, at 100 mL/hr, Once, 01/04/20 at 1115, For 1 dose
Discouraged Uses: Treatment of Sravani growth from the urine
[facility] Medication administered onsite ondansetron (ZOFRAN) injection 4 mg 18798-883-90 01/04/2020 11:01:3 6 AM EST 4 mg Intravenous completed 4 mg, In travenous, Every 8 hours PRN, Nausea, Vomiting, Starting 01/04/20 at 1101, For 5 days [facility] Medication administered onsite fentaNYL (SUBLIMAZE) (PF) injection 25 mcg 1510-7962-98 01/04/2020 09:32:13 AM EST 25 ug Intravenous aborted 25 m cg, Intravenous, Every 5 min PRN, Severe Pain (Pain Scale Score 7-10), Starting 01/04/20 at 0932, For 10 doses, [facility] Medication administered onsite morphine sulfate (PF) injection 2 mg 4452-3770-12 01/04/2020 09:32: 12 AM EST 2 mg Intravenous aborted 2 mg, In travenous, Every 5 min PRN, Severe Pain (Pain Scale Score 7-10), Starting 01/04/20 at 0932, For 5 doses, [facility] Medication administered onsite ondansetron (ZOFRAN) injection [id number] 01/04/2020 05:30:05 AM EST completed Code/Trauma Medication, Star ting 01/04/20 at 0530 [facility] Medication administered onsite Insurance Providers Payer name Policy type / Coverage type Policy ID Covered green party ID Covered green party's relationship to odom Policy Odom Plan Information [facility] I [id number] Self [id number] [facility] MEDICAID [id number] S [id number] SELF PAY UNAVAILABLE S UNAVAILA BLE SELF PAY UNAVAILABLE UNAVAILA BLE [facility] COMMUNITY PLAN [facility]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 Code Description Data [facility] rce(s) Supporting Document(s) ED Provider Note [facility] YTIVRm8sOsDKEnDi67/OKFrlPZHgg0DtJIsyZPu5BDgiZYZiV3EpSWF5uN4oUCX6SRrQLyEhYqLdKoPc lbm [file] [id number]bHLQ1OU8gPCBTFf6+ZKakwXCdkOydVFPKCxL5WHo0DHttYAMOVt5E ID Date Data Source [id number] 01/26/2020 12:07:48 PM EST [facility] Name Value Range Interpretation Code Description Data [facility] rce(s) Supporting Document(s) ED Provider Note [facility] WOGXDc9wKmXGEpAh17/JMOsbUPHcx4OdVXvjUFt8VBwcRKXkP6WaQNV9oJ8cEOL2GBwWJcQwVvEiLvBo lbm [file] ID Date Data Source [id number] 01/25/2020 07:10:14 AM [facility] Name Value Range Interpretation Code Description Data [facility] rce(s) Supporting Document(s) Leukocytes [#/volume] in Blood by Automated count 7.6 10*3/uL 4-10 [facility] Erythrocytes [#/volume] in Blood by Automated count 3.23 10*6/uL 4.6- 6.1 L [facility] Hemoglobin [Mass/volume] in Blood 8.9 g/dL 13.5-18 L [facility] Hematocrit [Volume Fraction] of Blood by Automated count 26.7 % 4 1-53 L [facility] Erythrocyte mean corpuscular volume [Entitic volume] by Auto mated count 82.6 fL 80-96 [facility] Erythrocyte mean corpuscular hemoglobin [Entitic mass] by Automated count 27.7 pg 27-33 [facility] Erythrocyte mean corpuscular hemoglobin concentration [Mass/volume] by Automated count 33.5 g/dL 32.0-36.0 [facility] distribution width [Ratio] by Automated count 15.6 % 11.5-14.5 H [facility] Platelets [#/volume] in Blood by Automated count 397 10*3/uL 150-400 [facility] Differential cell count method - Blood [facility] Neutrophils/100 leukocytes in Blood by Automated count 74 % [facility] Lymphocytes/100 leukocytes in Blood by Automated count 15 % [facility] Monocytes/100 leukocytes in Blood by Automated count 8 % [facility] Eosinophils/100 leukocytes in Blood by Automated count 3 % [facility] Basophils/100 leukocytes in Blood by Automated count 0 % [facility] Neutrophils [#/volume] in Blood by Automated count 5.59 10*3/uL 1.8-7 .0 [facility] Lymphocytes [#/volume] in Blood by Automated count 1.15 10*3/uL 1.2-4 .0 L [facility] Monocytes [#/volume] in Blood by Automated count 0.63 10*3/uL 0-0.8 [facility] Eosinophils [#/volume] in Blood by Automated count 0.21 10*3/uL 0-0.5 [facility] Basophils [#/volume] in Blood by Automated count 0.02 10*3/uL 0-0.2 [facility] Nucleated erythrocytes/100 leukocytes [Ratio] in Blood by Automated count 0 /100{WBCs} 0-0 [facility] ID Date Data Source [id number] 01/25/2020 08:10:48 AM [facility] Name Value Range Interpretation Code Description Data [facility] rce(s) Supporting Document(s) Bicarbonate [Moles/volume] in Serum 26 mmol/L 22-29 [facility] Chloride [Moles/volume] in Serum or Plasma 99 mmol/L 98-107 [facility] Creatinine [Mass/volume] in Serum or Plasma 0.73 mg/dL 0.70-1.20 [facility] Glucose [Mass/volume] in Serum or Plasma 83 mg/dL 70-140 [facility] Potassium [Moles/volume] in Serum or Plasma 4.5 mmol/L 3.4-5.1 [facility] Sodium [Moles/volume] in Serum or Plasma 135 mmol/L 136-145 L [facility] Urea nitrogen [Mass/volume] in Serum or Plasma 3 mg/dL 6-20 L [facility] Anion gap 3 in Serum or Plasma 11 mmol/L 8-15 [facility] Osmolality of Serum or Plasma by calculation 277 mosm/kg 275-300 [facility] Creatinine/Urea nitrogen [Mass Ratio] in Serum or Plasma 4 [facility] Calcium [Mass/volume] in Serum or Plasma 8.4 mg/dL 8.6-10.0 L [facility] Glomerular filtration rate/1.73 sq M pre dicted among non-blacks [Volume Rate/Area] in Serum or Plasma by Creatinine-based formula (MDRD) >6 0 [facility] Glomerular filtration rate/1.73 sq M pre dicted among blacks [Volume Rate/Area] in Serum or Plasma by Creatinine-based formula (MDRD) >60 [facility] ID Date Data Source [id number] 01/25/2020 12:52:13 PM [facility] Service Cmnt XXX-Imp : DRAINGram Stn XXX : 2+WBC'S Seen.2+Gram positive cocciin pairsin chainsMicroorganism XXX Cult : 4+Streptococcus anginosus Name Value Range Interpretation Code Description Data [facility] rce(s) Supporting Document(s) ID Date Data Source [id number] 01/24/2020 01:19:22 PM [facility] Name Value Range Interpretation Code Description Data [facility] rce(s) Supporting Document(s) [facility] UCHUDx3iNxDCZbAt16/HYMksCKXkq0LaPLkaHPu2JKxcEEDuO2PgQWD1vQ0bHWR3XMuXJpZuUnPqTmE5 lbm [file] DQo+Aj5Ce1KaluR5hbNyHIk2UFF8Fw1NCCZYW4CJUu== ID Date Data Source [id number] 01/24/2020 09:42:34 AM [facility] Name Value Range Interpretation Code Description Data [facility] rce(s) Supporting Document(s) Consultation [facility] PFQPDe2pUiXIXuSh15/AWIwnFVMwh2GyFQhwMFo1SLhlDSWgJ9JlCGN8fV8hPBM3RWlOCkRiAqGdBzF7 lbm [file] BGGeDFL2HYNsBXXdCaAxMU0OKs2XPpL4HQR6iUJgOr6UJzM5TXHCYfFlKQ4WCEl= ID Date Data Source [id number] 01/24/2020 08:55:54 AM [facility] Name Value Range Interpretation Code Description Data [facility] rce(s) Supporting Document(s) [facility] HAFTDb0zKzIMZiYew7SwVbOnCYReBH5rzla4Q2X9rLPaS7CptYYsp4odV1QjM1TxFDBpDNTGHJ8WzJAj jb2 [file] emerging media [file] [id number]ekjywV vOu+[id number]+[id number]/7eM7Ua32jjA//ZD4fg7qR5dReyNT vLAB4LY0lfJqBNIZpOr4zEx+FdLQEZLGl33EkoM9J0KK9tKDTPy3KrhnGzpPRJL67SC+v50H5CMSkE+P 3030s/w2DH7Wc5wfjJg2wpVne2rP3QdphqKMe3Ho4L 0l78UFvZR0OD8STFEr/oAWzpqLQhqENB0mEdlV3yiOvo0IQPdMHqEGTqopqZBFhdze4+fOz6vxnxRcOW 7sxnqqA5Xrk74rd0+7sUJS8rshjnG+3yqre8rDNWfR4hV5PFPX2mVcTb23hrF/aeR4cfqZ79dDDLyfsI AwwOU8e15vt74b8S4Sw5VjjH+ooPmC138v++VCaSTg 2U0uKZAn59/+VpUTxUqSrUwiOVqoX+dm1fkYQ2jbmIdI2eHUR3zqRWbaBouTFGuCo1appMIdaAJGPhLo GgjM1YSu76MxDzSnk4J1Lxc5UKhlFqgHMJO4R9o/59q67Z+kOQvZ9shV52DzI/7Yzm8c8h7b11vfr37d a2p4wfU1vjcu2HHm5/AcBfY7NP9T/mnr285B8nm3/3 mv29e//VmNC9/3xt8h5iOS2/e02ZSkuF7Tx0mD2Ny/KB81K1aZc4etmuC4Rog/WMdbdl/5QN+bw3sfgE m07nurw99JUlmJ/7kJj0s2iw+YPfm6wnoi4B/Gg4DoxLJd/4sBu3X5dfi3Sjx6+v+iYw47VcEo1+nqjJ Q84njKsvIXZhc6qWWJ8dZCi3+/T3LdL7+7u5Yt7h7O Xbgq+X+aN9JHvVS8t95wia0xYbhbm4jBh3mLazyLEKckb9uU3Ih3Bl8Sw2sH90A+6O1hn6uWaMQimF/i pLf7+mrp61bmjnX/SWkNYm33z4Mii8umO3PouV6/i6oiZJPNlK964687Ik8epD+lz+vqfcnzrf/r76Ft vfV+Di0r60LMp/7/lpl2QJ2E/593Ex2yLq9S1X7oxR lvn8mgJn0MoS8YmRsQ27Dy/YM/vLXtmPtrdnzV/d60Q30c6XavNHTcGJw/0LCMiiCjVY21rWlb0wheTD n3T60Cu9VdqD/YB+Qj+iR4Io4Lt4kT+3r92h9ZehmOGRG1n6Jctq24eRM9XyqoWohL9x4dERjl/3rE+3 x27x7UT3Ib5JgjF/od/0vUrsgqk3sA/D+xre1/C+Vq Ys2UN3Zjclw5b+RDv0yJ+dFREs3K/oJ/QL+tD7hq1nwce9BmC2pcrKr/tE3/Juan Jose+hfHuwT/r1osdTrsi kDbWMc3QY74z4gEFr8kgfIYj/zqYeyrj/evHa7bZydzu+iPKGf+A4VaWjxco+GQ726Zwji9ybqDc/Kaila /d5lC9Jlwdxlqcxt90Y6jhajrsYFl9xXyAC7K4poi/ uOr8vKlWUs1Og135amk6jXQZ4kCo8362fkw8tByVS4ZmXI5eq219wgHg7FhozG6lbb+c1ZEy1GepP/QD +gXQp9yQHsQGI5Y89I504zRd24bXe691E7U+mQ4l3Eas+yqWB92+MvX1pe6qomQCb8GN+D4erxN+iofr kIsRxfVg5ohV6aEB3TmdrOD4DRK68vbZrOd7003piO 718fx2R1aE0/ZT1Adv+0geGepcB4dJeZcmgq55nx/sPP/rE7ON1pq+yvWZfa3cn/Ud311a8G+97SuLSH bZV/G/ywHh11farcPE/pYT8se5kOfcHzG7zFLuc54+vgEUta0UojK3t3uDdl1+irSpbl+da7p/pD7i9t D1827b0pNM6QOnA8VH1RAWJOyf8x14NK17ZY0QU06J [file] 77r3/njDx1nc1654o3h265jN4Pt1+/+fzjLz/86sO3 n/6Lhy3vss212wwc/wjzE70I+vj1L7/36HaM49q21huKn/j4+dzbdKO2l4++++K/v/3680+aDyk80shP 0Aqj48Y+9d0QGg50/OZ+6w9f/PK/+OFtGtw//BrlPes6cj/d464uzvx9298/fXX/w9t3//gaLH/27Xe/ 9tij4kbui/0tCPJwRGmoxf6q5bubs/nt1//4+gjffn r7GYpyn/nh7Z8///7bU614lwSS/9PzzN7/+cWf//Tvv//LH3/8t7f/8b/ffvv7P/zhh7/85ccf/vD3b1 /+8Kff//iHt3/927L+9e/e/qon06G2rHbe+/Osz3r/0QTwdk7h//JrUkCljzd6F/7x53/lffcqCZfrBf /po5IxaW4dcaa37w3Q9F8bU5m/mC8UOBvnIEnc+/4b 8btxI3NfpyO6EtqpVY2JB9+u1kv2iOqvIor+wccf//9EAwJmtcNK84d/+/z7//b1q4V9+c3n//2rdy3S whKbx8Yr/+L+z0gjhX2+q0e+Z8P/mj9LmC9JK9KVRYnelf+6zG9//NN//EVfE410eg/fXf41+74pF8/9 oz/+1twFQ3ph1koOO+PkA824/k//8eNf/t//9PS6/K nQ95e/Bu4Pkt134zj5y4/fv/3b/3w9++///OqwCk2k0x1a0fmHl/3Tp5//74vu8BUph1L/ulIvg0rfOq 6t9EJRyjFxB6l3W5j0R4+OkmhnI38vs/36Zx9/9unth//141//u5p8lry98/l+LP9f//Z11//9l3/9u5 /8+nyHX/6vh1qml86Ok/jhf/7uh7/+/oc//eT/T02P 6uvqcN0tdqrjq//4Wfv4E/y8zTd//i9ePZD4It0xHU7/04+/+7//0Cnmzl5/2czyRvv0X04jcXA18O// 49Wk/c2z5i290gSen0Zec8/ou1/dY/e7e5O6sweA//XOftuA1ypWq1/+4f/68a28/fnf39h/bvqvkYPB 40dM20RJ1daLHr+9HyK29Xo8mw1MQtc/9yscKE5IFZ f5F1+8RtvXb+9KzmIrGKzy8W2YebR1zNyuxaRmrFRyPR4UBU7yz3IfIpW2PCWvc7RpAIubKVs9vKTxEI mauhKiy2YbbpzcW0Zqr7LdMxDxRDNeInDfRrw1TBHbZfO1cPToVoOsYAUzP6QxEAStNsX2LlZpMECTOM 9QYXJlbnQgMiAwIFI+EyMxNC3tksfrORZmo5QiZVbi HTjvVNKiR9C9zSbwGMGmU5VzwH73SICyS7KrctF8SJM3XAVrJkXzRMYqzSYsROSkXYP+JrXnTU3scrlw MHRvd1HeJAnqYWA7dJ6hFVdEWDAOZNaJDPqzIlB8j11dunUODYMfHBIcGI5HboCozFhpkbQzuVCtTAO6 KrJlWHZpQRutLXY0SZWZYJKdJEAhXSQyDTQmY8UeoN jaDYhLEDXHFEpCYHzgLrXcb2G4KAKecdUDJZsPQYEWKBFQOVOFCUJPTHI5GOK5RDPvJJ6ZgKGiLFL2HD qLLIQDMErTMQxiJiHdu5Q7OLEpC4KpKQFdhvGrQFHUBOsdSrmuDX0wcDxuvjniC2KrlVUtBUEFHBVeDQ CrGVJfXSUbE4Dfp4T9T9LwLZxQIYBILGqQJLspRsJ9 g75ezmNLOUYwZEEbCU3+NN5wl5GoMa0TKLVeYW2etxq6OC7AnIHwBH6VWSrhodUsF2zakyKtEdPjRBXR YQ4zH0AqmN18ZXC+GuBmRD0hwrw0qwKyQfPcPMBnZIFeWQZpNTwgBRMoJNZzLLIjCWW4NQT9FDMtKqVp CSXaJsF3CiMlMVWiRCFzudHPKEDjCYX8JQU2RcTrCJ TuGJIjFGamIEEpDAbaEnF4WHQgZUXrRR9bZkUdMNQjEWCiKPGiIxN6VqJlOnSKSVPlRBCmUNAeSgOeMF ZeLTCdZXkaRLSoOOJvHSg5RRNaHOQtYS0rIlReYYLwYCDoYEFeWPUaRIJpvpDZUBEiPFPcQDU9VTRpQA FqTJDqALuiTNBtSDDuHLA1IUGfUSDxBW3pTdFsJGIx SKN1VrYrSSPyWIYtgrENFHWzTGChQSO3DPYqDJYoWXDhZGkxTMOkSJGjRaP1TMExOFMeSJ6lNzBpZNSf UPL1NTOmWJYeQVLjuhSSYJExFDUwDEb0WqIoXOLuMZZnKIoaTRVsNNXeACkmZVFrTZGdYZ5vIpPrDTFj HTObAYUuRBTdXURtbiBAYJXqXHRzHUE1NjZiYQGdLH RpVNivPDHlNKFmDQC7XZMeXLLxNR9cTnBlRLNrFaJuMCWhCPKeFKDxevGQVDPrQDLnWOBfXHAoKOJgDT FiWTvvONHaPXFoDuD0CYSeUGIzOY1vEpLoQMNkSMA3ZFWoRSCaSERcvuFIKBQyWEElMTVpRON6OHAbQK IlIJu9oaGryZJpZnp5Wf0JvTsgQRA2Ec1RwwQqAXTt ATVTQs6Mw420CAOkQTTJZvr+GrgqnZPhrGxwFGBVDsN3VgpZJNUQI9M= ID Date Data Source [id number] 01/24/2020 05:33:46 AM [facility] Name Value Range Interpretation Code Description Data [facility] rce(s) Supporting Document(s) HIV 1+2 Ab+HIV1 p24 Ag [Presence] in Serum or Plasma by Immu noassay Non Reactive [facility] Negative for HIV-1 p24 antigenand HIV-1/ HIV-2 antibodies. Nolaboratory evidence of HIVinfection. ID Date Data Source [id number] 01/24/2020 05:14:55 AM [facility] Name Value Range Interpretation Code Description Data [facility] rce(s) Supporting Document(s) Leukocytes [#/volume] in Blood by Automated count 8.8 10*3/uL 4-10 [facility] Erythrocytes [#/volume] in Blood by Automated count 3.08 10*6/uL 4.6- 6.1 L [facility] Hemoglobin [Mass/volume] in Blood 8.6 g/dL 13.5-18 L [facility] Hematocrit [Volume Fraction] of Blood by Automated count 25.3 % 4 1-53 L [facility] Erythrocyte mean corpuscular volume [Entitic volume] by Auto mated count 82.0 fL 80-96 [facility] Erythrocyte mean corpuscular hemoglobin [Entitic mass] by Automated count 27.9 pg 27-33 [facility] Erythrocyte mean corpuscular hemoglobin concentration [Mass/volume] by Automated count 34.1 g/dL 32.0-36.0 [facility] width [Ratio] by Automated count 15.4 % 11.5-14.5 H [facility] Platelets [#/volume] in Blood by Automated count 320 10*3/uL 150-400 [facility] Differential cell count method - Blood [facility] Neutrophils/100 leukocytes in Blood by Automated count 77 % [facility] Lymphocytes/100 leukocytes in Blood by Automated count 12 % [facility] Monocytes/100 leukocytes in Blood by Automated count 9 % [facility] Eosinophils/100 leukocytes in Blood by Automated count 2 % [facility] Basophils/100 leukocytes in Blood by Automated count 0 % [facility] Neutrophils [#/volume] in Blood by Automated count 6.77 10*3/uL 1.8-7 .0 [facility] Lymphocytes [#/volume] in Blood by Automated count 1.04 10*3/uL 1.2-4 .0 L [facility] Monocytes [#/volume] in Blood by Automated count 0.80 10*3/uL 0-0.8 [facility] Eosinophils [#/volume] in Blood by Automated count 0.17 10*3/uL 0-0.5 [facility] Basophils [#/volume] in Blood by Automated count 0.03 10*3/uL 0-0.2 [facility] Nucleated erythrocytes/100 leukocytes [Ratio] in Blood by Automated count 0 /100{WBCs} 0-0 [facility] ID Date Data Source [id number] 01/24/2020 05:21:18 AM [facility] Name Value Range Interpretation Code Description Data Sumaya e(s) Supporting Document(s) Bicarbonate [Moles/volume] in Serum 28 mmol/L 22-29 [facility] Chloride [Moles/volume] in Serum or Plasma 99 mmol/L 98-107 [facility] Creatinine [Mass/volume] in Serum or Plasma 0.69 mg/dL 0.70-1.20 L [facility] Glucose [Mass/volume] in Serum or Plasma 93 mg/dL 70-140 [facility] Potassium [Moles/volume] in Serum or Plasma 3.8 mmol/L 3.4-5.1 [facility] Sodium [Moles/volume] in Serum or Plasma 137 mmol/L 136-145 [facility] Urea nitrogen [Mass/volume] in Serum or Plasma 4 mg/dL 6-20 L [facility] Anion gap 3 in Serum or Plasma 10 mmol/L 8-15 [facility] Osmolality of Serum or Plasma by calculation 280 mosm/kg 275-300 [facility] Creatinine/Urea nitrogen [Mass Ratio] in Serum or Plasma 5 [facility] Calcium [Mass/volume] in Serum or Plasma 8.4 mg/dL 8.6-10.0 L [facility] Glomerular filtration rate/1.73 sq M pre dicted among non-blacks [Volume Rate/Area] in Serum or Plasma by Creatinine-based formula (MDRD) >6 0 [facility] Glomerular filtration rate/1.73 sq M pre dicted among blacks [Volume Rate/Area] in Serum or Plasma by Creatinine-based formula (MDRD) >60 [facility] ID Date Data Source [id number] 01/24/2020 05:21:18 AM [facility] Name Value Range Interpretation Code Description Data Sumaya rce(s) Supporting Document(s) Magnesium [Mass/volume] in Serum or Plasma 2.0 mg/dL 1.6-2.6 [facility] ID Date Data Source [id number] 01/24/2020 05:21:18 AM [facility] Name Value Range Interpretation Code Description Data Sumaya rce(s) Supporting Document(s) Phosphate [Mass/volume] in Serum or Plasma 3.7 mg/dL 2.5-4.5 [facility] ID Date Data Source [id number] 01/23/2020 11:10:32 PM [facility] XR CHEST FRONTAL ONLY [id number] RESULTI nterpreted by:Silvia Ramirez, MDPROCEDURE INFORMATION: Exam: XR Chest, 1 View Exam date and time: 01/23/2020 7:40 PM Age: 29 years old Clinical indication: Other: Sepsis TECHNIQUE: Imaging protocol: XR of the chest Views: 1 view. COMPARISON: CR XR CHEST FRONTAL ONLY [id number] PORTABLE 01/04/2020 4:58 AM FINDINGS: Lungs: Unremarkable. [...] rce(s) Supporting Document(s) ID Date Data Source [id number] 01/23/2020 09:55:08 PM EST [facility] CT ABDOMEN PELVIS WITH CONTRAST [id number] KIMBERLY RESULT - FINALInterpreted by:Antonio Olivo BeginsSigned on MonJan 23, 2020 9:55 PM by Silvia Ramirez [facility]ritical Result: This report contains findings that may [...] DX XR ABDOMEN AP ABD SUPINE ONLY [id number] PORTABLE 01/08/2020 8:06 AM FINDINGS: Lungs: There [...] Date Data Source [id number] 01/23/2020 08:51:54 PM [facility] Name Value Range Interpretation Code Description Data Sumaya rce(s) Supporting Document(s) pH of Venous blood 7.42 7.36-7.41 [facility] Carbon dioxide [Partial pressure] in Venous blood 44 mmHg 40-45 [facility] Oxygen [Partial pressure] in Venous blood 21 mmHg [facility] Base excess standard in Venous blood by calculation 3 mmol/L [facility] Oxygen saturation Calculated from oxygen partial pressure in Venous blood 34 % 60-85 L [facility] Lactate [Moles/volume] in Venous blood 0.6 mmol/L 0.5-2.2 [facility] Bicarbonate [Moles/volume] in Venous blood 30 mmol/L Maria [facility] ID Date Data Source [id number] 01/28/2020 09:53:18 AM [facility] Service Cmnt XXX-Imp : Specimen source n ot given.Microorganism XXX Cult : No growth 5 days Name Value Range Interpretation Code Description Data Sumaya rce(s) Supporting Document(s) ID Date Data Source [id number] 01/28/2020 09:53:18 AM [facility] Service Cmnt XXX-Imp : Specimen source n ot given.Microorganism XXX Cult : No growth 5 days Name Value Range Interpretation Code Description Data Sumaya rce(s) Supporting Document(s) ID Date Data Source [id number] 01/23/2020 08:28:00 PM EST [facility] Name Value Range Interpretation Code Description Data Sumaya rce(s) Supporting Document(s) SARS-CoV-2 RNA [facility] This lab was ordered by [facility] and reported by [facility]. ID Date Data Source [id number] 01/23/2020 09:04:54 PM [facility] Name Value Range Interpretation Code Description Data Sumaya rce(s) Supporting Document(s) Leukocytes [#/volume] in Blood by Automated count 10.7 10*3/uL 4-10 H [facility] Erythrocytes [#/volume] in Blood by Automated count 3.22 10*6/uL 4.6- 6.1 [facility] Hemoglobin [Mass/volume] in Blood 9.0 g/dL 13.5-18 L [facility] Hematocrit [Volume Fraction] of Blood by Automated count 26.8 % 4 1-53 [facility] Erythrocyte mean corpuscular volume [Entitic volume] by Auto mated count 83.0 fL 80-96 [facility] Erythrocyte mean corpuscular hemoglobin [Entitic mass] by Automated count 27.8 pg 27-33 [facility] Erythrocyte mean corpuscular hemoglobin concentration [Mass/volume] by Automated count 33.5 g/dL 32.0-36.0 [facility] width [Ratio] by Automated count 15.4 % 11.5-14.5 [facility] Platelets [#/volume] in Blood by Automated count 391 10*3/uL 150-400 [facility] Differential cell count method - Blood [facility] Neutrophils/100 leukocytes in Blood by Automated count 73 % [facility] Lymphocytes/100 leukocytes in Blood by Automated count 14 % [facility] Monocytes/100 leukocytes in Blood by Automated count 11 % [facility] Eosinophils/100 leukocytes in Blood by Automated count 1 % [facility] Basophils/100 leukocytes in Blood by Automated count 1 % [facility] Neutrophils [#/volume] in Blood by Automated count 7.92 10*3/uL 1.8-7 .0 H [facility] Lymphocytes [#/volume] in Blood by Automated count 1.47 10*3/uL 1.2-4 .0 [facility] Monocytes [#/volume] in Blood by Automated count 1.17 10*3/uL 0-0.8 H [facility] Eosinophils [#/volume] in Blood by Automated count 0.12 10*3/uL 0-0.5 [facility] Basophils [#/volume] in Blood by Automated count 0.07 10*3/uL 0-0.2 [facility] Nucleated erythrocytes/100 leukocytes [Ratio] in Blood by Automated count 0 /100{WBCs} 0-0 [facility] ID Date Data Source [id number] 01/23/2020 09:18:21 PM [facility] Name Value Range Interpretation Code Description Data Sumaya rce(s) Supporting Document(s) Prothrombin time (PT) 17.7 s 12.5-14.9 H [facility] INR in Platelet poor plasma by Coagulation assay 1.43 [facility] Routine intensity oral anticoagulation I NR is typically 2.0-3.0. Target INR must be clinically individualized. ID Date Data Source [id number] 01/23/2020 09:34:36 PM [facility] Value Range Interpretation Code Description Data Sumaya rce(s) Supporting Document(s) Lipase [Enzymatic activity/volume] in Serum or Plasma 45 U/L 13-6 0 [facility] ID Date Data Source [id number] 01/23/2020 09:34:36 PM [facility] Value Range Interpretation Code Description Data Sumaya rce(s) Supporting Document(s) Bicarbonate [Moles/volume] in Serum 27 mmol/L 22-29 [facility] Chloride [Moles/volume] in Serum or Plasma 95 mmol/L 98-107 L [facility] Creatinine [Mass/volume] in Serum or Plasma 0.83 mg/dL 0.70-1.20 [facility] Glucose [Mass/volume] in Serum or Plasma 83 mg/dL 70-140 [facility] Potassium [Moles/volume] in Serum or Plasma 3.7 mmol/L 3.4-5.1 [facility] Sodium [Moles/volume] in Serum or Plasma 134 mmol/L 136-145 L [facility] Urea nitrogen [Mass/volume] in Serum or Plasma 5 mg/dL 6-20 L [facility] Anion gap 3 in Serum or Plasma 12 mmol/L 8-15 [facility] Osmolality of Serum or Plasma by calculation 274 mosm/kg 275-300 L [facility] Creatinine/Urea nitrogen [Mass Ratio] in Serum or Plasma 6 [facility] Calcium [Mass/volume] in Serum or Plasma 8.3 mg/dL 8.6-10.0 L [facility] Glomerular filtration rate/1.73 sq M pre dicted among non-blacks [Volume Rate/Area] in Serum or Plasma by Creatinine-based formula (MDRD) >6 0 [facility] Glomerular filtration rate/1.73 sq M pre dicted among blacks [Volume Rate/Area] in Serum or Plasma by Creatinine-based formula (MDRD) >60 [facility] ID Date Data Source [id number] 01/23/2020 09:34:36 PM [facility] Name Value Range Interpretation Code Description Data Sumaya rce(s) Supporting Document(s) Troponin T.cardiac [Mass/volume] in Serum or Plasma <0.01 [facility] ID Date Data Source [id number] 01/23/2020 09:34:36 PM [facility] Name Value Range Interpretation Code Description Data Sumaya rce(s) Supporting Document(s) Thyrotropin [Units/volume] in Serum or Plasma 1.300 u[IU]/mL 0.270-4. 200 [facility] ID Date Data Source [id number] 01/23/2020 11:24:16 PM [facility] Value Range Interpretation Code Description Data Sumaya rce(s) Supporting Document(s) Albumin [Mass/volume] in Serum or Plasma by Bromocresol green (BCG) dye binding method 3.6 g/dL 3.5-5.2 [facility] Bilirubin.total [Mass/volume] in Serum or Plasma 0.3 mg/dL <1.2 [facility] Bilirubin.direct [Mass/volume] in Serum or Plasma <0.3 [facility] Alkaline phosphatase [Enzymatic activity/volume] in Serum or Plasma 104 U/L 40-129 [facility] Aspartate aminotransferase [Enzymatic activity/volume] in Serum or Plasma 17 U/L <40 [facility] Alanine aminotransferase [Enzymatic activity/volume] in Seru m or Plasma 19 U/L <41 [facility] Protein [Mass/volume] in Serum or Plasma 7.5 g/dL 6.4-8.3 [facility] ID Date Data Source [id number] 01/23/2020 10:28:24 PM [facility] Service Cmnt XXX-Imp : NoneRespiratory P CR Panel : PCR ResultsMicroorganism XXX Cult : See Labs Tab for 2019 nCoV RT-PCR resultsHAdV DNA QI GOLDY+non-probe : Not DetectedHCoV [id number] Nph QI GOLDY+non-probe : Not DetectedHCoV [id number] Nph QI GOLDY+non-probe : Not [id number] RNA Nph QI GOLDY+non-probe : Not [id number] RNA Upper resp QI GOLDY+probe : Not [...] DNA Nph Q GOLDY+non-probe : Not DetectedB [id number] DNA Nph GOLDY+non-probe : Not Detected Name Value Range Interpretation Code Description Data Sumaya rce(s) Supporting Document(s) ID Date Data Source [id number] 01/23/2020 10:26:10 PM [facility] Name Value Range Interpretation Code Description Data Sumaya rce(s) Supporting Document(s) Specimen source [Identifier] of Unspecified specimen [facility] SARS-CoV-2 RNA 2019 nCoV Real-Time RT-PCR: NOT DETECTED [facility] Assay Performed [facility] Patients first test for condition [facility] Patient employed in healthcare setting [facility] Patient has symptoms related to condition [facility] When did you start to experience these symptoms [Date and time] [PhenX] [id number] [facility] Patient was hospitalized because of this condition [facility] patient was admitted to ICU for condition [facility] Patient resides in a congregate care setting [facility] status [facility] ID Date Data Source [id number] 01/23/2020 09:32:06 PM EST [facility] Name Value Range Interpretation Code Description Data Sumaya rce(s) Supporting Document(s) Color of Urine [facility] Clarity of Urine [facility] Specific gravity of Urine by Refractometry automated 1.024 1.003 -1.030 [facility] pH of Urine by Automated test strip 5.0 5.0-8.0 [facility] Protein [Mass/volume] in Urine by Automated test strip 30 mg/dL Neg [facility] Glucose [Mass/volume] in Urine by Automated test strip Neg [facility] Ketones [Mass/volume] in Urine by Automated test strip 5 mg/dL Neg [facility] Bilirubin.total [Presence] in Urine by Automated test strip Negative [facility] Hemoglobin [Presence] in Urine by Automated test strip Neg [facility] Leukocyte esterase [Presence] in Urine by Automated test strip Negative [facility] Nitrite [Presence] in Urine by Automated test strip Negati [facility] Leukocytes [#/area] in Urine sediment by Automated count 2 /HPF 0 -5 [facility] Erythrocytes [#/area] in Urine sediment by Automated count 0-3 [facility] Epithelial cells.squamous [#/area] in Urine sediment by Auto mated count 1 /HPF None [facility] Mucus [#/area] in Urine sediment by Microscopy low power field None [facility] ID Date Data Source [id number] 01/19/2020 01:44:21 AM EST [facility] Name Value Range Interpretation Code Description Data Sumaya rce(s) Supporting Document(s) ED Provider Note [facility] [id number]/CQOygPRIfc6GcMWsnAKd9YGugPDEmZ8XtQQX4nE8kZPU1QCnZNdMzJrLeSlHc lbm [file] [id number]XAEn= ID Date Data Source [id number] 01/11/2020 11:52:22 AM EST [facility] Name Value Range Interpretation Code Description Data Sumaya rce(s) Supporting Document(s) Discharge Summary [facility] QVNJCs1rPvWVWcAb44/JXQuxOBHcy2WfHKlmCQo8EFdpXXFpN9XgVNZ5bG5kKDP8OMyEHbPuDzYjLeE5 lbm [file] AgICAgICAgICAgICAgICAgICAgICAgICAgICAgICAgICAgICAgICAgICAgICAgICAgICAgICAgICAgIC ANCiAgICAgICAgICAgICAgICAgICAgICAgICAgICAg ICAgICAgICAgICAgICAgICAgICAgICAgICAgICAgICAgICAgICAgICAgICAgICAgICAgICAgICAgICAg ICAgICAgICAgICANCiAgICAgICAgICAgICAgICAgICAgICAgICAgICAgICAgICAgICAgICAgICAgICAg ICAgICAgICAgICAgICAgICAgICAgICAgICAgICAgIC AgICAgICAgICAgICAgICAgICAgICANCiAgICAgICAgICAgICAgICAgICAgICAgICAgICAgICAgICAgIC AgICAgICAgICAgICAgICAgICAgICAgICAgICAgICAgICAgICAgICAgICAgICAgICAgICAgICAgICAgIC AgICANCiAgICAgICAgICAgICAgICAgICAgICAgICAg ICAgICAgICAgICAgICAgICAgICAgICAgICAgICAgICAgICAgICAgICAgICAgICAgICAgICAgICAgICAg ICAgICAgICAgICAgICANCiAgICAgICAgICAgICAgICAgICAgICAgICAgICAgICAgICAgICAgICAgICAg ICAgICAgICAgICAgICAgICAgICAgICAgICAgICAgIC AgICAgICAgICAgICAgICAgICAgICAgICANCiAgICAgICAgICAgICAgICAgICAgICAgICAgICAgICAgIC AgICAgICAgICAgICAgICAgICAgICAgICAgICAgICAgICAgICAgICAgICAgICAgICAgICAgICAgICAgIC AgICAgICANCiAgICAgICAgICAgICAgICAgICAgICAg ICAgICAgICAgICAgICAgICAgICAgICAgICAgICAgICAgICAgICAgICAgICAgICAgICAgICAgICAgICAg ICAgICAgICAgICAgICAgICANCiAgICAgICAgICAgICAgICAgICAgICAgICAgICAgICAgICAgICAgICAg ICAgICAgICAgICAgICAgICAgICAgICAgICAgICAgIC AgICAgICAgICAgICAgICAgICAgICAgICAgICANCiAgICAgICAgICAgICAgICAgICAgICAgICAgICAgIC AgICAgICAgICAgICAgICAgICAgICAgICAgICAgICAgICAgICAgICAgICAgICAgICAgICAgICAgICAgIC AgICAgICAgICANCjw/xZTcV0regPYnbvX0C3ghQe8D Is5YNY5dm3LhBPUqTRrhqlIcDzbPLcLyEFGtKhbJNno7UBsgVI2XcGHsU7ChQ5PzHUooOL3GVXWbRVKi fSAhMHYdMPElNdG5LSOeJYmgCO7QnNVrRHdgMHTkIWRqNfIdJKCrMWFwXRPjVSCaBKSSKRVhMTHkUiYz MSRkYUFrYO4FWLKvS980ddPlAo9UQy2ZXwZsWE5qap 3RLrBzCTEdWxeUAex7VFxcZX8SxLBooIVkPlHdGZPZXuLvJ7jmm0VyNbXsDEDCWJxcXM1Nw2UyuIPcFC o+Hl2OEV0br5CeHBahKqIvAF9mga8FTGjRRlTtT9EdtQcjDQPya8QbOAInSXSOdI0lIIG0NFL6URSizQ GQQE2tE5IaIEgvPGCoXKDqTOVqTA3oMVZvNZF1LwY4 AXANNB1UDSUrHBElgZWfXASwXJRECJ1YLWnbIZV9ALJvzhSimCTtAFgsLQ2HZPAquhSrClEaACDEOMm+ Pa2YMX9qa3AnQNfjZDKhCV9tzn5NPBnKOgXmO5D0tMGwV8Q3XLtmKu3RKJBgNHByXuPbCEKYYOrpWO7P WW3pfzG0BC1ZvZTmITTsHDRemPEtOFu1E63uyEHsYM ptYN2QJIM+Ernie+Eg6SHHEsPEOdOSFyNxVkDDUPZwJvR3LtO9ZHk6DcO4FdXB53cXtwhzJvGVjcXR8JQG 4bFPRyNFIMLT6WpJNcrH7kuzOwBuCcXTKDYeLpR64nmGAvLDOsKSRoLBGeEl8UKPMuI5KqbxWghZceso RfTNAnSUYDKI7SVHpekwRieUOhrBxfBG64nXdsYN3C Zt9MUhXlGA5htm8RdYTqRo7THPDhXR5GBUNvMVFxNFGrZIH2MJEcTrGwGAypTCGkKVEqVDK0PVQyLGHx XW0DHnIwYWHaNcu5JTOlNUFwKPJvjw3MRGDwVZWoNLBtGDTwRSGxUIBeSDeiXMAnMXFoWPO3LUJqPUPc AJ4PUzOlYOUoPJRtRzBxVGIbUPEklx8VSRLdVFEvZd D3HUMaIIAhJUMkOBfmKAQlSGZ8HmP3OZOsJIRvIE6XLiAmANUqXJu9CrqvFYIwARLrxr4FSHVeZDDkBI NtETCrQCDwAWGcRPpiANXvFIEhPtI7VBSpSEAbXG9NVjChOQPnWQL1LdPuCNXmUSUkmq8MDWRtCNGmZM fcEaYuZZKzTRKrMNrkXRAlPFT0XUG3JBPwGYQzED4W NfYwELQcKDn7VnTlBGMjVWAqfm2OETMlKFHqFFW2UkZySQNzEAGdLCbyDKFoXAG2TtzwDJMiTFTgSM7E ApOzLHEfShE6KmApYAZmQOEclc1CTVScKGQnURkyLWYuHVBbOOGbZUjdNHDjEPTaXZCgQPNtLRTnLT1K DrVrUUYuRaB9CeJtRSFtTEZdon0JWRPnSJWlKzA6CU ZbCXDyMGGfIRmoRZRaZZYiTyNiARSbXFUhYE6PMlGtHHVtCrRwDiSnPIKrLMDzuz0ENIDiHNEuJeElUA KlTSXeCVLtDAcuYCXvJBYkWcEiNBEuAWKtPF6BGmCnFIRvDno2MXrmVSRzGQNpss4LBZRpDZFwVEb4OL TqWKCaPHVzVNuzICRwNBA4DTe8LHQjBJZwAO9QLmHv QLDbQwxuVsqhBZIoFRZvnd7GHIEbMRRfXXG9QXEbOUNzIRAtGJcqDSBgFDO1THtkHHDnYUUgEV5UXmNk ZWLoJjQkKcHbZDXpOLTxaa0DWBCnZULaAFZoOnLpOPEtJSWdYPhxUVLpQEYkEHhaLJFgUYPfWO4XLyUe LMtvTXYQLwq8IMtoT7r8DGIeYB4TS8Bae3UoSoYnQV MIHJujNP6ayjOjQYZwEi7QW8oHSbplYmMuFYUqUpe6VPJdDkAnNvSmYUKkTTNxNzSfECX5DH2bQBQjZ5 NyFDVtZwHqGeUnZ8OqQOOlIwSnQKQpHfF2ZeqzCkDdAZ7DLf7UQpR2CVA3bJEaZr7SVnW2MntXNmNxHF 9GDQo= ID Date Data Source [id number] 01/10/2020 05:03:06 AM [facility] Name Value Range Interpretation Code Description Data Sumaya rce(s) Supporting Document(s) Creatinine [Mass/volume] in Body fluid 0.7 mg/dl [facility] (NOTE)The performance characteristics of this test for this specimen type were determined by the Department of Pathology at [facility] and approved by the [facility] Department of Health. It has not been cleared by the FDA. ID Date Data Source [id number] 01/10/2020 04:53:20 AM EST [facility] Name Value Range Interpretation Code Description Data Sumaya rce(s) Supporting Document(s) Leukocytes [#/volume] in Blood by Automated count 10.3 10*3/uL 4-10 H [facility] Erythrocytes [#/volume] in Blood by Automated count 4.60 10*6/uL 4.6- 6.1 [facility] Hemoglobin [Mass/volume] in Blood 13.4 g/dL 13.5-18 L [facility] Hematocrit [Volume Fraction] of Blood by Automated count 38.5 % 4 1-53 L [facility] Erythrocyte mean corpuscular volume [Entitic volume] by Auto mated count 83.7 fL 80-96 [facility] Erythrocyte mean corpuscular hemoglobin [Entitic mass] by Automated count 29.1 pg 27-33 [facility] Erythrocyte mean corpuscular hemoglobin concentration [Mass/volume] by Automated count 34.7 g/dL 32.0-36.0 [facility] width [Ratio] by Automated count 13.9 % 11.5-14.5 [facility] Platelets [#/volume] in Blood by Automated count 379 10*3/uL 150-400 [facility] Differential cell count method - Blood [facility] Neutrophils/100 leukocytes in Blood by Automated count 79 % [facility] Lymphocytes/100 leukocytes in Blood by Automated count 12 % [facility] Monocytes/100 leukocytes in Blood by Automated count 8 % [facility] Eosinophils/100 leukocytes in Blood by Automated count 1 % [facility] Basophils/100 leukocytes in Blood by Automated count 0 % [facility] Neutrophils [#/volume] in Blood by Automated count 8.13 10*3/uL 1.8-7 .0 H [facility] Lymphocytes [#/volume] in Blood by Automated count 1.22 10*3/uL 1.2-4 .0 [facility] Monocytes [#/volume] in Blood by Automated count 0.85 10*3/uL 0-0.8 H [facility] Eosinophils [#/volume] in Blood by Automated count 0.08 10*3/uL 0-0.5 [facility] Basophils [#/volume] in Blood by Automated count 0.03 10*3/uL 0-0.2 [facility] Nucleated erythrocytes/100 leukocytes [Ratio] in Blood by Automated count 0 /100{WBCs} 0-0 [facility] ID Date Data Source [id number] 01/10/2020 05:06:47 AM [facility] Name Value Range Interpretation Code Description Data Sumaya rce(s) Supporting Document(s) Bicarbonate [Moles/volume] in Serum 26 mmol/L 22-29 [facility] Chloride [Moles/volume] in Serum or Plasma 98 mmol/L 98-107 [facility] Creatinine [Mass/volume] in Serum or Plasma 0.74 mg/dL 0.70-1.20 [facility] Glucose [Mass/volume] in Serum or Plasma 79 mg/dL 70-140 [facility] Potassium [Moles/volume] in Serum or Plasma 3.5 mmol/L 3.4-5.1 [facility] Sodium [Moles/volume] in Serum or Plasma 139 mmol/L 136-145 [facility] Urea nitrogen [Mass/volume] in Serum or Plasma 6 mg/dL 6-20 [facility] Anion gap 3 in Serum or Plasma 16 mmol/L 8-15 H [facility] Osmolality of Serum or Plasma by calculation 285 mosm/kg 275-300 [facility] Creatinine/Urea nitrogen [Mass Ratio] in Serum or Plasma 9 [facility] Calcium [Mass/volume] in Serum or Plasma 8.9 mg/dL 8.6-10.0 [facility] Glomerular filtration rate/1.73 sq M pre dicted among non-blacks [Volume Rate/Area] in Serum or Plasma by Creatinine-based formula (MDRD) >6 0 [facility] Glomerular filtration rate/1.73 sq M pre dicted among blacks [Volume Rate/Area] in Serum or Plasma by Creatinine-based formula (MDRD) >60 [facility] ID Date Data Source [id number] 01/10/2020 05:06:47 AM [facility] Name Value Range Interpretation Code Description Data Sumaya rce(s) Supporting Document(s) Magnesium [Mass/volume] in Serum or Plasma 2.3 mg/dL 1.6-2.6 [facility] ID Date Data Source [id number] 01/10/2020 05:06:47 AM [facility] Name Value Range Interpretation Code Description Data Sumaya rce(s) Supporting Document(s) Phosphate [Mass/volume] in Serum or Plasma 3.2 mg/dL 2.5-4.5 [facility] ID Date Data Source [id number] 01/09/2020 08:57:11 AM [facility] Name Value Range Interpretation Code Description Data Sumaya rce(s) Supporting Document(s) [facility] [id number]3ZhBMY4jV7tREA3KBdXEmMuCmCaIoFg [facility] [file] LUIS ANTONIO+BmzqduT0PSwPMAgwSV8tufAIKGiDP3ZcRcRthlBvfAH6rhtPnegT5lb7tlyDjbW49fatLcOHwpOQi [file] [id number]= ID Date Data Source [id number] 01/09/2020 01:45:25 AM EST [facility] Name Value Range Interpretation Code Description Data Sumaya rce(s) Supporting Document(s) Leukocytes [#/volume] in Blood by Automated count 9.8 10*3/uL 4-10 [facility] Erythrocytes [#/volume] in Blood by Automated count 3.69 10*6/uL 4.6- 6.1 L [facility] Hemoglobin [Mass/volume] in Blood 10.9 g/dL 13.5-18 L [facility] Hematocrit [Volume Fraction] of Blood by Automated count 30.7 % 4 1-53 L [facility] Erythrocyte mean corpuscular volume [Entitic volume] by Auto mated count 83.3 fL 80-96 [facility] Erythrocyte mean corpuscular hemoglobin [Entitic mass] by Automated count 29.4 pg 27-33 [facility] Erythrocyte mean corpuscular hemoglobin concentration [Mass/volume] by Automated count 35.3 g/dL 32.0-36.0 [facility] width [Ratio] by Automated count 13.8 % 11.5-14.5 [facility] Platelets [#/volume] in Blood by Automated count 340 10*3/uL 150-400 [facility] Differential cell count method - Blood [facility] Neutrophils/100 leukocytes in Blood by Automated count 78 % [facility] Lymphocytes/100 leukocytes in Blood by Automated count 11 % [facility] Monocytes/100 leukocytes in Blood by Automated count 10 % [facility] Eosinophils/100 leukocytes in Blood by Automated count 1 % [facility] Basophils/100 leukocytes in Blood by Automated count 0 % [facility] Neutrophils [#/volume] in Blood by Automated count 7.69 10*3/uL 1.8-7 .0 H [facility] Lymphocytes [#/volume] in Blood by Automated count 1.11 10*3/uL 1.2-4 .0 L [facility] Monocytes [#/volume] in Blood by Automated count 0.93 10*3/uL 0-0.8 H [facility] Eosinophils [#/volume] in Blood by Automated count 0.08 10*3/uL 0-0.5 [facility] Basophils [#/volume] in Blood by Automated count 0.01 10*3/uL 0-0.2 [facility] Nucleated erythrocytes/100 leukocytes [Ratio] in Blood by Automated count 0 /100{WBCs} 0-0 [facility] ID Date Data Source [id number] 01/09/2020 02:00:55 AM [facility] Name Value Range Interpretation Code Description Data Sumaya rce(s) Supporting Document(s) Bicarbonate [Moles/volume] in Serum 26 mmol/L 22-29 [facility] Chloride [Moles/volume] in Serum or Plasma 95 mmol/L 98-107 L [facility] Creatinine [Mass/volume] in Serum or Plasma 0.55 mg/dL 0.70-1.20 L [facility] Glucose [Mass/volume] in Serum or Plasma 102 mg/dL 70-140 [facility] Potassium [Moles/volume] in Serum or Plasma 3.7 mmol/L 3.4-5.1 [facility] Sodium [Moles/volume] in Serum or Plasma 131 mmol/L 136-145 L [facility] Urea nitrogen [Mass/volume] in Serum or Plasma 7 mg/dL 6-20 [facility] Anion gap 3 in Serum or Plasma 10 mmol/L 8-15 [facility] Osmolality of Serum or Plasma by calculation 270 mosm/kg 275-300 L [facility] Creatinine/Urea nitrogen [Mass Ratio] in Serum or Plasma 13 [facility] Calcium [Mass/volume] in Serum or Plasma 7.6 mg/dL 8.6-10.0 L [facility] Glomerular filtration rate/1.73 sq M pre dicted among non-blacks [Volume Rate/Area] in Serum or Plasma by Creatinine-based formula (MDRD) >6 0 [facility] Glomerular filtration rate/1.73 sq M pre dicted among blacks [Volume Rate/Area] in Serum or Plasma by Creatinine-based formula (MDRD) >60 [facility] ID Date Data Source [id number] 01/09/2020 02:00:55 AM [facility] Value Range Interpretation Code Description Data Sumaya rce(s) Supporting Document(s) Magnesium [Mass/volume] in Serum or Plasma 2.1 mg/dL 1.6-2.6 [facility] ID Date Data Source [id number] 01/09/2020 02:00:55 AM [facility] Value Range Interpretation Code Description Data Sumaya rce(s) Supporting Document(s) Phosphate [Mass/volume] in Serum or Plasma 2.6 mg/dL 2.5-4.5 [facility] ID Date Data Source [id number] 01/08/2020 09:28:18 PM [facility] Name Value Range Interpretation Code Description Data Sumaya rce(s) Supporting Document(s) LMW Heparin [Mass/time] in 24 hour Urine 0.14 IU/ml [facility] ID Date Data Source [id number] 01/08/2020 09:59:04 AM [facility] XR ABDOMEN AP ABD SUPINE ONLY [id number] RESULTInterpreted by:Alessia aHrvey MDINDICATION: Evaluate ileus.TECHNIQUE: 2 supine radiographs of [...] rce(s) Supporting Document(s) ID Date Data Source [id number] 01/08/2020 05:03:00 AM [facility] Name Value Range Interpretation Code Description Data Sumaya rce(s) Supporting Document(s) Leukocytes [#/volume] in Blood by Automated count 11.1 10*3/uL 4-10 H [facility] Erythrocytes [#/volume] in Blood by Automated count 3.57 10*6/uL 4.6- 6.1 L [facility] Hemoglobin [Mass/volume] in Blood 10.2 g/dL 13.5-18 L [facility] Hematocrit [Volume Fraction] of Blood by Automated count 30.1 % 4 1-53 L [facility] Erythrocyte mean corpuscular volume [Entitic volume] by Auto mated count 84.2 fL 80-96 [facility] Erythrocyte mean corpuscular hemoglobin [Entitic mass] by Automated count 28.7 pg 27-33 [facility] Erythrocyte mean corpuscular hemoglobin concentration [Mass/volume] by Autom[facility] 34.0 g/dL 32.0-[facility].0 [facility] width [Ratio] by Automated count 13.9 % 11.5-14.5 [facility] Platelets [#/volume] in Blood by Automated count 323 10*3/uL 150-400 [facility] Differential cell count method - Blood [facility] Neutrophils/100 leukocytes in Blood by Automated count 82 % [facility] Lymphocytes/100 leukocytes in Blood by Automated count 11 % [facility] Monocytes/100 leukocytes in Blood by Automated count 7 % [facility] Eosinophils/100 leukocytes in Blood by Automated count 0 % [facility] Basophils/100 leukocytes in Blood by Automated count 0 % [facility] Neutrophils [#/volume] in Blood by Automated count 9.03 10*3/uL 1.8-7 .0 H [facility] Lymphocytes [#/volume] in Blood by Automated count 1.25 10*3/uL 1.2-4 .0 [facility] Monocytes [#/volume] in Blood by Automated count 0.73 10*3/uL 0-0.8 [facility] Eosinophils [#/volume] in Blood by Automated count 0.02 10*3/uL 0-0.5 [facility] Basophils [#/volume] in Blood by Automated count 0.02 10*3/uL 0-0.2 [facility] Nucleated erythrocytes/100 leukocytes [Ratio] in Blood by Automated count 0 /100{WBCs} 0-0 [facility] ID Date Data Source [id number] 01/08/2020 05:12:19 AM [facility] Name Value Range Interpretation Code Description Data Sumaya rce(s) Supporting Document(s) Bicarbonate [Moles/volume] in Serum 23 mmol/L 22-29 [facility] Chloride [Moles/volume] in Serum or Plasma 97 mmol/L 98-107 L [facility] Creatinine [Mass/volume] in Serum or Plasma 0.51 mg/dL 0.70-1.20 L [facility] Glucose [Mass/volume] in Serum or Plasma 83 mg/dL 70-140 [facility] Potassium [Moles/volume] in Serum or Plasma 3.4 mmol/L 3.4-5.1 [facility] Sodium [Moles/volume] in Serum or Plasma 132 mmol/L 136-145 L [facility] Urea nitrogen [Mass/volume] in Serum or Plasma 11 mg/dL 6-20 [facility] Anion gap 3 in Serum or Plasma 12 mmol/L 8-15 [facility] Osmolality of Serum or Plasma by calculation 273 mosm/kg 275-300 L [facility] Creatinine/Urea nitrogen [Mass Ratio] in Serum or Plasma 22 [facility] Calcium [Mass/volume] in Serum or Plasma 7.7 mg/dL 8.6-10.0 L [facility] Glomerular filtration rate/1.73 sq M pre dicted among non-blacks [Volume Rate/Area] in Serum or Plasma by Creatinine-based formula (MDRD) >6 0 [facility] Glomerular filtration rate/1.73 sq M pre dicted among blacks [Volume Rate/Area] in Serum or Plasma by Creatinine-based formula (MDRD) >60 [facility] ID Date Data Source [id number] 01/08/2020 05:12:19 AM [facility] Name Value Range Interpretation Code Description Data Sumaya rce(s) Supporting Document(s) Magnesium [Mass/volume] in Serum or Plasma 1.9 mg/dL 1.6-2.6 [facility] ID Date Data Source [id number] 01/08/2020 05:12:19 AM [facility] Name Value Range Interpretation Code Description Data Sumaya rce(s) Supporting Document(s) Phosphate [Mass/volume] in Serum or Plasma 2.6 mg/dL 2.5-4.5 [facility] ID Date Data Source [id number] 01/07/2020 04:26:42 PM [facility] Name Value Range Interpretation Code Description Data Sumaya rce(s) Supporting Document(s) [facility] EOMRUx4gGhDLEeLv50/WHFqzCHGuy7ZhRDkuXJi7IMfsGCVlQ1QaPXJ4oS0bORZ2JVtFLgTyPnBbCuDb [facility] [file] cleaning technician+ztu8Jtaenilw0pN8jkjqF5CbxXjPrGgihklYkva [file] [id number]RASJQc6+CYwejQKvnTtcAYGLCyY5BTKyXQovYIRMOb9L ID Date Data Source [id number] 01/07/2020 11:00:40 AM [facility] XR ABDOMEN AP ABD SUPINE ONLY [id number] RESULTInterpreted by:ANNABEL WalkerLINICAL HISTORY:29-year-old male with a [...] rce(s) Supporting Document(s) ID Date Data Source [id number] 01/07/2020 02:19:05 AM [facility] Name Value Range Interpretation Code Description Data [facility]aya rce(s) Supporting Document(s) Leukocytes [#/volume] in Blood by Automated count 14.4 10*3/uL 4-10 H [facility] Erythrocytes [#/volume] in Blood by Automated count 3.46 10*6/uL 4.6- 6.1 L [facility] Hemoglobin [Mass/volume] in Blood 10.1 g/dL 13.5-18 L [facility] Hematocrit [Volume Fraction] of Blood by Automated count 29.4 % 4 1-53 L [facility] Erythrocyte mean corpuscular volume [Entitic volume] by Auto mated count 84.9 fL 80-96 [facility] Erythrocyte mean corpuscular hemoglobin [Entitic mass] by Automated count 29.3 pg 27-33 [facility] Erythrocyte mean corpuscular hemoglobin concentration [Mass/volume] by Automated count 34.5 g/dL 32.0-36.0 [facility] distribution width [Ratio] by Automated count 14.0 % 11.5-14.5 [facility] Platelets [#/volume] in Blood by Automated count 213 10*3/uL 150-400 [facility] Differential cell count method - Blood [facility] Neutrophils/100 leukocytes in Blood by Automated count 91 % [facility] Lymphocytes/100 leukocytes in Blood by Automated count 6 % [facility] Monocytes/100 leukocytes in Blood by Automated count 3 % [facility] Eosinophils/100 leukocytes in Blood by Automated count 0 % [facility] Basophils/100 leukocytes in Blood by Automated count 0 % [facility] Neutrophils [#/volume] in Blood by Automated count 13.11 10*3/uL 1.8- 7.0 H [facility] Lymphocytes [#/volume] in Blood by Automated count 0.83 10*3/uL 1.2-4 .0 L [facility] Monocytes [#/volume] in Blood by Automated count 0.45 10*3/uL 0-0.8 [facility] Eosinophils [#/volume] in Blood by Automated count 0.01 10*3/uL 0-0.5 [facility] Basophils [#/volume] in Blood by Automated count 0.02 10*3/uL 0-0.2 [facility] Nucleated erythrocytes/100 leukocytes [Ratio] in Blood by Automated count 0 /100{WBCs} 0-0 [facility] ID Date Data Source [id number] 01/07/2020 02:46:38 AM EST [facility] Name Value Range Interpretation Code Description Data Sumaya rce(s) Supporting Document(s) Thyroxine (T4) free [Mass/volume] in Serum or Plasma 0.79 ng/dL 0.93- 1.70 L [facility] ID Date Data Source [id number] 01/07/2020 02:46:38 AM [facility] Value Range Interpretation Code Description Data Sumaya rce(s) Supporting Document(s) Bicarbonate [Moles/volume] in Serum 23 mmol/L 22-29 [facility] Chloride [Moles/volume] in Serum or Plasma 99 mmol/L 98-107 [facility] Creatinine [Mass/volume] in Serum or Plasma 0.61 mg/dL 0.70-1.20 L [facility] Glucose [Mass/volume] in Serum or Plasma 87 mg/dL 70-140 [facility] Potassium [Moles/volume] in Serum or Plasma 3.5 mmol/L 3.4-5.1 [facility] Sodium [Moles/volume] in Serum or Plasma 130 mmol/L 136-145 L [facility] Urea nitrogen [Mass/volume] in Serum or Plasma 12 mg/dL 6-20 [facility] Anion gap 3 in Serum or Plasma 8 mmol/L 8-15 [facility] Osmolality of Serum or Plasma by calculation 269 mosm/kg 275-300 [facility] Creatinine/Urea nitrogen [Mass Ratio] in Serum or Plasma 20 [facility] Calcium [Mass/volume] in Serum or Plasma 7.7 mg/dL 8.6-10.0 [facility] Glomerular filtration rate/1.73 sq M pre dicted among non-blacks [Volume Rate/Area] in Serum or Plasma by Creatinine-based formula (MDRD) >6 0 [facility] Glomerular filtration rate/1.73 sq M pre dicted among blacks [Volume Rate/Area] in Serum or Plasma by Creatinine-based formula (MDRD) >60 [facility] ID Date Data Source [id number] 01/07/2020 02:46:38 AM [facility] Value Range Interpretation Code Description Data Sumaya rce(s) Supporting Document(s) Magnesium [Mass/volume] in Serum or Plasma 2.0 mg/dL 1.6-2.6 [facility] ID Date Data Source [id number] 01/07/2020 02:46:38 AM [facility] Value Range Interpretation Code Description Data Sumaya rce(s) Supporting Document(s) Phosphate [Mass/volume] in Serum or Plasma 2.2 mg/dL 2.5-4.5 L [facility] ID Date Data Source [id number] 01/07/2020 02:46:38 AM [facility] Name Value Range Interpretation Code Description Data [facility]aya rce(s) Supporting Document(s) Thyrotropin [Units/volume] in Serum or Plasma 0.954 u[IU]/mL 0.270-4. 200 [facility] ID Date Data Source [id number] 01/06/2020 04:52:01 PM [facility] Name Value Range Interpretation Code Description Data [facility]aya rce(s) Supporting Document(s) [facility] ZUPJQg6aJvSBVyVr83/QJGsoUEJlc6YnZSqrRGo4PQjlJAJhG4WbNTA7rK3xXUS9GPqLAwSaTaWxTVNn lbm PvUtrZIxTfTGRwKeiAQwQnJQcnYnzuuBYjYL0MmEV9YRWdN29nIWFmCVBgD6NiTWT8TrZ+Rb2NZEUfwT MyNM9IObaY3B1fh7fTEn6+bA5HJN88S2VE9oQlUlDHBBWm2xuFTcj4y4ZoLUkx6jeGv4mXyq/+SC4pcs eEm6lkN587kjYoc+ClwN65Ifr4FbSJ//wR5DMF5ocg +De2BNdsPxwYh/2PeH0y6AXzlIn8DZpyPkWUuW14B6/l4sVuWCu93Am8SFC8rMyYTQo05lUhvOV75TEq h+Z9HxL9N9/BdJHVOdbfJnW711UuOEMUbVymIB9crpitQH1deTWPuXFIaslJC2aJYddIJ5wxNMnjLpOV Bc4PsLsyxwtSgBMh85gMThFwPMcoJXxQ+LBPSZeSHx 6W9OGp+DHh7BCP6Gd5UIi8Yo+ZzzEyYV646ULnpM3RQRqbcXrKKdpnup2+A+8xFeWS1M2Fu1Ve2PaDk4 uBp3hUMmN1Q39+lkxdpKOmF4pDYHK0jX7iSDEY/ic0CY2l9x9ncw9F3eG7VY5o02rM1qEgmNbyTXrgAe ZcvlcYLmB/oiOfaHOfgTivsCUB73uY7GKvnmrtDum3 by8Zn3qdrSf7TBewUbYhgNhybz03FKo/KydWFPMg9YU8vcrlm9LinlxvYRx9+7ixPkUOmIsIZjB3HvtX gWrcE6neg5vcu6goyJls+tiNFYZoD7hSbwmSJJDcB/KwcOoLK5rgOSyU+RMVTk4m/Rn88PB8/reQXhgl un5T4DeWUxlM7pZbVtPVTel7ZRH4nvrP/dpj0bOc3K F0wW3gUt2x5M3DsQ+ojUKn0sbkhm4lv1YFwoVYZQE3Y9tJvEBuozWWATZic1HM7GzOdWtT9MyVEP+Benedict [file] O8rZEvEu9POCZmDIuWBhJtMB9ZAQv= ID Date Data Source [id number] 01/06/2020 05:55:30 PM [facility] Name Value Range Interpretation Code Description Data Sumaya rce(s) Supporting Document(s) Creatinine [Mass/volume] in Body fluid 0.7 mg/dl [facility] (NOTE)The performance characteristics of this test for this specimen type were determined by the Department of Pathology at [facility] and approved by the [facility] Department of Health. It has not been cleared by the FDA. ID Date Data Source [id number] 01/06/2020 01:09:56 PM [facility] Value Range Interpretation Code Description Data Sumaya rce(s) Supporting Document(s) EKG [facility] MKJDEf4jCnDCTlYul3SwFsOaQHGhTJ5ejzz6T3Z8lUPnF0JsoQQhz6czO5FpB2JxRFYdKEBQYQ7AiUPd jb2 [file] O6zv0qyeAo1ph6HztH3px1fiRVKbl+YtntuV5jt/VjfQ0ckOmnWIc2YdsGNrjdN+jtletp53q4Mso/METEOROLOGICAL TECHNICIAN XLqRv1zn9pvQfteMOd4Z6V3xisx+BN2u3b3Hp+fhoVtD9nZ/u5Mw4a4/wustKG/G7ieie/AfC7huI0go /U566NmdOzzbjLH+wvLRZC4xv6koa5KxI4Hgh5xj+n azZ7AEe4Ziwhm+FFpbCNUM1ThF3eO6fEmfApLL8Fcn4esCB5UqUxvRGXD8Ba4SR8GcT7nT3MD3ioUQP6 a9C2VdBnwl847wsewkdE15ybSKB2y2B1QfEpNJ6RHV8fwt+1m9/dl2389TaR+ALA2gP3VjmVU6m5lKI6 XQvdwDOsubbBULf0x+c5Zjw/WtX10qAVdVgvWLxmUf m/crwROeoNlggemSvmd3AgwnwF2rKBk/g00bzdTYyPF3UsiQaD+F4EoBkn681mcjB+1yS/y4GqWyiotn O0ChY2Kttsa/baJg37NgH1lGlV36N860fUNolGWX7m7ho4WmL5e9ZBoV/UqMDy8BHsp99CQKM0rWdwro fcFIxFwxCPDi1rE5lSoO/RcZmdU4hPQsZrDQxUQAVk Lvficp/ily1+7uTOQH8W6qgjefjjbc8+PfFUCb0P4Vqi/ImEP1x2NKzWC6sgQjz/wFLiS/S8G7NpREdA zjtI9ltFqfneUJ4S7d4d/wOG64pD3td4A72kRuM020QlfKM2UkbODaluwzAyCCuoLV0HbrSI9oehGLwE vomOgKBuHLjGjzlvcI6ea/1zahxaS1nWSeRZNIYDGg tTdCFC0tMpLDbMCDkEAzqQIjoNU0/IfjWX/Wou+9V8iF+G+OFEB3l2FCsnPp+x0sFvxheovhYoEjk6xE +eN/fgGKARxzd3QAL1u/DC29NdOL/3fiYUv4bH6ayfi/NH48Y71usdn7xdaFLxwaT07/BG1vrxu/PJ6w 7g12gbxPnuqytg2fb+U3uYJTgS8/aszrF+i0C9BLGX 9TzgtZhh/l7o4wkDeU71wGWUQOSKVljYaXXEq6M0YxfJ/IcXv8yoTJbFe88dLhqpTyJ5PsAs6Svh8c5r g6RpxHvsj+DbxPpdfNN3/F5Lz4m4kC3A69B2PoBbgM44KUQ0votmiluz4QlzfWcnK8Qg931bTDKvsIbr r4MJfjQck/Zb9uSuu7eOkkCozCCORcbbv158tiY00H HfRbRxfh/osl7S1MysLCkFTmvvi/2gOshKVIUxbgVurYalOmgL5r1K7H7Pm0RHt0UuHIG8YefNWlcjzX YkZPmN7i/pgbXMF90ByHx1eoG/x19S0mBb/R8Z3xG1hD4mV79Z71Y069r34geU6yeBW13mS+86LJpbOP Mkt4G1esI8Cz+xvgA4qSprIx2Z5M32Aw0UJJy4ZHji 8+vendor relationship manager/HzpfglxS/O02Y8lj+nJ+n3NoA4UA8Q23127o2X2161AAlqrGemWVEhh9OrwlpskH3f1zX6ve1H [file] 14e3v7+V7Kd0834hMkiy+iDr478lgkgceMsP4r1s4cr21cyiwW14To5TV2F0h/4jJO42145xy4k/7y0x oynVr6TAMctbshX14+/PT23ce/jfd4dcjj+Ob9t19/ 35VU3sx//PK/nEBe4Km/fPP5Vx/mgrLh2Uamb2c5bUrrjl+vb9+9+/Tpw8dv/sZtJMv+zbfffP/dh/df /uni3550hyvmx0/09ZgeB308+/Hrd1+1wi2YD9vyf/kP91tzX43/l7/wl7htbF/2z198+KiwolK0By33 HoV7/eHt2//4mjs8orC+Qv/bF91no2U/zXyr6q3vY8 j76wo4o4l+/8G9U69g/c3rq7z/9vt8I49+vXv/xe/ev/v4+HfzvapOn0hjxdB8k462+3h/2ri7t482// HDu+9f9/eP114Lni/95ruv/8a/b2vn/2/lv335/ds33/7z62t++H948Q1o24fymr/6/i9//rc//PVPP/ 3r2//1P99++4c//vHHv/71px//+A9vn//45z/89Me3 f/mIdf3d60/+8ufXP3/otl4Q4X195s4nfjSq28v6OZc3WbwEq11576owXiCkGP/5E73A6h7k5PY17iE/ Auirxgfc/2n27gWtxKV1u/3+K/w5iIqXr1F6++PdpV0oDg/1/vCB990wOagE/9w/+PjTv/62kvM4uh14 9c/XZ//w1dt//fDu41c/K2v72Z+qjn9z/ytrtiqbf/ WT+8Z8s71vNEkYneVWZ/2wga53M/35P/7x7a8//zuIS8p6i0b3v8MS23/+xC/s7dYvL6sm214H0g4+/e HP//CHANELL//7//HycftTm3/r9tUC/sbtD/hPH79/+9f/9nr5P/zlz7+8v2fi+2V26yBV2j+taa4Hk22EF3 0vBd7m+yVNb88cuqL13oWVK/xFzRfWiHnrLOyXX+XB pmwVm540yzyky/z07/9nx3k+nHYfovxYwb+8ppW3//nXf/n7X/y1qTxmo/zjzz7w/hn6/sf/9vsf//0P P/75F/8/WE0VQ39QAiF64U7/+oOy97ff/qwieZC41IfwfwBZv7AEXDQaze4KXx/9/v/58x9+/3qHz96+ +ffCv3CLb/jdv//Ve98325retbaynI/3s5HUH+oWkx fr26+/fo1q33/GTbj1LV1/f3Kv+/Bc6cpn5R//756t3uqOd9rOk49Z5aOraC17gZ2PN5dab+aaMamO3x u77niNj/do5x4rW9SenBimI1n3v/f+/bc/xSM97P91vq675aRe/o9MgPJmuRgksaUaiVVnBN1YRO8nh0 UdCzK3WNNtp4GuMKbfKQh7mDFjBMkewhZgj2Sxrqyf A6Saa3MlSfUzGRQhTfCoNnl4OZSeEvE9aVYlSuDaGKMxX8YrQLObHyH1RiInZRKZVV7WTVPknqSoMmGx IFI+CeHnIR5qhyprGIEsg8DkPAkgDKyhAUUmV3L9fBopGALsL1KpfV52LNYiR0SqkjF1JJW5GDIcEcDs TGFzdCAxOSAwIFI+GyIwCO7tlljbCPRpi7QlMPxuAF D4tP4uXEpIUAPEGIfGRRaoKbQ9l33cdfRXJJSfORYpSS8XmiEhhKejuuJlpYFgBXL4UiDyHVAuTrCeVq KkRHYLJZKsTDBrQBPtVJOtC4ZxkBwqFHnBWEBKRUaRVEghSjHyc8P5ZLOvgqKSJQcYGINYFCIEUBTPIH OCXHH7GCR8SJIuCA7SjQPvCPM0THmDCXVMNTyAAMaq DeQsy7Z8MDErC8QoLHZgsiGyGSXQQAtmYbxfWB6kjBapftxzA0TuqSHfCVDLPJGyGNOrVOQlOSLcP3Fv t4D6X5KsOMyGTKWSJLeRKWqrCyU5c93xlwPDXXElYPMqMM0+NR1ey6OzPc4JLMDyAO6dxdf9PX4YgYVl OO6NKCocubRwQ5mugmQrJcMxQCSUYD1rU0XzmI42WR E+DiUwNE0uera8byYtUkQhFTNxGQMpWBJyCIooOOMxTYUqXQJsMVU6DMA8ASMrYeHpEUOtWzU5UFDdAE HqYFPqnhCXFXDqCUB6USVfOlIwZEKoEFEnXToxEQPtPVJ5Qzk9RIWlLLDvTN0uFfIfYGTdJSWaTMXsEu V2DqGtAvBEPXHiOPWqEAVrNvXhXGEsIAGiKQtnKLCe IQVoDNw3YNWwFRWtHR5oMoXwWLQrIHHeHGMhMGGvNYWataVGTXYbGNYtHCR0SPGcSMPvWGIeWZmwFYZt TEBtQIR8LXOgCQFeJH1fPpIaYMBzCDB5TdJtMIBxBXSmdaVCKWAhVAAyXOM5LEHjJUYsUCEwQLsmWQBu SAEfTtX3JNGnPDKcNV2sRvZnCIGiIVB1TBYcQGJpNP EapfAYINAvDBEzOKx2OjRoPCAxHPIrKSpxTDSbHOPlXHzvHIRyXCUyUV1uQtEiNLBiMKAzRMAgUONrLQ NfgeXCLVNoOGSpFZX6ZwSmBYSnXEDeEFitQQDoLZAvVBF4BCTvFKUyYC4eIpQwTETpZgMgBOXyDXUvOD AgbiAKMDAwMDAwMTYwOSAwMDAwMCBuIAowMDAwMDAx GtZ3YEQrNBEqVY5yFgFdHWCcCDJ1SXPaBFHrNIPxkeDIYMZoQXBaCWToGVH4PDLzESIrGBp1wxAytUIs Kxq4Pf5CcPbaLUL7Gt4TcgFgCRVcHXXBFm5Om891PQFwCGRPJiw+GyxhxEPueGokWCXLLjG8JXkHSOCY T0Y= ID Date Data Source [id number] 01/06/2020 10:13:32 AM EST [facility] Name Value Range Interpretation Code Description Data Sumaya rce(s) Supporting Document(s) Operative Note [facility] BQPUBj6rJkENClKb36/HGMacJBAiz4RfMNusPSn2XKtaVFMzZ8TuLPT3lD0nQNK1XMgWXuMgPhIxIDLo lbm [file] AgICAgICAgICAgICAgICAgICAgICAgICAgICAgICAgICAgICAgICAgICAgICAgICAgICAgICAgICAgIC AgICAgICAgICAgICAgICAgICAgICAgICAgICAgDQog ICAgICAgICAgICAgICAgICAgICAgICAgICAgICAgICAgICAgICAgICAgICAgICAgICAgICAgICAgICAg ICAgICAgICAgICAgICAgICAgICAgICAgICAgICAgICAgICAgICAgDQogICAgICAgICAgICAgICAgICAg ICAgICAgICAgICAgICAgICAgICAgICAgICAgICAgIC AgICAgICAgICAgICAgICAgICAgICAgICAgICAgICAgICAgICAgICAgICAgICAgICAgDQogICAgICAgIC AgICAgICAgICAgICAgICAgICAgICAgICAgICAgICAgICAgICAgICAgICAgICAgICAgICAgICAgICAgIC AgICAgICAgICAgICAgICAgICAgICAgICAgICAgICAg DQogICAgICAgICAgICAgICAgICAgICAgICAgICAgICAgICAgICAgICAgICAgICAgICAgICAgICAgICAg ICAgICAgICAgICAgICAgICAgICAgICAgICAgICAgICAgICAgICAgICAgDQogICAgICAgICAgICAgICAg ICAgICAgICAgICAgICAgICAgICAgICAgICAgICAgIC AgICAgICAgICAgICAgICAgICAgICAgICAgICAgICAgICAgICAgICAgICAgICAgICAgICAgDQogICAgIC AgICAgICAgICAgICAgICAgICAgICAgICAgICAgICAgICAgICAgICAgICAgICAgICAgICAgICAgICAgIC AgICAgICAgICAgICAgICAgICAgICAgICAgICAgICAg ICAgDQogICAgICAgICAgICAgICAgICAgICAgICAgICAgICAgICAgICAgICAgICAgICAgICAgICAgICAg ICAgICAgICAgICAgICAgICAgICAgICAgICAgICAgICAgICAgICAgICAgICAgDQogICAgICAgICAgICAg ICAgICAgICAgICAgICAgICAgICAgICAgICAgICAgIC AgICAgICAgICAgICAgICAgICAgICAgICAgICAgICAgICAgICAgICAgICAgICAgICAgICAgICAgDQogIC AgICAgICAgICAgICAgICAgICAgICAgICAgICAgICAgICAgICAgICAgICAgICAgICAgICAgICAgICAgIC AgICAgICAgICAgICAgICAgICAgICAgICAgICAgICAg QLUeGEFmIKu1S8myTZPyEZXdTY3zANw0Xn0+IJpZAsTdPDW0qwMlnH6VKK4wl5FgMNoiGTHhq1SeVDc8 VE2IVNYaOKedYV0BALuate5HABRiZEUahVCTi5ltVhFnTVZ0NLDnJrobOA0NCLHoA0ameoHwMHMyDVUP LWstCFKBXZhlEVPTYP3JOzQeL8RijI15ILBSEd2+DQ elbvOeRezVTdPqGNTnz9CwRRv4AY9BHENrUkflw1GjHtSrNQHANJffKO9HQAJ8MBTaMELkFz8CHNWbV6 77hqXmGG1OYl6ZGlInVU5nuq3WOnCtXIDmPvnQYch6CGnbQK3OyNWaUCrXvXQuIFQcymGeZu69ZVBoiB UUhXTgiCZzKVdoIRDXQLUjrPWtFC8rHJ8yJAQfBMU3 FjTkLOWPMU8ONOKnEWYgrJFuFZVdSWABTR8YQNakHQR1PNFublQonPHgYDtbUG0SDQGhwaVeYkOyKAUQ DQo+Dy6PPJ3ep2HuQMwlGpHkZH9lwj7RHQoCRyNmD1X1wGWpJ0C5URaiZt3NHAIlIVHdGHddTILNAOxi JD2XWU9yoxN8KO6AuIFlBHIkEANysFRaOUq1S79iwB CpQElvVJ9OFWW+Ernie+Tf4GISMcLURyHHIvGrDoWJTJIzHwX3NvX8JNc0LzS3WgTC40aGnikeKrBVovWA 3GWX6mZIUkZMZGEW6UfBRpoK4qpmRhUIAePQVMNaSxE08joSMeGRUcQZNcCZDmCx9PEZEuK1LbisWvzA vhooNeNNGuPHYIKG8BNCmczxFccKAamUswDO30nBzs SX0ANr7IWgCiHE6jdn3BzCSrBs5TERWuXK6TVQWcBXOnTFFcXHS5STSmPmKpGKslGSRwPVJzNMJ1BFGf QFDyGH4YUoWiLMUuXQU3PTNjHOUvRJKwhq2MFEHoZTClDnH7BOGrRZSnKGXpSBraPDErUANpXEO2JZWx BSLrMY6ERbRuDGEdFYAbVKVxAIXrKMTitf9HICBmCP UpHqL6KKNnLHBhACNtDAjlBRMrHET1GYG6MEWbRVUbIM0ZIxIpCRRyXLEiJeJgXVKyFMUsee1KXFTdGG LdKuZ8OAOzHDGfCOMlUAcnHCQoWPD8YPldCLBnOAErWU3MUuTiRGCoRDa7EYWcWASmRNEljd9RRWAoJN PuTLA0AOCbFPDuFNQtAAviNGZvUHW7JuWxYHCbFDAt PS3XWoUmJFDlZRAkCUTtWOZoAPEjts4SJFSqGNPqFXV7RPLvYGXzTZNcOHilITSuDMToVHxeWSXjBSMv EX4XQzSvMLObZQD5NPUrHMMgNOSxkh5TZNHxTCRsOGtvMGLoQDUtMVEdRLfzMMMkWHXfDMSiPUDfHFYd BB5XRkJjQKSiHDVdNYTzHBXcJDVpix2QOMInLIPqXg j0YRMyYCUfYNEyXFgpSBHcJZNjBED9LUPuARMaEQ0HJwPyKSOzDHMlKOIdWETfBPHwwj9EdTNnhKglhb 6ZKUoORa4YkZxhYSH3EOokWo4kkULwOaEkNJNQBj6HgkQzYGFwIGMHQIftGNEqPWB7NXY0SROnDfDsHK M6AaB5NqVtNhJ0VNN3OIKsMXP2WpA1DGibUQv0PZKw SQN1HBA1JDpsCLCzDFBnPqW7OSG9WzO+JX1lUIf+Vr5Pk2FzbkO7wvDfYSdiLSZ6Qv3BORONH5FVCh== ID Date Data Source [id number] 01/06/2020 10:10:01 [facility] Name Value Range Interpretation Code Description Data Sumaya rce(s) Supporting Document(s) Consultation [facility] HBGLZl4aTuAQOrJf62/STPtjQOGhp2YwXHaxIPe4TWlhBMYmR9AzEBO5iO6hSYS7NOdOThAwRjSdSMRa lbm [file] AgICAgICAgICAgICAgICAgICAgICAgICAgICAgICAg ICAgICAgICAgICAgICAgICAgICAgICAgICAgICAgICAgICAgICAgICAgICAgICAgICAgICAgICAgICAg ICAgICAgDQogICAgICAgICAgICAgICAgICAgICAgICAgICAgICAgICAgICAgICAgICAgICAgICAgICAg ICAgICAgICAgICAgICAgICAgICAgICAgICAgICAgIC AgICAgICAgICAgICAgICAgDQogICAgICAgICAgICAgICAgICAgICAgICAgICAgICAgICAgICAgICAgIC AgICAgICAgICAgICAgICAgICAgICAgICAgICAgICAgICAgICAgICAgICAgICAgICAgICAgICAgICAgDQ ogICAgICAgICAgICAgICAgICAgICAgICAgICAgICAg ICAgICAgICAgICAgICAgICAgICAgICAgICAgICAgICAgICAgICAgICAgICAgICAgICAgICAgICAgICAg ICAgICAgICAgDQogICAgICAgICAgICAgICAgICAgICAgICAgICAgICAgICAgICAgICAgICAgICAgICAg ICAgICAgICAgICAgICAgICAgICAgICAgICAgICAgIC AgICAgICAgICAgICAgICAgICAgDQogICAgICAgICAgICAgICAgICAgICAgICAgICAgICAgICAgICAgIC AgICAgICAgICAgICAgICAgICAgICAgICAgICAgICAgICAgICAgICAgICAgICAgICAgICAgICAgICAgIC AgDQogICAgICAgICAgICAgICAgICAgICAgICAgICAg ICAgICAgICAgICAgICAgICAgICAgICAgICAgICAgICAgICAgICAgICAgICAgICAgICAgICAgICAgICAg ICAgICAgICAgICAgDQogICAgICAgICAgICAgICAgICAgICAgICAgICAgICAgICAgICAgICAgICAgICAg ICAgICAgICAgICAgICAgICAgICAgICAgICAgICAgIC AgICAgICAgICAgICAgICAgICAgICAgDQogICAgICAgICAgICAgICAgICAgICAgICAgICAgICAgICAgIC AgICAgICAgICAgICAgICAgICAgICAgICAgICAgICAgICAgICAgICAgICAgICAgICAgICAgICAgICAgIC AgICAgDQogICAgICAgICAgICAgICAgICAgICAgICAg ICAgICAgICAgICAgICAgICAgICAgICAgICAgICAgICAgICAgICAgICAgICAgICAgICAgICAgICAgICAg DMCvGQHcZAYlTAMfTNOsTBm8M4kqNNMtBRUyYE8iYBw9Hi9+VHfIDzYfGGM2mqBibG4RWZ1bu7JkSXdu EERzc8OlLCm9MI0LJLXpQVqhYL3KNFtjqr5PURShLY EeyUYKd8pyVcYhGBW3LNUnRxboOG4NIHZjS7yfviCaQXCuZFCQUOemVLISDAhyFURXGG7GYfLtZ3TcmZ 84NZKTPk7+PZtrjhClCebGOeQ3AWKjj7TtKJc1KC5QZYYvGkssr8GbPintXOQDZGrcKQ8NWCC4KPR2IF IjHt9MVBDwH599yyBgRU1LIj2JHiRhKK5kec5XQbly CHWqEnuQEsz6WKkcRU2KrTYrBAsWm51ltIf3owMjpAFXsKPxsQYdAFvfCAJUGFQdtJBqCN6xFP4qILOy HETiYtBbSPHJJI6TMODwIYBjsHTmUWGaCZIPDN2NCRfvBQH3JZZkrxGkcQBpPPdgSS8FZLWoucUzWeZe MCBSDQo+Vp9LQJ6qc6NyNGovBHMkLS2yhm1QZWyDMu ZhV3C2pYFqN1Y0MKorYm7DIZMnTQBrJiYuRUOQYHjpWF3IJN7kscZ0QF5PfUCsOLBlNNYwaYUnECz0P7 6jjVDfNMboOH3LIYX+Ernie+Kj5ZJGEgROInISShZxCpCVWXMaEmX5MeD5PAg8AhF1XtVZ11dCxbfcRsFV poRR8OKL7aZDZiJTPWMY6JnPSvoV8jliBhUcXvOZDV HvNuF52uaIVmHPUwIRQ1TVBuCv9LKREaH8ZunzDauLqkuiHzIUJhKDWRUC2GGFlypuIaeXIusVaoCW04 kXldFG7DPy8NJiTbCM8lnj8EiANiEp6DXEYaAO5YLFLfWBIqRJIuVEA1WQAcNiTcZGbpSDKyHTMkFQA5 HZZeLPDxUK9QUyZcXYDdZlSdRYzuLDFtYWJdzs1NYU VkDCBoWej5LiAjOXEfFQLaDTykRYKbIZHhKOB2LLGkCVRxPQ9MBpGxTUHuAYWpWXKpMJJmJNIinb1ZZO QxCIRmAeQ2LWVtGECeCPMeUOthKNYpJEJ2LCU5STStQYHdLC0NLmZjLZEmZMNiXmiwYJJaIPZqzk0SQI JkZMYnISM9GzMjWLPtCOViIMttGIIyNDJ2VhUrOWEw RDVuXS2BYnRcLQDsRLz0EpJmRWBlNSWqkz5LNUGaDXLoATw1HiTzZZAfJVQjXGbtSWYcZYNbYVDoTJNn HSZkZV9ZFiUuXVRxZSP8YPinMEAjOAPwwu8NZROuSDJqADBoMMEyNXSaOLVvMXcyZARuWNOuPzi8YQMk VPZtPL8ALiSpFFRfVIEuCBogSNNhMYPdsc9LGWDkRY EyVnC6RuAhIFNgIQNmZQzbSINgSTClBnX7JRRnFSAvXF4PAkIlJRQjCcMnZUFgVCUaQKQweq8KGUHpGY IcPZJlYxPtJBZhLWGzZQqmQSXwSIW3CrGlTKUzOSLaRG0YRoEcSWQoRtE8RGIsSVEtURUoze3CTVRbMM GnEBWfZsNnAMYtOPJjIKyvWIRnWSV2EZRkNTToPSBv SI3PQjVeZHKlFjH3UJQjXYPhTMNlov6JRCPpNRJqQya4GHLzODUuTHLxCWxpBFOlTQA6TPW2FBVyCHNb SY7DNyTaHYlxFQAGTil9KBdrL7r6OVRxSB2OG0Zhq2DhXysxMJSUMTszGS3seaEyUHYwPl2SY2hHRmmj XCJ4UQVxFLOhQwPkBOF6VEG4UaukEzcsGEOuBDT4UV 0hYWZmJQw4QNYkKHNeACB9ZIJ0SEKkGILaZUZbBgV9VzfmUtUpRM8UXs1ZFcV7JIS7lPUwTe0VXeohLI cYNoEuLR1PNXe= ID Date Data Source [id number] 01/06/2020 09:29:04 AM EST [facility] Name Value Range Interpretation Code Description Data Sumaya rce(s) Supporting Document(s) Leukocytes [#/volume] in Blood by Automated count 15.6 10*3/uL 4-10 [facility] Erythrocytes [#/volume] in Blood by Automated count 3.36 10*6/uL 4.6- 6.1 L [facility] Hemoglobin [Mass/volume] in Blood 9.7 g/dL 13.5-18 L [facility] Hematocrit [Volume Fraction] of Blood by Automated count 27.9 % 4 1-53 L [facility] Erythrocyte mean corpuscular volume [Entitic volume] by Auto mated count 83.2 fL 80-96 [facility] Erythrocyte mean corpuscular hemoglobin [Entitic mass] by Automated count 28.9 pg 27-33 [facility] Erythrocyte mean corpuscular hemoglobin concentration [Mass/volume] by Autom[facility] 34.8 g/dL 32.0-[facility] [Ratio] by Automated count 14.1 % 11.5-14.5 [facility] Platelets [#/volume] in Blood by Automated count 196 10*3/uL 150-400 [facility] Differential cell count method - Blood [facility] Neutrophils/100 leukocytes in Blood by Automated count 93 % [facility] Lymphocytes/100 leukocytes in Blood by Automated count 4 % [facility] Monocytes/100 leukocytes in Blood by Automated count 3 % [facility] Eosinophils/100 leukocytes in Blood by Automated count 0 % [facility] Basophils/100 leukocytes in Blood by Automated count 0 % [facility] Neutrophils [#/volume] in Blood by Automated count 14.53 10*3/uL 1.8- 7.0 H [facility] Lymphocytes [#/volume] in Blood by Automated count 0.60 10*3/uL 1.2-4 .0 L [facility] Monocytes [#/volume] in Blood by Automated count 0.50 10*3/uL 0-0.8 [facility] Eosinophils [#/volume] in Blood by Automated count 0.00 10*3/uL 0-0.5 [facility] Basophils [#/volume] in Blood by Automated count 0.00 10*3/uL 0-0.2 [facility] Nucleated erythrocytes/100 leukocytes [Ratio] in Blood by Automated count 0 /100{WBCs} 0-0 [facility] ID Date Data Source [id number] 01/06/2020 08:55:40 AM EST [facility] Name Value Range Interpretation Code Description Data Sumaya rce(s) Supporting Document(s) [facility] YXFKFc1fPqLJBbHyq9EnLsIcKSUeXA3fowz5O9X2mWVhG3CzhFRjb4zjJ1EeI0BeYNRpJDKNMX4QvYKe jb2 [file] F1v7X9Um9iJ5w/mKbWB4ezC0an69IT0DlabbC7lWMy+fMFdY2ckS0sY4dUGaSD+oOt+supervisor mails+supervisor mails+supervisor mails+c St+supervisor mails+UJVS0cifWQDZEaL2Uxj0ZZ8j1SW9KJWFqAy [file] MKBLOECk6Q/sMBJp+Ski9wwFROQ/qPAIRDaRDcTjxBKICBEhokSUSCPSiHQinYgRMSKDyCAyidAGHiem K4js/Dkci/K2WOGuPGBNHlLTxAtVr8KctXcAKCVrSXdxKJlLVRLPAZPHtPKulGua2DeJC5COYVWSWMBk Pcb6ePcMLdMz89bfh4sp/F8TuevEHLpb7bmZF7o+fs fR0OMpvfvaYsskxTSvyDQC3f8S/+uMgDuuX1yXPPJHVKJLKCOZqutq3gUkDkmml/ytoHEqoRpAwB2Mph cTz+d/fLDGgnF+8O2rlYToP+l/HLLn9M+cueJJ/HEDOcYwf20C60WyxdD3xhk2KLmzZuVwYn4WQpyGpq 8csURy/uyaBPB7mPZ5yMA+/3TIyjgxMvyfTnXWFgGJ HP+qw8fiXonCXxOZKyj//Ju3uNoegsaJoYfqGXMXSIITzZWI+dNIcUHAsWNlhSoTL8eJCHBGYXWIAmUv vgieukbcnVriDecMIn9X4I6LRO0/ZCIngDUSWoaBJ6WI2UMTlWCtMBPPxcFa/IB147KX+GAzPtiMDzbj n87RqVCYlPeLHzQO5XDRCtrBpJCmEq8ACjV884nXqO R/T5XoydRCpKTzKgXa06dLF+hX5U3CSNW8/3l0eUUTDKJvaUWTTDEVYLOOVLIYjClwjRgiRIFEIDJQkX mMgBIhkA5bEeKuuERQNsMrL5HgqbFAJCNyeorYnW0A/uX2SPyuCGyGSSWdXBIQ86Q7Qj8QC2WPR2BASE 0HKC1ccNJzORSUGV8e8tTnLdFZ3tOQB9Ey/zdFBv1A sGdQHLQCfR/YZgzziHJ8OpdxDpr5kUQFzrchBy90FT7WvOA4DcxOtcLTqc2hOw1yyo6iKdW5rN2Ua9DK qJShkmyse6aygYRsoKW8qorVJuYnspUpjNnscQmFDBowPuY0cRBL7ze8hucqnGssReR0POu2QFtT2g0W 78R70oZ1koCfHQajzA1hV7NBATcAKC6GzGO5Feg8Lt lwDr7BvZJmX+LbELwfTQHjxtYxbgzygRIqCmgG+ttm2H/QOJ/IQK4GULYqTOyWTpgPbXeNpSfUzFQOUq SVXQZfSIiZbgdcXzHJv36A+f4kPEcBHTNHmQsIKXLJQVXVoYEqGuUSMKNOLEcSySqsHFTJRFhGDAwG0p CWMhRZPsj0YqLCCTYFNfnDW7oYzIrrdxSxL5tUE496 gmywE/FBEhYkaW/JO5BfrDeyfJHIsjGNmZNLhkxcwID9kSQoLAVjpWU3kRIYJGkY7HfDQf+U9C76NplA iRj6+IgTj0C/kStDVy0Hew0Zo1cunrtrHg3iz1zlrwrsH1chrXR8HjgTHfGBrMDtPERcfMuHNwQ0VkNp v0VB9EgnAijZVmQ9SJkNGmQrz3W1pDObSeGLXLRH31 KF8UYbLdOxGL88MZ7kpo9nr0YLDHyQk5aElyKtPe54cullJ4pbjTsE9cLCIaspdQ49Nr38vlz6yGhuEs DlbCIV2qEq1XotJNJkNUkw+AQjPdl2uNYu2a7zqrYqK0gv51zDjji12z+u6JUPcq7zXB9grgIZd+tBgX LrW6a2yoLqUSgJA3OxDCSzBH7veTRftqPKv3OOZT/c GQEt7LXExoytVKjIjuiq5PYgtl5+cGmX2vYMP4kItYgXHbQCFUoYiDHLhr/ZLs2sfHpCTdTRFQCT9NI5 zNU6zE8uq4Gt1jC0BoXGNTj7Fc9DD9KGMGHwOfvIIhYOJKJLXYUhKNPDJ+sas etl developer+sas etl developer+sas etl developer+sas etl developer+cTgzXh [file] S06Nq/NexEUU42TXCxPefOm9xxzlw+Wptla+NA0+luis antonio [file] mH38CT2fvuimOdpkk0HAwCI0jYWtOqpvzRbJ2qvtub 5x3jn/Z5oFCpY+oiC67zY7g7tm0HibEDPAd/JEesrJm0oEtBLASr0jVEagMk+jueqYA4bRl0WJtVSPjm AkDhHGXqyniz3z/Z7zoQc6Tcn+izSbA5PclsaTEuAE5+GhLR3mZc5H8ibOlWyT8b8M1UwX/zPoM9x9J5 t+FzLdnQ0HhVe8jqWY18l9+K31q39JN/idtYPfWfum FpNqiV0KWBSdUDEIL4FJrAOCX8GnR1wOg7B79NghS1+zJh/EZzFQNViVDXOnNSzWAaPPJRTtIiX0LeD8 PEQouvdphR5K25FAp7LOawaMy/SGKBXL15RuN9nNNI+jJh/LETaRXb4++VgeoUYsxnMsycdyBCWC+CD5 DG5TWUdBzTfISlLJAB7LxL+qBy1eFiD6k/KxnAtsXm 0IRI8zJlWPUcPHkaTINxwV93uH/O9z9JsQ2NR7EGUFtNGmuBdof0sxynfeSM36YTCjT5hnVlEnHyxqcx MDlIhA8uPE2VbkVLgdaRxecKiGSWEVUcg0SsoOkybHm7+q38qzpEA/M3UKi2Q98xZG9UZ0wtzPcV/BDj WXBh/YbTBMujl6eczKKkc1okaHkdH+J/vOrc5QFxvk JB2J9dwa40Aif+i5NTvU7QvBrjT0yDqu2jhC/tDQv7itv6W9nSEtkceEcfYWo4P+1jTogjxb4VNGrEtL v8Fv05LOuiJm3RF9lWg4tRlLQW2Qem7zHD4IWocYNgIDJipwinYqlS9Iw85jqWZdjpXW6qjVvzLj9SQ5 l968D+YTjfOJwcfyCEKkOGk0+SaneiN5MR0RwRVleI zgPsVQoBQgpAjzb7vqijqaZbfKjKl+VgZjMoVtz7gfQWxw8lwQQab7wxXTGb7zgW6gsrnKLwWE3THsBY DX8wACbhcyGDVqFnXjUamZtaZGVe7nPsO6u7WtDV57cssWSf84lnt3QYvuhMsfZ03Ni8MzZ7F+Mb/GRd +14MuU9tNOK0jMd6LDXFoImmkHQpL4NMZbmVK6FCDN ZOYOjPNqPDlFRxFYIHWDMELNISuXJMYI9WI4KiCIpaIp6ET4JGQiLROZRhkKVyKEqRIoCnQgSBxWHaVf N373V3///YefZfFtQd//+8df/1Y+/ubj+//749P3N+GJjW7c0batA4734Gvymj8jr836+cUvP//0FX7o KU7rl1/+7kNFk12hjjZ62yfE61s4c/b1N7/9me/f/J P9savP4S59500RRr//7jdf/0tHr4081fttp//y14cyugIzY58/9fGbr7/87advv/vy+3/68an91mXv2P e/+j9Soj16rRfp+2+//PTbz7/3JN2jIUo+9ZxG8N0z5i0RtY654ba//hT20tDs/Oarz7/9+I3lK771U0 98/m4jtft2A/mm2ZDur/v6m6+/+/ItA137oq+/+Pju +4/Pv/7Fx/cf//i94Nwzu//1N9/+6vOvXo/5F/5fsoLnVx+fvvjHn/6Ru3ImP/lcL417+oVIx48536+/ /fSLj3/+8vtf3v/w8c0/cAUbah4g12//lvDnGCMo3zZ2C//x6/tpP//6+4/XG/36Hz+8Ysh0o0/45jdf /+Iv/Oft1+///OJPf/yP3/35Dz/++8f/+F8fv/3d73 //w5///OMPv//bj1/88Mff/fj7j3/9a1n/+jcff/rj6z9/3q6f+/Osz8w+e3XUn//xw44IZ5Yl1yK+8I ef/huny3nZFGnX/aKljgt4r+qD9+uX/t7KYtZ02S722+2pVKvSkBaau1+d1A20C84xf8afmF0ciK6rUu 394/bgfCc46n6Ypc/+m57eK80X+uzj4+svv/jmq08f 333+1a8+yl0N5lr4E8Iif8//EJ9d5ko/+tn1ar5//1bs6RCdARk922g8quV/9sc//dhrenr8m//68e3y L//4Mlq29q/9ge/I/7Ww/+Hq7z1Hr9/9+N0f/+vHP/8//+3Z4+YTyq8MflIxafw+9OoH+6dvv/v49//5 evLf/gkYM745K0R6yzWdXm/2T9///J++/ze+530pcN X+660E13td/3w2zjjpnejuC6//gJ3/2KdhNjls4O6a6j/79mfff/zw//74n//7z8eucuh/7H1b/b/+9e um/+cleaning technician//o3P/n1eQ+/+cR9d614q0Qm/PA//+2H//zdD3/7jh8wN6/xu5+Aj42+/dOf/vDZfeq3/+Qnp0 Jf/pqtZeM6K/oemmAbuH/w/Y//9n/98Xf/1qzLb96f Ul99/+R5bemKb/3P/3o1q3//7C/99V2sRak8dk/86vXNff/jQ7Yyjxm90//uJohdp0hx58e//J8/fsjH n/5gB7664NA1YV0mu613cizd9fjP8820b1lyp84ghgS+5guvtNy02WM/f59/6nHf88509f000Iuk5wa7 +u0K5YP4sDgxlcSnoFFfUP0JZH0kz6RsKbA9XVChy6 IlVTgpRPt0uAZpTAuiwnOgp4WmdbmoV6Hhj3ViZdOmGGFdKbVwKoq1LMUrYxT8aXCoYqJjTRIwO6LpFW KjMeR9GbKjOQYJCX7FDJLlwxPoZsKiEQT+UvIvAH6rhikrBGTyn7JzNKtiNUajYDFuN2B4mKxyNABvR7 ArxW13ZZWqO1UvyyC7VJT7ZWOaYiCxESTkaWBlZJNh IFI+AvZdHQ2amspuUTZxs9DcUFfgURT8qX8aKUcNRJRNNGtRYFwsXzF2v35giaFPUTMdMYGxYY3JhoWm xNpxjbUpvYVoYFV2StIuRZSzTvAbNRA6MTKCLEYuHFMmQIFvFFNjV6JhgTdjGSmYUGSQIBkQDHfuQzSf i0C3XZDvqdPVSXmQILUVOXFHPMLBCGLEBBE1GDM2JA ChPC0ZwDEgJFP6BSiRJHHBYMeGFFxeIaToq7C5PWTzK7GcJKBixrNcBMZOMTahQjuvJJ0gsNohwyvoT3 AcnOHvJMTXTBMiRCPhNTDhINLuQ8Iyb0V7P5WhGBuWJDDBJBiHDTpwGyO7m97siyQPWTBfCFFbIQ9+ZW 3mp3DhNx1QMQRgMJ4sdzo0VM6KnNGaNP1MDDjmifPv M8itxlEnFhXoBCTCVG4vG5RkcB71GRZ+SiLiPY8pfbn2qxWgQwFrTCEoVWHfYPSoYPjaGYPyYFDvWGXl DGP4AIX4BACjGpJwOSLiTzJjWDTfDHGdFRZamsKJRAYmXCU6TgQ1SuPkLRYdAZEdBZonTLLrBGcjAJU3 XXJeFSOeMG5hSmWvWAOzALOtWYUtRdB8IqJgKcYCJG FxMSXhAZJcMcJdODEdBZUvFWmnKLYsLZHqLYs9OZKwFUOzIC4xNqVoTEFmKIWiRPObZQBlNPBcgyVKNW NgHIXeHSM1GAMxYXCqEYXqYTryTRKzPLApZYB4FVMwHMNnKU2uPwUuLGTtIRQ8MoUlQQLtGLEjghKHKX UmIOJdRVE7AQGcLKCvURIoNZbiNXVaRKOmZdN3ZRRb OPTwJL4nLmShJXDcTAR7WQCjGBGpDJEemyWIGHRkHTHzVXt9WqZyAKBjVTBjFDhbKLZjSNIcQIszGYYc XAWnKS3kAhNyZTPeXOEnTYJhRAGkHAGiujJJKPAaZTVnAYH4KwQzPPLmOEQtFMtwZSJsZWXhCZI2HCMi WIJrXW0xJtWhXVMuKaZ4XMRmWWVcLEXgckMEAZYdXV FlQAFaPLQaKHYmIVWnPTvwEVWlGNSkWgZ5IKMgAJYqLW3vBcXrTSYlDNX3GYFrYXPnXJTptvKMOJJeNL UnBQHuEQZ3QQBbUDGnFRn9jgLgkACcPce6Lf0HkJfhRNM3Se2JmdTzTGYnKFBVAp2Ek969ABPiXQZYVb o+MaknsZGueLdwOKHQRgR6RDrCMPWKN7N= ID Date Data Source [id number] 01/06/2020 08:55:26 AM [facility] Name Value Range Interpretation Code Description Data Sumaya rce(s) Supporting Document(s) [facility] KLTNTi9zEhLXHhUji7FiJsHhKVSkHK0tbje9P4C1uWRtG7YpyMQzo4weX6OaB6AoWTJcPQGSBN0DmQFx jb2 [file] E2ETFwdfy5Ku/Luis Antonio/+OOiB2zx9/[id number]/7Dtx//r2/f//yc4aHkIIkE+8vvf/6bX3z/w3/69lc/ /+rqgyb4Q/BDUZzeX/78Zz/1Xebi8r/8Jvm8+flRXn/2y1/48m71juPjeg151s/y4O/977jf58/z17/8 r9/++te/+fG7H7//9lff/+znP/3uF9/++pc//+33P/ zm5z/+1z+b33/79u2HX/31jz//5ffffvj+xx9+/v1vv/rTv2tT25n+l/i1rpflak/ghf7jf/mQ2655U9 /4lz/87e/+/tuPv//nf/n2w+//+X/+/b/85Ntf/uG//49vf/nDv/Bii1U8X/76h+9++/0vv27/07/+xX c/fPvxu5/+5X/96Xc//Ozn3/0ad4gyyb/81S9/8+vv f/rz/+3nP/32mx+/pgxKl6067kv/8XWhb9/9xS9/5aJndaoOd6i87/+LsOv9//7Vt+9/+r//Rt14GODx 5tuvf/j+tz//1V//5a7rh59250baav7L8/7iF9//Q484NsI2Fm/9xz/+tz/80z/8/u++/Z//69tv//D3 f/+7f/qn3//u7//Tt5/97o9/+P3ff/ubf5/m3/yHb/ /4x69//nl5/rsayZ2hqP70SUOs/dW/+sXXHvL5s//wD3/+k5eaakhV6nwW/+S6pKqmPNFp+vzl/wtQ06 QDrv/8/Rn2INPAaPrGa/nTj6bxl+U5fdc6ts3NNVKo30ztvrap95iIhWr76k0++P1/+/8SBt658UNq82 7585/+6hfff/vNd7/4q+9/+bTm0zYea3Z/8o1rRJ3a yt2Jipe3lf6Fh5rSVt117SqRWT7Mn6x+29//8V/+87d/+t2//P7j8l/g0Wvn38t/+gd+I/31Yv/xT6+9 oV//8O0Pf/yX3//T//5fno6J40N6kmHMLtbZsF869qz2Mo/85tvf/c+vJ//DP/4iBo6l2ut/ubwvcbD/ 8uOf/5cf/9uwpP6JoJ74p3jyf6yD8Lk8Qj0v/FmZf/ A9G6iK9QtJgBwsWlnSoj0bS/zZj99+9//8/p//db+7e5VJzUbE/d/8+6+b/q9/+pv/8Ce/3t/ta0854j 2kg80wJ/3d//zb3/9zL307ei/5/67p3v/wJ+Cpox/+8R//4SdvlG/9k5/sF/rFP/3lH1SSwqhfH61h2B 7gx9//7f/44x/+9usZfvLVl+qs609+q0we/a2IKe2L H//uJz/+M7AGH0dCyBr49Y28arbdd/VOkaXc9Ka//5N3rpO/jbCrv/7df//9t/TtH//bt/QxNKUCi/Ht 2/dfRuHLO/z+Zz9+6XbB5N18rQa9+9UPP/v+h6+Id3w9IgM40ma//dVf//Lrt+/54a+nHrXvq/9/dFo/ kpvfwqOgiNVhCZ8EFK7rx5UbMfB8BDPbq3TeEJrgZA k5fGTiABqydnQgq1EylncxS7Htp5QsKoFdJCJvIsSeNwi9JNSeAjS6fHUlShFhXYRyK1DbGHCrFsC7Me GpBBIVAU8PKKKbenPpBhLzCNP+UlQsYR6rgmehSRFql6PuQAusUVfoKBWrY2R2iJmjKNWmV8RotY44QH JeT5TyknE3DXS8OTMxUgKnYHVguXNrYIAjYDX+PmVu KS7yksfzPAOel4DtCIexRFF2gG3eJJcAQVVUNBwNQHnoTyK2k29tkkKNXXJvIIUhTU2WmnNtcFwkmcHc cEDkSKA3HxIyTLYwEmZuXQP3SAVDGFImFANhKKMcGCJtF7SnjSzqPEzPDJYWVUyKITpwZgWrl3Z5TBEc jtVZTZwGUQAJOAQESFYZSBCQKCK9OFA4LJFoWC9AvE KtOAD2SCqHATOEDAbXMXatZfBst6U6OAPdC2CeREGpjuQvOHJSFKxmSoonOL4fvHpkgancB0AapWEjLG KHYXTaHBRyLTBaGTWqF3Lgb7T6U8KrOTyNLNKVTYzOOQdhTcA7h44hveBDUSUqMURxNH3+SD1od0NjFb 6KVVQxYK5bjcm9WW4JtVDbKM1VGTbkfaKtM2ebjlOn HvTbFYLAYT7dD2BfnT06DQD+GuIzDB4slqm3kjGcLkLgCZJeXCBgMXJtWLtcQYOlJGFpHIYcCZA5ZZQ8 ZLZjZkQvYFCiShFsLRFzIGAlGJWaynUVYZPhNVI6JLc9DqGmCEWhHIHvFWnuQXLvQJc5DIC0DVCaEBOy NG6dRtUfJFVkNEVtGJYfCrX1QyLqTlSBVKLlRJTzUF YbGtYwMEVzKNZmCVpoZGMtWLJbGQs1UAQlUYGpBY4cQvIsUSUtJRTgVMWaLNLtIURlyjOMRWRgJSTxAL N0VISrUSBtJYItDCazPPHsEIUqILJ2QNDvTNIcHB3jAhJnLENjJTI0UtJjUBYxDEPdmgEWOGSxXKCzUR N6LMNfHVPgCCPmMMmzWYAoQXVqYdZ7EWKbUTTnGL7l LnCbLQXoKFX3QCJiAHAtFGUeomWXOCNtBFWjQLh5IzMaSFRvQOMrQFzyRIMjQJMfRQwkWYSaFGEpMG7q LpUzJWVpCLHtREDqDMVePJBztaKNQBUpNECkKDE1AdVzKZYkXWBbODltYPSgIWAdJTP8SFYtFZUvPE7z OvHcUDEqGtF0ZudkEXVqKOZqneRTPJPzZMFuKYLpWU UbDRMuVMKcOZpwBZAhMDFmBfH1XVEhGLUhTN0hYvLaJOVwCQE6CDHxPFZyNUCzmrBWEJAkKELpWQJzAI G3WALmMEUyRYm8unJlpUZzTjo7Ds8RlDbzJPB5Ni4XbiCeRUNmTZIDNn7Or702VKAoIILBLdr+PgpzdG YisUggTCSLKpLjCsJKLNARX9W= ID Date Data Source [id number] 01/06/2020 04:14:01 AM [facility] Name Value Range Interpretation Code Description Data Sumaya rce(s) Supporting Document(s) Leukocytes [#/volume] in Blood by Automated count 17.2 10*3/uL 4-10 H [facility] Erythrocytes [#/volume] in Blood by Automated count 3.60 10*6/uL 4.6- 6.1 L [facility] Hemoglobin [Mass/volume] in Blood 10.3 g/dL 13.5-18 L [facility] Hematocrit [Volume Fraction] of Blood by Automated count 30.1 % 4 1-53 L [facility] Erythrocyte mean corpuscular volume [Entitic volume] by Auto mated count 83.5 fL 80-96 [facility] Erythrocyte mean corpuscular hemoglobin [Entitic mass] by Automated count 28.6 pg 27-33 [facility] Erythrocyte mean corpuscular hemoglobin concentration [Mass/volume] by [facility] 34.2 g[facility] [Ratio] by Automated count 14.1 % 11.5-14.5 [facility] Platelets [#/volume] in Blood by Automated count 215 10*3/uL 150-400 [facility] Differential cell count method - Blood [facility] Neutrophils/100 leukocytes in Blood by Automated count 93 % [facility] Lymphocytes/100 leukocytes in Blood by Automated count 4 % [facility] Monocytes/100 leukocytes in Blood by Automated count 3 % [facility] Eosinophils/100 leukocytes in Blood by Automated count 0 % [facility] Basophils/100 leukocytes in Blood by Automated count 0 % [facility] Neutrophils [#/volume] in Blood by Automated count 16.00 10*3/uL 1.8- 7.0 H [facility] Lymphocytes [#/volume] in Blood by Automated count 0.74 10*3/uL 1.2-4 .0 L [facility] Monocytes [#/volume] in Blood by Automated count 0.50 10*3/uL 0-0.8 [facility] Eosinophils [#/volume] in Blood by Automated count 0.00 10*3/uL 0-0.5 [facility] Basophils [#/volume] in Blood by Automated count 0.01 10*3/uL 0-0.2 [facility] Nucleated erythrocytes/100 leukocytes [Ratio] in Blood by Automated count 0 /100{WBCs} 0-0 [facility] ID Date Data Source [id number] 01/06/2020 04:30:22 AM [facility] Name Value Range Interpretation Code Description Data Sumaya rce(s) Supporting Document(s) Phosphate [Mass/volume] in Serum or Plasma 2.1 mg/dL 2.5-4.5 [facility] ID Date Data Source [id number] 01/06/2020 04:30:22 AM [facility] Name Value Range Interpretation Code Description Data Sumaya rce(s) Supporting Document(s) Magnesium [Mass/volume] in Serum or Plasma 1.8 mg/dL 1.6-2.6 [facility] ID Date Data Source [id number] 01/06/2020 04:30:22 AM [facility] Name Value Range Interpretation Code Description Data [employer] rce(s) Supporting Document(s) Bicarbonate [Moles/volume] in Serum 25 mmol/L 22-29 [facility] Chloride [Moles/volume] in Serum or Plasma 101 mmol/L 98-107 [facility] Creatinine [Mass/volume] in Serum or Plasma 0.72 mg/dL 0.70-1.20 [facility] Glucose [Mass/volume] in Serum or Plasma 102 mg/dL 70-140 [facility] Potassium [Moles/volume] in Serum or Plasma 3.7 mmol/L 3.4-5.1 [facility] Sodium [Moles/volume] in Serum or Plasma 135 mmol/L 136-145 L [facility] Urea nitrogen [Mass/volume] in Serum or Plasma 11 mg/dL 6-20 [facility] Anion gap 3 in Serum or Plasma 9 mmol/L 8-15 [facility] Osmolality of Serum or Plasma by calculation 280 mosm/kg 275-300 [facility] Creatinine/Urea nitrogen [Mass Ratio] in Serum or Plasma 15 [facility] Calcium [Mass/volume] in Serum or Plasma 8.1 mg/dL 8.6-10.0 L [facility] Glomerular filtration rate/1.73 sq M pre dicted among non-blacks [Volume Rate/Area] in Serum or Plasma by Creatinine-based formula (MDRD) >6 0 [facility] Glomerular filtration rate/1.73 sq M pre dicted among blacks [Volume Rate/Area] in Serum or Plasma by Creatinine-based formula (MDRD) >60 [facility] ID Date Data Source [id number] 01/05/2020 08:25:16 PM [facility] Name Value Range Interpretation Code Description Data [employer] rce(s) Supporting Document(s) Leukocytes [#/volume] in Blood by Automated count 17.5 10*3/uL 4-10 H [facility] Erythrocytes [#/volume] in Blood by Automated count 3.85 10*6/uL 4.6- 6.1 L [facility] Hemoglobin [Mass/volume] in Blood 10.9 g/dL 13.5-18 L [facility] Hematocrit [Volume Fraction] of Blood by Automated count 32.5 % 4 1-53 L [facility] Erythrocyte mean corpuscular volume [Entitic volume] by Auto mated count 84.6 fL 80-96 [facility] Erythrocyte mean corpuscular hemoglobin [Entitic mass] by Automated count 28.5 pg 27-33 [facility] Erythrocyte mean corpuscular hemoglobin concentration [Mass/volume] by [facility] 33.6 g/[facility].0[facility] width [Ratio] by Automated count 14.4 % 11.5-14.5 [facility] Platelets [#/volume] in Blood by Automated count 209 10*3/uL 150-400 [facility] Differential cell count method - Blood [facility] Neutrophils/100 leukocytes in Blood by Automated count 93 % [facility] Lymphocytes/100 leukocytes in Blood by Automated count 3 % [facility] Monocytes/100 leukocytes in Blood by Automated count 4 % [facility] Eosinophils/100 leukocytes in Blood by Automated count 0 % [facility] Basophils/100 leukocytes in Blood by Automated count 0 % [facility] Neutrophils [#/volume] in Blood by Automated count 16.26 10*3/uL 1.8- 7.0 H [facility] Lymphocytes [#/volume] in Blood by Automated count 0.60 10*3/uL 1.2-4 .0 L [facility] Monocytes [#/volume] in Blood by Automated count 0.64 10*3/uL 0-0.8 [facility] Eosinophils [#/volume] in Blood by Automated count 0.00 10*3/uL 0-0.5 [facility] Basophils [#/volume] in Blood by Automated count 0.04 10*3/uL 0-0.2 [facility] Nucleated erythrocytes/100 leukocytes [Ratio] in Blood by Automated count 0 /100{WBCs} 0-0 [facility] ID Date Data Source [id number] 01/05/2020 08:43:21 PM [facility] Name Value Range Interpretation Code Description Data [employer] rce(s) Supporting Document(s) Bicarbonate [Moles/volume] in Serum 23 mmol/L [facility] Chloride [Moles/volume] in Serum or Plasma 101 mmol/L 98-107 [facility] Creatinine [Mass/volume] in Serum or Plasma 0.75 mg/dL 0.70-1.20 [facility] Glucose [Mass/volume] in Serum or Plasma 116 mg/dL 70-140 [facility] Potassium [Moles/volume] in Serum or Plasma 4.0 mmol/L 3.4-5.1 [facility] Sodium [Moles/volume] in Serum or Plasma 132 mmol/L 136-145 L [facility] Urea nitrogen [Mass/volume] in Serum or Plasma 11 mg/dL 6-20 [facility] Anion gap 3 in Serum or Plasma 8 mmol/L 8-15 [facility] Osmolality of Serum or Plasma by calculation 275 mosm/kg 275-300 [facility] Creatinine/Urea nitrogen [Mass Ratio] in Serum or Plasma 15 [facility] Calcium [Mass/volume] in Serum or Plasma 8.3 mg/dL 8.6-10.0 L [facility] Glomerular filtration rate/1.73 sq M pre dicted among non-blacks [Volume Rate/Area] in Serum or Plasma by Creatinine-based formula (MDRD) >6 0 [facility] Glomerular filtration rate/1.73 sq M pre dicted among blacks [Volume Rate/Area] in Serum or Plasma by Creatinine-based formula (MDRD) >60 [facility] ID Date Data Source [id number] 01/05/2020 01:22:19 PM [facility] Name Value Range Interpretation Code Description Data [employer] rce(s) Supporting Document(s) Leukocytes [#/volume] in Blood by Automated count 17.1 10*3/uL 4-10 H [facility] Erythrocytes [#/volume] in Blood by Automated count 4.12 10*6/uL 4.6- 6.1 L [facility] Hemoglobin [Mass/volume] in Blood 12.0 g/dL 13.5-18 [facility] Hematocrit [Volume Fraction] of Blood by Automated count 35.1 % 4 1-53 [facility] Erythrocyte mean corpuscular volume [Entitic volume] by Auto mated count 85.1 fL 80-96 [facility] Erythrocyte mean corpuscular hemoglobin [Entitic mass] by Automated count 29.0 pg 27-33 [facility] Erythrocyte mean corpuscular hemoglobin concentration [Mass/volume] by Automated count 34.1 g/dL 32.0-36.[facility] width [Ratio] by Automated count 14.1 % 11.5-14.5 [facility] Platelets [#/volume] in Blood by Automated count 211 10*3/uL 150-400 [facility] ID Date Data Source [id number] 01/05/2020 01:39:09 PM [facility] Name Value Range Interpretation Code Description Data [employer] rce(s) Supporting Document(s) Bicarbonate [Moles/volume] in Serum 25 mmol/L 29 [facility] Chloride [Moles/volume] in Serum or Plasma 100 mmol/L 98-107 [facility] Creatinine [Mass/volume] in Serum or Plasma 1.08 mg/dL 0.70-1.20 [facility] Glucose [Mass/volume] in Serum or Plasma 129 mg/dL 70-140 [facility] Potassium [Moles/volume] in Serum or Plasma 4.3 mmol/L 3.4-5.1 [facility] Sodium [Moles/volume] in Serum or Plasma 133 mmol/L 136-145 L [facility] Urea nitrogen [Mass/volume] in Serum or Plasma 15 mg/dL 6-20 [facility] Anion gap 3 in Serum or Plasma 8 mmol/L 8-15 [facility] Osmolality of Serum or Plasma by calculation 278 mosm/kg 275-300 [facility] Creatinine/Urea nitrogen [Mass Ratio] in Serum or Plasma 14 [facility] Calcium [Mass/volume] in Serum or Plasma 8.3 mg/dL 8.6-10.0 L [facility] Glomerular filtration rate/1.73 sq M pre dicted among non-blacks [Volume Rate/Area] in Serum or Plasma by Creatinine-based formula (MDRD) >6 0 [facility] Glomerular filtration rate/1.73 sq M pre dicted among blacks [Volume Rate/Area] in Serum or Plasma by Creatinine-based formula (MDRD) >60 [facility] ID Date Data Source [id number] 01/05/2020 08:53:36 AM [facility] Name Value Range Interpretation Code Description Data [employer] rce(s) Supporting Document(s) Magnesium [Mass/volume] in Serum or Plasma 2.2 mg/dL 1.6-2.6 [facility] ID Date Data Source [id number] 01/05/2020 08:53:36 AM [facility] Name Value Range Interpretation Code Description Data [employer] rce(s) Supporting Document(s) Bicarbonate [Moles/volume] in Serum 26 mmol/L 22-29 [facility] Chloride [Moles/volume] in Serum or Plasma 102 mmol/L 98-107 [facility] Creatinine [Mass/volume] in Serum or Plasma 1.34 mg/dL 0.70-1.20 H [facility] Glucose [Mass/volume] in Serum or Plasma 132 mg/dL 70-140 [facility] Potassium [Moles/volume] in Serum or Plasma 4.5 mmol/L 3.4-5.1 [facility] Sodium [Moles/volume] in Serum or Plasma 134 mmol/L 136-145 L [facility] Urea nitrogen [Mass/volume] in Serum or Plasma 16 mg/dL 6-20 [facility] Anion gap 3 in Serum or Plasma 6 mmol/L 8-15 L [facility] Osmolality of Serum or Plasma by calculation 281 mosm/kg 275-300 [facility] Creatinine/Urea nitrogen [Mass Ratio] in Serum or Plasma 12 [facility] Calcium [Mass/volume] in Serum or Plasma 7.8 mg/dL 8.6-10.0 L [facility] Glomerular filtration rate/1.73 sq M pre dicted among non-blacks [Volume Rate/Area] in Serum or Plasma by Creatinine-based formula (MDRD) 70 mL/min/1.73m2 >60 [facility] Glomerular filtration rate/1.73 sq M pre dicted among blacks [Volume Rate/Area] in Serum or Plasma by Creatinine-based formula (MDRD) 81 mL/min/1.73m2 >60 [facility] [facility] ID Date Data Source [id number] 01/05/2020 08:53:36 AM [facility] Name Value Range Interpretation Code Description Data Sumaya rce(s) Supporting Document(s) Phosphate [Mass/volume] in Serum or Plasma 2.7 mg/dL 2.5-4.5 [facility] ID Date Data Source [id number] 01/05/2020 09:20:48 AM [facility] Name Value Range Interpretation Code Description Data Sumaya rce(s) Supporting Document(s) Leukocytes [#/volume] in Blood by Automated count 18.4 10*3/uL 4-10 H [facility] Erythrocytes [#/volume] in Blood by Automated count 3.86 10*6/uL 4.6- 6.1 L [facility] Hemoglobin [Mass/volume] in Blood 11.5 g/dL 13.5-18 L [facility] Hematocrit [Volume Fraction] of Blood by Automated count 32.6 % 4 1-53 L [facility] Erythrocyte mean corpuscular volume [Entitic volume] by Auto mated count 84.5 fL 80-96 [facility] Erythrocyte mean corpuscular hemoglobin [Entitic mass] by Automated count 29.7 pg 27-33 [facility] Erythrocyte mean corpuscular hemoglobin concentration [Mass/volume] by Automated count 35.1 g/dL 32.0-36.0 [facility] width [Ratio] by Automated count 14.0 % 11.5-14.5 [facility] Platelets [#/volume] in Blood by Automated count 228 10*3/uL 150-400 [facility] Differential cell count method - Blood [facility] Neutrophils/100 leukocytes in Blood by Automated count 91 % [facility] Lymphocytes/100 leukocytes in Blood by Automated count 4 % [facility] Monocytes/100 leukocytes in Blood by Automated count 5 % [facility] Eosinophils/100 leukocytes in Blood by Automated count 0 % [facility] Basophils/100 leukocytes in Blood by Automated count 0 % [facility] Neutrophils [#/volume] in Blood by Automated count 16.73 10*3/uL 1.8- 7.0 H [facility] Lymphocytes [#/volume] in Blood by Automated count 0.69 10*3/uL 1.2-4 .0 L [facility] Monocytes [#/volume] in Blood by Automated count 0.97 10*3/uL 0-0.8 H [facility] Eosinophils [#/volume] in Blood by Automated count 0.00 10*3/uL 0-0.5 [facility] Basophils [#/volume] in Blood by Automated count 0.00 10*3/uL 0-0.2 [facility] Nucleated erythrocytes/100 leukocytes [Ratio] in Blood by Automated count 0 /100{WBCs} 0-0 [facility] ID Date Data Source [id number] 01/05/2020 08:03:04 AM [facility] Name Value Range Interpretation Code Description Data Sumaya rce(s) Supporting Document(s) [facility] LTZFIs0gMxJYMiXz58/TCAitYEQst1FmQLmnTHh3EKezKEUrF2SeVNK1wS2bPDN3YHjBCrSaZlBpHFR4 [facility] [file] ICAgICAgICAgICAgICAgICAgICAgICAgICAgICAgIC AgICAgICAgICAgICAgICAgICAgICAgICAgICAgICAgICAgICAgICAgICAgICAgICAgICAgICANCiAgIC AgICAgICAgICAgICAgICAgICAgICAgICAgICAgICAgICAgICAgICAgICAgICAgICAgICAgICAgICAgIC AgICAgICAgICAgICAgICAgICAgICAgICAgICAgICAg ICAgICANCiAgICAgICAgICAgICAgICAgICAgICAgICAgICAgICAgICAgICAgICAgICAgICAgICAgICAg ICAgICAgICAgICAgICAgICAgICAgICAgICAgICAgICAgICAgICAgICAgICAgICANCiAgICAgICAgICAg ICAgICAgICAgICAgICAgICAgICAgICAgICAgICAgIC AgICAgICAgICAgICAgICAgICAgICAgICAgICAgICAgICAgICAgICAgICAgICAgICAgICAgICAgICANCi AgICAgICAgICAgICAgICAgICAgICAgICAgICAgICAgICAgICAgICAgICAgICAgICAgICAgICAgICAgIC AgICAgICAgICAgICAgICAgICAgICAgICAgICAgICAg ICAgICAgICANCiAgICAgICAgICAgICAgICAgICAgICAgICAgICAgICAgICAgICAgICAgICAgICAgICAg ICAgICAgICAgICAgICAgICAgICAgICAgICAgICAgICAgICAgICAgICAgICAgICAgICANCiAgICAgICAg ICAgICAgICAgICAgICAgICAgICAgICAgICAgICAgIC AgICAgICAgICAgICAgICAgICAgICAgICAgICAgICAgICAgICAgICAgICAgICAgICAgICAgICAgICAgIC ANCiAgICAgICAgICAgICAgICAgICAgICAgICAgICAgICAgICAgICAgICAgICAgICAgICAgICAgICAgIC AgICAgICAgICAgICAgICAgICAgICAgICAgICAgICAg ICAgICAgICAgICANCiAgICAgICAgICAgICAgICAgICAgICAgICAgICAgICAgICAgICAgICAgICAgICAg ICAgICAgICAgICAgICAgICAgICAgICAgICAgICAgICAgICAgICAgICAgICAgICAgICAgICANCiAgICAg ICAgICAgICAgICAgICAgICAgICAgICAgICAgICAgIC AgICAgICAgICAgICAgICAgICAgICAgICAgICAgICAgICAgICAgICAgICAgICAgICAgICAgICAgICAgIC AgICANCjw/cBWzA7pckUCgthP2B8auTj5EWp3DLL1py1CaRVNjAXskxkBbLckQZvIeKWJtEwvSYhy9LL ogHF0KaRCtC3XgG5EcCRreVB2CWJMcLAOfpRLqULVr VVEcNpK6FTVlCFjjXY5OnFXlNHypDQHuUHXjStDtSUUaDUUaVCUdTLRxUYRVJHUrCPMnMkXoPOhhBC0Q m5SwaZO4RBe+Ot8ACN6no0QfCPcoXKVrMO0teo3PZNrMRaJwH5TmmfF4AFInLPGmPu4ZCKJvVYQaaQZr QSZmVRDQEnInK1YghX80EQLFLg9+DQplbmRvYmoNCj GsIMVyq9RwGIn4HS5OUWQvZWo7rELkH88lt8CzlMStMiiqYFKdnMLrBEDgO3vhpXOyWQDJWtDmvJNrCB 8nSS8nUBPfBRImXsO0QUSWUZ3SNSBtVQVsgOArDPUpKKWAAW3VMKujAAA6ONOmsuIyaBZpTKneXM9WEJ JlbnQgMzAgMCBSDQo+Ub5QHF3it8NePDgqYeHoPW1t vd8RJShVLpBqZ6T9zQFfL0N7RLfuEi8OQZShWWGyPumnLDLEKKhjPN0LNZ4honK0FG2ZjHAxCLUvACYp yYHcCTi0Y77lyATqSUgjSN6PWOM+Ernie+Gv6SCILkTUVtUEXtJmLmKOHPCpAgP6TnL7AWq8AeF3OyHU55 iMuikfKyPCxxVP2IHF7rCIMaVEJKCJ9FqVXbfX7juv UfOMBjMHJZPaEvP62ncQWmKWStBCV7YXQfZi9LHWPkF5ZsguUhdSfkiuTqNPPoJBIKXP7XEXpyfdUaeJ RuxZenPJ99cRxlKP8MSt7NXySzIO8bzz3SvPBnXh3YCSDmPq5NOVSmQSZiRGQpATA8VPTiAtDrAQkbQI MpSEZpMHV9SWSaDJYiHD0YMaXhXPVlQoLlPpkoCAIt SFPgta0ZITOnCMKzCwJ0FVBeHDHcFZFhKOruKOJdUKOjGTU5VFSjSEAhEO5BIbVrUCAfYIX2WPNiMYQs OWTuhc6BTUBfZAThJkllXNSjHAPmAHCsMBowZGOxNDE0Ths7KNLfWBLaKH9QJmLqDBInFTy1SEJzTDMd YZIbzc9NVZLdKFCxRZm2BFVsWKStKAZpTQigLYCtHG X2AONlEBKxPIDnMZ1ZGtEkWLZzFKLnPLJgNIUuHTRyyn9VEGHfSIScKtDlZaPkBLDxFBLtQQucAHTeIA JaDeb3YVKnPDExIZ3CGjFvBKNeYZM2OESoSLJhCVOekz7QDJDiBOHcCIn2ZBCoDSOqNPMiTGkbAOUaKS I6AVU5VVWvTPKoIA3EYiMnNXMiCIVoEpTmLTQuZZXk hp0NFVEdSQDuHwM0AUZoTPZrUPWdWJdqIDAwIBM4ORysFEBjCBMrTY1WRdAnKSHsHJJ1BGZuSWYiXRBn vn5EDXZpCZPlTqP2LVWkFIBjSMMbQNadSONqFGH4YOA5SOCnPXZoLO2EVtVbIWIvEVlkJtYgPNXhFICy vr3EDUSdNDTzWVZdTMSlTWEnWFIwPYymXNPjNXD7Aw AnVYBmWQBjBR3LVzSbRRQgIsj1UrGoFCCtPRRufz5TTYGwSACcNHT2MIHuIOLaPUAyAZhfQPZvSXUlVg T6YZYkAHDsHS6XQjNhGTVrNqW2JyWyWDQuFPTgos0VDRRlTZDjMtF8IZDyVSCqHIGlCKyhJWVmWNZsNv H9ZQKiROLhNL1WVcIdVIAwDbN5FQUmQNGtUIDdpg7Q vPRjeBvlyj8MXRdOUw6LsHtiYHFvUYxmMb4oiMQrReSsWWIUPt1RhoXcJNMlBGZTWBtsCSNwGOZdUTLj JhIvADVsBVK4QCkxECY8EDT8IjW4PBS7ALHgXcS5UADdHGWxYEJ2HmAyCfpzREZ6TqmxMPprEjdyBCk1 ZWU+GF1nPFb+Kt4Pd3RnroU8enAkNNoaRqI3UN8LIOIZC7KDMk== ID Date Data Source [id number] 01/05/2020 02:36:25 AM [facility] Name Value Range Interpretation Code Description Data Sumaya e(s) Supporting Document(s) Leukocytes [#/volume] in Blood by Automated count 19.5 10*3/uL 4-10 H [facility] Erythrocytes [#/volume] in Blood by Automated count 4.18 10*6/uL 4.6- 6.1 L [facility] Hemoglobin [Mass/volume] in Blood 12.2 g/dL 13.5-18 L [facility] Hematocrit [Volume Fraction] of Blood by Automated count 35.2 % 4 1-53 L [facility] Erythrocyte mean corpuscular volume [Entitic volume] by Auto mated count 84.3 fL 80-96 [facility] Erythrocyte mean corpuscular hemoglobin [Entitic mass] by Automated count 29.3 pg 27-33 [facility] Erythrocyte mean corpuscular hemoglobin concentration [Mass/volume] by Automated count 34.8 g/dL 32.0-36.0 [facility]th[facility] distribution width [Ratio] by Automated count 14.0 % 11.5-14.5 [facility] Platelets [#/volume] in Blood by Automated count 246 10*3/uL 150-400 [facility] Differential cell count method - Blood [facility] Neutrophils/100 leukocytes in Blood by Automated count 91 % [facility] Lymphocytes/100 leukocytes in Blood by Automated count 3 % [facility] Monocytes/100 leukocytes in Blood by Automated count 6 % [facility] Eosinophils/100 leukocytes in Blood by Automated count 0 % [facility] Basophils/100 leukocytes in Blood by Automated count 0 % [facility] Neutrophils [#/volume] in Blood by Automated count 17.68 10*3/uL 1.8- 7.0 H [facility] Lymphocytes [#/volume] in Blood by Automated count 0.66 10*3/uL 1.2-4 .0 L [facility] Monocytes [#/volume] in Blood by Automated count 1.21 10*3/uL 0-0.8 H [facility] Eosinophils [#/volume] in Blood by Automated count 0.00 10*3/uL 0-0.5 [facility] Basophils [#/volume] in Blood by Automated count 0.00 10*3/uL 0-0.2 [facility] Nucleated erythrocytes/100 leukocytes [Ratio] in Blood by Automated count 0 /100{WBCs} 0-0 [facility] ID Date Data Source [id number] 01/05/2020 06:39:47 AM [facility] Name Value Range Interpretation Code Description Data Sumaya rce(s) Supporting Document(s) Bicarbonate [Moles/volume] in Serum 22-29 [facility] SEE [id number] FOR RESULTS Chloride [Moles/volume] in Serum or Plasma 98-107 [facility] Creatinine [Mass/volume] in Serum or Plasma 0.70-1.20 [facility] Glucose [Mass/volume] in Serum or Plasma 70-140 [facility] Potassium [Moles/volume] in Serum or Plasma 3.3-5.1 [facility] Sodium [Moles/volume] in Serum or Plasma 133-145 [facility] Urea nitrogen [Mass/volume] in Serum or Plasma 6-20 [facility] Anion gap 3 in Serum or Plasma 8-15 [facility] Osmolality of Serum or Plasma by calculation 275-300 [facility] Creatinine/Urea nitrogen [Mass Ratio] in Serum or Plasma [facility] Calcium [Mass/volume] in Serum or Plasma 8.6-10.0 [facility] Glomerular filtration rate/1.73 sq M pre dicted among non-blacks [Volume Rate/Area] in Serum or Plasma by Creatinine-based formula (MDRD) >6 0 [facility] Glomerular filtration rate/1.73 sq M pre dicted among blacks [Volume Rate/Area] in Serum or Plasma by Creatinine-based formula (MDRD) >60 [facility] ID Date Data Source [id number] 01/05/2020 02:59:56 AM [facility] Name Value Range Interpretation Code Description Data Sumaya rce(s) Supporting Document(s) Bicarbonate [Moles/volume] in Serum 27 mmol/L 22-29 [facility] Chloride [Moles/volume] in Serum or Plasma 101 mmol/L 98-107 [facility] Creatinine [Mass/volume] in Serum or Plasma 1.23 mg/dL 0.70-1.20 H [facility] Glucose [Mass/volume] in Serum or Plasma 154 mg/dL 70-140 H [facility] Potassium [Moles/volume] in Serum or Plasma 4.9 mmol/L 3.4-5.1 [facility] Sodium [Moles/volume] in Serum or Plasma 133 mmol/L 136-145 L [facility] Urea nitrogen [Mass/volume] in Serum or Plasma 16 mg/dL 6-20 [facility] Anion gap 3 in Serum or Plasma 5 mmol/L 8-15 L [facility] Osmolality of Serum or Plasma by calculation 280 mosm/kg 275-300 [facility] Creatinine/Urea nitrogen [Mass Ratio] in Serum or Plasma 13 [facility] Calcium [Mass/volume] in Serum or Plasma 7.6 mg/dL 8.6-10.0 L [facility] Glomerular filtration rate/1.73 sq M pre dicted among non-blacks [Volume Rate/Area] in Serum or Plasma by Creatinine-based formula (MDRD) 78 mL/min/1.73m2 >60 [facility] Glomerular filtration rate/1.73 sq M pre dicted among blacks [Volume Rate/Area] in Serum or Plasma by Creatinine-based formula (MDRD) 90 mL/min/1.73m2 >60 [facility] ID Date Data Source [id number] 01/04/2020 08:43:31 PM [facility] Name Value Range Interpretation Code Description Data Sumaya rce(s) Supporting Document(s) Leukocytes [#/volume] in Blood by Automated count 19.1 10*3/uL 4-10 H [facility] Erythrocytes [#/volume] in Blood by Automated count 4.32 10*6/uL 4.6- 6.1 L [facility] Hemoglobin [Mass/volume] in Blood 12.9 g/dL 13.5-18 L [facility] Hematocrit [Volume Fraction] of Blood by Automated count 37.3 % 4 1-53 L [facility] Erythrocyte mean corpuscular volume [Entitic volume] by Auto mated count 86.2 fL 80-96 [facility] Erythrocyte mean corpuscular hemoglobin [Entitic mass] by Automated count 29.9 pg 27-33 [facility] Erythrocyte mean corpuscular hemoglobin concentration [Mass/volume] by Automated count 34.6 g/dL 32.0-36.0 [facility] width [Ratio] by Automated count 14.2 % 11.5-14.5 [facility] Platelets [#/volume] in Blood by Automated count 249 10*3/uL 150-400 [facility] Differential cell count method - Blood [facility] Neutrophils/100 leukocytes in Blood by Automated count 91 % [facility] Lymphocytes/100 leukocytes in Blood by Automated count 4 % [facility] Monocytes/100 leukocytes in Blood by Automated count 5 % [facility] Eosinophils/100 leukocytes in Blood by Automated count 0 % [facility] Basophils/100 leukocytes in Blood by Automated count 0 % [facility] Neutrophils [#/volume] in Blood by Automated count 17.38 10*3/uL 1.8- 7.0 H [facility] Lymphocytes [#/volume] in Blood by Automated count 0.67 10*3/uL 1.2-4 .0 L [facility] Monocytes [#/volume] in Blood by Automated count 1.04 10*3/uL 0-0.8 H [facility] Eosinophils [#/volume] in Blood by Automated count 0.00 10*3/uL 0-0.5 [facility] Basophils [#/volume] in Blood by Automated count 0.01 10*3/uL 0-0.2 [facility] Nucleated erythrocytes/100 leukocytes [Ratio] in Blood by Automated count 0 /100{WBCs} 0-0 [facility] ID Date Data Source [id number] 01/04/2020 09:00:43 PM [facility] Name Value Range Interpretation Code Description Data Sumaya rce(s) Supporting Document(s) Bicarbonate [Moles/volume] in Serum 23 mmol/L 22-29 [facility] Chloride [Moles/volume] in Serum or Plasma 102 mmol/L 98-107 [facility] Creatinine [Mass/volume] in Serum or Plasma 1.31 mg/dL 0.70-1.20 H [facility] Glucose [Mass/volume] in Serum or Plasma 181 mg/dL 70-140 [facility] Potassium [Moles/volume] in Serum or Plasma 4.8 mmol/L 3.4-5.1 [facility] Sodium [Moles/volume] in Serum or Plasma 135 mmol/L 136-145 [facility] Urea nitrogen [Mass/volume] in Serum or Plasma 16 mg/dL 6-20 [facility] Anion gap 3 in Serum or Plasma 10 mmol/L 8-15 [facility] Osmolality of Serum or Plasma by calculation 286 mosm/kg 275-300 [facility] Creatinine/Urea nitrogen [Mass Ratio] in Serum or Plasma 12 [facility] Calcium [Mass/volume] in Serum or Plasma 7.7 mg/dL 8.6-10.0 L [facility] Glomerular filtration rate/1.73 sq M pre dicted among non-blacks [Volume Rate/Area] in Serum or Plasma by Creatinine-based formula (MDRD) 72 mL/min/1.73m2 >60 [facility] Glomerular filtration rate/1.73 sq M pre dicted among blacks [Volume Rate/Area] in Serum or Plasma by Creatinine-based formula (MDRD) 83 mL/min/1.73m2 >60 [facility] ID Date Data Source [id number] 01/04/2020 02:35:12 PM [facility] Value Range Interpretation Code Description Data Sumaya rce(s) Supporting Document(s) Magnesium [Mass/volume] in Serum or Plasma 1.4 mg/dL 1.6-2.6 [facility] QA FLAGS AND/OR RANGES MODIFIED BY [employer] UPDATE ON 01/03 ID Date Data Source [id number] 01/04/2020 03:04:23 PM [facility] Value Range Interpretation Code Description Data Sumaya rce(s) Supporting Document(s) Bicarbonate [Moles/volume] in Serum 21 mmol/L 22-29 L [facility] Chloride [Moles/volume] in Serum or Plasma 103 mmol/L 98-107 [facility] Creatinine [Mass/volume] in Serum or Plasma 1.19 mg/dL 0.70-1.20 [facility] Glucose [Mass/volume] in Serum or Plasma 206 mg/dL 70-140 H [facility] Potassium [Moles/volume] in Serum or Plasma 4.4 mmol/L 3.4-5.1 [facility] Sodium [Moles/volume] in Serum or Plasma 135 mmol/L 136-145 L [facility] Urea nitrogen [Mass/volume] in Serum or Plasma 14 mg/dL 6-20 [facility] QA FLAGS AND/OR RANGES MODIFIED BY [employer] UPDATE ON 01/03 Anion gap 3 in Serum or Plasma 11 mmol/L 8-15 [facility] Osmolality of Serum or Plasma by calculation 286 mosm/kg 275-300 [facility] Creatinine/Urea nitrogen [Mass Ratio] in Serum or Plasma 12 [facility] Calcium [Mass/volume] in Serum or Plasma 7.6 mg/dL 8.6-10.0 L [facility] QA FLAGS AND/OR RANGES MODIFIED BY [employer] UPDATE ON 01/03 Glomerular filtration rate/1.73 sq M pre dicted among non-blacks [Volume Rate/Area] in Serum or Plasma by Creatinine-based formula (MDRD) >6 0 [facility] Glomerular filtration rate/1.73 sq M pre dicted among blacks [Volume Rate/Area] in Serum or Plasma by Creatinine-based formula (MDRD) >60 [facility] ID Date Data Source [id number] 01/04/2020 06:26:37 AM [facility] Value Range Interpretation Code Description Data Sumaya rce(s) Supporting Document(s) ABO and Rh group [Type] in Blood [facility] Blood bank comment [facility] ID Date Data Source [id number] 01/06/2020 07:01:18 AM [facility] Name Value Range Interpretation Code Description Data Sumaya rce(s) Supporting Document(s) ABO and Rh group [Type] in Blood [facility] Blood group antibody screen [Presence] in Serum or Plasma [facility] Blood bank comment [facility] ID Date Data Source [id number] 01/04/2020 06:04:59 AM [facility] Name Value Range Interpretation Code Description Data Sumaya rce(s) Supporting Document(s) Albumin [Mass/volume] in Serum or Plasma by Bromocresol green (BCG) dye binding method 3.9 g/dL 3.5-5.2 [facility] Bil[facility].total [Mass/volume] in Serum or Plasma <1.2 [facility] Calcium [Mass/volume] in Serum or Plasma 8.2 mg/dL 8.6-10.0 L [facility] QA FLAGS AND/OR RANGES MODIFIED BY [employer] UPDATE ON 01/03 Chloride [Moles/volume] in Serum or Plasma 103 mmol/L 98-107 [facility] Creatinine [Mass/volume] in Serum or Plasma 0.97 mg/dL 0.70-1.20 [facility] Glucose [Mass/volume] in Serum or Plasma 170 mg/dL 70-140 H [facility] Alkaline phosphatase [Enzymatic activity/volume] in Serum or Plasma 58 U/L 40-129 [facility] Potassium [Moles/volume] in Serum or Plasma 3.9 mmol/L 3.4-5.1 [facility] Hemolyzed Protein [Mass/volume] in Serum or Plasma 6.5 g/dL 6.4-8.3 [facility] Sodium [Moles/volume] in Serum or Plasma 139 mmol/L 136-145 [facility] Aspartate aminotransferase [Enzymatic activity/volume] in Serum or Plasma 73 U/L <40 H [facility] Hemolyzed Urea nitrogen [Mass/volume] in Serum or Plasma 17 mg/dL 6-20 [facility] QA FLAGS AND/OR RANGES MODIFIED BY [employer]APH[employer] UPDATE ON 01/03 Osmolality of Serum or Plasma by calculation 294 mosm/kg 275-300 [facility] Creatinine/Urea nitrogen [Mass Ratio] in Serum or Plasma 17 [facility] Bicarbonate [Moles/volume] in Serum 25 mmol/L 22-29 [facility] Alanine aminotransferase [Enzymatic activity/volume] in Seru m or Plasma 65 U/L <41 H [facility] Anion gap 3 in Serum or Plasma 11 mmol/L 8-15 [facility] Glomerular filtration rate/1.73 sq M pre dicted among non-blacks [Volume Rate/Area] in Serum or Plasma by Creatinine-based formula (MDRD) >6 0 [facility] Glomerular filtration rate/1.73 sq M pre dicted among blacks [Volume Rate/Area] in Serum or Plasma by Creatinine-based formula (MDRD) >60 [facility] ID Date Data Source [id number] 01/04/2020 05:30:09 AM [facility] Name Value Range Interpretation Code Description Data Sumaya rce(s) Supporting Document(s) Sodium [Moles/volume] in Blood 140 mmol/L 136-145 [facility] Potassium [Moles/volume] in Blood 3.6 mmol/L 3.4-5.1 [facility] Chloride [Moles/volume] in Blood 101 mmol/L 98-107 [facility] Carbon dioxide, total [Moles/volume] in Blood 29 mmol/L 22-29 [facility] Calcium.ionized [Moles/volume] in Blood 1.15 mmol/L 1.13-1.32 [facility] Glucose [Mass/volume] in Blood 172 mg/dL 70-140 H [facility] Urea nitrogen [Mass/volume] in Blood 18 mg/dL 6-20 [facility] QA FLAGS AND/OR RANGES MODIFIED BY [employer] UPDATE ON 01/03 AT 2016 Creatinine [Mass/volume] in Blood 0.8 mg/dL 0.70-1.20 [facility] Hematocrit [Volume Fraction] of Blood 38 % 41-53 L [facility] Hemoglobin [Mass/volume] in Blood by calculation 12.9 g/dL 13.5-18.0 L [facility] ID Date Data Source [id number] 01/11/2020 08:23:00 PM [facility] Surgical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
[2020-12-30 20:42] LABS: FREE T4 1.38 NG/DL (0.76-1.46)
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
[2020-12-31 00:55] VITALS: BP 132/85
[2020-12-31 01:00] VITALS: BP 132/85
[2020-12-31] MEDS: NS 1,000 ML IV SCH ×4 (01:13→10:19)
[2020-12-31 04:00] VITALS: BP 128/85
[2020-12-31 06:11] LABS: BASO % 0.2 % (0.0-1.0); EOS # 0.1 10^3/uL (0.0-0.5); EOS % 2.3 % (0.0-3.0); HEMATOCRIT 39.4 % (42.0-52.0); HEMOGLOBIN 12.9 g/dl (13.5-17.5); LYMPH # 1.3 10^3/uL (1.5-5.0); LYMPH % 21.4 % (24.0-44.0); MEAN CORPUSCULAR HEMOGLOBIN 29.4 pg (27.0-33.0); MEAN CORPUSCULAR HGB CONC 32.7 g/dl (32.0-36.5); MEAN CORPUSCULAR VOLUME 89.7 fl (80.0-96.0); MONO # 0.5 10^3/uL (0.0-0.8); MONO % 7.3 % (2.0-8.0); NEUTROPHILS # 4.2 10^3/uL (1.5-8.5); NEUTROPHILS % 68.5 % (36.0-66.0); PLATELET COUNT, AUTOMATED 179 10^3/uL (150-450); RED BLOOD COUNT 4.39 10^6/uL (4.30-6.10); WHITE BLOOD COUNT 6.2 10^3/uL (4.0-10.0)
[2020-12-31 06:18] LABS: INR 1.17; PROTHROMBIN TIME 15.3 SECONDS (12.7-14.5)
[2020-12-31 06:19] LABS: PARTIAL THROMBOPLASTIN TIME 31.1 SECONDS (25.9-37.0)
[2020-12-31 06:39] LABS: ALT/SGPT 42 U/L (12-78); BILIRUBIN,TOTAL 0.5 MG/DL (0.2-1.0); BLOOD UREA NITROGEN 11 MG/DL (7-18); CARBON DIOXIDE LEVEL 26 MEQ/L (21-32); CHLORIDE LEVEL 113 MEQ/L (98-107); CREATININE FOR GFR 0.73 MG/DL (0.70-1.30); GLOMERULAR FILTRATION RATE > 60.0 (>60); GLUCOSE, FASTING 94 MG/DL (70-100); POTASSIUM SERUM 4.3 MEQ/L (3.5-5.1); SODIUM LEVEL 147 MEQ/L (136-145); TOTAL PROTEIN 5.7 GM/DL (6.4-8.2)
[2020-12-31 08:00] VITALS: BP 127/80
--- NOTE | 2020-12-31 08:48 | IPNPDOC ---
Subjective Date Seen The patient was seen on 12/31/20. Subjective Chief Complaint/HPI Patient was examined at bedside. He told me that he took 1 pill of unknown dose of Xanax prior to ER arrival. He denies fever, chills, chest pain, dyspnea, palpitation, nausea, vomiting, abdominal pain, constipation, numbness, tingling, loss of sensation, or pain anywhere in his body. He reported in the past 2-3 days he has diarrhea. He is unsure how many episodes of diarrhea per day. He denies hematuria or blood in stool He denied current suicidal ideation or homicidal ideation. Denies recent life changes. He told me he is homeless now. General: Denies: Chills Constitutional: Denies: Chills, Fever Pulmonary: Denies: Dyspnea Cardiovascular: Denies: Chest Pain, Palpitations Gastrointestinal: Reports: Diarrhea; Denies: Nausea, Vomiting, Abdominal Pain, Constipation, Hematochezia Genitourinary: Denies: Dysuria, Hematuria Neurological: Reports: Other Symptoms (Denies tingling or loss of sensation); Denies: Numbness Psych: Denies: Thoughts of Self Harm, Thoughts of Harming Other Objective Physical Examination General Exam: Positive: Alert; Negative: No Acute Distress Eye Exam: Negative: Conjunctiva & lids normal, Sclera icteric ENT Exam: Positive: Atraumatic, Mucous membr. moist/pink Neck Exam: Positive: Supple Chest Exam: Positive: Clear to auscultation, Normal air movement; Negative: Rales, Rhonchi, Wheezing, Diminished Heart Exam: Positive: Rate Normal, Regular Rhythm, Normal S1, Normal S2; Negative: Murmurs Abdomen Exam: Positive: Normal bowel sounds, Soft; Negative: Tenderness Extremity Exam: Positive: Other (No tenderness in bilateral lower extremities); Negative: Cyanosis, Edema, Tenderness Skin Exam: Positive: Nl turgor and temperature; Negative: Rash, Lesion Neuro Exam: Positive: Normal Speech, Normal Tone Psych Exam: Positive: Mental status NL, Mood NL, Oriented x 3; Negative: Anxiety Assessment /Plan Assessment Patient is a 30 year old male who presented to [facility] ER due to reported suicidal attempt with drug overdose. He said he took 1 pill of Xanax on top of his home Suboxone. He was found to have rhabdomyolysis with creatinine kinase of 9919. He was given 2 L of NS bolus and was continued with NS hydration, and his creatinine kinase has improved without LEONARD. #Drug overdose, suicidal attempt -Continue Telemetry. Suicidal precaution with one-to-one sitter. Psychology consult placed with Dr. Ng, and patient will need to be at [facility] when ba bed is available at [facility] Continue regular diet #Rhabdomyolysis, improved S/p 2 IV NS boluses, continue NS at rate of 250ml/hr -No LEONARD shown on lab results. Patient denies pain anywhere in the body. Creatinine kinase at 5716, improved from 9919 #Transaminitis, improved Likely secondary to drug overdose -Hepatitis panel negative. Liver US report pending Continue to monitor CMP #Diarrhea likely secondary to stress vs gastroenteritis -Leukocytosis resolved. Patient denies abdominal pain or blood in stool -He reported 2-3 days of diarrhea without blood in stool. Start probiotics. If diarrhea continues will order stool culture/GI panel #Suboxone use -Patient is on Suboxone at home -Resume Suboxone to prevent withdrawal symptoms #Possible history of hypertension Per hospital discharge summary in 2019, patient was supposed to follow-up on hypertension. Patient reports that he did not follow-up -Blood pressure. Continue to monitor vitals as patient is normotensive at this time DVT prophylaxis: Lovenox, SCD, and TEDS DISPOSITION: Stable. Psychologist consulted for suicidal attempt and [facility] admission. Transfer to Med/Surge floor Plan/VTE VTE Prophylaxis Ordered?: Yes VS, I&O, 24H, Fishbone Vital Signs/I&O Vital Signs Date Time Temp Pulse Resp B/P (MAP) Pulse Ox O2 Delivery O2 Flow Rate FiO2 12/31/20 04:00 97.6 84 18 128/85 (99) 98 Room Air I&O- Last 24 Hours up to 6 AM 12/31/20 06:00 Intake Total 3480 ml Balance 3480 ml Laboratory Data 24H LABS Laboratory Tests 2 12/30/20 16:20: Immature Granulocyte % (Auto) 0.2, Neutrophils (%) (Auto) 91.8H, Lymphocytes (%) (Auto) 4.1L, Monocytes (%) (Auto) 3.8, Eosinophils (%) (Auto) 0.0, Basophils (%) (Auto) 0.1, Neutrophils # (Auto) 12.2H, Lymphocytes # (Auto) 0.6L, Monocytes # (Auto) 0.5, Eosinophils # (Auto) 0.0, Basophils # (Auto) 0.0, Nucleated Red Blood Cells % (auto) 0.0, Anion Gap 8, Glomerular Filtration Rate > 60.0, Osmolality 291, Calcium Level 8.6, Total Bilirubin 0.6, Direct Bilirubin 0.2, Aspartate Amino Transf (AST/SGOT) 169H, Alanine Aminotransferase (ALT/SGPT) 46, Alkaline Phosphatase 57, Total Creatine Kinase 9919H, Total Protein 7.4, Albumin 4.1, Albumin/Globulin Ratio 1.2, Thyroid Stimulating Hormone (TSH) 0.182L, Free Thyroxine 1.38, Salicylates Level < 1.7L, Acetaminophen Level < 2.0L, Ethyl Alcohol Level < 0.003 12/30/20 16:35: Bedside Glucose (Misc Panel) 92 12/30/20 18:08: Coronavirus (COVID-19)(PCR) NEGATIVE, Influenza Type A (RT-PCR) NEGATIVE, Influenza Type B (RT-PCR) NEGATIVE, Respiratory Syncytial Virus (PCR) NEGATIVE 12/31/20 05:43: Immature Granulocyte % (Auto) 0.3, Neutrophils (%) (Auto) 68.5H, Lymphocytes (%) (Auto) 21.4L, Monocytes (%) (Auto) 7.3, Eosinophils (%) (Auto) 2.3, Basophils (%) (Auto) 0.2, Neutrophils # (Auto) 4.2, Lymphocytes # (Auto) 1.3L, Monocytes # (Auto) 0.5, Eosinophils # (Auto) 0.1, Basophils # (Auto) 0.0, Nucleated Red Blood Cells % (auto) 0.0, Anion Gap 8, Glomerular Filtration Rate > 60.0, Calcium Level 8.0L, Total Bilirubin 0.5, Aspartate Amino Transf (AST/SGOT) 108H, Alanine Aminotransferase (ALT/SGPT) 42, Alkaline Phosphatase 47, Total Creatine Kinase 5176H, Total Protein 5.7#L, Albumin 3.0#L, Albumin/Globulin Ratio 1.1, Prothrombin Time 15.3H, Prothromb Time International Ratio 1.17, Activated Partial Thromboplast Time 31.1 CBC/BMP Laboratory Tests 12/30/20 16:20 12/31/20 05:43 GME ATTESTATION GME ATTESTATION My faculty preceptor for this patient encounter was physically present during the encounter and was fully available. All aspects of the patient interview, examination, medical decision making process, and medical care plan development were reviewed and approved by the faculty preceptor. The faculty preceptor is aware and concurs with the plan as stated in the body of this note and will attest to such by his/her cosignature. LYNDON TIM DO Dec 31, 2020 08:48
[2020-12-31] MEDS ORDERED: ENOXAPARIN 40MG/0.4ML SYRINGE (J1650 PER 10MG) SC SCH (09:00)
[2020-12-31 11:47] LABS: BLOOD UREA NITROGEN 8 MG/DL (7-18); CALCIUM LEVEL 7.9 MG/DL (8.5-10.1); CARBON DIOXIDE LEVEL 29 MEQ/L (21-32); CHLORIDE LEVEL 111 MEQ/L (98-107); CREATININE FOR GFR 0.76 MG/DL (0.70-1.30); GLOMERULAR FILTRATION RATE > 60.0 (>60); GLUCOSE, FASTING 105 MG/DL (70-100); POTASSIUM SERUM 3.7 MEQ/L (3.5-5.1); SODIUM LEVEL 144 MEQ/L (136-145)
[2020-12-31 12:00] VITALS: BP 130/81
--- NOTE | 2020-12-31 13:17 | MHCRPDOC ---
[facility] Consultation Consultation DATE OF CONSULTATION: 12/31/20 CONSULTATION REQUESTED BY: Flavia Barrientos DO REASON FOR CONSULTATION: Concern for suicidal attempt via overdose. RELEVANT HISTORY: 30-year-old male who was admitted to the hospital for obtundation following a overdose on Xanax and Suboxone. The primary team was concerned this was a suicide attempt, collateral obtained at the time of admission through the ER was that the patient had been consuming medications and that per his mother had been experiencing increased depression over the past week, the thought was that this was a suicide attempt due to life stressors. Deacon admits that he is going through a rough patch right now, he states that he is technically homeless, that his girlfriend is planning on breaking up with him, and endorses that he felt like he was in a bad spot endorsing increased depression due to the stress he is undergoing right now. He felt that life is overwhelming and an attempt to numb himself returned to his previous use of substances and bought Xanax from a person which she subsequently took. He endorses that he bought 3 bar of Xanax, but is unsure of what the actual dose that he took was. He notes that he has been sober with the exception of his prescribed Suboxone, Klonopin, and cannabis since February 2020. He states that he has been without Klonopin since August when he transferred to a different clinic within the same practice. He believes that his tolerance has dropped and that he unexpectedly took a stronger than normal dose, he also suspects that he may have been consuming alcohol at the time although as is been previously documented his blood alcohol level was <0.0003 on admission. He denies having suicidal ideations, states it is possible that he may have made statements as such while intoxicated, and he has a documented history of having made suicidal statements while intoxicated before. He endorses that he would not and does not have plans to kill himself despite the fact that he does feel more depressed and overly stressed by his current situation. He called his ex-girlfriend who stated that they had been "formerly dating" since August 2020, but that she has known him for over a decade. She confirms that they have been having difficulties in the relationship and that they are likely going to be ending their relationship as well. She stated that although he has been struggling with his drug use and they have their own conflicts that Deacon has actually been doing rather well for himself in the past several months. She denied any knowledge of history of him having suicidal ideations or mental health concerns in the past, states that she does not believe he was suicidal and that this was not a intentional overdose. She endorsed that she would have no concerns about him coming to stay with her again, and that she has been in contact with his mother who would also be a safe place for him to return to. PAST PSYCHIATRIC HISTORY: Polysubstance use (drugs of choice are opioids and benzos), cannabis use disorder, alcohol use disorder; currently receives treatment for substance use through a clinic in [place] PAST MEDICAL HISTORY: History of hernia surgery FAMILY HISTORY: Reports "my father is crazy" but denies knowledge of known psychiatric missions of the family, denies history of suicide attempts in the family, reports substance abuse with multiple substances, primarily alcohol opioids throughout the family PERSONAL AND SOCIAL HISTORY: The patient was born and raised in [place]. Resides in: [place] Marital Status: S Single Children: No children at this time Employment: Not currently employed SUBSTANCE ABUSE HISTORY: Smoking: Denies use of cigarettes or other nicotine-containing products ETOH: States that he currently drinks around 3 glasses of beer in a week Illicit Drugs: Is prescribed Suboxone for opioid replacement, has an active prescription through [facility], reports daily use of marijuana, past use of benzodiazepines (was also prescribed these but prescription stopped was stopped in August 2020, recently bought a few off the street and wanted to numb himself), denies use of stimulants or psychedelic LEGAL HISTORY: History of multiple minor charges secondary to drug use and possession. MENTAL STATUS EXAMINATION: Patient is a 30-year old male, who is dressed in hospital clothes sitting in a bed. Speech is speech was spontaneous, clear, with regular rate, rhythm, and volume. Language skills are intact. Thought processes including: Logical, linear, goal oriented. Thought content: Denies suicidal ideation ideation, denies homicidal ideation, denies AVH; reports that he wants to be able to return home and continue with his regular outpatient substance treatment. Abstract reasoning, and computation: Intact. Description of associations: Intact. Description of abnormal or psychotic thoughts: Denies AVH, no paranoid or delusional thoughts elicited during interview, did not seem internally preoccupied. Judgment: Poor. Insight: Fair. Orientation to x3. Recent and remote memory: Remote memory is intact, recent memory is mildly impaired secondary to intoxication with amnestic drugs. Attention span and concentration: Intact. Fund of knowledge: Appropriate for age and educational level. Mood: "Tired of this". Affect: Irritable, congruent to mood and thought content, stable. DIAGNOSIS: 1. Opioid use disorder, on maintenance therapy 2. Cannabis use disorder 3. Benzodiazepine use disorder PLAN: 1. Deacon is a 30-year-old man with a history of polysubstance use and subsequent difficulties with relationships and behavioral outburst. At present he does not appear to be suicidal and on confirmation with close relationships there are no concerns for his health or safety at this time, they are aware of his drug use and his struggles to maintain sobriety. Deacon endorses that he does not need medication at this time other than his prescribed Suboxone. He do es not want to be admitted to psychiatry for mental health treatment, and currently does not meet involuntary criteria based upon his ability to [place] information, lack of expressed suicidal ideation, and lack of concern for his health from collateral sources. Although this was a severe overdose attempt resulting in obtundation and hospitalization for safety this is not appear to have been done intentionally and is likely reflective of the fact that he has been sober and has a decreased tolerance to previously utilize substances. I would not recommend hospitalization for him at this time, his primary difficulty is substance use and he should be referred to appropriate treatment such as an inpatient rehab facility, or his regular outpatient substance use treatment 2. No medication changes recommended at this time. Not currently appropriate for admission to [facility]. Vital Signs Vital Signs Date Time Temp Pulse Resp B/P (MAP) Pulse Ox O2 Delivery O2 Flow Rate FiO2 12/31/20 08:00 98.4 74 18 127/80 (96) 98 Room Air Laboratory Data 24H Labs Laboratory Tests 2 12/30/20 16:20: Immature Granulocyte % (Auto) 0.2, Neutrophils (%) (Auto) 91.8H, Lymphocytes (%) (Auto) 4.1L, Monocytes (%) (Auto) 3.8, Eosinophils (%) (Auto) 0.0, Basophils (%) (Auto) 0.1, Neutrophils # (Auto) 12.2H, Lymphocytes # (Auto) 0.6L, Monocytes # (Auto) 0.5, Eosinophils # (Auto) 0.0, Basophils # (Auto) 0.0, Nucleated Red Blood Cells % (auto) 0.0, Anion Gap 8, Glomerular Filtration Rate > 60.0, Osmolality 291, Calcium Level 8.6, Total Bilirubin 0.6, Direct Bilirubin 0.2, Aspartate Amino Transf (AST/SGOT) 169H, Alanine Aminotransferase (ALT/SGPT) 46, Alkaline Phosphatase 57, Total Creatine Kinase 9919H, Total Protein 7.4, Albumin 4.1, Albumin/Globulin Ratio 1.2, Thyroid Stimulating Hormone (TSH) 0.182L, Free Thyroxine 1.38, Salicylates Level < 1.7L, Acetaminophen Level < 2.0L, Ethyl Alcohol Level < 0.003 12/30/20 16:35: Bedside Glucose (Misc Panel) 92 12/30/20 18:08: Coronavirus (COVID-19)(PCR) NEGATIVE, Influenza Type A (RT-PCR) NEGATIVE, Influenza Type B (RT-PCR) NEGATIVE, Respiratory Syncytial Virus (PCR) NEGATIVE 12/31/20 05:43: Immature Granulocyte % (Auto) 0.3, Neutrophils (%) (Auto) 68.5H, Lymphocytes (%) (Auto) 21.4L, Monocytes (%) (Auto) 7.3, Eosinophils (%) (Auto) 2.3, Basophils (%) (Auto) 0.2, Neutrophils # (Auto) 4.2, Lymphocytes # (Auto) 1.3L, Monocytes # (Auto) 0.5, Eosinophils # (Auto) 0.1, Basophils # (Auto) 0.0, Nucleated Red Blood Cells % (auto) 0.0, Anion Gap 8, Glomerular Filtration Rate > 60.0, Calcium Level 8.0L, Total Bilirubin 0.5, Aspartate Amino Transf (AST/SGOT) 108H, Alanine Aminotransferase (ALT/SGPT) 42, Alkaline Phosphatase 47, Total Creatine Kinase 5176H, Total Protein 5.7#L, Albumin 3.0#L, Albumin/Globulin Ratio 1.1, Prothrombin Time 15.3H, Prothromb Time International Ratio 1.17, Activated Partial Thromboplast Time 31.1 12/31/20 10:59: Anion Gap 4L, Glomerular Filtration Rate > 60.0, Calcium Level 7.9L Home Medications Current Medications Current Medications Medications (Trade) Dose Ordered Sig/Ruba Route PRN Reason Start Time Stop Time Status Last Admin Dose Admin Buprenorphine/ Naloxone (Suboxone 8/2mg) 1 tab BID SL 12/31/20 21:00 Enoxaparin Sodium (Lovenox) 40 mg DAILY SC 12/31/20 09:00 Home Med (Home Med List Complete!) ASDIRECTED XX 12/30/20 19:25 12/30/20 19:27 DC Sodium Chloride 1,000 ml @ 250 mls/hr Q4H IV 12/30/20 20:10 12/31/20 10:19 Scheduled Buprenorphine HCl/Naloxone HCl (Suboxone 8 mg-2 mg Sl Film) 1 Each Film, 1 STRIP SL BID, (Reported) Allergies Coded Allergies: No Known Allergies (Verified Allergy, Unknown, 01/17/19) GAVIN CEDEÑO MD Dec 31, 2020 13:17
--- NOTE | 2020-12-31 15:25 | DS.PDOC ---
Discharge Summary General Date of Admission Dec 30, 2020 at 19:24 Date of Discharge 12/31/2020 Attending Physician: CARMEL CORRALES MD Discharge Summary PROCEDURES PERFORMED DURING STAY: [None]. ADMITTING DIAGNOSES: 1. Drug overdose, suicidal attempt 2. Rhabdomyolysis 3. Transaminitis 4. Leukocytosis 5. Possible history of hypertension DISCHARGE DIAGNOSES: 1. Encephalopathy 2/2 substance ingestion 2. Rhabdomyolysis, improved 3. Transaminitis, improved 4. Leukocytosis, resolved 5. Opioid use disorder, on maintenance therapy 6. Cannabis use disorder 7. Benzodiazepine use disorder COMPLICATIONS/CHIEF COMPLAINT: Substance ingestion HISTORY OF PRESENT ILLNESS: Patient is a 30 year old male who presented to [facility] ER due to reported suicidal attempt with drug overdose. He reported that he took 1 pill of Xanax on top of his home Suboxone. He reported that he recently broke up with his girlfriend and was drinking. He denied chest pain, palpitations, dyspnea, , headache, blurry vision, nausea, vomiting, diarrhea, constipation, dysuria, hematuria, hematochezia or melena upon admission. HOSPITAL COURSE: Patient's EKG showed sinus tachycardia with right ventricular conduction delay and a QTC of 452. He was found to have rhabdomyolysis with creatinine kinase of 9919. He was given 2 L of NS bolus and was continued with NS hydration, and his creatinine kinase has improved without acute kidney injury. Patient was placed on one to one sitter due to substance ingestion and questionable suicidal attempt. Patient is evaluated by psychiatrist on 12/31/2020 and was decided that patient does not meet involuntary criteria and is not appropriate for inpatient mental health unit admission. On 12/31/2020, patient denied fever, chills, chest pain, dyspnea, palpitation, nausea, vomiting, abdominal pain, constipation, numbness, tingling, loss of sensation, pain anywhere in his body, hematuria, or blood in stool DISCHARGE MEDICATIONS: Please see below. ALLERGIES: Please see below. PHYSICAL EXAMINATION ON DISCHARGE: VITAL SIGNS: Please see below. GENERAL:Alert and awake, no Acute Distress HEENT:Head normocephalic, atraumatic. Conjunctiva and lids normal. No sclera icterus. Mucous membrane moist and pink NECK: Supple CARDIOVASCULAR EXAMINATION: Regular rate and rhythm, no murmur RESPIRATORY EXAMINATION: Lung clear to auscultation bilaterally, normal air movement. No rales, rhonchi, wheezing, or diminished lung sounds ABDOMINAL EXAMINATION: Soft, bowel sound auscultated in all 4 quadrants. No tenderness upon palpation EXTREMITIES: No tenderness in bilateral lower extremities. No cyanosis or edema in bilateral lower extremities SKIN: Normal skin turgor and temperature NEUROLOGICAL EXAMINATION: Normal speech, Normal tone. Able to carry normal con versation PSYCHIATRIC EXAMINATION: Mood and affect stable LABORATORY DATA: Please see below. IMAGING: Liver ultrasound 12/31/2020 report pending PROGNOSIS: [Fair] ACTIVITY: [As tolerated]. DIET: Regular diet with adequate fluid hydration DISCHARGE PLAN AND INSTRUCTIONS: 1. Please follow up with your PCP and behavioral health provider in 5 days. 2. Please be compliant with treatment plan 3. Please return to hospital if symptoms worsen or if you have any suicidal or homicidal ideations ITEMS TO FOLLOWUP ON ON OUTPATIENT: 1. Rhabdomyolysis 2. Hepatitis panel 3. Liver ultrasound report 4. Transaminitis DISCHARGE CONDITION: [Stable]. TIME SPENT ON DISCHARGE: [38] minutes. Vital Signs/I&Os Vital Signs Date Time Temp Pulse Resp B/P (MAP) Pulse Ox O2 Delivery O2 Flow Rate FiO2 12/31/20 12:00 97.9 68 18 130/81 (97) 98 Room Air I&O- Last 24 Hours up to 6 AM 12/31/20 05:59 Intake Total 3480 ml Balance 3480 ml Laboratory Data Labs 24H Laboratory Tests 2 12/30/20 16:20: Immature Granulocyte % (Auto) 0.2, Neutrophils (%) (Auto) 91.8H, Lymphocytes (%) (Auto) 4.1L, Monocytes (%) (Auto) 3.8, Eosinophils (%) (Auto) 0.0, Basophils (%) (Auto) 0.1, Neutrophils # (Auto) 12.2H, Lymphocytes # (Auto) 0.6L, Monocytes # (Auto) 0.5, Eosinophils # (Auto) 0.0, Basophils # (Auto) 0.0, Nucleated Red Blood Cells % (auto) 0.0, Anion Gap 8, Glomerular Filtration Rate > 60.0, Osmolality 291, Calcium Level 8.6, Total Bilirubin 0.6, Direct Bilirubin 0.2, Aspartate Amino Transf (AST/SGOT) 169H, Alanine Aminotransferase (ALT/SGPT) 46, Alkaline Phosphatase 57, Total Creatine Kinase 9919H, Total Protein 7.4, Albumin 4.1, Albumin/Globulin Ratio 1.2, Thyroid Stimulating Hormone (TSH) 0.182L, Free Thyroxine 1.38, Salicylates Level < 1.7L, Acetaminophen Level < 2.0L, Ethyl Alcohol Level < 0.003 12/30/20 16:35: Bedside Glucose (Misc Panel) 92 12/30/20 18:08: Coronavirus (COVID-19)(PCR) NEGATIVE, Influenza Type A (RT-PCR) NEGATIVE, Influenza Type B (RT-PCR) NEGATIVE, Respiratory Syncytial Virus (PCR) NEGATIVE 12/31/20 05:43: Immature Granulocyte % (Auto) 0.3, Neutrophils (%) (Auto) 68.5H, Lymphocytes (%) (Auto) 21.4L, Monocytes (%) (Auto) 7.3, Eosinophils (%) (Auto) 2.3, Basophils (%) (Auto) 0.2, Neutrophils # (Auto) 4.2, Lymphocytes # (Auto) 1.3L, Monocytes # (Auto) 0.5, Eosinophils # (Auto) 0.1, Basophils # (Auto) 0.0, Nucleated Red Blood Cells % (auto) 0.0, Anion Gap 8, Glomerular Filtration Rate > 60.0, Calcium Level 8.0L, Total Bilirubin 0.5, Aspartate Amino Transf (AST/SGOT) 108H, Alanine Aminotransferase (ALT/SGPT) 42, Alkaline Phosphatase 47, Total Creatine Kinase 5176H, Total Protein 5.7#L, Albumin 3.0#L, Albumin/Globulin Ratio 1.1, Prothrombin Time 15.3H, Prothromb Time International Ratio 1.17, Activated Partial Thromboplast Time 31.1 12/31/20 10:59: Anion Gap 4L, Glomerular Filtration Rate > 60.0, Calcium Level 7.9L CBC/BMP Laboratory Tests 12/30/20 16:20 12/31/20 05:43 12/31/20 10:59 FSBS Laboratory Tests Test 12/30/20 16:35 Range/Units Bedside Glucose (Misc Panel) 92 70-105 MG/DL Discharge Medications Scheduled Buprenorphine HCl/Naloxone HCl (Suboxone 8 mg-2 mg Sl Film) 1 Each Film, 1 STRIP SL BID, (Reported) Allergies Coded Allergies: No Known Allergies (Verified Allergy, Unknown, 01/17/19) E ATTESTATION My faculty preceptor for this patient encounter was physically present during the encounter and was fully available. All aspects of the patient interview, examination, medical decision making process, and medical care plan development were reviewed and approved by the faculty preceptor. The faculty preceptor is aware and concurs with the plan as stated in the body of this note and will attest to such by his/her cosignature. ATTENDING NOTE I personally examiend Mr. Waters and discussed his hospital course, mental status and overdose circumstances with the resident physician and psychiatrist who was confident after discussion with the patient that he had an accidental overdose and NOT a suicide attempt and was not suicidal. After hydration for his rhabdomyolysis and resolution of encephalopathy, he is now being discharged home. I agree with the above noted course, assessment and plan. LYNDON TIM DO Dec 31, 2020 15:25 CARMEL CORRALES MD Jan 01, 2021 07:59
--- NOTE | 2020-12-31 19:47 | REP ---
INDICATION: transminitis / polysubstance abuse COMPARISON: None. TECHNIQUE: Real time anderson scale ultrasound examination using curved array transducer. FINDINGS: Liver and pancreas are normal in contour, size, and echogenicity without focal hepatic or pancreatic lesions identified. The gallbladder is normal and without gallstones, wall thickening, or pericholecystic fluid. No biliary ductal dilatation is appreciated and the common bile duct measures 3.0 mm diameter. Right kidney is normal in reniform shape without hydronephrosis and measures 9.5 x 4.9 x 4.1 cm. No ascites in the visualized right upper quadrant. IMPRESSION: Normal limited right upper quadrant ultrasound <Electronically signed by Baudilio Maldonado > 12/31/201943
[2020-12-31] MEDS ORDERED: BUPRENORPHINE/NALOXONE 8-2MG SUBLINGUAL TABLET(SUBOXONE) SL SCH (21:00)
[2021-01-01 09:35] LABS: HEPATITIS B CORE ANTIBODY IGM NEGATIVE (NEGATIVE); HEPATITIS B SURFACE ANTIGEN NEGATIVE (NEGATIVE); HEPATITIS C VIRUS ABY INDEX 0.1 INDEX (<0.8)
== END 2020-12-31 18:30 | disposition home or self-care (01) | DRG 812 ==
LOC: M ED 15:44 → M ED INP 19:24 → ENRESERV 23:21 → M PCU 12-31 00:52
PROVIDERS: ADMIT Internal Medicine; ATTEND Internal Medicine
DX: T42.4X2A Poisoning by benzodiazepines, intentional self-harm, initial encounter (principal); T50.912A Poisoning by multiple unspecified drugs, medicaments and biological substances, intentional self-harm, initial encounter; T14.91XA Suicide attempt, initial encounter; F90.9 Attention-deficit hyperactivity disorder, unspecified type; F32.A Depression, unspecified; M62.82 Rhabdomyolysis; R74.01 Elevation of levels of liver transaminase levels; D72.829 Elevated white blood cell count, unspecified; Z79.899 Other long term (current) drug therapy; Z20.822 Contact with and (suspected) exposure to COVID-19; Z60.3 Acculturation difficulty; F11.11 Opioid abuse, in remission; F12.10 Cannabis abuse, uncomplicated; F10.10 Alcohol abuse, uncomplicated; F13.10 Sedative, hypnotic or anxiolytic abuse, uncomplicated

== ENCOUNTER → 2021-03-10 | Outpatient (CLI) | payer MEDICAID, OTHER ==
[~2021-03-10] MED LIST: SUBO8MIS SL
== END ==
LOC: M OUTALCOH 09:34
PROVIDERS: ATTEND Psychiatry & Neurology Psychiatry
DX: Z03.89 Encounter for observation for other suspected diseases and conditions ruled out (principal)

== ENCOUNTER 2021-04-29 09:00 | Outpatient (RCR) | payer OTHER | END 2021-05-06 | LOC: M OUTALCOH 09:00 | PROVIDERS: ATTEND Psychiatry & Neurology Psychiatry | DX: F12.20 Cannabis dependence, uncomplicated (principal); F10.10 Alcohol abuse, uncomplicated; F11.20 Opioid dependence, uncomplicated ==

== ENCOUNTER 2021-06-04 10:30 | Outpatient (RCR) | payer OTHER | END 2021-06-05 | LOC: M OUTALCOH 10:30 | PROVIDERS: ATTEND Psychiatry & Neurology Psychiatry | DX: F12.20 Cannabis dependence, uncomplicated (principal); F10.10 Alcohol abuse, uncomplicated; F11.21 Opioid dependence, in remission; F13.21 Sedative, hypnotic or anxiolytic dependence, in remission ==

== ENCOUNTER 2021-06-28 14:00 | Outpatient (RCR) | payer OTHER | END 2021-07-06 | LOC: M OUTALCOH 14:00 | PROVIDERS: ATTEND Psychiatry & Neurology Psychiatry | DX: F12.20 Cannabis dependence, uncomplicated (principal); F10.10 Alcohol abuse, uncomplicated; F11.21 Opioid dependence, in remission; F13.21 Sedative, hypnotic or anxiolytic dependence, in remission ==

== ENCOUNTER 2021-08-02 14:00 | Outpatient (RCR) | payer MEDICAID | END 2021-08-05 | LOC: M OUTALCOH 14:00 | PROVIDERS: ATTEND Psychiatry & Neurology Psychiatry | DX: F12.20 Cannabis dependence, uncomplicated (principal); F10.10 Alcohol abuse, uncomplicated; F11.21 Opioid dependence, in remission; F13.21 Sedative, hypnotic or anxiolytic dependence, in remission ==

== ENCOUNTER 2021-08-30 14:00 | Outpatient (RCR) | payer MEDICAID | END 2021-09-05 | LOC: M OUTALCOH 14:00 | PROVIDERS: ATTEND Psychiatry & Neurology Psychiatry | DX: F12.20 Cannabis dependence, uncomplicated (principal); F10.10 Alcohol abuse, uncomplicated; F11.21 Opioid dependence, in remission; F13.21 Sedative, hypnotic or anxiolytic dependence, in remission ==

== ENCOUNTER 2021-09-21 21:21 | Emergency (ER) | payer MEDICAID ==
[~2021-09-21] VITALS: Ht 170.2 cm; Wt 72.7 kg
[2021-09-21 21:22] VITALS: BP 148/81
== END 2021-09-22 01:01 | disposition left against medical advice (07) ==
LOC: M ED 21:21
DX: Z53.29 Procedure and treatment not carried out because of patient's decision for other reasons (principal)

== ENCOUNTER → 2021-10-06 | Outpatient (RCR) | payer MEDICAID | LOC: M OUTALCOH 09-10 11:01 | PROVIDERS: ATTEND Psychiatry & Neurology Psychiatry | DX: F12.20 Cannabis dependence, uncomplicated (principal); F10.10 Alcohol abuse, uncomplicated; F11.21 Opioid dependence, in remission; F13.21 Sedative, hypnotic or anxiolytic dependence, in remission ==

== ENCOUNTER 2021-11-04 15:54 | Outpatient (RCR) | payer MEDICAID | END 2021-11-05 | LOC: M OUTALCOH 15:54 | PROVIDERS: ATTEND Psychiatry & Neurology Psychiatry | DX: F12.20 Cannabis dependence, uncomplicated (principal); F10.10 Alcohol abuse, uncomplicated; F11.21 Opioid dependence, in remission; F13.21 Sedative, hypnotic or anxiolytic dependence, in remission ==

== ENCOUNTER → 2021-12-06 | Outpatient (RCR) | payer MEDICAID | LOC: M OUTALCOH 11-08 15:54 | PROVIDERS: ATTEND Psychiatry & Neurology Psychiatry | DX: F12.20 Cannabis dependence, uncomplicated (principal); F10.10 Alcohol abuse, uncomplicated; F11.21 Opioid dependence, in remission; F13.21 Sedative, hypnotic or anxiolytic dependence, in remission ==

== ENCOUNTER 2022-01-03 16:00 | Outpatient (RCR) | payer MEDICAID | END 2022-01-05 | LOC: M OUTALCOH 16:00 | PROVIDERS: ATTEND Psychiatry & Neurology Psychiatry | DX: F12.20 Cannabis dependence, uncomplicated (principal); F10.10 Alcohol abuse, uncomplicated; F11.21 Opioid dependence, in remission; F13.21 Sedative, hypnotic or anxiolytic dependence, in remission ==

== ENCOUNTER 2022-02-03 12:55 | Outpatient (RCR) | payer MEDICAID | END 2022-02-05 | LOC: M OUTALCOH 12:55 | PROVIDERS: ATTEND Psychiatry & Neurology Psychiatry | DX: F12.20 Cannabis dependence, uncomplicated (principal); F10.10 Alcohol abuse, uncomplicated; F11.21 Opioid dependence, in remission; F13.21 Sedative, hypnotic or anxiolytic dependence, in remission ==

== ENCOUNTER 2022-03-03 12:54 | Outpatient (RCR) | payer MEDICAID | END 2022-03-08 | LOC: M OUTALCOH 12:54 | PROVIDERS: ATTEND Psychiatry & Neurology Psychiatry | DX: F12.20 Cannabis dependence, uncomplicated (principal); F10.10 Alcohol abuse, uncomplicated; F11.21 Opioid dependence, in remission; F13.21 Sedative, hypnotic or anxiolytic dependence, in remission ==

== ENCOUNTER 2022-03-31 08:00 | Outpatient (RCR) | payer MEDICAID | END 2022-04-05 | LOC: M OUTALCOH 08:00 | PROVIDERS: ATTEND Internal Medicine | DX: F12.20 Cannabis dependence, uncomplicated (principal); F10.10 Alcohol abuse, uncomplicated; F11.21 Opioid dependence, in remission; F13.21 Sedative, hypnotic or anxiolytic dependence, in remission ==

== ENCOUNTER 2022-05-05 10:55 | Outpatient (RCR) | payer MEDICAID | END 2022-05-06 | LOC: M OUTALCOH 10:55 | PROVIDERS: ATTEND Psychiatry & Neurology Psychiatry | DX: F12.20 Cannabis dependence, uncomplicated (principal); F10.10 Alcohol abuse, uncomplicated; F11.21 Opioid dependence, in remission; F13.21 Sedative, hypnotic or anxiolytic dependence, in remission ==

== ENCOUNTER 2022-05-17 09:59 | Outpatient (RCR) | payer MEDICAID | END 2022-06-05 | LOC: M OUTALCOH 09:59 | PROVIDERS: ATTEND Psychiatry & Neurology Psychiatry | DX: F12.20 Cannabis dependence, uncomplicated (principal); F10.10 Alcohol abuse, uncomplicated; F11.21 Opioid dependence, in remission; F13.21 Sedative, hypnotic or anxiolytic dependence, in remission ==

== ENCOUNTER 2022-08-11 08:04 | Outpatient (RCR) | payer MEDICAID | END 2022-09-05 | LOC: M OUTALCOH 08:04 | PROVIDERS: ATTEND Psychiatry & Neurology Psychiatry | DX: F12.20 Cannabis dependence, uncomplicated (principal); F10.10 Alcohol abuse, uncomplicated; F11.21 Opioid dependence, in remission; F13.21 Sedative, hypnotic or anxiolytic dependence, in remission ==

== ENCOUNTER 2022-10-03 10:28 | Outpatient (RCR) | payer MEDICAID | END 2022-10-06 | LOC: M OUTALCOH 10:28 | PROVIDERS: ATTEND Psychiatry & Neurology Psychiatry | DX: F12.20 Cannabis dependence, uncomplicated (principal); F10.10 Alcohol abuse, uncomplicated; F11.21 Opioid dependence, in remission; F13.21 Sedative, hypnotic or anxiolytic dependence, in remission ==

== ENCOUNTER 2023-04-29 21:58 | Emergency (ER) | payer MEDICAID, OTHER ==
[~2023-04-29] VITALS: Ht 170.2 cm; Wt 71.0 kg
[2023-04-29 21:59] VITALS: TEMP 98.8
[2023-04-29] MEDS: LIDOCAINE 1% MDV 20ML VIAL SC ONE (23:12)
[2023-04-29 23:16] VITALS: BP 126/74; O2SAT 98
[2023-04-29] MEDS: DOXYCYCLINE HYCLATE 100MG TABLET PO ONE (23:46)
[2023-04-30] MEDS ORDERED: DOXY-443 PO
[2023-04-30] MEDS: BOOSTRIX VACCINE (TETANUS/DIPHTH/ACEL. PERTUSSIS) 0.5ML SYR IM ONE (00:08)
== END 2023-04-30 00:11 | disposition home or self-care (01) ==
LOC: M ED 21:58
DX: S61.411A Laceration without foreign body of right hand, initial encounter (principal); W25.XXXA Contact with sharp glass, initial encounter; F19.10 Other psychoactive substance abuse, uncomplicated; Y92.009 Unspecified place in unspecified non-institutional (private) residence as the place of occurrence of the external cause; Y93.89 Activity, other specified; Y99.9 Unspecified external cause status; Z79.891 Long term (current) use of opiate analgesic; Z79.899 Other long term (current) drug therapy

== ENCOUNTER 2023-12-29 00:42 | Emergency (ER) | payer OTHER ==
[~2023-12-29] VITALS: Ht 172.7 cm; Wt 75.5 kg
[~2023-12-29 00:42] MED LIST changes: +DOXY-441 PO
[2023-12-29 00:51] VITALS: BP 130/84; TEMP 99
[2023-12-29] MEDS ORDERED: ISOVUE-370 76% 100ML VIAL As Ordered ONE (01:15)
[2023-12-29 01:42] VITALS: O2SAT 98
[2023-12-29 01:53] LABS: VENOUS BASE EXCESS 0.3 (-2.0-2.0); VENOUS HCO3 26.4 MMOL/L (23.0-27.0); VENOUS PARTIAL PRESSURE CO2 47.5 mmHg (38.0-50.0); VENOUS PARTIAL PRESSURE O2 38.3 mmHg (30.0-50.0); VENOUS PH 7.362 UNITS (7.330-7.430); VENOUS STANDARD HCO3 24.2 MMOL/L; VENOUS TOTAL CO2 27.8 MMOL/L (24.0-28.0)
[2023-12-29 02:11] LABS: BASO % 0.4 % (0.0-1.0); EOS # 0.8 10^3/uL (0.0-0.5); HEMATOCRIT 42.7 % (42.0-52.0); HEMOGLOBIN 15.1 g/dl (13.5-17.5); LYMPH # 1.6 10^3/uL (1.5-5.0); LYMPH % 23.2 % (24.0-44.0); MEAN CORPUSCULAR HEMOGLOBIN 29.8 pg (27.0-33.0); MEAN CORPUSCULAR HGB CONC 35.4 g/dl (32.0-36.5); MEAN CORPUSCULAR VOLUME 84.4 fl (80.0-96.0); MONO # 0.4 10^3/uL (0.0-0.8); MONO % 6.4 % (2.0-8.0); NEUTROPHILS # 4.1 10^3/uL (1.5-8.5); NEUTROPHILS % 58.9 % (36.0-66.0); PLATELET COUNT, AUTOMATED 274 10^3/uL (150-450); RED BLOOD COUNT 5.06 10^6/uL (4.30-6.10); WHITE BLOOD COUNT 6.9 10^3/uL (4.0-10.0)
[2023-12-29 02:21] LABS: LIPASE 26 U/L (12-53)
[2023-12-29 02:22] LABS: ETHYL ALCOHOL (ETHANOL) 0.042 % (0.000-0.010)
[2023-12-29 02:23] LABS: ALKALINE PHOSPHATASE 59 U/L (40-129); ALT/SGPT 12 U/L (7.0-40); AMYLASE 49 U/L (30-118); AST/SGOT 11 U/L (<34); BILIRUBIN,DIRECT 0.2 MG/DL (<0.4); BILIRUBIN,TOTAL 0.7 MG/DL (0.3-1.2); BLOOD UREA NITROGEN 12 MG/DL (9-23); CALCIUM LEVEL 9.1 MG/DL (8.5-10.1); CARBON DIOXIDE LEVEL 28 MMOL/L (20-31); CHLORIDE LEVEL 105 MMOL/L (98-107); CREATININE FOR GFR 0.96 MG/DL (0.70-1.30); GLOMERULAR FILTRATION RATE > 60.0 (>60); GLUCOSE, FASTING 77 MG/DL (60-100); INR 1.15; PARTIAL THROMBOPLASTIN TIME 28.1 SECONDS (24.8-34.2); POTASSIUM SERUM 3.5 MMOL/L (3.5-5.1); SODIUM LEVEL 141 MMOL/L (136-145); TOTAL PROTEIN 7.4 G/DL (5.7-8.2)
== END 2023-12-29 02:25 | disposition left against medical advice (07) ==
LOC: M ED 00:42
DX: S60.221A Contusion of right hand, initial encounter (principal); S13.4XXA Sprain of ligaments of cervical spine, initial encounter; V89.2XXA Person injured in unspecified motor-vehicle accident, traffic, initial encounter; Y92.9 Unspecified place or not applicable; Y93.9 Activity, unspecified; Y99.9 Unspecified external cause status; Z53.9 Procedure and treatment not carried out, unspecified reason; F10.10 Alcohol abuse, uncomplicated; J30.81 Allergic rhinitis due to animal (cat) (dog) hair and dander; Z79.899 Other long term (current) drug therapy
CPT/HCPCS: 70450; 71260; 72125; 73090; 73130; 74177; 80047; 80048; 80076; 82077; 82150; 82803; 83605; 83690; 85025; 85610; 85730; 86850; 86900; 86901; 93005; 93041; 94760; 99285; Q9967

== ENCOUNTER 2023-12-31 10:43 | Emergency (ER) | payer OTHER ==
[~2023-12-31] VITALS: Ht 172.7 cm; Wt 73.8 kg
[2023-12-31 10:47] VITALS: BP 142/88; TEMP 98.2; O2SAT 98
== END 2023-12-31 12:20 | disposition left against medical advice (07) ==
LOC: M ED 10:43
DX: F32.A Depression, unspecified (principal); Z53.9 Procedure and treatment not carried out, unspecified reason; F19.10 Other psychoactive substance abuse, uncomplicated; F90.9 Attention-deficit hyperactivity disorder, unspecified type; J30.81 Allergic rhinitis due to animal (cat) (dog) hair and dander